=== PATIENT | female | born 1945 | race Caucasian/White ===

== ENCOUNTER 2018-02-21 12:10 | Inpatient (IN) ==
[2018-02-21] MEDS ORDERED: LACTATED RINGERS 1,000 ML IV ONE (12:21)
--- NOTE | 2018-02-21 12:22 | Emergency Department Note ---
General Adult HPI - General Chief complaint: Altered Mental Status Stated complaint: resp distress, confusion Time Seen by Provider: 02/21/18 12:19 Source: EMS Mode of arrival: EMS Limitations: altered mental status, physical limitation - History of Present Illness HPI Narrative: This patient was diagnosed with influenza a 2 days ago but I do not have a record of that here in the ER. He is a prison perforation at [address] [place] [address] and also a dialysis patient of Dr. Espinal. I saw her 2 weeks ago and she was admitted to [facility] for hyperkalemia. She has had a low O2 saturation 88% range she is been confused coughing bringing up some yellow- green sputum. This is been going on for the last day. - Related Data Home Medications Medication Instructions Recorded Confirmed Calcitriol [Rocaltrol] 0.25 mcg PO DAILY 10/06/17 10/06/17 Isosorbide Dinitrate 20 mg PO DAILY 10/06/17 10/06/17 Mirtazapine [Remeron] 15 mg PO HS 10/06/17 10/06/17 QUEtiapine FUMARATE [Seroquel] 25 mg PO HS 10/06/17 10/06/17 Tamsulosin HCl [Flomax] 0.4 mg PO DAILY 10/06/17 10/06/17 Docusate Sodium [Colace] 100 mg PO DAILY 01/20/18 01/20/18 Amoxicillin 250 mg PO BID 02/21/18 02/21/18 Baclofen [Lioresal] 10 mg PO BID 02/21/18 02/21/18 Bethanechol [Urecholine] 10 mg PO TID 02/21/18 02/21/18 Bisacodyl [Dulcolax] 5 mg PO DAILY 02/21/18 02/21/18 Hydrocodone/APAP 7.5/325Mg [Fitzwilliam 1 tab PO BID 02/21/18 02/21/18 7.5-325Mg] Oseltamivir Phosphate [Tamiflu] 75 mg PO BID 02/21/18 02/21/18 Pantoprazole [Protonix] 40 mg PO HS 02/21/18 02/21/18 QUEtiapine FUMARATE [Seroquel Xr] 50 mg PO BID 02/21/18 02/21/18 Tamsulosin HCl [Flomax] 0.4 mg PO DAILY 02/21/18 02/21/18 Tiotropium [place] [Spiriva] 18 mcg INH DAILY 02/21/18 02/21/18 amLODIPine [Norvasc] 5 mg PO DAILY 02/21/18 02/21/18 fentaNYL [Duragesic] 25 mcg TOPICAL Q72H 02/21/18 02/21/18 hydrALAZINE [Apresoline] 25 mg PO BID 02/21/18 02/21/18 Previous Rx's Medication Instructions Recorded LORazepam [Ativan] 0.5 mg PO BID #15 tab 10/06/17 Allergies Allergy/AdvReac Type Severity Reaction Status Date / Time gabapentin [From Neurontin] Allergy Severe Unknown Verified 02/04/18 16:44 methocarbamol Allergy Severe Unknown Verified 02/04/18 16:44 pentazocine [From Talwin] Allergy Severe Unknown Verified 02/04/18 16:44 pregabalin [From Lyrica] Allergy Mild Unknown Verified 02/04/18 16:44 carbamazepine Allergy Unknown Unknown Verified 02/04/18 16:44 Sulfa (Sulfonamide AdvReac Intermediate Swelling Verified 02/04/18 16:44 Antibiotics) Cyclobenzaprine AdvReac Mild Gastrointestinal Verified 02/04/18 16:44 [From Flexeril] Upset NSAIDS (Non-Steroidal AdvReac Mild Gastrointestinal Verified 02/04/18 16:44 Anti-Inflamma Upset sumatriptan [From Imitrex] AdvReac Mild Gastrointestinal Verified 02/04/18 16:44 Upset Anti-inflammatory Allergy Unknown Unknown Uncoded 05/27/16 15:36 Antidepressants Allergy Unknown Unknown Uncoded 05/27/16 15:36 Flexoril Allergy Unknown Unknown Uncoded 05/27/16 15:36 Review of Systems Limitations: ROS unobtainable due to patients medical condition Past Medical History - Past Medical History [facility] Narrative: Medical History Cough (Chronic) Urinary frequency (Chronic) Painful urination (Chronic) Neck stiffness (Chronic) Neck pain (Chronic) Joint pain (Chronic) Back pain (Chronic) Tired (Chronic) Excessive thirst (Chronic) Fever (Chronic) Headache (Chronic) Renal insufficiency (Chronic) Hydroureter, right (Chronic) Adenomatous colon polyp (Chronic) Encounter for long-term (current) use of other medications (Chronic) Senile cataracts of both eyes (Chronic) terminal superintendent prescription opiate use (Chronic) Irritable bowel syndrome with diarrhea (Chronic) Chronic anemia (Acute) Nausea vomiting and diarrhea (Acute) Acute kidney injury superimposed on chronic kidney disease (Acute) Volume depletion (Acute) Hammer toe of right foot (Acute) Insomnia (Acute) Gastrointestinal hemorrhage (Chronic) Heart failure (Chronic) Irregular heart rhythm (Chronic) Urinary retention (Chronic) CKD (chronic kidney disease) (Chronic) AMIRA (acute kidney injury) (Chronic) Cholelithiasis with chronic cholecystitis (Chronic) Hx of adenomatous colonic polyps (Chronic) Weight loss, abnormal (Chronic) CAD (coronary artery disease) (Chronic) Anxiety disorder (Chronic) Back pain, chronic (Chronic) Osteoporosis (Chronic) Hypercholesterolemia (Chronic) Hypertension, essential (Chronic) Scoliosis (Chronic) Unsteady gait (Chronic) Cataract, senile (Chronic) Hydronephrosis (Chronic) Tremor (Chronic) Urinary incontinence (Chronic) Anemia (Chronic) Cold intolerance (Chronic) Opioid abuse (Chronic) Gastric ulcer (Chronic) Insomnia (Chronic) Irritable bowel syndrome (Chronic) History of abdominal x-ray series (Chronic 05/11/16) Congestive heart failure (Chronic) 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) Acute on chronic renal failure (Chronic) Chronic renal failure, stage 4 (severe) (Chronic) Normocytic anemia (Chronic) Abdominal pain (Chronic) Indigestion (Chronic) Past Surgical History History of back surgery (Chronic) History of cataract surgery (Chronic) History of coronary artery bypass graft (Chronic) History of hysterectomy (Chronic) Family History (Last Reviewed 04/27/17 @ 15:35 by Nora Eng RN) Unknown Heart problem Other Heart attack Hypertension Kidney stone Medical history: Reports: arthritis, coronary artery disease, hyperlipidemia, osteoporosis Psychiatric history: Reports: other (insomnia) REAL PROPERTY EVALUATOR history: Reports: non-contributory Surgical history ED: Reports: coronary bypass (CABG), orthopedic, other, ureteral stent, hysterectomy - Social History smoking status: Current every day smoker Alcohol use: Reports: None Physical Exam Limitations: altered mental status, physical limitation General appearance: lethargic Head: atraumatic, normocephalic Eye: Present: normal appearance ENT: mucous membranes dry Neck: Present: normal inspection Chest: Present: normal inspection Respiratory: Present: other (Scattered rhonchi) Cardiovascular: Present: regular rate, normal rhythm, normal heart sounds Abdominal: Present: soft. Absent: distention, tenderness Neurological: Present: alert Psychiatric: Present: normal affect, normal mood Skin: Present: warm, dry, intact Course Vital Signs Pulse Rate 106 H 02/21/18 12:11 Respiratory Rate 20 02/21/18 12:11 Blood Pressure 152/103 02/21/18 12:11 Pulse Oximetry (%) 100 02/21/18 12:11 Temperature 98.9 F 02/21/18 12:20 Pulse Rate 91 H 02/21/18 15:45 Respiratory Rate 20 02/21/18 15:45 Blood Pressure 110/54 02/21/18 15:45 Pulse Oximetry (%) 98 02/21/18 15:45 Medical Decision Making - MDM Narrative Medical decision making narrative: This patient is reasonably stable from a pulmonary standpoint although her chest x-ray was read as showing some mild fluid overload. O2 saturation is 98% on 3 L and she is calm and comfortable. She does appear to have a urinary tract infection and we will start Rocephin for her. I discussed case with Dr. Germain and she will be admitted to the hospital.. - Lab Data Lab results reviewed: Yes I reviewed the patient's lab results. Result diagrams: 02/21/18 12:45 02/21/18 12:45 Lab Results 02/21/18 02/21/18 02/21/18 Range/Units 12:45 12:45 12:45 WBC 7.8 (4.5-11.0) K/mcL RBC 2.93 L (4.00-5.20) M/mcL Hgb 9.1 L (12.0-15.0) g/dL Hct 27.8 L (36.0-48.0) % MCV 94.8 (80.0-100.0) fL MCH 31.1 (26.0-34.0) pg MCHC 32.8 (31.0-36.0) g/dL RDW 17.7 H (11.5-14.5) % Plt Count 160 (140-440) K/mcL MPV 7.5 (7.4-10.4) fL Gran % 68.7 (38.0-78.0) % Lymph % (Auto) 12.9 L (15.5-49.0) % [place] % (Auto) 11.3 (1.0-12.0) % Eos % (Auto) 6.9 (0.0-7.0) % Baso % (Auto) 0.2 (0.0-2.0) % Gran # 5.4 (1.8-8.0) K/mcL Lymph # (Auto) 1.0 L (1.5-4.8) K/mcL [place] # (Auto) 0.9 (0.1-0.9) K/mcL Eos # (Auto) 0.5 (0.0-0.7) K/mcL Baso # (Auto) 0 (0.0-0.3) K/mcL VBG Lactic Acid 0.9 (0.5-2.2) mmol/L Sodium 137 (133-145) mmol/L Potassium 4.7 (3.3-5.1) mmol/L Chloride 99 (96-108) mmol/L Carbon Dioxide 22 (22-30) mmol/L Anion Gap 16.0 (8-16) BUN 45 H (8-23) mg/dl Creatinine 3.7 H (0.6-1.1) mg/dl GFR Calculation 11 Glucose 86 (70-105) mg/dL Calcium 8.9 (8.6-10.4) mg/dl Total Bilirubin < 0.2 (0.0-1.0) mg/dL AST 28 (0-37) U/l ALT 12 (0-40) U/l Alkaline Phosphatase 58 (39-117) U/L Myoglobin (25-58) ng/ml Troponin T (0-0.03) ng/ml NT-Pro-B Natriuret Pep (0-125) pg/ml Total Protein 6.1 (5.9-8.4) gm/dL Albumin 3.4 (3.2-5.2) gm/dL Globulin 2.7 (2.2-3.7) gm/dL Albumin/Globulin Ratio 1.3 (1.0-2.3) Urine Color Urine Appearance Urine pH (5.0-9.0) Ur Specific [place] (1.000-1.035) Urine Protein (NEG) mg/dL Urine Glucose (UA) (NEG) mg/dL Urine Ketones (NEG) mg/dL Urine Occult Blood (<0.03) mg/dL Urine Nitrate (NEG) Urine Bilirubin (NEG) mg/dL Urine Urobilinogen (NEG) mg/dL Ur Leukocyte Esterase (NEG) /uL Urine RBC (0-1) /hpf Urine WBC (0-4) /hpf Ur Squamous Epith Cells (0-4) /hpf Urine Bacteria (0) /hpf Ur Culture Indicated? 02/21/18 02/21/18 02/21/18 Range/Units 12:45 12:45 14:19 WBC (4.5-11.0) K/mcL RBC (4.00-5.20) M/mcL Hgb (12.0-15.0) g/dL Hct (36.0-48.0) % MCV (80.0-100.0) fL MCH (26.0-34.0) pg MCHC (31.0-36.0) g/dL RDW (11.5-14.5) % Plt Count (140-440) K/mcL MPV (7.4-10.4) fL Gran % (38.0-78.0) % Lymph % (Auto) (15.5-49.0) % [place] % (Auto) (1.0-12.0) % Eos % (Auto) (0.0-7.0) % Baso % (Auto) (0.0-2.0) % Gran # (1.8-8.0) K/mcL Lymph # (Auto) (1.5-4.8) K/mcL [place] # (Auto) (0.1-0.9) K/mcL Eos # (Auto) (0.0-0.7) K/mcL Baso # (Auto) (0.0-0.3) K/mcL VBG Lactic Acid (0.5-2.2) mmol/L Sodium (133-145) mmol/L Potassium (3.3-5.1) mmol/L Chloride (96-108) mmol/L Carbon Dioxide (22-30) mmol/L Anion Gap (8-16) BUN (8-23) mg/dl Creatinine (0.6-1.1) mg/dl GFR Calculation Glucose (70-105) mg/dL Calcium (8.6-10.4) mg/dl Total Bilirubin (0.0-1.0) mg/dL AST (0-37) U/l ALT (0-40) U/l Alkaline Phosphatase (39-117) U/L Myoglobin (25-58) ng/ml Troponin T 0.05 H* 0.06 H* (0-0.03) ng/ml NT-Pro-B Natriuret Pep 2798.0 H (0-125) pg/ml Total Protein (5.9-8.4) gm/dL Albumin (3.2-5.2) gm/dL Globulin (2.2-3.7) gm/dL Albumin/Globulin Ratio (1.0-2.3) Urine Color Urine Appearance Urine pH (5.0-9.0) Ur Specific [place] (1.000-1.035) Urine Protein (NEG) mg/dL Urine Glucose (UA) (NEG) mg/dL Urine Ketones (NEG) mg/dL Urine Occult Blood (<0.03) mg/dL Urine Nitrate (NEG) Urine Bilirubin (NEG) mg/dL Urine Urobilinogen (NEG) mg/dL Ur Leukocyte Esterase (NEG) /uL Urine RBC (0-1) /hpf Urine WBC (0-4) /hpf Ur Squamous Epith Cells (0-4) /hpf Urine Bacteria (0) /hpf Ur Culture Indicated? 02/21/18 02/21/18 Range/Units 14:19 15:10 WBC (4.5-11.0) K/mcL RBC (4.00-5.20) M/mcL Hgb (12.0-15.0) g/dL Hct (36.0-48.0) % MCV (80.0-100.0) fL MCH (26.0-34.0) pg MCHC (31.0-36.0) g/dL RDW (11.5-14.5) % Plt Count (140-440) K/mcL MPV (7.4-10.4) fL Gran % (38.0-78.0) % Lymph % (Auto) (15.5-49.0) % [place] % (Auto) (1.0-12.0) % Eos % (Auto) (0.0-7.0) % Baso % (Auto) (0.0-2.0) % Gran # (1.8-8.0) K/mcL Lymph # (Auto) (1.5-4.8) K/mcL [place] # (Auto) (0.1-0.9) K/mcL Eos # (Auto) (0.0-0.7) K/mcL Baso # (Auto) (0.0-0.3) K/mcL VBG Lactic Acid (0.5-2.2) mmol/L Sodium (133-145) mmol/L Potassium (3.3-5.1) mmol/L Chloride (96-108) mmol/L Carbon Dioxide (22-30) mmol/L Anion Gap (8-16) BUN (8-23) mg/dl Creatinine (0.6-1.1) mg/dl GFR Calculation Glucose (70-105) mg/dL Calcium (8.6-10.4) mg/dl Total Bilirubin (0.0-1.0) mg/dL AST (0-37) U/l ALT (0-40) U/l Alkaline Phosphatase (39-117) U/L Myoglobin 174 H (25-58) ng/ml Troponin T (0-0.03) ng/ml NT-Pro-B Natriuret Pep (0-125) pg/ml Total Protein (5.9-8.4) gm/dL Albumin (3.2-5.2) gm/dL Globulin (2.2-3.7) gm/dL Albumin/Globulin Ratio (1.0-2.3) Urine Color Yellow Urine Appearance Hazy Urine pH 7.0 (5.0-9.0) Ur Specific [place] 1.011 (1.000-1.035) Urine Protein >=500 A (NEG) mg/dL Urine Glucose (UA) Negative (NEG) mg/dL Urine Ketones Neg (NEG) mg/dL Urine Occult Blood Neg (<0.03) mg/dL Urine Nitrate Neg (NEG) Urine Bilirubin Neg (NEG) mg/dL Urine Urobilinogen Neg (NEG) mg/dL Ur Leukocyte Esterase 250 A (NEG) /uL Urine RBC 9 H (0-1) /hpf Urine WBC 142 H (0-4) /hpf Ur Squamous Epith Cells 0 (0-4) /hpf Urine Bacteria 0 (0) /hpf Ur Culture Indicated? Yes - Radiology Data Radiology results reviewed: Yes I reviewed the patient's radiology results. Disposition Pt seen by COMMERCIAL CARPENTER/PA only: No Clinical Impression: Influenza A, Urinary tract infection Disposition: Xfer As Inpt ([facility]) Condition: Fair Referrals: Ana Gallegos ARNP [Primary Care Provider] - Time of Disposition: 16:01
--- NOTE | 2018-02-21 12:47 | XRay Report ---
CLINICAL INFORMATION: Shortness of breath COMPARISON: 01/20/2018 FINDINGS: Moderate cardiomegaly is unchanged. Tortuous thoracic aorta again noted. A right IJ double-lumen catheter is been placed - the tip overlies the right atrium. No pneumothorax or other complication Line placement. Pulmonary vessels are moderately distended and there is mild interstitial edema superimposed upon interstitial fibrosis which has progressed. No definite effusion IMPRESSION: Moderate CHF or volume overload. Interpreted and Authenticated by: Magdy Harris 02/21/18
[2018-02-21 13:18] LABS: Basophils # (Auto) 0 K/mcL (0.0-0.3); Basophils % (Auto) 0.2 % (0.0-2.0); Eosinophils # (Auto) 0.5 K/mcL (0.0-0.7); Eosinophils % (Auto) 6.9 % (0.0-7.0); Granulocytes % (Auto) 68.7 % (38.0-78.0); Lymphocytes % (Auto) 12.9 % (15.5-49.0); Mean Cell Volume 94.8 fL (80.0-100.0); Mean Corpuscular HGB Conc 32.8 g/dL (31.0-36.0); Mean Corpuscular Hemoglobin 31.1 pg (26.0-34.0); Monocytes # (Auto) 0.9 K/mcL (0.1-0.9); Monocytes % (Auto) 11.3 % (1.0-12.0); Platelet Count 160 K/mcL (140-440); RBC 2.93 M/mcL (4.00-5.20); Red Cell Distribution Width 17.7 % (11.5-14.5)
[2018-02-21 13:38] LABS: ALT/SGPT 12 U/l (0-40); Albumin 3.4 gm/dL (3.2-5.2); Albumin/Globulin Ratio 1.3 (1.0-2.3); Alkaline Phosphatase 58 U/L (39-117); Blood Urea Nitrogen 45 mg/dl (8-23)
[2018-02-21] MEDS ORDERED: CIPROFLOXACIN 0.3% OPHTH DROPS BOTTLE 5 ML OU ONE (15:46)
[2018-02-21 15:49] LABS: Appearance,Urine HAZY; Bacteria,Urine 0 /hpf (0); Bilirubin,Urine NEG (NEG); Color,Urine YELLOW; Glucose,Urine (UA) NEGATIVE (NEG); Leukocyte Esterase,Urine 250 /uL (NEG); Protein,Urine >=500 mg/dL (NEG); Specific Gravity,Urine 1.011 (1.000-1.035); Urine Blood NEG mg/dL (<0.03); Urine RBC 9 /hpf (0-1); Urine Squamous Epithelial Cell 0 /hpf (0-4); Urine WBC 142 /hpf (0-4); Urobilinogen,Urine NEG (NEG)
[2018-02-21] MEDS ORDERED: cefTRIAXone 1 GM VIAL IV ONE ×2 (15:59→18:00)
--- NOTE | 2018-02-21 17:25 | Internal Med History&Physical ---
Medical - H&P: [facility] Patient information: Note initiated : 02/21/18 at 5:22 pm Service Date, if different from initiated Date: [] Patient: Alexandra Zapata 72 y/o F admitted on 02/21/18 for resp distress, confusion. Chief Complaint: [] Chief complaint: confusion/fever History of present illness: Ms. Zapata is a 72 year old F with ESRD on hemodialysis and recent hospitalization. Patient was recovering at [facility] and was directed to the ER after she was found confused, weak and febrile by the staff at [facility]. patient was unable to provide any meaningful history to the ER physician. Initial workup was significant for pyuria along with a MAXIMUM TEMPERATURE over 100. Subsequently hospitalist service was consulted in light of acute change in mental status and complicated UTI. Nephrology was also consulted in light of end-stage renal disease on hemodialysis. patient is due for hemodialysis on Thursday. patient also was recently diagnosed with influenza and was on Tamiflu and amoxicillin. At the time of evaluation, patient is unable to provide a history due to her underlying baseline dementia and acute worsening mental status. She was however able to answer leading questions in yes and no. She denies chest pain headache. Her right eye lids have been swollen and red. She denies diarrhea or abdominal pain.No family members are present. Most history is obtained from ER records and [facility] documents. review of systems 10 point review of systems was attempted but could not be performed. Medical - H&P: H Medical history: Acute kidney injury superimposed on chronic kidney disease (Acute) Chronic anemia (Acute) Hammer toe of right foot (Acute) Insomnia (Acute) Nausea vomiting and diarrhea (Acute) Volume depletion (Acute) AMIRA (acute kidney injury) (Chronic) Abdominal pain (Chronic) Acute on chronic renal failure (Chronic) Adenomatous colon polyp (Chronic) Anemia (Chronic) Anxiety disorder (Chronic) Back pain (Chronic) Back pain, chronic (Chronic) CAD (coronary artery disease) (Chronic) CKD (chronic kidney disease) (Chronic) Cataract, senile (Chronic) Cholelithiasis with chronic cholecystitis (Chronic) Chronic renal failure, stage 4 (severe) (Chronic) Cold intolerance (Chronic) Congestive heart failure (Chronic) Cough (Chronic) Encounter for long-term (current) use of other medications (Chronic) Excessive thirst (Chronic) Fever (Chronic) Gastric ulcer (Chronic) Gastrointestinal hemorrhage (Chronic) Headache (Chronic) Heart failure (Chronic) History of abdominal x-ray series (Chronic 05/11/16) Hx of adenomatous colonic polyps (Chronic) Hydronephrosis (Chronic) 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) Hydroureter, right (Chronic) Hypercholesterolemia (Chronic) Hypertension, essential (Chronic) Indigestion (Chronic) Insomnia (Chronic) Irregular heart rhythm (Chronic) Irritable bowel syndrome (Chronic) Irritable bowel syndrome with diarrhea (Chronic) Joint pain (Chronic) penitentiary prescription opiate use (Chronic) Neck pain (Chronic) Neck stiffness (Chronic) Normocytic anemia (Chronic) Opioid abuse (Chronic) Osteoporosis (Chronic) Painful urination (Chronic) Renal insufficiency (Chronic) Scoliosis (Chronic) Senile cataracts of both eyes (Chronic) Tired (Chronic) Tremor (Chronic) Unsteady gait (Chronic) Urinary frequency (Chronic) Urinary incontinence (Chronic) Urinary retention (Chronic) Weight loss, abnormal (Chronic) Surgical History History of back surgery (Chronic) History of cataract surgery (Chronic) History of coronary artery bypass graft (Chronic) History of hysterectomy (Chronic) Pertinent family history: per medical records history of coronary artery disease hypertension and renal stones. Smoking status: Current every day smoker Drug use: none Alcohol use: none Employment history: disabled Medical - H&P: Meds Home Medications Medication Instructions Recorded Confirmed Type Calcitriol [Rocaltrol] 0.25 mcg PO DAILY 10/06/17 10/06/17 History Isosorbide Dinitrate 20 mg PO DAILY 10/06/17 10/06/17 History LORazepam [Ativan] 0.5 mg PO BID #15 tab 10/06/17 Rx Mirtazapine [Remeron] 15 mg PO HS 10/06/17 10/06/17 History QUEtiapine FUMARATE [Seroquel] 25 mg PO HS 10/06/17 10/06/17 History Tamsulosin HCl [Flomax] 0.4 mg PO DAILY 10/06/17 10/06/17 History Docusate Sodium [Colace] 100 mg PO DAILY 01/20/18 01/20/18 History Amoxicillin 250 mg PO BID 02/21/18 02/21/18 History Baclofen [Lioresal] 10 mg PO BID 02/21/18 02/21/18 History Bethanechol [Urecholine] 10 mg PO TID 02/21/18 02/21/18 History Bisacodyl [Dulcolax] 5 mg PO DAILY 02/21/18 02/21/18 History Hydrocodone/APAP 7.5/325Mg [[place]im 1 tab PO BID 02/21/18 02/21/18 History 7.5-325Mg] Oseltamivir Phosphate [Tamiflu] 75 mg PO BID 02/21/18 02/21/18 History Pantoprazole [Protonix] 40 mg PO HS 02/21/18 02/21/18 History QUEtiapine FUMARATE [Seroquel Xr] 50 mg PO BID 02/21/18 02/21/18 History Tamsulosin HCl [Flomax] 0.4 mg PO DAILY 02/21/18 02/21/18 History Tiotropium [place] [Spiriva] 18 mcg INH DAILY 02/21/18 02/21/18 History amLODIPine [Norvasc] 5 mg PO DAILY 02/21/18 02/21/18 History fentaNYL [Duragesic] 25 mcg TOPICAL Q72H 02/21/18 02/21/18 History hydrALAZINE [Apresoline] 25 mg PO BID 02/21/18 02/21/18 History Allergies Allergy/AdvReac Type Severity Reaction Status Date / Time gabapentin [From Neurontin] Allergy Severe Unknown Verified 02/04/18 16:44 methocarbamol Allergy Severe Unknown Verified 02/04/18 16:44 pentazocine [From Talwin] Allergy Severe Unknown Verified 02/04/18 16:44 pregabalin [From Lyrica] Allergy Mild Unknown Verified 02/04/18 16:44 carbamazepine Allergy Unknown Unknown Verified 02/04/18 16:44 Sulfa (Sulfonamide AdvReac Intermediate Swelling Verified 02/04/18 16:44 Antibiotics) Cyclobenzaprine AdvReac Mild Gastrointestinal Verified 02/04/18 16:44 [From Flexeril] Upset NSAIDS (Non-Steroidal AdvReac Mild Gastrointestinal Verified 02/04/18 16:44 Anti-Inflamma Upset sumatriptan [From Imitrex] AdvReac Mild Gastrointestinal Verified 02/04/18 16:44 Upset Anti-inflammatory Allergy Unknown Unknown Uncoded 05/27/16 15:36 Antidepressants Allergy Unknown Unknown Uncoded 05/27/16 15:36 Flexoril Allergy Unknown Unknown Uncoded 05/27/16 15:36 Medical - H&P: Exam - Constitutional Vitals: Temp Pulse Resp BP Pulse Ox 98.9 F 106 H 25 H 171/74 95 02/21/18 12:20 02/21/18 16:45 02/21/18 16:45 02/21/18 16:45 02/21/18 16:45 General appearance: disheveled, thin Exam: confused Pupils symmetric Right upper and lower eyelids erythema/eedema Head normocephalic Neck no lymphadenopathy S1-S2 tachycardia Chest sternotomy incision scar Abdomen soft, epigastric pulsations noted Worsening no cyanosis clubbing No joint swelling or erythema Skin no suspicious lesion except for pallor Psych confused, No agitation Neuro moving all 4 eextremities Medical - H&P: Reslt - Labs CBC & Chem 7: 02/22/18 03:55 02/22/18 03:55 Labs: Short CBC 02/21/18 Range/Units 12:45 WBC 7.8 (4.5-11.0) K/mcL Hgb 9.1 L (12.0-15.0) g/dL Hct 27.8 L (36.0-48.0) % Plt Count 160 (140-440) K/mcL BMP 02/21/18 12:45 Sodium 137 Potassium 4.7 Chloride 99 Carbon Dioxide 22 BUN 45 H Creatinine 3.7 H Glucose 86 Calcium 8.9 Cardiac Enzymes 02/21/18 02/21/18 02/21/18 Range/Units 12:45 14:19 14:19 CK-MB (CK-2) 3.0 H (0-2.9) ng/ml Troponin T 0.05 H* 0.06 H* (0-0.03) ng/ml Liver Function 02/21/18 Range/Units 12:45 Total Bilirubin < 0.2 (0.0-1.0) mg/dL AST 28 (0-37) U/l ALT 12 (0-40) U/l Alkaline Phosphatase 58 (39-117) U/L Albumin 3.4 (3.2-5.2) gm/dL Urine 02/21/18 Range/Units 15:10 Urine Color Yellow Urine Appearance Hazy Urine pH 7.0 (5.0-9.0) Ur Specific [place] 1.011 (1.000-1.035) Urine Protein >=500 A (NEG) mg/dL Urine Glucose (UA) Negative (NEG) mg/dL Medical - H&P: A/P (1) Complicated UTI (urinary tract infection) Current visit: Yes Status: Acute * complicated UTI with acute mental status change-initiate broad antibiotic coverage. Continue monitoring * acute mental status change likely is secondary to complicated UTI/opioids. Lower dose of fentanyl. Hold antihistamine/zolpidem/sedatives. * blepharitis-continue ciprofloxacin eyedrops * recent influenza continue Tamiflu-edges dose renally * History of ESRD on hemodialysis-consult nephrology * hypertension on Coreg/losartan * reactive airway disease on bronchodilators * hypothyroidism on thyroxine * Anxiety disorder on duloxetine * GERD on PPI * Hyperlipidemia statin * History of CAD on aspirin and statin beta mustapha/ÓSCAR inhibitor/iisosorbide dinitrate * DNR Plan * inpatient telemetry admitted * antibiotic coverage * HD per nephrology * Pre-existing medical condition management as above
[2018-02-21] MEDS ORDERED: OSELTAMIVIR PHOSPHATE 75 MG CAPSULE PO ONE (18:15)
[2018-02-21] MEDS: BACLOFEN 10 MG TABLET PO SCH (20:12)
[2018-02-21] MEDS: hydrALAZINE 25 MG TABLET PO SCH (20:12)
[2018-02-21] MEDS: SENNOSIDES/DOCUSATE SODIUM 1 TAB TABLET PO SCH (20:13)
[2018-02-21] MEDS: DOCUSATE SODIUM 100 MG CAPSULE PO SCH (20:13)
[2018-02-21] MEDS: HEPARIN 5,000 UNIT/ML VIAL SQ SCH (20:13)
[2018-02-21] MEDS: QUEtiapine 25 MG TABLET PO SCH (20:13)
[2018-02-21] MEDS: PANTOPRAZOLE 40 MG TABLET PO SCH (20:13)
[2018-02-21] MEDS: HYDROCODONE/APAP 7.5/325MG TABLET PO SCH (20:13)
[2018-02-21] MEDS: BETHANECHOL 10 MG TABLET PO SCH (22:57)
[2018-02-21] MEDS: 0.9 % SODIUM CHLORIDE 10 ML SYRINGE IV SCH (22:58)
[2018-02-22 04:57] LABS: Mean Cell Volume 95.5 fL (80.0-100.0); Mean Corpuscular HGB Conc 32.6 g/dL (31.0-36.0); Mean Corpuscular Hemoglobin 31.1 pg (26.0-34.0); Platelet Count 157 K/mcL (140-440); RBC 2.97 M/mcL (4.00-5.20); Red Cell Distribution Width 17.3 % (11.5-14.5)
[2018-02-22 05:13] LABS: ALT/SGPT 10 U/l (0-40); Albumin 3.2 gm/dL (3.2-5.2); Albumin/Globulin Ratio 1.1 (1.0-2.3); Alkaline Phosphatase 57 U/L (39-117); Bilirubin,Direct < 0.2 mg/dL (0.0-0.3); Blood Urea Nitrogen 47 mg/dl (8-23); Gamma Glutamyl Transpeptidase 43 U/L (5-36); Uric Acid 6.5 mg/dL (2.5-8.0)
[2018-02-22 06:22] LABS: Anisocytosis 1+ (NONE SEEN); Band Neutrophils % 12 % (0-10); Lymphocytes % 13 % (15-49); Metamyelocytes % 2 % (0-0); Monocytes % (Manual) 6 % (1-12); Platelet Estimate NORMAL (NORMAL); RBC Morphology ABNORMAL (NORMAL); Segmented Neutrophils % 66 % (38-78)
[2018-02-22] MEDS: 0.9 % SODIUM CHLORIDE 10 ML SYRINGE IV SCH ×3 (06:47→22:00)
[2018-02-22] MEDS: TAMSULOSIN 0.4 MG CAPSULE PO SCH (08:11)
[2018-02-22] MEDS: amLODIPine 5 MG TABLET PO SCH (08:11)
[2018-02-22] MEDS: BETHANECHOL 10 MG TABLET PO SCH ×3 (08:12→21:40)
[2018-02-22] MEDS: cefTRIAXone 2 GM in DEXTROSE 5% IN WATER 50 ML IV SCH (08:13)
[2018-02-22] MEDS: THIAMINE 100 MG in 0.9 % SODIUM CHLORIDE 50 ML IV SCH (08:13)
[2018-02-22] MEDS: HEPARIN 5,000 UNIT/ML VIAL SQ SCH ×2 (08:13→21:39)
[2018-02-22] MEDS: DOCUSATE SODIUM 100 MG CAPSULE PO SCH ×2 (08:14→21:38)
[2018-02-22] MEDS: hydrALAZINE 25 MG TABLET PO SCH (08:17)
[2018-02-22] MEDS: BACLOFEN 10 MG TABLET PO SCH ×2 (08:17→21:39)
[2018-02-22] MEDS: MULTIVIT,THER IRON,CA,FA & MIN 1 TABLET PO SCH (08:21)
[2018-02-22] MEDS: HYDROCODONE/APAP 7.5/325MG TABLET PO SCH ×2 (08:21→21:39)
[2018-02-22] MEDS: TIOTROPIUM BROMIDE 18 MCG INHALANT INH SCH (09:55)
[2018-02-22] MEDS ORDERED: fentaNYL 25 MCG PATCH TOPICAL SCH (10:00)
--- NOTE | 2018-02-22 11:09 | Consultation ---
DATE OF CONSULTATION: 02/22/2018 REFERRING PHYSICIAN: Yoseph Aquino M.D. REASON FOR CONSULTATION: Change in mental status. REASON FOR HOSPITALIZATION: The patient is a 72-year-old female with past medical history significant for end-stage renal disease on hemodialysis. She had obstructive uropathy with progression of the kidney disease. She has been recovering at [facility] and was brought in because of change in mental status. She was recently diagnosed with flu. She tested positive for influenza. She had low-grade fever as well. She was [facility] on Tam[facility] at the [facility] as well. She has been coughing but not severely. She is not bringing up any phlegm. She had a temperature of 100 apparently at the [facility]. Her appetite has been adequate. She has been confused on and off. PAST MEDICAL HISTORY: Significant for: 1. End-stage renal disease on hemodialysis secondary to obstructive uropathy. 2. Chronic edema. 3. Anxiety disorder. 4. Coronary artery disease. 5. History of chronic congestive heart failure. 6. Gastrointestinal hemorrhage in the past. 7. Headaches. 8. Hypercholesterolemia. 9. Hypertension 10. Osteoporosis. 11. Opioid use. 12. Scoliosis. 13. Urinary tract infections. PAST SURGICAL HISTORY: Significant for back surgery, chronic cataract surgery, coronary artery bypass graft and hysterectomy. SOCIAL HISTORY: She smokes but has cut back significantly. Currently at a assisted facility. No history of alcohol or drug use. FAMILY HISTORY: Noncontributory. REVIEW OF SYSTEMS: Ten systems were reviewed and as listed in the history of present illness. PHYSICAL EXAMINATION: GENERAL: Alert to time, oriented x1. She responds to immediate questions and her name, but the responses are short and minimal. HEENT: NC/AT. Pupils are reactive. NECK: Supple. She has about 8 cm of jugular venous distention. No lymphadenopathy. No thyromegaly. No carotid bruits. LUNGS: Decreased air entry bilaterally. Rales in the bases. CARDIAC: S1, S2 heard. No S3, S4. She has a 2/6 systolic murmur. ABDOMEN: Soft, nontender. No edema. Positive bowel sounds. No mass. No rebound. EXTREMITIES: Did not show any evidence of edema. Difficult to palpate a dorsalis pedis and posterior tibial. LABORATORY DATA: White count is 8.8 with hemoglobin of 9.2 and a platelet count of 157. Sodium 138, potassium 4.6, chloride 102, CO2 21, BUN of 47, creatinine of 3.6, phosphorus 5.6. LDH of 257. ASSESSMENT AND PLAN: 1. Change in mental status, possibly related to infectious process. Narcotic use is also possible. I will dialyze her today and see if her mental status will improve. The rest of the management per Hospitalist. 2. End-stage renal disease on hemodialysis. She does not appear volume overloaded, and her electrolytes are okay, but we will dialyze her because it is her regular day today. 3. Anemia, multifactorial. Hemoglobin stable. 4. Hyperphosphatemia with a phosphorus of 5.6, and she is on a binder. MARIZA:jose Job ID: [id number] Doc ID: [id number] Abel Aquino MD
--- NOTE | 2018-02-22 11:18 | Internal Med Progress Note ---
Medical - PN: Subj Patient information: Note initiated : 02/22/18 at 11:14 am Service Date, if different from initiated Date: [] Patient: Alexandra Zapata 72 y/o F admitted on 02/21/18 for resp distress, confusion. Chief Complaint: [] Interval history: Ms. Zapata is a 72 year old F with ESRD on hemodialysis and recent hospitalization. Patient was recovering at [facility] [place] and was directed to the ER after she was found confused, weak and febrile by the staff at care Center. patient was unable to provide any meaningful history to the ER physician. Initial workup was significant for pyuria along with a MAXIMUM TEMPERATURE over 100. Subsequently hospitalist service was consulted in light of acute change in mental status and complicated UTI. Nephrology was also consulted in light of end-stage renal disease on hemodialysis. patient is due for hemodialysis on Thursday. patient also was recently diagnosed with influenza and was on Tamiflu and amoxicillin. At the time of evaluation, patient is unable to provide a history due to her underlying baseline dementia and acute worsening mental status. She was however able to answer leading questions in yes and no. She denies chest pain headache. Her right eye lids have been swollen and red. She denies diarrhea or abdominal pain.No family members are present. Most history is obtained from ER records and care center documents. 02/22- patient much more lucid and responding to commands. No overnight events. Persistent tachycardia around 110. Foleys catheter draining dark urine. Nephrology consulted for baseline ESRD requiring hemodialysis. On contact precaution for influenza B. On Tamiflu. white count 8.8. - Constitutional Vitals: Vital Signs Temp Pulse Resp BP Pulse Ox 99.1 F H 102 H 18 170/94 95 02/22/18 06:45 02/22/18 09:56 02/22/18 09:56 02/22/18 08:01 02/22/18 09:56 Period Temp Pulse Resp BP Sys/Barrera Pulse Ox Last 24 Hr 98.4 F-100.5 F 89-118 8-47 86-199/48-103 89-100 Intake and Output 02/21/18 02/22/18 02/22/18 21:59 05:59 13:59 Intake Total 0 / 0 50 / 50 Output Total 825 / 825 370 / 370 Balance -825 / -825 -370 / -370 50 / 50 Weight 91 lb 14.4 oz Intake & Output: Intake & Output 02/21/18 02/22/18 02/22/18 21:59 05:59 13:59 Intake Total 0 / 0 50 / 50 Output Total 825 / 825 370 / 370 Balance -825 / -825 -370 / -370 50 / 50 Weight 91 lb 14.4 oz Intake: IV 50 / 50 Rocephin 2 gm In Dextrose 5% in 50 / 50 Water 50 ml @ 100 mls/hr IV DAILY [facility] Rx#:[id number] Oral 0 / 0 Output: Urine Catheter Amount 825 / 825 370 / 370 Other: Meal Applesauce Breakfast Percent of Meal Consumed 100% 25% Feeding Ability Total Assistance General appearance: no acute distress Exam: starting to respond Nonlabored breathing No telemetry events No anxiety or agitation Foleys draining dark urine Medical - PN: Obj Da - Labs CBC & Chem 7: 02/22/18 03:55 02/22/18 03:55 Labs: Abnormal Lab Results 02/22/18 02/22/18 02/21/18 03:55 03:55 15:10 RBC 2.97 L Hgb 9.2 L Hct 28.3 L RDW 17.3 H Lymph % (Auto) Lymph # (Auto) Band Neutrophils % 12 H Lymphocytes % 13 L Metamyelocytes % 2 H Anisocytosis 1+ A Carbon Dioxide 21 L BUN 47 H Creatinine 3.6 H Phosphorus 5.6 H GGT 43 H Lactate Dehydrogenase 253 H CK-MB (CK-2) Myoglobin Troponin T NT-Pro-B Natriuret Pep Triglycerides 204 H Urine Protein >=500 A Ur Leukocyte Esterase 250 A Urine RBC 9 H Urine WBC 142 H 02/21/18 02/21/18 02/21/18 14:19 14:19 14:19 RBC Hgb Hct RDW Lymph % (Auto) Lymph # (Auto) Band Neutrophils % Lymphocytes % Metamyelocytes % Anisocytosis Carbon Dioxide BUN Creatinine Phosphorus GGT Lactate Dehydrogenase CK-MB (CK-2) 3.0 H Myoglobin 174 H Troponin T 0.06 H* NT-Pro-B Natriuret Pep Triglycerides Urine Protein Ur Leukocyte Esterase Urine RBC Urine WBC 02/21/18 02/21/18 02/21/18 12:45 12:45 12:45 RBC Hgb Hct RDW Lymph % (Auto) Lymph # (Auto) Band Neutrophils % Lymphocytes % Metamyelocytes % Anisocytosis Carbon Dioxide BUN 45 H Creatinine 3.7 H Phosphorus GGT Lactate Dehydrogenase CK-MB (CK-2) Myoglobin Troponin T 0.05 H* NT-Pro-B Natriuret Pep 2798.0 H Triglycerides Urine Protein Ur Leukocyte Esterase Urine RBC Urine WBC 02/21/18 12:45 RBC 2.93 L Hgb 9.1 L Hct 27.8 L RDW 17.7 H Lymph % (Auto) 12.9 L Lymph # (Auto) 1.0 L Band Neutrophils % Lymphocytes % Metamyelocytes % Anisocytosis Carbon Dioxide BUN Creatinine Phosphorus GGT Lactate Dehydrogenase CK-MB (CK-2) Myoglobin Troponin T NT-Pro-B Natriuret Pep Triglycerides Urine Protein Ur Leukocyte Esterase Urine RBC Urine WBC Meds: Medications Acetaminophen (Tylenol) 650 mg PO Q4-6HP PRN PRN Reason: PAIN/FEVER > 101 Hydrocodone Bitart/Acetaminophen ([place] 7.5/325mg) 1 tab PO BID [facility] Last Admin: 02/22/18 08:21 Dose: 1 tab Amlodipine Besylate (Norvasc) 5 mg PO DAILY [facility] Last Admin: 02/22/18 08:11 Dose: 5 mg Baclofen (Lioresal) 10 mg PO BID [facility] Last Admin: 02/22/18 08:17 Dose: 10 mg Bethanechol Chloride (Urecholine) 10 mg PO TID [facility] Last Admin: 02/22/18 08:12 Dose: 10 mg Docusate Sodium (Colace) 100 mg PO BID [facility] Last Admin: 02/22/18 08:14 Dose: 100 mg Fentanyl (Duragesic) 25 mcg TOPICAL Q72H [facility] Last Admin: 02/22/18 09:56 Dose: Not Given Heparin Sodium (Porcine) (Heparin) 5,000 unit SQ Q12 [facility] Last Admin: 02/22/18 08:13 Dose: 5,000 unit Hydralazine HCl (Apresoline) 25 mg PO BID [facility] Last Admin: 02/22/18 08:17 Dose: 25 mg Ceftriaxone Sodium 2 gm/ (Dextrose) 50 mls @ 100 mls/hr IV DAILY [facility] Last Infusion: 02/22/18 08:45 Dose: Infused Acetaminophen (Ofirmev) 650 mg in 65 mls @ 130 mls/hr IV Q6HP PRN PRN Reason: PAIN/FEVER > 101 Thiamine HCl 100 mg/ Sodium (Chloride) 51 mls @ 50 mls/hr IV DAILY [facility] Stop: 02/24/18 10:02 Last Admin: 02/22/18 08:13 Dose: 50 mls/hr Iron Carb/Multivit/Paragonah/Folic Acid (Multivitamin W/Minerals) 1 tab PO DAILY [facility] Last Admin: 02/22/18 08:21 Dose: 1 tab Seroquel Xr 50 Mg 1 dose PO BID [facility] Ondansetron HCl (Zofran) 4 mg IV Q4-6HP PRN PRN Reason: Nausea And Vomiting Oseltamivir Phosphate (Tamiflu) 75 mg PO BID [facility] Pantoprazole Sodium (Protonix) 40 mg PO [facility] Last Admin: 02/21/18 20:13 Dose: 40 mg Quetiapine Fumarate (Seroquel) 25 mg PO HS [facility] Last Admin: 02/21/18 20:13 Dose: 25 mg Senna/Docusate Sodium (Senna Plus Tablet) 1 tab PO [facility] Last Admin: 02/21/18 20:13 Dose: 1 tab Sodium Chloride (Saline Flush) 10 ml IV Q8 [facility] Last Admin: 02/22/18 06:47 Dose: 10 ml Tamsulosin HCl (Flomax) 0.4 mg PO DAILY [facility] Last Admin: 02/22/18 08:11 Dose: 0.4 mg Tiotropium [place] (Spiriva) 18 mcg INH DAILY [facility] Last Admin: 02/22/18 09:55 Dose: Not Given Medical - PN: A/P - Time Spent With Patient Total time spent is greater than 50% in coordination of care (as documented) at patient's floor/unit and/or counseling patient: 25 - 35 minutes (1) Complicated UTI (urinary tract infection) Status: Acute Assessment and plan: assessment- 72-year-old with ESRD on hemodialysis/underlying dementia admitted with acute change in mental status/complicated UTI and acute influenza B * complicated UTI with acute mental status change-continue broad antibiotic coverage. * acute mental status change likely is secondary to complicated UTI/opioids. Alicia responding to holding fentanyl. Hold antihistamine/zolpidem/sedatives. * blepharitis-continue ciprofloxacin eyedrops * acute influenza B continue Tamiflu dose renally * History of ESRD on hemodialysis-consult nephrology * hypertension on Coreg/losartan * reactive airway disease on bronchodilators * hypothyroidism on thyroxine * Anxiety disorder on duloxetine * GERD on PPI * Hyperlipidemia statin * history of dementia with agitation currently stable on quetiapine * History of CAD on aspirin and statin beta mustapha/ÓSCAR inhibitor/iisosorbide dinitrate * DNR Plan * continue close monitoring * Contact precautions * Nephrology consult for dialysis * antibiotic coverage * Pre-existing medical condition management as above Current Visit: Yes Medical - PN: Qual - VTE Deep Vein Thrombosis/Pulmonary Embolism Present on Admission: No
[2018-02-22] MEDS: SEROQUEL 50 MG PO SCH ×2 (13:16→21:41)
[2018-02-22] MEDS: CIPROFLOXACIN 0.3% OPHTH DROPS BOTTLE 5 ML OU SCH ×2 (16:49→21:38)
[2018-02-22] MEDS: METOPROLOL TARTRATE 5 MG/5 ML VIAL IV SCH ×2 (17:40→18:11)
[2018-02-22] MEDS ORDERED: VASOPRESSIN 20 UNIT/ML VIAL ONE (19:08)
[2018-02-22] MEDS ORDERED: IPRATROPIUM/ALBUTEROL 3 ML AMPUL.NEB NEB PRN (19:42)
[2018-02-22] MEDS ORDERED: IPRATROPIUM/ALBUTEROL 3 ML AMPUL.NEB NEB ONE (19:43)
[2018-02-22] MEDS ORDERED: OSELTAMIVIR PHOSPHATE 75 MG CAPSULE PO SCH (21:00)
[2018-02-22] MEDS: OSELTAMIVIR PHOSPHATE 75 MG CAPSULE PO SCH (21:39)
[2018-02-22] MEDS: SENNOSIDES/DOCUSATE SODIUM 1 TAB TABLET PO SCH (21:39)
[2018-02-22] MEDS: QUEtiapine 25 MG TABLET PO SCH (21:39)
[2018-02-22] MEDS: PANTOPRAZOLE 40 MG TABLET PO SCH (21:39)
[2018-02-22] MEDS ORDERED: HEPARIN/D5W 25,000 UNIT in PREMIX 1 BAG IV SCH (23:45)
[2018-02-22] MEDS ORDERED: NOREPINEPHRINE BITARTRATE 16 MG in 0.9 % SODIUM CHLORIDE 234 ML IV PRN (23:59)
[2018-02-23] MEDS ORDERED: HEPARIN/D5W 500 ML IV ONE (00:23)
[2018-02-23] MEDS ORDERED: HEPARIN 5,000 UNIT/ML VIAL ONE (00:39)
[2018-02-23] MEDS: hydrALAZINE 25 MG TABLET PO SCH ×3 (00:54→21:40)
[2018-02-23] MEDS: CIPROFLOXACIN 0.3% OPHTH DROPS BOTTLE 5 ML OU SCH ×6 (00:57→21:39)
[2018-02-23] MEDS: 0.9 % SODIUM CHLORIDE 250 ML IV SCH ×2 (00:59→12:36)
[2018-02-23 01:04] LABS: Basophils # (Auto) 0 K/mcL (0.0-0.3); Basophils % (Auto) 0.1 % (0.0-2.0); Eosinophils # (Auto) 0.1 K/mcL (0.0-0.7); Eosinophils % (Auto) 0.6 % (0.0-7.0); Granulocytes % (Auto) 89.8 % (38.0-78.0); Lymphocytes # (Auto) 0.7 K/mcL (1.5-4.8); Lymphocytes % (Auto) 4.6 % (15.5-49.0); Mean Cell Volume 92.1 fL (80.0-100.0); Mean Corpuscular HGB Conc 34.1 g/dL (31.0-36.0); Mean Corpuscular Hemoglobin 31.4 pg (26.0-34.0); Monocytes # (Auto) 0.7 K/mcL (0.1-0.9); Monocytes % (Auto) 4.9 % (1.0-12.0); Platelet Count 100 K/mcL (140-440); RBC 3.05 M/mcL (4.00-5.20); Red Cell Distribution Width 16.7 % (11.5-14.5)
[2018-02-23 04:57] LABS: ALT/SGPT 9 U/l (0-40); Albumin 3.5 gm/dL (3.2-5.2); Albumin/Globulin Ratio 1.1 (1.0-2.3); Alkaline Phosphatase 63 U/L (39-117); Bilirubin,Direct < 0.2 mg/dL (0.0-0.3); Blood Urea Nitrogen 25 mg/dl (8-23); Gamma Glutamyl Transpeptidase 44 U/L (5-36); Uric Acid 3.6 mg/dL (2.5-8.0)
[2018-02-23 06:41] LABS: Mean Cell Volume 94.6 fL (80.0-100.0); Mean Corpuscular HGB Conc 33.9 g/dL (31.0-36.0); Mean Corpuscular Hemoglobin 32.1 pg (26.0-34.0); Platelet Count 58 K/mcL (140-440); RBC 3.12 M/mcL (4.00-5.20); Red Cell Distribution Width 17.7 % (11.5-14.5)
[2018-02-23] MEDS: 0.9 % SODIUM CHLORIDE 10 ML SYRINGE IV SCH ×3 (07:34→21:42)
[2018-02-23 07:37] LABS: Anisocytosis 1+ (NONE SEEN); Band Neutrophils % 15 % (0-10); Lymphocytes % 2 % (15-49); Monocytes % (Manual) 4 % (1-12); Platelet Estimate DECREASED (NORMAL); RBC Morphology ABNORM (NORMAL); Segmented Neutrophils % 79 % (38-78)
--- NOTE | 2018-02-23 07:54 | XRay Report ---
HISTORY: Reason for Exam:increased sob FINDINGS: The heart size is normal and has diminished in size since 02/21/18. The pulmonary vessel congestion seen on the prior study has resolved. There are streaky opacities in both lung bases adjacent the diaphragms. These have also improved. No pleural effusion is present. There are multiple clips in the left-sided mediastinum and along the left upper heart border. There is a dialysis catheter placed to the right internal jugular vein into the right atrium. Patient also has bilateral ureteral stents. IMPRESSION: Resolved cardiomegaly and resolved pulmonary edema. Mild interstitial lung disease in both lung bases. Based upon the prior CT done on 05/10/16, patient has pulmonary fibrosis. Findings on today's study could be a combination of pulmonary fibrosis, interstitial inflammation and some residual pulmonary vascular congestion. Interpreted and Authenticated by: Kvng Ling 02/23/18
[2018-02-23] MEDS: OSELTAMIVIR PHOSPHATE 75 MG CAPSULE PO SCH ×2 (08:44→20:32)
[2018-02-23] MEDS: HYDROCODONE/APAP 7.5/325MG TABLET PO SCH ×2 (08:44→20:29)
[2018-02-23] MEDS: amLODIPine 5 MG TABLET PO SCH (08:44)
[2018-02-23] MEDS: TAMSULOSIN 0.4 MG CAPSULE PO SCH (08:44)
[2018-02-23] MEDS: BACLOFEN 10 MG TABLET PO SCH ×2 (08:44→20:22)
[2018-02-23] MEDS: DOCUSATE SODIUM 100 MG CAPSULE PO SCH ×2 (08:44→20:22)
[2018-02-23] MEDS: MULTIVIT,THER IRON,CA,FA & MIN 1 TABLET PO SCH (08:44)
[2018-02-23] MEDS: HEPARIN 5,000 UNIT/ML VIAL SQ SCH ×2 (08:45→21:41)
[2018-02-23] MEDS: BETHANECHOL 10 MG TABLET PO SCH ×3 (08:46→20:22)
[2018-02-23] MEDS: TIOTROPIUM BROMIDE 18 MCG INHALANT INH SCH (08:46)
[2018-02-23] MEDS: cefTRIAXone 2 GM in DEXTROSE 5% IN WATER 50 ML IV SCH (09:05)
[2018-02-23] MEDS: THIAMINE 100 MG in 0.9 % SODIUM CHLORIDE 50 ML IV SCH (09:05)
[2018-02-23] MEDS: SEROQUEL 50 MG PO SCH ×2 (09:06→20:22)
[2018-02-23] MEDS: PIPERACILLIN SODIUM/TAZOBACTAM 2.25 GM in DEXTROSE 5% IN WATER 50 ML IV SCH ×2 (10:33→20:21)
[2018-02-23] MEDS ORDERED: WARFARIN 2 MG TABLET PO ONE (14:00)
[2018-02-23] MEDS ORDERED: IOPAMIDOL 100 ML BOTTLE IV ONE (15:27)
--- NOTE | 2018-02-23 15:28 | Nephrology Progress Note ---
Subjective Patient information: Note initiated : 02/23/18 at 3:26 pm Service Date, if different from initiated Date: [] Patient: Alexandra Zapata 72 y/o F admitted on 02/21/18 for Resp Distress, Confusion /Influenza A, UTI. Chief Complaint: More awake today. Denies any shortness of breath. Eating better. Objective - Vital Signs Vital signs: Vital Signs Temp Pulse Pulse Resp BP BP Pulse Ox 02/23/18 13:25 32 H 02/23/18 13:20 20 02/23/18 13:15 26 H 02/23/18 13:10 45 H 02/23/18 13:05 24 H 02/23/18 13:01 103 H 40 H 119/65 93 02/23/18 13:00 95 H 26 H 92 02/23/18 12:55 102 H 37 H 93 02/23/18 12:50 93 H 17 95 02/23/18 12:45 93 H 17 95 02/23/18 12:40 96 H 16 95 02/23/18 12:35 95 H 18 95 02/23/18 12:30 96 H 16 96 02/23/18 12:25 95 H 17 95 02/23/18 12:20 95 H 17 96 02/23/18 12:15 92 H 17 96 02/23/18 12:10 91 H 17 96 02/23/18 12:05 96 H 16 96 02/23/18 12:01 95 H 17 104/70 96 02/23/18 12:00 92 H 18 96 02/23/18 11:55 95 H 17 96 02/23/18 11:50 94 H 17 97 02/23/18 11:45 82 16 96 02/23/18 11:40 93 H 16 95 02/23/18 11:35 95 H 18 95 02/23/18 11:30 91 H 17 95 02/23/18 11:25 92 H 17 95 02/23/18 11:20 97 H 18 97 02/23/18 11:15 92 H 18 96 02/23/18 11:10 95 H 17 97 02/23/18 11:05 92 H 16 97 02/23/18 11:01 95 H 17 100/50 97 02/23/18 11:00 98 H 19 97 02/23/18 10:55 96 H 17 96 02/23/18 10:50 97 H 17 96 02/23/18 10:45 97 H 18 97 02/23/18 10:40 96 H 17 96 02/23/18 10:35 96 H 17 96 02/23/18 10:30 95 H 17 97 02/23/18 10:25 96 H 16 97 02/23/18 10:20 97 H 16 97 02/23/18 10:15 96 H 16 97 02/23/18 10:10 99 H 21 97 02/23/18 10:05 94 H 15 96 02/23/18 10:01 99 H 18 119/56 95 02/23/18 10:00 94 H 27 H 95 02/23/18 09:55 100 H 26 H 92 02/23/18 09:50 101 H 34 H 93 02/23/18 09:45 101 H 92 02/23/18 09:40 95 H 34 H 91 02/23/18 09:35 102 H 39 H 91 02/23/18 09:30 104 H 92 02/23/18 09:25 30 H 02/23/18 09:15 28 H 02/23/18 09:10 25 H 02/23/18 09:05 27 H 02/23/18 09:00 24 H 02/23/18 08:55 24 H 02/23/18 08:50 105 H 20 92 02/23/18 08:45 106 H 23 H 100 02/23/18 08:40 17 02/23/18 08:35 15 02/23/18 08:30 102 H 18 100 02/23/18 08:25 98 H 19 100 02/23/18 08:20 99 H 20 100 02/23/18 08:15 98 H 19 100 02/23/18 08:10 101 H 19 100 02/23/18 08:05 99 H 17 100 02/23/18 08:01 99 H 20 117/59 100 02/23/18 08:00 98.8 F 98 H 20 99 02/23/18 07:55 98 H 20 100 02/23/18 07:50 97 H 19 99 02/23/18 07:45 98 H 21 100 02/23/18 07:40 97 H 20 99 02/23/18 07:35 100 H 21 99 02/23/18 07:30 99 H 19 99 02/23/18 07:25 99 H 20 100 02/23/18 07:20 99 H 18 100 02/23/18 07:15 105 H 18 100 02/23/18 07:10 102 H 18 100 02/23/18 07:05 99 H 19 99 02/23/18 07:01 97 H 18 111/64 100 02/23/18 07:00 95 H 17 99 02/23/18 06:55 100 H 18 99 02/23/18 06:54 99 02/23/18 06:50 104 H 10 L 97 02/23/18 06:45 106 H 19 99 02/23/18 06:40 105 H 19 99 02/23/18 06:35 107 H 19 100 02/23/18 04:25 109 H 27 H 100 02/23/18 04:20 110 H 99 02/23/18 04:15 113 H 100 02/23/18 04:10 111 H 100 02/23/18 04:05 109 H 100 02/23/18 04:01 98.8 F 131/98 02/23/18 04:00 37 H 02/23/18 03:55 107 H 21 95 02/23/18 03:50 105 H 23 H 95 02/23/18 03:45 104 H 20 94 02/23/18 03:40 106 H 21 94 02/23/18 03:35 105 H 21 94 02/23/18 03:30 107 H 22 94 02/23/18 03:25 107 H 22 95 02/23/18 03:20 107 H 21 95 02/23/18 03:15 107 H 22 96 02/23/18 03:10 106 H 21 96 02/23/18 03:05 107 H 21 96 02/23/18 03:01 108 H 20 97 02/23/18 03:00 108 H 21 140/68 96 02/23/18 02:55 106 H 16 96 02/23/18 02:50 107 H 20 95 02/23/18 02:45 111 H 25 H 95 02/23/18 02:40 103 H 22 95 02/23/18 02:35 103 H 22 95 02/23/18 02:30 103 H 22 96 02/23/18 02:25 104 H 22 96 02/23/18 02:20 103 H 23 H 97 02/23/18 02:15 104 H 21 97 02/23/18 02:10 103 H 22 96 02/23/18 02:05 105 H 22 96 02/23/18 02:01 104 H 25 H 110/65 96 02/23/18 02:00 104 H 21 96 02/23/18 01:55 107 H 27 H 97 02/23/18 01:50 104 H 21 97 02/23/18 01:45 103 H 21 96 02/23/18 01:40 106 H 21 96 02/23/18 01:35 109 H 24 H 95 02/23/18 01:30 109 H 23 H 94 02/23/18 01:25 107 H 22 94 02/23/18 01:20 106 H 28 H 94 02/23/18 01:15 107 H 24 H 93 02/23/18 01:10 107 H 20 94 02/23/18 01:05 107 H 28 H 93 02/23/18 01:01 107 H 22 123/60 93 02/23/18 01:00 109 H 25 H 93 02/23/18 00:55 110 H 24 H 94 02/23/18 00:50 107 H 20 93 02/23/18 00:46 109 H 25 H 132/65 94 02/23/18 00:45 25 L 23 H 78 L 02/23/18 00:40 22 02/23/18 00:35 28 H 02/23/18 00:31 22 109/60 02/23/18 00:30 19 02/23/18 00:25 20 02/23/18 00:20 109 H 22 96 02/23/18 00:16 109 H 23 H 110/52 96 02/23/18 00:15 108 H 23 H 97 02/23/18 00:10 110 H 22 97 02/23/18 00:05 110 H 21 97 02/23/18 00:01 110 H 29 H 98/51 97 02/23/18 00:00 99 F 112 H 26 H 97 02/22/18 23:55 113 H 21 97 02/22/18 23:50 114 H 21 97 02/22/18 23:47 112 H 20 98 02/22/18 23:46 113 H 28 H 80/59 97 02/22/18 23:45 25 H 02/22/18 23:40 111 H 41 H 99 02/22/18 23:37 112 H 24 H 92/51 97 02/22/18 23:35 115 H 26 H 96 02/22/18 23:25 23 H 02/22/18 23:20 114 H 98 02/22/18 23:16 113 H 83/60 92 02/22/18 23:15 109 H 22 93 02/22/18 23:10 111 H 95 02/22/18 23:05 112 H 94 02/22/18 23:01 114 H 101/53 96 02/22/18 23:00 112 H 94 02/22/18 22:55 115 H 99 02/22/18 22:50 114 H 98 02/22/18 22:46 119 H 107/50 99 02/22/18 22:45 115 H 97 02/22/18 22:40 114 H 98 02/22/18 22:35 116 H 98 02/22/18 22:31 113 H 115/66 98 02/22/18 22:30 112 H 23 H 97 02/22/18 22:25 112 H 98 02/22/18 22:20 112 H 98 02/22/18 22:16 113 H 118/57 98 02/22/18 22:15 108 H 24 H 97 02/22/18 22:10 112 H 97 02/22/18 22:05 109 H 20 98 02/22/18 22:01 117 H 30 H 129/60 100 02/22/18 22:00 99 H 29 H 94 02/22/18 21:55 108 H 97 02/22/18 21:50 111 H 24 H 95 02/22/18 21:46 108 H 26 H 116/59 95 02/22/18 21:45 112 H 23 H 96 02/22/18 21:40 109 H 20 96 02/22/18 21:35 108 H 23 H 96 02/22/18 21:31 108 H 115/55 97 02/22/18 21:30 107 H 96 02/22/18 21:26 97 02/22/18 21:25 109 H 97 02/22/18 21:20 112 H 97 02/22/18 21:16 108 H 28 H 127/59 98 02/22/18 21:15 74 27 H 98 02/22/18 21:10 107 H 27 H 97 02/22/18 21:05 104 H 27 H 98 02/22/18 21:01 109 H 115/50 97 02/22/18 21:00 109 H 21 98 02/22/18 20:55 103 H 23 H 98 02/22/18 20:50 95 H 24 H 99 02/22/18 20:47 103 H 24 H 97 02/22/18 20:46 106 H 25 H 110/60 97 02/22/18 20:45 102 H 19 97 02/22/18 20:40 105 H 19 96 02/22/18 20:35 107 H 27 H 98 02/22/18 20:31 96 H 121/65 98 02/22/18 20:30 107 H 29 H 97 02/22/18 20:29 38 L 126/64 87 L 02/22/18 20:25 107 H 98 02/22/18 20:20 107 H 97 02/22/18 20:16 112 H 97 02/22/18 20:15 110 H 154/58 96 02/22/18 20:10 108 H 96 02/22/18 20:05 98.6 F 113 H 36 H 109/57 97 02/22/18 20:01 98.6 F 113 H 96 02/22/18 20:00 114 H 109/56 95 02/22/18 19:55 114 H 95 02/22/18 19:53 117 H 87/56 02/22/18 19:50 116 H 96 02/22/18 19:46 117 H 87/56 89 L 02/22/18 19:45 103 H 92 02/22/18 19:40 75 87 L 02/22/18 19:35 116 H 95 02/22/18 19:31 112 H 96/65 75 L 02/22/18 19:25 120 H 93 02/22/18 19:20 80 38 H 80 L 02/22/18 19:17 115 H 97/50 02/22/18 19:16 97/50 02/22/18 19:10 76 80 L 02/22/18 19:03 110 H 81/64 02/22/18 19:01 111 H 35 H 81/64 95 02/22/18 19:00 119 H 87 L 02/22/18 18:51 113 H 90/53 02/22/18 18:46 109 H 30 H 90/53 94 02/22/18 18:45 113 H 91 02/22/18 18:40 110 H 102/65 92 02/22/18 18:37 107 H 102/65 91 02/22/18 18:35 102 H 90 02/22/18 18:32 105 H 70/53 91 02/22/18 18:31 104 H 72/59 91 02/22/18 18:30 105 H 91 02/22/18 18:25 95 H 0/0 92 02/22/18 18:23 109 H 81/54 02/22/18 18:21 101 H 81/54 93 02/22/18 18:20 104 H 94 02/22/18 18:16 103 H 82/50 93 02/22/18 18:15 107 H 93 02/22/18 18:11 105 H 93/63 94 02/22/18 18:10 100 H 88 L 02/22/18 18:08 104 H 108/61 02/22/18 18:06 107 H 115/62 92 02/22/18 18:05 106 H 90 02/22/18 17:48 107 H 87/58 02/22/18 17:37 139 H 114/75 02/22/18 17:14 120 H 179/77 02/22/18 16:45 100 F H 111 H 159/85 02/22/18 16:05 104 H 20 94 02/22/18 16:00 70 18 134/61 93 02/22/18 15:38 99.1 F H 22 150/66 89 L Intake and Output 02/23/18 02/23/18 02/23/18 05:59 13:59 21:59 Intake Total 100 / 100 335 / 335 Output Total 100 / 100 Balance 0 / 0 335 / 335 Intake: IV 215 / 215 Heparin/D5w 25,000 Unit In 115 / 115 Premix 1 Bag @ 14 UNIT/KG/HR 11 .67 mls/hr IV .Q24H [facility] Rx#: [id number] Zosyn 2.25 gm In Dextrose 5% in 50 / 50 Water 50 ml @ 100 mls/hr IV Q12H [facility] Rx#:[id number] Vitamin B1 100 mg In Sodium 0 / 0 Chloride 0.9% 50 ml @ 50 mls/hr IV DAILY [facility] Rx#:[id number] Rocephin 2 gm In Dextrose 5% in 50 / 50 Water 50 ml @ 100 mls/hr IV DAILY [facility] Rx#:[id number] Oral 120 / 120 GI Tube Flush 100 / 100 Output: Urine Catheter Amount 100 / 100 Other: Meal Breakfast Percent of Meal Consumed Apple sauc 100% Feeding Ability Total Assistance Stool Size Small Stool Color Brown Stool Consistency Formed # of times incontinent of 1 Bowels Weight 84 lb 6.993 oz Intake & Output: Intake & Output 02/23/18 02/23/18 02/23/18 05:59 13:59 21:59 Intake Total 100 / 100 335 / 335 Output Total 100 / 100 Balance 0 / 0 335 / 335 Weight 84 lb 6.993 oz Intake: IV 215 / 215 Heparin/D5w 25,000 Unit In 115 / 115 Premix 1 Bag @ 14 UNIT/KG/HR 11 .67 mls/hr IV .Q24H [facility] Rx#: [id number] Zosyn 2.25 gm In Dextrose 5% in 50 / 50 Water 50 ml @ 100 mls/hr IV Q12H [facility] Rx#:[id number] Vitamin B1 100 mg In Sodium 0 / 0 Chloride 0.9% 50 ml @ 50 mls/hr IV DAILY [facility] Rx#:[id number] Rocephin 2 gm In Dextrose 5% in 50 / 50 Water 50 ml @ 100 mls/hr IV DAILY [facility] Rx#:[id number] Oral 120 / 120 GI Tube Flush 100 / 100 Output: Urine Catheter Amount 100 / 100 Other: Meal Breakfast Percent of Meal Consumed Apple sauc 100% Feeding Ability Total Assistance Stool Size Small Stool Color Brown Stool Consistency Formed # of times incontinent of 1 Bowels - General Appearance General appearance: cachectic EENT: ATNC Neck: no JVD Cardiology: holosystolic murmur, no edema Neurologic: no focal deficit - Lab 02/23/18 03:55 02/23/18 03:55 Most recent lab results Calcium 9.0 mg/dl (8.6-10.4) 02/23/18 03:55 Phosphorus 5.0 mg/dL (2.7-4.5) H 02/23/18 03:55 Magnesium 2.3 mg/dL (1.6-2.5) 02/23/18 03:55 Assessment and Plan (1) ESRD (end stage renal disease) on dialysis Status: Acute Comment: Did not tolerate dialysis very well as she had low bp and it might have been related to AFIb with RVR. Electrolytes look ok. Will dialyse tomorrow.
--- NOTE | 2018-02-23 15:46 | Internal Med Progress Note ---
Medical - PN: Subj Patient information: Note initiated : 02/23/18 at 3:42 pm Service Date, if different from initiated Date: [] Patient: Alexandra Zapata a 72 y/o F admitted on 02/21/18 for Resp Distress, Confusion /Influenza A, UTI. Chief Complaint: [] Interval history: Ms. Zapata is a 72 year old F with ESRD on hemodialysis and recent hospitalization. Patient was recovering at [facility] and was directed to the ER after she was found confused, weak and febrile by the staff at care Center. patient was unable to provide any meaningful history to the ER physician. Initial workup was significant for pyuria along with a MAXIMUM TEMPERATURE over 100. Subsequently hospitalist service was consulted in light of acute change in mental status and complicated UTI. Nephrology was also consulted in light of end-stage renal disease on hemodialysis. patient is due for hemodialysis on Thursday. patient also was recently diagnosed with influenza and was on Tamiflu and amoxicillin. At the time of evaluation, patient is unable to provide a history due to her underlying baseline dementia and acute worsening mental status. She was however able to answer leading questions in yes and no. She denies chest pain headache. Her right eye lids have been swollen and red. She denies diarrhea or abdominal pain.No family members are present. Most history is obtained from ER records and care center documents. 02/22- patient much more lucid and responding to commands. No overnight events. Persistent tachycardia around 110. Foleys catheter draining dark urine. Nephrology consulted for baseline ESRD requiring hemodialysis. On contact precaution for influenza B. On Tamiflu. white count 8.8. addendum-patient became hypotensive during dialysis. Blood pressure dropping to 80's. Vasopressin started. Dialysis temporarily held. Patient tachypneic tachycardic and hypoxic requiring 14 L oxygen. Stat chest x-ray/CT angiogram ordered. ABGs pending. Unclear etiology for sudden hypotension . Rule out acute pulmonary embolism. CTA chest could not be performed as patrient is too sick to be able to undergo procedure per protocol. start heparin drip for empiric PE treatment CT angiogram scheduled in a.m. 02/23-worsening hypoxic respiratory failure last night along with hypotension requiring pressors. ABG 7.53/36/64 on 13 L oxygen. Large AA gradient. White count 17.6. 15% bands. on broad antibiotic coverage including Zosyn for complicated UTI. CT angiogram chest pending. On empiric treatment for PE with heparin drip/oral Coumadin. - Constitutional Vitals: Vital Signs Temp Pulse Resp BP Pulse Ox 98.8 F 103 H 32 H 119/65 93 02/23/18 08:00 02/23/18 13:01 02/23/18 13:25 02/23/18 13:01 02/23/18 13:01 Period Temp Pulse Resp BP Sys/Barrera Pulse Ox Last 24 Hr 98.6 F-100 F 0-139 10-45 0-179/0-98 75-100 Intake and Output 02/23/18 02/23/18 02/23/18 05:59 13:59 21:59 Intake Total 100 / 100 335 / 335 Output Total 100 / 100 Balance 0 / 0 335 / 335 Weight 84 lb 6.993 oz Intake & Output: Intake & Output 02/23/18 02/23/18 02/23/18 05:59 13:59 21:59 Intake Total 100 / 100 335 / 335 Output Total 100 / 100 Balance 0 / 0 335 / 335 Weight 84 lb 6.993 oz Intake: IV 215 / 215 Heparin/D5w 25,000 Unit In 115 / 115 Premix 1 Bag @ 14 UNIT/KG/HR 11 .67 mls/hr IV .Q24H [facility] Rx#: [id number] Zosyn 2.25 gm In Dextrose 5% in 50 / 50 Water 50 ml @ 100 mls/hr IV Q12H [facility] Rx#:[id number] Vitamin B1 100 mg In Sodium 0 / 0 Chloride 0.9% 50 ml @ 50 mls/hr IV DAILY [facility] Rx#:[id number] Rocephin 2 gm In Dextrose 5% in 50 / 50 Water 50 ml @ 100 mls/hr IV DAILY [facility] Rx#:[id number] Oral 120 / 120 GI Tube Flush 100 / 100 Output: Urine Catheter Amount 100 / 100 Other: Meal Breakfast Percent of Meal Consumed Apple sauc 100% Feeding Ability Total Assistance Stool Size Small Stool Color Brown Stool Consistency Formed # of times incontinent of 1 Bowels General appearance: moderate distress (SOB) Exam: lethargic and confused Labored breathing Sinus tachycardia on telemetry. Foleys draining dark urine Medical - PN: Obj Da - Labs CBC & Chem 7: 02/23/18 03:55 04/10/18 03:55 Labs: Abnormal Lab Results 02/23/18 02/23/18 02/23/18 09:10 03:55 03:55 WBC 17.6 H RBC 3.12 L Hgb 10.0 L Hct 29.5 L RDW 17.7 H Plt Count 58 L Gran % Lymph % (Auto) Gran # Lymph # (Auto) Seg Neutrophils % 79 H Band Neutrophils % 15 H Lymphocytes % 2 L Metamyelocytes % RBC Morphology Abnorm A Anisocytosis 1+ A APTT 150 H* Carbon Dioxide Anion Gap 17.0 H BUN 25 H Creatinine 2.6 H Glucose 151 H Phosphorus 5.0 H GGT 44 H Lactate Dehydrogenase 313 H CK-MB (CK-2) Myoglobin Troponin T NT-Pro-B Natriuret Pep Triglycerides Urine Protein Ur Leukocyte Esterase Urine RBC Urine WBC 02/22/18 02/22/18 02/22/18 23:59 23:59 03:55 WBC 15.0 H RBC 3.05 L Hgb 9.6 L Hct 28.1 L RDW 16.7 H Plt Count 100 L Gran % 89.8 H Lymph % (Auto) 4.6 L Gran # 13.5 H Lymph # (Auto) 0.7 L Seg Neutrophils % Band Neutrophils % Lymphocytes % Metamyelocytes % RBC Morphology Anisocytosis APTT 113 H Carbon Dioxide 21 L Anion Gap BUN 47 H Creatinine 3.6 H Glucose Phosphorus 5.6 H GGT 43 H Lactate Dehydrogenase 253 H CK-MB (CK-2) Myoglobin Troponin T NT-Pro-B Natriuret Pep Triglycerides 204 H Urine Protein Ur Leukocyte Esterase Urine RBC Urine WBC 02/22/18 02/21/18 02/21/18 03:55 15:10 14:19 WBC RBC 2.97 L Hgb 9.2 L Hct 28.3 L RDW 17.3 H Plt Count Gran % Lymph % (Auto) Gran # Lymph # (Auto) Seg Neutrophils % Band Neutrophils % 12 H Lymphocytes % 13 L Metamyelocytes % 2 H RBC Morphology Anisocytosis 1+ A APTT Carbon Dioxide Anion Gap BUN Creatinine Glucose Phosphorus GGT Lactate Dehydrogenase CK-MB (CK-2) 3.0 H Myoglobin Troponin T NT-Pro-B Natriuret Pep Triglycerides Urine Protein >=500 A Ur Leukocyte Esterase 250 A Urine RBC 9 H Urine WBC 142 H 02/21/18 02/21/18 02/21/18 14:19 14:19 12:45 WBC RBC Hgb Hct RDW Plt Count Gran % Lymph % (Auto) Gran # Lymph # (Auto) Seg Neutrophils % Band Neutrophils % Lymphocytes % Metamyelocytes % RBC Morphology Anisocytosis APTT Carbon Dioxide Anion Gap BUN Creatinine Glucose Phosphorus GGT Lactate Dehydrogenase CK-MB (CK-2) Myoglobin 174 H Troponin T 0.06 H* NT-Pro-B Natriuret Pep 2798.0 H Triglycerides Urine Protein Ur Leukocyte Esterase Urine RBC Urine WBC 02/21/18 02/21/18 02/21/18 12:45 12:45 12:45 WBC RBC 2.93 L Hgb 9.1 L Hct 27.8 L RDW 17.7 H Plt Count Gran % Lymph % (Auto) 12.9 L Gran # Lymph # (Auto) 1.0 L Seg Neutrophils % Band Neutrophils % Lymphocytes % Metamyelocytes % RBC Morphology Anisocytosis APTT Carbon Dioxide Anion Gap BUN 45 H Creatinine 3.7 H Glucose Phosphorus GGT Lactate Dehydrogenase CK-MB (CK-2) Myoglobin Troponin T 0.05 H* NT-Pro-B Natriuret Pep Triglycerides Urine Protein Ur Leukocyte Esterase Urine RBC Urine WBC Meds: Medications Acetaminophen (Tylenol) 650 mg PO Q4-6HP PRN PRN Reason: PAIN/FEVER > 101 Hydrocodone Bitart/Acetaminophen (Brothers 7.5/325mg) 1 tab PO BID [facility] Last Admin: 02/23/18 08:44 Dose: 1 tab Albuterol/Ipratropium (Duoneb) 3 ml NEB Q4HRT PRN PRN Reason: Wheezing Last Admin: 02/23/18 04:24 Dose: 3 ml Amlodipine Besylate (Norvasc) 5 mg PO DAILY [facility] Last Admin: 02/23/18 08:44 Dose: 5 mg Baclofen (Lioresal) 10 mg PO BID [facility] Last Admin: 02/23/18 08:44 Dose: 10 mg Bethanechol Chloride (Urecholine) 10 mg PO TID [facility] Last Admin: 02/23/18 08:46 Dose: 10 mg Ciprofloxacin (Ciloxan 0.3% Ophth Drops) 2 gtt OU Q4 [facility] Last Admin: 02/23/18 12:50 Dose: 2 gtt Docusate Sodium (Colace) 100 mg PO BID [facility] Last Admin: 02/23/18 08:44 Dose: 100 mg Fentanyl (Duragesic) 25 mcg TOPICAL Q72H [facility] Last Admin: 02/22/18 09:56 Dose: Not Given Heparin Sodium (Porcine) (Heparin) 5,000 unit SQ Q12 [facility] Last Admin: 02/23/18 08:45 Dose: 5,000 unit Hydralazine HCl (Apresoline) 25 mg PO BID [facility] Last Admin: 02/23/18 08:44 Dose: 25 mg Acetaminophen (Ofirmev) 650 mg in 65 mls @ 130 mls/hr IV Q6HP PRN PRN Reason: PAIN/FEVER > 101 Thiamine HCl 100 mg/ Sodium (Chloride) 51 mls @ 50 mls/hr IV DAILY [facility] Stop: 02/24/18 10:02 Last Admin: 02/23/18 09:05 Dose: 50 mls/hr Heparin Sodium/Dextrose 25,000 (unit/ Premix) 500 mls @ 11.67 mls/hr IV .Q24H [facility]; 14 UNIT/KG/HR PRN Reason: Protocol Last Titration: 02/23/18 10:45 Dose: 10 unit/kg/hr, 8.33 mls/hr Norepinephrine Bitartrate 16 (mg/ Sodium Chloride) 250 mls @ 9.37 mls/hr IV PRN PRN; Protocol; 10 MCG/MIN PRN Reason: Blood Pressure - Low Sodium Chloride (Sodium Chloride 0.9%) 250 mls @ 20 mls/hr IV .[id number] [facility] Last Admin: 02/23/18 12:36 Dose: Not Given Piperacillin Sod/Tazobactam (Sod 2.25 gm/ Dextrose) 50 mls @ 100 mls/hr IV Q12H [facility] Last Infusion: 02/23/18 11:03 Dose: Infused Iron Carb/Multivit/Design Inserter/Folic Acid (Multivitamin W/Minerals) 1 tab PO DAILY [facility] Last Admin: 02/23/18 08:44 Dose: 1 tab Seroquel Xr 50 Mg (Tab) 1 dose PO BID [facility] Last Admin: 02/23/18 09:06 Dose: 1 dose Ondansetron HCl (Zofran) 4 mg IV Q4-6HP PRN PRN Reason: Nausea And Vomiting Oseltamivir Phosphate (Tamiflu) 75 mg PO BID [facility] Last Admin: 02/23/18 08:44 Dose: 75 mg Pantoprazole Sodium (Protonix) 40 mg PO HS [facility] Last Admin: 02/22/18 21:39 Dose: 40 mg Quetiapine Fumarate (Seroquel) 25 mg PO HS [facility] Last Admin: 02/22/18 21:39 Dose: 25 mg Senna/Docusate Sodium (Senna Plus Tablet) 1 tab PO HS [facility] Last Admin: 02/22/18 21:39 Dose: 1 tab Sodium Chloride (Saline Flush) 10 ml IV Q8 [facility] Last Admin: 02/23/18 13:38 Dose: 10 ml Tamsulosin HCl (Flomax) 0.4 mg PO DAILY [facility] Last Admin: 02/23/18 08:44 Dose: 0.4 mg Tiotropium [place] (Spiriva) 18 mcg INH DAILY [facility] Last Admin: 02/23/18 08:46 Dose: Not Given Warfarin Sodium (Coumadin Per Pharmacy) 1 order PO UD [facility] Medical - PN: A/P - Time Spent With Patient Total time spent is greater than 50% in coordination of care (as documented) at patient's floor/unit and/or counseling patient: Greater than 35 minutes (critical care time) (1) Complicated UTI (urinary tract infection) Status: Acute Assessment and plan: assessment- 72-year-old with ESRD on hemodialysis/underlying dementia admitted with acute change in mental status/complicated UTI and acute influenza B * hypoxic respiratory failure-with hypotension/tachycardia high risk PE. On supplemental oxygen/full dose anticoagulation on heparin drip * Severe sepsis-plan antibiotic coverage. * possible PE-on heparin drip/Coumadin * complicated UTI with acute mental status change-on Zosyn * acute mental status change likely is secondary to complicated UTI/opioids. Opioids/benzos on hold * right blepharitis/conjunctivitis- clinically resolved. * acute influenza B continue Tamiflu dose renally * History of ESRD on hemodialysis- ongoing dialysis per nephrology * hypertension very labile, on Coreg/losartan with holding parameters * reactive airway disease on bronchodilators * hypothyroidism on thyroxine * Anxiety disorder on duloxetine * GERD on PPI * Hyperlipidemia statin * history of dementia with agitation currently stable on quetiapine * History of CAD on aspirin and statin beta mustapha/ÓSCAR inhibitor/iisosorbide dinitrate * DNR Plan * full dose anticoagulation on heparin drip/: * CT angiogram chest * Antibiotic coverage * ICU care * Contact precautions * dialysis per nephrology * Pre-existing medical condition management as above * PT OT * case management to arrange SNF transfer Current Visit: Yes Medical - PN: Qual - VTE Deep Vein Thrombosis/Pulmonary Embolism Present on Admission: No
--- NOTE | 2018-02-23 16:23 | Cat Scan Report ---
CLINICAL INFORMATION: Reason for Exam:R/o PE , respiratory distress, confusion and influenza a FINDINGS: The chest was imaged following injection of 50 cc intravenous nonionic contrast. Sagittal, coronal and MIPS images were created. The pulmonary arteries are normal without evidence of emboli. The heart is mildly enlarged. There is severe atherosclerotic coronary artery disease. Patient's had a prior sternotomy with coronary bypass using the left internal mammary artery. The aorta is normal in caliber but there is a moderate amount of plaque at the aortic arch. Patient also has severe atherosclerotic disease in the arteries below the diaphragm. There are hemodynamically significant stenoses in the renal arteries bilaterally. Mild centrilobular emphysema is present in both upper lobes, right worse left. There are small to intermediate size patchy alveolar infiltrates posteriorly in both lower lobes. There is minor inflammation or discoid atelectasis inferior in the lingula and in the right middle lobe. No pleural effusion is present. There are no abnormally enlarged lymph nodes within the mediastinum nor bhumika. Bilateral ureteral stents are present. There are multiple calcifications within both kidneys. Most of these appear to be arterial calcifications but there may also be nonobstructing kidney stones. IMPRESSION: No evidence of pulmonary emboli Bibasilar pneumonia Mild emphysema Severe atherosclerotic disease involving the coronary arteries and renal arteries Interpreted and Authenticated by: Kvng Ling 02/23/18
[2018-02-23] MEDS: ACETAMINOPHEN 325 MG TABLET PO PRN (20:22)
[2018-02-23] MEDS: QUEtiapine 25 MG TABLET PO SCH (20:30)
[2018-02-23] MEDS: SENNOSIDES/DOCUSATE SODIUM 1 TAB TABLET PO SCH (20:30)
[2018-02-23] MEDS: PANTOPRAZOLE 40 MG TABLET PO SCH (21:41)
[2018-02-24] MEDS: 0.9 % SODIUM CHLORIDE 250 ML IV SCH ×2 (03:31→15:53)
[2018-02-24] MEDS: CIPROFLOXACIN 0.3% OPHTH DROPS BOTTLE 5 ML OU SCH ×6 (03:31→21:21)
[2018-02-24] MEDS: ONDANSETRON 4 MG/2 ML VIAL IV PRN (04:38)
[2018-02-24 05:40] LABS: Mean Cell Volume 95.1 fL (80.0-100.0); Mean Corpuscular HGB Conc 33.3 g/dL (31.0-36.0); Mean Corpuscular Hemoglobin 31.7 pg (26.0-34.0); Platelet Count 192 K/mcL (140-440); Red Cell Distribution Width 17.6 % (11.5-14.5)
[2018-02-24] MEDS: 0.9 % SODIUM CHLORIDE 10 ML SYRINGE IV SCH ×3 (05:46→21:22)
[2018-02-24 06:27] LABS: ALT/SGPT 9 U/l (0-40); Albumin 3.2 gm/dL (3.2-5.2); Alkaline Phosphatase 62 U/L (39-117); Bilirubin,Direct < 0.2 mg/dL (0.0-0.3); Blood Urea Nitrogen 49 mg/dl (8-23); Gamma Glutamyl Transpeptidase 33 U/L (5-36); Uric Acid 5.3 mg/dL (2.5-8.0)
[2018-02-24 07:29] LABS: Anisocytosis 1+ (NONE SEEN); Band Neutrophils % 5 % (0-10); Eosinophils % (Manual) 1 % (0-7); Lymphocytes % 13 % (15-49); Monocytes % (Manual) 5 % (1-12); Platelet Estimate NORMAL (NORMAL); RBC Morphology ABNORM (NORMAL); Segmented Neutrophils % 76 % (38-78)
[2018-02-24] MEDS: DOCUSATE SODIUM 100 MG CAPSULE PO SCH ×2 (08:07→21:22)
[2018-02-24] MEDS: OSELTAMIVIR PHOSPHATE 75 MG CAPSULE PO SCH ×2 (08:07→21:20)
[2018-02-24] MEDS: MULTIVIT,THER IRON,CA,FA & MIN 1 TABLET PO SCH (08:07)
[2018-02-24] MEDS: BETHANECHOL 10 MG TABLET PO SCH ×3 (08:07→21:20)
[2018-02-24] MEDS: BACLOFEN 10 MG TABLET PO SCH ×2 (08:07→21:20)
[2018-02-24] MEDS: SEROQUEL 50 MG PO SCH ×2 (08:07→21:20)
[2018-02-24] MEDS: HEPARIN 5,000 UNIT/ML VIAL SQ SCH ×2 (08:07→21:20)
[2018-02-24] MEDS: HYDROCODONE/APAP 7.5/325MG TABLET PO SCH ×2 (08:07→21:20)
[2018-02-24] MEDS: TAMSULOSIN 0.4 MG CAPSULE PO SCH (08:07)
[2018-02-24] MEDS: TIOTROPIUM BROMIDE 18 MCG INHALANT INH SCH (08:09)
[2018-02-24] MEDS: PIPERACILLIN SODIUM/TAZOBACTAM 2.25 GM in DEXTROSE 5% IN WATER 50 ML IV SCH ×2 (08:54→21:19)
[2018-02-24] MEDS: amLODIPine 5 MG TABLET PO SCH (09:12)
[2018-02-24] MEDS: hydrALAZINE 25 MG TABLET PO SCH ×2 (09:12→21:21)
[2018-02-24] MEDS: fentaNYL 12 MCG PATCH TOPICAL SCH (13:04)
[2018-02-24] MEDS: ACETAMINOPHEN 325 MG TABLET PO PRN (13:05)
[2018-02-24] MEDS: THIAMINE 100 MG in 0.9 % SODIUM CHLORIDE 50 ML IV SCH (13:09)
[2018-02-24] MEDS: ACETAMINOPHEN 650 MG/65 ML BOTTLE IV PRN (13:35)
[2018-02-24] MEDS ORDERED: WARFARIN 2 MG TABLET PO ONE (14:00)
--- NOTE | 2018-02-24 14:05 | Internal Med Progress Note ---
Medical - PN: Subj Patient information: Note initiated : 02/24/18 at 2:04 pm Service Date, if different from initiated Date: [] Patient: Alexandra Zapata a 72 y/o F admitted on 02/21/18 for Resp Distress, Confusion /Influenza A, UTI. Chief Complaint: [] Interval history: Ms. Zapata is a 72 year old F with ESRD on hemodialysis and recent hospitalization. Patient was recovering at [facility] and was directed to the ER after she was found confused, weak and febrile by the staff [facility]. patient was unable to provide any meaningful history to the ER physician. Initial workup was significant for pyuria along with a MAXIMUM TEMPERATURE over 100. Subsequently hospitalist service was consulted in light of acute change in mental status and complicated UTI. Nephrology was also consulted in light of end-stage renal disease on hemodialysis. patient is due for hemodialysis on Thursday. patient also was recently diagnosed with influenza and was on Tamiflu and amoxicillin. At the time of evaluation, patient is unable to provide a history due to her underlying baseline dementia and acute worsening mental status. She was however able to answer leading questions in yes and no. She denies chest pain headache. Her right eye lids have been swollen and red. She denies diarrhea or abdominal pain.No family members are present. Most history is obtained from ER records and care center documents. 02/22- patient much more lucid and responding to commands. No overnight events. Persistent tachycardia around 110. Foleys catheter draining dark urine. Nephrology consulted for baseline ESRD requiring hemodialysis. On contact precaution for influenza B. On Tamiflu. white count 8.8. addendum-patient became hypotensive during dialysis. Blood pressure dropping to 80's. Vasopressin started. Dialysis temporarily held. Patient tachypneic tachycardic and hypoxic requiring 14 L oxygen. Stat chest x-ray/CT angiogram ordered. ABGs pending. Unclear etiology for sudden hypotension . Rule out acute pulmonary embolism. CTA chest could not be performed as patrient is too sick to be able to undergo procedure per protocol. start heparin drip for empiric PE treatment CT angiogram scheduled in a.m. 02/23-worsening hypoxic respiratory failure last night along with hypotension requiring pressors. ABG 7.53/36/64 on 13 L oxygen. Large AA gradient. White count 17.6. 15% bands. on broad antibiotic coverage including Zosyn for complicated UTI. CT angiogram chest pending. On empiric treatment for PE with heparin drip/oral Coumadin. February 24- patient on hemodialysis. Tachycardia/hypertension during dialysis noted today. She is otherwise more alert and lucid. On antibiotic coverage. White count down from 17.6-10.8. Afebrile.basal pneumonia on CT angiogram but no evidence of PE. Anticoagulation discontinued. no overnight fever chills or concerns per staff. Telemetry intermittent tachycardia during dialysis. - Constitutional Vitals: Vital Signs Temp Pulse Resp BP Pulse Ox 98.1 F 117 H 22 92/57 95 02/24/18 12:01 02/24/18 13:32 02/24/18 13:46 02/24/18 13:46 02/24/18 13:46 Period Temp Pulse Resp BP Sys/Barrera Pulse Ox Last 24 Hr 97.2 F-99.5 F 71-129 0-46 65-184/40-74 81-100 Intake and Output 02/24/18 02/24/18 02/24/18 05:59 13:59 21:59 Intake Total 501 / 501 290 / 290 Output Total 220 / 220 Balance 281 / 281 290 / 290 Intake & Output: Intake & Output 02/24/18 02/24/18 02/24/18 05:59 13:59 21:59 Intake Total 501 / 501 290 / 290 Output Total 220 / 220 Balance 281 / 281 290 / 290 Intake: IV 101 / 101 50 / 50 Zosyn 2.25 gm In Dextrose 5% in 50 / 50 50 / 50 Water 50 ml @ 100 mls/hr IV Q12H [facility] Rx#:[id number] Vitamin B1 100 mg In Sodium 51 / 51 Chloride 0.9% 50 ml @ 50 mls/hr IV DAILY [facility] Rx#:[id number] Oral 240 / 240 GI Tube Flush 400 / 400 Output: Urine Catheter Amount 220 / 220 Other: Meal Breakfast Percent of Meal Consumed 75% General appearance: no acute distress Exam: Lethargic but responding to commands nonlabored breathing Tachycardia on telemetry Foleys draining clear urine Medical - PN: Obj Da - Labs CBC & Chem 7: 02/24/18 04:25 02/24/18 04:25 Labs: Abnormal Lab Results 02/24/18 02/24/18 02/23/18 04:25 04:25 09:10 WBC RBC 2.80 L Hgb 8.9 L Hct 26.6 L RDW 17.6 H Plt Count Gran % Lymph % (Auto) Gran # Lymph # (Auto) Seg Neutrophils % Band Neutrophils % Lymphocytes % 13 L Metamyelocytes % Nucleated RBCs 1 H RBC Morphology Abnorm A Anisocytosis 1+ A APTT 150 H* Chloride 94 L Carbon Dioxide Anion Gap BUN 49 H Creatinine 3.8 H Glucose Phosphorus 5.1 H Magnesium 2.6 H GGT Lactate Dehydrogenase 320 H CK-MB (CK-2) Myoglobin Troponin T Triglycerides 239 H Urine Protein Ur Leukocyte Esterase Urine RBC Urine WBC 02/23/18 02/23/18 02/22/18 03:55 03:55 23:59 WBC 17.6 H RBC 3.12 L Hgb 10.0 L Hct 29.5 L RDW 17.7 H Plt Count 58 L Gran % Lymph % (Auto) Gran # Lymph # (Auto) Seg Neutrophils % 79 H Band Neutrophils % 15 H Lymphocytes % 2 L Metamyelocytes % Nucleated RBCs RBC Morphology Abnorm A Anisocytosis 1+ A APTT 113 H Chloride Carbon Dioxide Anion Gap 17.0 H BUN 25 H Creatinine 2.6 H Glucose 151 H Phosphorus 5.0 H Magnesium GGT 44 H Lactate Dehydrogenase 313 H CK-MB (CK-2) Myoglobin Troponin T Triglycerides Urine Protein Ur Leukocyte Esterase Urine RBC Urine WBC 02/22/18 02/22/18 02/22/18 23:59 03:55 03:55 WBC 15.0 H RBC 3.05 L 2.97 L Hgb 9.6 L 9.2 L Hct 28.1 L 28.3 L RDW 16.7 H 17.3 H Plt Count 100 L Gran % 89.8 H Lymph % (Auto) 4.6 L Gran # 13.5 H Lymph # (Auto) 0.7 L Seg Neutrophils % Band Neutrophils % 12 H Lymphocytes % 13 L Metamyelocytes % 2 H Nucleated RBCs RBC Morphology Anisocytosis 1+ A APTT Chloride Carbon Dioxide 21 L Anion Gap BUN 47 H Creatinine 3.6 H Glucose Phosphorus 5.6 H Magnesium GGT 43 H Lactate Dehydrogenase 253 H CK-MB (CK-2) Myoglobin Troponin T Triglycerides 204 H Urine Protein Ur Leukocyte Esterase Urine RBC Urine WBC 02/21/18 02/21/18 02/21/18 15:10 14:19 14:19 WBC RBC Hgb Hct RDW Plt Count Gran % Lymph % (Auto) Gran # Lymph # (Auto) Seg Neutrophils % Band Neutrophils % Lymphocytes % Metamyelocytes % Nucleated RBCs RBC Morphology Anisocytosis APTT Chloride Carbon Dioxide Anion Gap BUN Creatinine Glucose Phosphorus Magnesium GGT Lactate Dehydrogenase CK-MB (CK-2) 3.0 H Myoglobin 174 H Troponin T Triglycerides Urine Protein >=500 A Ur Leukocyte Esterase 250 A Urine RBC 9 H Urine WBC 142 H 02/21/18 14:19 WBC RBC Hgb Hct RDW Plt Count Gran % Lymph % (Auto) Gran # Lymph # (Auto) Seg Neutrophils % Band Neutrophils % Lymphocytes % Metamyelocytes % Nucleated RBCs RBC Morphology Anisocytosis APTT Chloride Carbon Dioxide Anion Gap BUN Creatinine Glucose Phosphorus Magnesium GGT Lactate Dehydrogenase CK-MB (CK-2) Myoglobin Troponin T 0.06 H* Triglycerides Urine Protein Ur Leukocyte Esterase Urine RBC Urine WBC Meds: Medications Acetaminophen (Tylenol) 650 mg PO Q4-6HP PRN PRN Reason: PAIN/FEVER > 101 Last Admin: 02/23/18 20:22 Dose: 650 mg Hydrocodone Bitart/Acetaminophen ([place] 7.5/325mg) 1 tab PO BID [facility] Last Admin: 02/24/18 08:07 Dose: 1 tab Albuterol/Ipratropium (Duoneb) 3 ml NEB Q4HRT PRN PRN Reason: Wheezing Last Admin: 02/23/18 04:24 Dose: 3 ml Amlodipine Besylate (Norvasc) 5 mg PO DAILY [facility] Last Admin: 02/24/18 09:12 Dose: Not Given Baclofen (Lioresal) 10 mg PO BID [facility] Last Admin: 02/24/18 08:07 Dose: 10 mg Bethanechol Chloride (Urecholine) 10 mg PO TID [facility] Last Admin: 02/24/18 08:07 Dose: 10 mg Ciprofloxacin (Ciloxan 0.3% Ophth Drops) 2 gtt OU Q4 [facility] Last Admin: 02/24/18 13:09 Dose: 2 gtt Docusate Sodium (Colace) 100 mg PO BID [facility] Last Admin: 02/24/18 08:07 Dose: 100 mg Fentanyl (Duragesic) 12 mcg TOPICAL Q72H [facility] Last Admin: 02/24/18 13:04 Dose: 12 mcg Heparin Sodium (Porcine) (Heparin) 5,000 unit SQ Q12 [facility] Last Admin: 02/24/18 08:07 Dose: 5,000 unit Hydralazine HCl (Apresoline) 25 mg PO BID [facility] Last Admin: 02/24/18 09:12 Dose: Not Given Acetaminophen (Ofirmev) 650 mg in 65 mls @ 130 mls/hr IV Q6HP PRN PRN Reason: PAIN/FEVER > 101 Last Admin: 02/24/18 13:35 Dose: 130 mls/hr Norepinephrine Bitartrate 16 (mg/ Sodium Chloride) 250 mls @ 9.37 mls/hr IV PRN PRN; Protocol; 10 MCG/MIN PRN Reason: Blood Pressure - Low Sodium Chloride (Sodium Chloride 0.9%) 250 mls @ 20 mls/hr IV .[id number] [facility] Last Admin: 02/24/18 03:31 Dose: Not Given Piperacillin Sod/Tazobactam (Sod 2.25 gm/ Dextrose) 50 mls @ 100 mls/hr IV Q12H [facility] Last Infusion: 02/24/18 12:26 Dose: Infused Iron Carb/Multivit/[place]/Folic Acid (Multivitamin W/Minerals) 1 tab PO DAILY [facility] Last Admin: 02/24/18 08:07 Dose: 1 tab Seroquel Xr 50 Mg (Tab) 1 dose PO BID [facility] Last Admin: 02/24/18 08:07 Dose: 1 dose Ondansetron HCl (Zofran) 4 mg IV Q4-6HP PRN PRN Reason: Nausea And Vomiting Last Admin: 02/24/18 04:38 Dose: 4 mg Oseltamivir Phosphate (Tamiflu) 75 mg PO BID [facility] Last Admin: 02/24/18 08:07 Dose: 75 mg Pantoprazole Sodium (Protonix) 40 mg PO HS [facility] Last Admin: 02/23/18 21:41 Dose: 40 mg Quetiapine Fumarate (Seroquel) 25 mg PO HS [facility] Last Admin: 02/23/18 20:30 Dose: 25 mg Senna/Docusate Sodium (Senna Plus Tablet) 1 tab PO HS [facility] Last Admin: 02/23/18 20:30 Dose: 1 tab Sodium Chloride (Saline Flush) 10 ml IV Q8 [facility] Last Admin: 02/24/18 05:46 Dose: 10 ml Tamsulosin HCl (Flomax) 0.4 mg PO DAILY [facility] Last Admin: 02/24/18 08:07 Dose: 0.4 mg Tiotropium [place] (Spiriva) 18 mcg INH DAILY [facility] Last Admin: 02/24/18 08:09 Dose: Not Given Warfarin Sodium (Coumadin Per Pharmacy) 1 order PO UD [facility] Medical - PN: A/P - Time Spent With Patient Total time spent is greater than 50% in coordination of care (as documented) at patient's floor/unit and/or counseling patient: 25 - 35 minutes (1) Complicated UTI (urinary tract infection) Status: Acute Assessment and plan: assessment- 72-year-old with ESRD on hemodialysis/underlying dementia admitted with acute change in mental status/complicated UTI and acute influenza B * hypoxic respiratory failure-clinically improving. No evidence of PE. And accommodation discontinued. * Severe sepsis-clinical improvement noted on antibiotic coverage. White count down from 17-10 * complicated UTI -clinical improvement noted on Zosyn * Acute change in mental status -secondary to infection/opioids/benzos. Much improved * Right blepharitis/conjunctivitis- clinically resolved. * acute influenza B -clinically resolved. managed on Tamiflu * History of ESRD on hemodialysis- ongoing dialysis per nephrology * hypertension very labile, on Coreg/losartan with holding parameters * history of COPD-continue bronchodilators * hypothyroidism on thyroxine * Anxiety disorder on duloxetine * GERD on PPI * Hyperlipidemia statin * history of dementia with agitation currently stable on quetiapine * History of CAD on aspirin and statin beta mustapha/ÓSCAR inhibitor/iisosorbide dinitrate * DNR Plan * DC anticoagulation * continue Antibiotic coverage * DC Tamiflu in 24 hours * transfer to telemetry * hemodialysis per nephrology * Pre-existing medical condition management as above * PT OT * case management to arrange SNF transfer Current Visit: Yes Medical - PN: Qual - VTE Deep Vein Thrombosis/Pulmonary Embolism Present on Admission: No
[2018-02-24] MEDS: SENNOSIDES/DOCUSATE SODIUM 1 TAB TABLET PO SCH (21:20)
[2018-02-24] MEDS: PANTOPRAZOLE 40 MG TABLET PO SCH (21:20)
[2018-02-24] MEDS: QUEtiapine 25 MG TABLET PO SCH (21:22)
[2018-02-25] MEDS: 0.9 % SODIUM CHLORIDE 250 ML IV SCH ×2 (02:28→14:46)
[2018-02-25] MEDS: CIPROFLOXACIN 0.3% OPHTH DROPS BOTTLE 5 ML OU SCH ×6 (02:28→20:00)
[2018-02-25 05:53] LABS: Mean Cell Volume 94.2 fL (80.0-100.0); Mean Corpuscular HGB Conc 33.4 g/dL (31.0-36.0); Mean Corpuscular Hemoglobin 31.5 pg (26.0-34.0); Platelet Count 222 K/mcL (140-440); RBC 2.87 M/mcL (4.00-5.20); Red Cell Distribution Width 17.7 % (11.5-14.5)
[2018-02-25 06:24] LABS: ALT/SGPT 9 U/l (0-40); Albumin/Globulin Ratio 0.8 (1.0-2.3); Alkaline Phosphatase 73 U/L (39-117); Bilirubin,Direct < 0.2 mg/dL (0.0-0.3); Blood Urea Nitrogen 29 mg/dl (8-23); Gamma Glutamyl Transpeptidase 39 U/L (5-36); Uric Acid 3.1 mg/dL (2.5-8.0)
[2018-02-25 06:30] LABS: Anisocytosis 1+ (NONE SEEN); Band Neutrophils % 2 % (0-10); Eosinophils % (Manual) 2 % (0-7); Howell-Jolly Bodies OCC (NONE SEEN); Lymphocytes % 12 % (15-49); Monocytes % (Manual) 5 % (1-12); Platelet Estimate NORMAL (NORMAL); RBC Morphology ABNORM (NORMAL); Segmented Neutrophils % 79 % (38-78)
[2018-02-25] MEDS: MULTIVIT,THER IRON,CA,FA & MIN 1 TABLET PO SCH (10:22)
[2018-02-25] MEDS: TAMSULOSIN 0.4 MG CAPSULE PO SCH (10:22)
[2018-02-25] MEDS: amLODIPine 5 MG TABLET PO SCH (10:22)
[2018-02-25] MEDS: HEPARIN 5,000 UNIT/ML VIAL SQ SCH ×2 (10:22→20:24)
[2018-02-25] MEDS: DOCUSATE SODIUM 100 MG CAPSULE PO SCH ×2 (10:22→21:36)
[2018-02-25] MEDS: PIPERACILLIN SODIUM/TAZOBACTAM 2.25 GM in DEXTROSE 5% IN WATER 50 ML IV SCH ×2 (10:22→21:00)
[2018-02-25] MEDS: BETHANECHOL 10 MG TABLET PO SCH ×3 (10:22→20:24)
[2018-02-25] MEDS: OSELTAMIVIR PHOSPHATE 75 MG CAPSULE PO SCH ×2 (10:22→20:23)
[2018-02-25] MEDS: BACLOFEN 10 MG TABLET PO SCH ×2 (10:22→20:23)
[2018-02-25] MEDS: HYDROCODONE/APAP 7.5/325MG TABLET PO SCH ×2 (10:22→20:23)
[2018-02-25] MEDS: SEROQUEL 50 MG PO SCH ×2 (10:22→20:24)
[2018-02-25] MEDS: hydrALAZINE 25 MG TABLET PO SCH ×2 (10:23→20:28)
[2018-02-25] MEDS: 0.9 % SODIUM CHLORIDE 10 ML SYRINGE IV SCH ×3 (10:23→22:10)
[2018-02-25] MEDS: TIOTROPIUM BROMIDE 18 MCG INHALANT INH SCH (10:23)
--- NOTE | 2018-02-25 12:50 | Internal Med Progress Note ---
Medical - PN: Subj Patient information: Note initiated : 02/25/18 at 12:47 pm Service Date, if different from initiated Date: [] Patient: Alexandra Zapata 72 y/o F admitted on 02/21/18 for Resp Distress, Confusion /Influenza A, UTI. Chief Complaint: [] Interval history: Ms. Zapata is a 72 year old F with ESRD on hemodialysis and recent hospitalization. Patient was recovering at [facility] and was directed to the ER after she was found confused, weak and febrile by the staff at [facility]. patient was unable to provide any meaningful history to the ER physician. Initial workup was significant for pyuria along with a MAXIMUM TEMPERATURE over 100. Subsequently hospitalist service was consulted in light of acute change in mental status and complicated UTI. Nephrology was also consulted in light of end-stage renal disease on hemodialysis. patient is due for hemodialysis on Thursday. patient also was recently diagnosed with influenza and was on Tamiflu and amoxicillin. At the time of evaluation, patient is unable to provide a history due to her underlying baseline dementia and acute worsening mental status. She was however able to answer leading questions in yes and no. She denies chest pain headache. Her right eye lids have been swollen and red. She denies diarrhea or abdominal pain.No family members are present. Most history is obtained from ER records and care center documents. 02/22- patient much more lucid and responding to commands. No overnight events. Persistent tachycardia around 110. Foleys catheter draining dark urine. Nephrology consulted for baseline ESRD requiring hemodialysis. On contact precaution for influenza B. On Tamiflu. white count 8.8. addendum-patient became hypotensive during dialysis. Blood pressure dropping to 80's. Vasopressin started. Dialysis temporarily held. Patient tachypneic tachycardic and hypoxic requiring 14 L oxygen. Stat chest x-ray/CT angiogram ordered. ABGs pending. Unclear etiology for sudden hypotension . Rule out acute pulmonary embolism. CTA chest could not be performed as patrient is too sick to be able to undergo procedure per protocol. start heparin drip for empiric PE treatment CT angiogram scheduled in a.m. 02/23-worsening hypoxic respiratory failure last night along with hypotension requiring pressors. ABG 7.53/36/64 on 13 L oxygen. Large AA gradient. White count 17.6. 15% bands. on broad antibiotic coverage including Zosyn for complicated UTI. CT angiogram chest pending. On empiric treatment for PE with heparin drip/oral Coumadin. February 24- patient on hemodialysis. Tachycardia/hypertension during dialysis noted today. She is otherwise more alert and lucid. On antibiotic coverage. White count down from 17.6-10.8. Afebrile.basal pneumonia on CT angiogram but no evidence of PE. Anticoagulation discontinued. no overnight fever chills or concerns per staff. Telemetry intermittent tachycardia during dialysis. February 25-patient clinically improving since previous day however episodes of hypotension and tachycardia noticed during hemodialysis yesterday. Patient appears euvolemic. Improving respiratory status.no overnight fever or chills. Alert and responding to verbal commands. No family at bedside. Patient says her daughter Elba would be listing today. Case discussed with nephrology. We will hold hemodialysis today. Systolics at goal.white count down to 8.3.cultures negative so far. bibasal pneumonia on CT. - Constitutional Vitals: Vital Signs Temp Pulse Resp BP Pulse Ox 99.0 F H 112 H 25 H 116/61 93 02/25/18 12:08 02/25/18 11:00 02/25/18 12:30 02/25/18 12:08 02/25/18 12:08 Period Temp Pulse Resp BP Sys/Barrera Pulse Ox Last 24 Hr 97.6 F-99.8 F 62-129 10-36 84-138/49-94 86-100 Intake and Output 02/24/18 02/25/18 02/25/18 21:59 05:59 13:59 Intake Total 366 / 366 480 / 480 200 / 200 Output Total 1924 100 / 100 Balance -1559 / -1559 380 / 380 200 / 200 Weight 85 lb 4.8 oz Intake & Output: Intake & Output 02/24/18 02/25/18 02/25/18 21:59 05:59 13:59 Intake Total 366 / 366 480 / 480 200 / 200 Output Total 1924 100 / 100 Balance -1559 / -1559 380 / 380 200 / 200 Weight 85 lb 4.8 oz Intake: IV 166 / 166 Zosyn 2.25 gm In Dextrose 5% in 50 / 50 Water 50 ml @ 100 mls/hr IV Q12H [facility] Rx#:[id number] Oral 200 / 200 200 / 200 GI Tube Flush 480 / 480 Output: Urine Catheter Amount 225 / 225 100 / 100 Hemodialysis UF 1700 / 1700 Other: Meal Lunch Breakfast Percent of Meal Consumed 75% 75% Feeding Ability Needs Supervision Stool Size Small Smear Small Stool Color Brown Brown Brown Stool Consistency Soft Soft Soft # of times incontinent of 1 1 Bowels General appearance: no acute distress, thin Exam: resting comfortably intermittent tachycardia on telemetry no anxiety No lymphedema nonlabored breathing Medical - PN: Obj Da - Labs CBC & Chem 7: 02/25/18 04:22 02/25/18 04:22 Labs: Abnormal Lab Results 02/25/18 02/25/18 02/24/18 04:22 04:22 04:25 WBC RBC 2.87 L Hgb 9.0 L Hct 27.0 L RDW 17.7 H Plt Count Gran % Lymph % (Auto) Gran # Lymph # (Auto) Seg Neutrophils % 79 H Band Neutrophils % Lymphocytes % 12 L Nucleated RBCs RBC Morphology Abnorm A Anisocytosis 1+ A [place] Bodies Occ A RBC Fragments Occ A APTT Chloride 93 L 94 L Anion Gap BUN 29 H 49 H Creatinine 2.8 H 3.8 H Glucose Phosphorus 5.1 H Magnesium 2.6 H GGT 39 H Lactate Dehydrogenase 267 H 320 H Albumin 3.0 L Albumin/Globulin Ratio 0.8 L Triglycerides 196 H 239 H 02/24/18 02/23/18 02/23/18 04:25 09:10 03:55 WBC RBC 2.80 L Hgb 8.9 L Hct 26.6 L RDW 17.6 H Plt Count Gran % Lymph % (Auto) Gran # Lymph # (Auto) Seg Neutrophils % Band Neutrophils % Lymphocytes % 13 L Nucleated RBCs 1 H RBC Morphology Abnorm A Anisocytosis 1+ A [place] Bodies RBC Fragments APTT 150 H* Chloride Anion Gap 17.0 H BUN 25 H Creatinine 2.6 H Glucose 151 H Phosphorus 5.0 H Magnesium GGT 44 H Lactate Dehydrogenase 313 H Albumin Albumin/Globulin Ratio Triglycerides 02/23/18 02/22/18 02/22/18 03:55 23:59 23:59 WBC 17.6 H 15.0 H RBC 3.12 L 3.05 L Hgb 10.0 L 9.6 L Hct 29.5 L 28.1 L RDW 17.7 H 16.7 H Plt Count 58 L 100 L Gran % 89.8 H Lymph % (Auto) 4.6 L Gran # 13.5 H Lymph # (Auto) 0.7 L Seg Neutrophils % 79 H Band Neutrophils % 15 H Lymphocytes % 2 L Nucleated RBCs RBC Morphology Abnorm A Anisocytosis 1+ A [place] Bodies RBC Fragments APTT 113 H Chloride Anion Gap BUN Creatinine Glucose Phosphorus Magnesium GGT Lactate Dehydrogenase Albumin Albumin/Globulin Ratio Triglycerides Meds: Medications Acetaminophen (Tylenol) 650 mg PO Q4-6HP PRN PRN Reason: PAIN/FEVER > 101 Last Admin: 02/23/18 20:22 Dose: 650 mg Hydrocodone Bitart/Acetaminophen ([place] 7.5/325mg) 1 tab PO BID [facility] Last Admin: 02/25/18 10:22 Dose: 1 tab Albuterol/Ipratropium (Duoneb) 3 ml NEB Q4HRT PRN PRN Reason: Wheezing Last Admin: 02/23/18 04:24 Dose: 3 ml Amlodipine Besylate (Norvasc) 5 mg PO DAILY [facility] Last Admin: 02/25/18 10:22 Dose: 5 mg Baclofen (Lioresal) 10 mg PO BID [facility] Last Admin: 02/25/18 10:22 Dose: 10 mg Bethanechol Chloride (Urecholine) 10 mg PO TID [facility] Last Admin: 02/25/18 10:22 Dose: 10 mg Ciprofloxacin (Ciloxan 0.3% Ophth Drops) 2 gtt OU Q4 [facility] Last Admin: 02/25/18 10:23 Dose: 2 gtt Docusate Sodium (Colace) 100 mg PO BID [facility] Last Admin: 02/25/18 10:22 Dose: 100 mg Fentanyl (Duragesic) 12 mcg TOPICAL Q72H [facility] Last Admin: 02/24/18 13:04 Dose: 12 mcg Heparin Sodium (Porcine) (Heparin) 5,000 unit SQ Q12 [facility] Last Admin: 02/25/18 10:22 Dose: 5,000 unit Hydralazine HCl (Apresoline) 25 mg PO BID [facility] Last Admin: 02/25/18 10:23 Dose: Not Given Acetaminophen (Ofirmev) 650 mg in 65 mls @ 130 mls/hr IV Q6HP PRN PRN Reason: PAIN/FEVER > 101 Last Infusion: 02/24/18 15:53 Dose: Infused Norepinephrine Bitartrate 16 (mg/ Sodium Chloride) 250 mls @ 9.37 mls/hr IV PRN PRN; Protocol; 10 MCG/MIN PRN Reason: Blood Pressure - Low Sodium Chloride (Sodium Chloride 0.9%) 250 mls @ 20 mls/hr IV .[id number] [facility] Last Admin: 02/25/18 02:28 Dose: Not Given Piperacillin Sod/Tazobactam (Sod 2.25 gm/ Dextrose) 50 mls @ 100 mls/hr IV Q12H [facility] Last Admin: 02/25/18 10:22 Dose: 100 mls/hr Iron Carb/Multivit/[employer]/Folic Acid (Multivitamin W/Minerals) 1 tab PO DAILY [facility] Last Admin: 02/25/18 10:22 Dose: 1 tab Seroquel Xr 50 Mg (Tab) 1 dose PO BID [facility] Last Admin: 02/25/18 10:22 Dose: 1 dose Ondansetron HCl (Zofran) 4 mg IV Q4-6HP PRN PRN Reason: Nausea And Vomiting Last Admin: 02/24/18 04:38 Dose: 4 mg Oseltamivir Phosphate (Tamiflu) 75 mg PO BID [facility] Last Admin: 02/25/18 10:22 Dose: 75 mg Pantoprazole Sodium (Protonix) 40 mg PO HS [facility] Last Admin: 02/24/18 21:20 Dose: 40 mg Quetiapine Fumarate (Seroquel) 25 mg PO HS [facility] Last Admin: 02/24/18 21:22 Dose: 25 mg Senna/Docusate Sodium (Senna Plus Tablet) 1 tab PO HS [facility] Last Admin: 02/24/18 21:20 Dose: 1 tab Sodium Chloride (Saline Flush) 10 ml IV Q8 [facility] Last Admin: 02/25/18 10:23 Dose: 10 ml Tamsulosin HCl (Flomax) 0.4 mg PO DAILY [facility] Last Admin: 02/25/18 10:22 Dose: 0.4 mg Tiotropium [place] (Spiriva) 18 mcg INH DAILY [facility] Last Admin: 02/25/18 10:23 Dose: Not Given Warfarin Sodium (Coumadin) 3 mg PO ONCE@1400 ONE Stop: 02/25/18 14:01 Medical - PN: A/P - Time Spent With Patient Total time spent is greater than 50% in coordination of care (as documented) at patient's floor/unit and/or counseling patient: 25 - 35 minutes (1) Complicated UTI (urinary tract infection) Status: Acute Assessment and plan: assessment- 72-year-old with ESRD on hemodialysis/underlying dementia admitted with acute change in mental status/complicated UTI and acute influenza B * bibasal pneumonia-continue antibiotic coverage * Hypoxic respiratory failure-secondary to above. Clinically improving * mild CHF secondary to volume overload improved status post ultrafiltration. * Severe sepsis-clinical. Clinically resolved. White count down from 17.6 - 8000 * complicated UTI -clinically resolved. Cultures negative so far. * History of ESRD on hemodialysis- ongoing dialysis per nephrology Stable/resolved issues * Acute change in mental status -secondary to infection/opioids/benzos. * Right blepharitis/conjunctivitis * acute influenza B. Tamiflu day 4/5 * hypertension -systolics at goal * history of COPD-continue bronchodilators * hypothyroidism on thyroxine * Anxiety disorder on duloxetine * GERD on PPI * Hyperlipidemia statin * history of dementia with agitation-at baseline. continue quetiapine * History of CAD on aspirin and statin beta mustapha/ÓSCAR inhibitor/iisosorbide dinitrate * DNR Plan * DC Tamiflu in a.m. * antibiotics day 03/23 * continue telemetry monitoring * hemodialysis per nephrology * Pre-existing medical condition management as above * continue PT OT * await SNF transfer Current Visit: Yes Medical - PN: Qual - VTE Deep Vein Thrombosis/Pulmonary Embolism Present on Admission: No
[2018-02-25] MEDS ORDERED: WARFARIN 3 MG TABLET PO ONE (14:00)
--- NOTE | 2018-02-25 14:41 | Nephrology Progress Note ---
Subjective Patient information: Note initiated : 02/25/18 at 2:39 pm Service Date, if different from initiated Date: [] Patient: Alexandra Zapata 72 y/o F admitted on 02/21/18 for Resp Distress, Confusion /Influenza A, UTI. Chief Complaint: Feeling a little bit better. Had episodes of tachycardia. Objective - Vital Signs Vital signs: Vital Signs Temp Pulse Resp BP Pulse Ox 02/25/18 12:30 25 H 02/25/18 12:15 16 02/25/18 12:08 99.0 F H 16 116/61 93 02/25/18 11:00 112 H 17 94 02/25/18 10:45 110 H 12 95 02/25/18 10:30 109 H 14 93 02/25/18 10:15 108 H 14 93 02/25/18 10:00 111 H 20 93 02/25/18 09:45 22 02/25/18 09:30 21 02/25/18 09:15 11 L 02/25/18 09:00 15 02/25/18 08:45 18 02/25/18 08:30 104 H 14 93 02/25/18 08:15 109 H 14 86 L 02/25/18 08:01 99 H 17 135/60 95 02/25/18 08:00 95 H 26 H 95 02/25/18 07:45 100 H 18 94 02/25/18 06:45 105 H 22 94 02/25/18 05:49 125/63 02/25/18 04:30 98 H 21 92 02/25/18 04:15 99 H 12 94 02/25/18 04:01 97 H 15 133/57 94 02/25/18 04:00 99.8 F H 100 H 21 92 02/25/18 03:45 95 H 17 94 02/25/18 03:30 95 H 19 93 02/25/18 03:15 93 H 18 95 02/25/18 03:00 94 H 17 94 02/25/18 02:45 95 H 15 95 02/25/18 02:30 96 H 16 94 02/25/18 02:15 91 H 16 96 02/25/18 02:00 93 H 17 95 02/25/18 01:45 91 H 14 96 02/25/18 01:30 95 H 18 93 02/25/18 01:15 101 H 24 H 92 04/12/18 01:00 89 16 94 02/25/18 00:45 90 11 L 94 02/25/18 00:30 90 12 93 02/25/18 00:15 89 13 93 02/25/18 00:01 90 11 L 104/49 93 02/25/18 00:00 98.9 F 88 21 94 02/24/18 23:45 95 H 20 94 02/24/18 23:30 93 H 27 H 95 02/24/18 23:15 88 12 96 02/24/18 23:00 93 H 10 L 97 02/24/18 22:45 92 H 16 96 02/24/18 22:30 94 H 21 97 02/24/18 22:15 100 H 25 H 96 02/24/18 22:03 107 H 33 H 91 02/24/18 22:02 102 H 22 124/68 92 02/24/18 22:00 98 H 34 H 91 02/24/18 21:45 97 H 26 H 89 L 02/24/18 21:30 97 H 31 H 89 L 02/24/18 21:15 85 22 92 02/24/18 21:01 26 H 120/94 02/24/18 21:00 23 H 02/24/18 20:45 31 H 02/24/18 20:30 17 02/24/18 20:15 23 H 02/24/18 20:01 99.3 F H 15 114/51 94 02/24/18 20:00 20 02/24/18 19:45 33 H 02/24/18 19:30 36 H 02/24/18 19:15 86 20 99 02/24/18 19:01 87 21 90/50 99 02/24/18 19:00 84 20 99 02/24/18 18:45 86 21 99 02/24/18 18:30 89 18 96 02/24/18 18:17 101 H 22 94 02/24/18 18:16 100 H 22 127/62 95 02/24/18 18:15 90 24 H 95 02/24/18 18:00 81 18 100 02/24/18 17:45 80 18 100 02/24/18 17:30 85 18 100 02/24/18 17:15 91 H 18 100 02/24/18 17:01 99 H 17 114/59 100 02/24/18 17:00 100 H 21 100 02/24/18 16:45 89 17 100 02/24/18 16:30 15 02/24/18 16:15 101 H 26 H 94 02/24/18 16:01 109 H 21 91 02/24/18 16:00 97.6 F 102 H 24 H 103/60 94 02/24/18 15:51 112 H 13 84/56 95 02/24/18 15:45 109 H 19 93 02/24/18 15:30 116 H 32 H 91 02/24/18 15:16 111 H 31 H 119/61 95 02/24/18 15:15 114 H 20 96 02/24/18 15:01 112 H 19 111/63 97 02/24/18 15:00 112 H 14 96 02/24/18 14:46 118 H 22 105/64 93 02/24/18 14:45 119 H 25 H 93 Intake and Output 02/25/18 02/25/18 02/25/18 05:59 13:59 21:59 Intake Total 480 / 480 810 / 810 Output Total 100 / 100 Balance 380 / 380 810 / 810 Intake: Oral 810 / 810 GI Tube Flush 480 / 480 Output: Urine Catheter Amount 100 / 100 Other: Meal Lunch Percent of Meal Consumed 75% Feeding Ability Total Assistance Stool Size Smear Small Stool Color Brown Brown Stool Consistency Soft Soft # of times incontinent of 1 Bowels Intake & Output: Intake & Output 02/25/18 02/25/18 02/25/18 05:59 13:59 21:59 Intake Total 480 / 480 810 / 810 Output Total 100 / 100 Balance 380 / 380 810 / 810 Intake: Oral 810 / 810 GI Tube Flush 480 / 480 Output: Urine Catheter Amount 100 / 100 Other: Meal Lunch Percent of Meal Consumed 75% Feeding Ability Total Assistance Stool Size Smear Small Stool Color Brown Brown Stool Consistency Soft Soft # of times incontinent of 1 Bowels - General Appearance General appearance: cachectic EENT: ATNC Neck: no JVD Cardiology: holosystolic murmur Gastrointestinal: hypoactive bowel sounds Neurologic: no focal deficit - Lab 02/25/18 04:22 02/25/18 04:22 Most recent lab results Calcium 9.0 mg/dl (8.6-10.4) 02/25/18 04:22 Phosphorus 3.6 mg/dL (2.7-4.5) 02/25/18 04:22 Magnesium 2.3 mg/dL (1.6-2.5) 02/25/18 04:22 Assessment and Plan (1) ESRD (end stage renal disease) on dialysis Status: Acute Comment: Did not tolerate dialysis very well as she had low bp and it might have been related to AFIb with RVR. Electrolytes look ok. Will dialyse tomorrow. Loosing weight. Apetite is ok. Will increase intake.
[2018-02-25] MEDS: ONDANSETRON 4 MG/2 ML VIAL IV PRN (17:18)
[2018-02-25] MEDS: ACETAMINOPHEN 650 MG/65 ML BOTTLE IV PRN (19:40)
[2018-02-25] MEDS: PANTOPRAZOLE 40 MG TABLET PO SCH (20:23)
[2018-02-25] MEDS: QUEtiapine 25 MG TABLET PO SCH (20:23)
[2018-02-25] MEDS: SENNOSIDES/DOCUSATE SODIUM 1 TAB TABLET PO SCH (21:36)
[2018-02-26] MEDS: CIPROFLOXACIN 0.3% OPHTH DROPS BOTTLE 5 ML OU SCH ×6 (00:36→20:51)
[2018-02-26] MEDS: ACETAMINOPHEN 650 MG/65 ML BOTTLE IV PRN ×2 (03:03→20:47)
[2018-02-26] MEDS: 0.9 % SODIUM CHLORIDE 250 ML IV SCH ×2 (04:26→18:01)
[2018-02-26 05:13] LABS: Mean Cell Volume 94.3 fL (80.0-100.0); Mean Corpuscular HGB Conc 33.3 g/dL (31.0-36.0); Mean Corpuscular Hemoglobin 31.4 pg (26.0-34.0); Platelet Count 239 K/mcL (140-440); RBC 2.67 M/mcL (4.00-5.20); Red Cell Distribution Width 17.4 % (11.5-14.5)
[2018-02-26 05:50] LABS: ALT/SGPT 8 U/l (0-40); Albumin 2.8 gm/dL (3.2-5.2); Albumin/Globulin Ratio 0.8 (1.0-2.3); Alkaline Phosphatase 81 U/L (39-117); Anisocytosis 1+ (NONE SEEN); Basophils % (Manual) 1 % (0-2); Bilirubin,Direct < 0.2 mg/dL (0.0-0.3); Blood Urea Nitrogen 50 mg/dl (8-23); Eosinophils % (Manual) 2 % (0-7); Gamma Glutamyl Transpeptidase 37 U/L (5-36); Lymphocytes % 7 % (15-49); Monocytes % (Manual) 6 % (1-12); Platelet Estimate NORMAL (NORMAL); RBC Morphology ABNORM (NORMAL); Segmented Neutrophils % 84 % (38-78); Uric Acid 5.1 mg/dL (2.5-8.0)
[2018-02-26] MEDS: 0.9 % SODIUM CHLORIDE 10 ML SYRINGE IV SCH ×3 (05:51→22:05)
[2018-02-26] MEDS: TAMSULOSIN 0.4 MG CAPSULE PO SCH ×2 (07:36→10:19)
[2018-02-26] MEDS: MULTIVIT,THER IRON,CA,FA & MIN 1 TABLET PO SCH ×2 (07:36→10:19)
[2018-02-26] MEDS: HEPARIN 5,000 UNIT/ML VIAL SQ SCH ×2 (07:36→21:30)
[2018-02-26] MEDS: BACLOFEN 10 MG TABLET PO SCH ×4 (07:36→21:57)
[2018-02-26] MEDS: HYDROCODONE/APAP 7.5/325MG TABLET PO SCH ×4 (07:36→20:56)
[2018-02-26] MEDS: SEROQUEL 50 MG PO SCH ×3 (07:36→21:30)
[2018-02-26] MEDS: OSELTAMIVIR PHOSPHATE 75 MG CAPSULE PO SCH (07:36)
[2018-02-26] MEDS: hydrALAZINE 25 MG TABLET PO SCH ×2 (07:41→20:57)
[2018-02-26] MEDS: TIOTROPIUM BROMIDE 18 MCG INHALANT INH SCH (07:41)
[2018-02-26] MEDS: amLODIPine 5 MG TABLET PO SCH (07:41)
[2018-02-26] MEDS: DOCUSATE SODIUM 100 MG CAPSULE PO SCH ×2 (07:41→21:51)
--- NOTE | 2018-02-26 08:29 | Internal Med Progress Note ---
Medical - PN: Subj Patient information: Note initiated : 02/26/18 at 8:26 am Service Date, if different from initiated Date: [] Patient: Alexandra Zapata a 72 y/o F admitted on 02/21/18 for Resp Distress, Confusion /Influenza A, UTI. Chief Complaint: [] Interval history: Ms. Zapata is a 72 year old F with ESRD on hemodialysis and recent hospitalization. Patient was recovering at [facility] and was directed to the ER after she was found confused, weak and febrile by the staff at care Center. patient was unable to provide any meaningful history to the ER physician. Initial workup was significant for pyuria along with a MAXIMUM TEMPERATURE over 100. Subsequently hospitalist service was consulted in light of acute change in mental status and complicated UTI. Nephrology was also consulted in light of end-stage renal disease on hemodialysis. patient is due for hemodialysis on Thursday. patient also was recently diagnosed with influenza and was on Tamiflu and amoxicillin. At the time of evaluation, patient is unable to provide a history due to her underlying baseline dementia and acute worsening mental status. She was however able to answer leading questions in yes and no. She denies chest pain headache. Her right eye lids have been swollen and red. She denies diarrhea or abdominal pain.No family members are present. Most history is obtained from ER records and care center documents. 02/22- patient much more lucid and responding to commands. No overnight events. Persistent tachycardia around 110. Foleys catheter draining dark urine. Nephrology consulted for baseline ESRD requiring hemodialysis. On contact precaution for influenza B. On Tamiflu. white count 8.8. addendum-patient became hypotensive during dialysis. Blood pressure dropping to 80's. Vasopressin started. Dialysis temporarily held. Patient tachypneic tachycardic and hypoxic requiring 14 L oxygen. Stat chest x-ray/CT angiogram ordered. ABGs pending. Unclear etiology for sudden hypotension . Rule out acute pulmonary embolism. CTA chest could not be performed as patrient is too sick to be able to undergo procedure per protocol. start heparin drip for empiric PE treatment CT angiogram scheduled in a.m. 02/23-worsening hypoxic respiratory failure last night along with hypotension requiring pressors. ABG 7.53/36/64 on 13 L oxygen. Large AA gradient. White count 17.6. 15% bands. on broad antibiotic coverage including Zosyn for complicated UTI. CT angiogram chest pending. On empiric treatment for PE with heparin drip/oral Coumadin. February 24- patient on hemodialysis. Tachycardia/hypertension during dialysis noted today. She is otherwise more alert and lucid. On antibiotic coverage. White count down from 17.6-10.8. Afebrile.basal pneumonia on CT angiogram but no evidence of PE. Anticoagulation discontinued. no overnight fever chills or concerns per staff. Telemetry intermittent tachycardia during dialysis. February 25-patient clinically improving since previous day however episodes of hypotension and tachycardia noticed during hemodialysis yesterday. Patient appears euvolemic. Improving respiratory status.no overnight fever or chills. Alert and responding to verbal commands. No family at bedside. Patient says her daughter Elba would be listing today. Case discussed with nephrology. We will hold hemodialysis today. Systolics at goal.white count down to 8.3.cultures negative so far. bibasal pneumonia on CT. February 26-patient continues to experience multiple stoolslikely antibiotic associated. C. difficile negative. White count 9.7. DC antibiotics. patient continues to be lethargic despite being off home dose benzodiazepines. patient was managed on half dose fentanyl however continues to hurt and is being switched back to 25 home dose fentanyl patch. Ongoing hemodialysis. Extremely slow recovery. He is a limited code per POA caregiver. No family members available for goals of care conference. on 3.5 L oxygen. Patient extremely lethargic and refusing/unable to participate in physical therapy - Constitutional Vitals: Vital Signs Temp Pulse Resp BP Pulse Ox 98.2 F 86 15 126/54 99 02/26/18 07:40 02/26/18 04:00 02/26/18 07:40 02/26/18 07:40 02/26/18 07:40 Period Temp Pulse Resp BP Sys/Barrera Pulse Ox Last 24 Hr 97.5 F-99.5 F 75-114 0-28 90-136/48-71 87-99 Intake and Output 02/25/18 02/26/18 02/26/18 21:59 05:59 13:59 Intake Total 475 / 475 65 / 65 Output Total 150 / 150 Balance 325 / 325 65 / 65 Weight 85 lb 14 oz 85 lb 14 oz Intake & Output: Intake & Output 0402/26/18 02/26/18 21:59 05:59 13:59 Intake Total 475 / 475 65 / 65 Output Total 150 / 150 Balance 325 / 325 65 / 65 Weight 85 lb 14 oz 85 lb 14 oz Intake: IV 165 / 165 65 / 65 Zosyn 2.25 gm In Dextrose 5% in 100 / 100 Water 50 ml @ 100 mls/hr IV Q12H [facility] Rx#:[id number] Oral 310 / 310 Output: Urine Catheter Amount 150 / 150 Other: Meal Applesauce for pills Percent of Meal Consumed 75% Feeding Ability Total Assistance Stool Size Moderate Small Stool Color Brown Brown Stool Consistency Soft Soft Loose Loose # of times incontinent of 2 1 Bowels General appearance: no acute distress Exam: very fatigued and lethargic Slumps over during attempts to prop her up Foleys catheter draining clear urine-being discontinued Soiled perineum from diarrhea Nonlabored breathing Telemetry intermittent tachycardia Medical - PN: Obj Da - Labs CBC & Chem 7: 02/26/18 04:09 02/26/18 04:09 Labs: Abnormal Lab Results 02/26/18 02/26/18 02/26/18 04:09 04:09 04:09 RBC 2.67 L Hgb 8.4 L Hct 25.2 L RDW 17.4 H Seg Neutrophils % 84 H Lymphocytes % 7 L Nucleated RBCs RBC Morphology Abnorm A Anisocytosis 1+ A [place] Bodies RBC Fragments PT 14.7 H APTT Chloride BUN 50 H Creatinine 3.8 H Phosphorus 5.4 H Magnesium 2.8 H GGT 37 H Lactate Dehydrogenase Albumin 2.8 L Albumin/Globulin Ratio 0.8 L Triglycerides 191 H 02/25/18 02/25/18 02/24/18 04:22 04:22 04:25 RBC 2.87 L Hgb 9.0 L Hct 27.0 L RDW 17.7 H Seg Neutrophils % 79 H Lymphocytes % 12 L Nucleated RBCs RBC Morphology Abnorm A Anisocytosis 1+ A [place] Bodies Occ A RBC Fragments Occ A PT APTT Chloride 93 L 94 L BUN 29 H 49 H Creatinine 2.8 H 3.8 H Phosphorus 5.1 H Magnesium 2.6 H GGT 39 H Lactate Dehydrogenase 267 H 320 H Albumin 3.0 L Albumin/Globulin Ratio 0.8 L Triglycerides 196 H 239 H 02/24/18 02/23/18 04:25 09:10 RBC 2.80 L Hgb 8.9 L Hct 26.6 L RDW 17.6 H Seg Neutrophils % Lymphocytes % 13 L Nucleated RBCs 1 H RBC Morphology Abnorm A Anisocytosis 1+ A [place] Bodies RBC Fragments PT APTT 150 H* Chloride BUN Creatinine Phosphorus Magnesium GGT Lactate Dehydrogenase Albumin Albumin/Globulin Ratio Triglycerides Meds: Medications Acetaminophen (Tylenol) 650 mg PO Q4-6HP PRN PRN Reason: PAIN/FEVER > 101 Last Admin: 02/23/18 20:22 Dose: 650 mg Hydrocodone Bitart/Acetaminophen ([place] 7.5/325mg) 1 tab PO BID [facility] Last Admin: 02/25/18 20:23 Dose: 1 tab Albuterol/Ipratropium (Duoneb) 3 ml NEB Q4HRT PRN PRN Reason: Wheezing Last Admin: 02/23/18 04:24 Dose: 3 ml Amlodipine Besylate (Norvasc) 5 mg PO DAILY [facility] Last Admin: 02/26/18 07:41 Dose: Not Given Baclofen (Lioresal) 10 mg PO BID [facility] Last Admin: 02/25/18 20:23 Dose: 10 mg [place] Chloride (Urecholine) 10 mg PO TID [facility] Last Admin: 02/25/18 20:24 Dose: 10 mg Ciprofloxacin (Ciloxan 0.3% Ophth Drops) 2 gtt OU Q4 [facility] Last Admin: 02/26/18 07:42 Dose: 2 gtt Docusate Sodium (Colace) 100 mg PO BID [facility] Last Admin: 02/26/18 07:41 Dose: Not Given Fentanyl (Duragesic) 12 mcg TOPICAL Q72H [facility] Last Admin: 02/24/18 13:04 Dose: 12 mcg Heparin Sodium (Porcine) (Heparin) 5,000 unit SQ Q12 [facility] Last Admin: 02/26/18 07:36 Dose: 5,000 unit Hydralazine HCl (Apresoline) 25 mg PO BID [facility] Last Admin: 02/26/18 07:41 Dose: Not Given Acetaminophen (Ofirmev) 650 mg in 65 mls @ 130 mls/hr IV Q6HP PRN PRN Reason: PAIN/FEVER > 101 Last Infusion: 02/26/18 03:40 Dose: Infused Norepinephrine Bitartrate 16 (mg/ Sodium Chloride) 250 mls @ 9.37 mls/hr IV PRN PRN; Protocol; 10 MCG/MIN PRN Reason: Blood Pressure - Low Sodium Chloride (Sodium Chloride 0.9%) 250 mls @ 20 mls/hr IV .[id number] [facility] Last Admin: 02/26/18 04:26 Dose: Not Given Piperacillin Sod/Tazobactam (Sod 2.25 gm/ Dextrose) 50 mls @ 100 mls/hr IV Q12H [facility] Last Infusion: 02/25/18 21:30 Dose: Infused Iron Carb/Multivit/[place]/Folic Acid (Multivitamin W/Minerals) 1 tab PO DAILY [facility] Last Admin: 02/25/18 10:22 Dose: 1 tab Seroquel Xr 50 Mg (Tab) 1 dose PO BID [facility] Last Admin: 02/25/18 20:24 Dose: 1 dose Ondansetron HCl (Zofran) 4 mg IV Q4-6HP PRN PRN Reason: Nausea And Vomiting Last Admin: 02/25/18 17:18 Dose: 4 mg Oseltamivir Phosphate (Tamiflu) 75 mg PO BID [facility] Last Admin: 02/25/18 20:23 Dose: 75 mg Pantoprazole Sodium (Protonix) 40 mg PO HS [facility] Last Admin: 02/25/18 20:23 Dose: 40 mg Quetiapine Fumarate (Seroquel) 25 mg PO HS [facility] Last Admin: 02/25/18 20:23 Dose: 25 mg Senna/Docusate Sodium (Senna Plus Tablet) 1 tab PO HS [facility] Last Admin: 02/25/18 21:36 Dose: Not Given Sodium Chloride (Saline Flush) 10 ml IV Q8 [facility] Last Admin: 02/26/18 05:51 Dose: 10 ml Tamsulosin HCl (Flomax) 0.4 mg PO DAILY [facility] Last Admin: 02/25/18 10:22 Dose: 0.4 mg Tiotropium [place] (Spiriva) 18 mcg INH DAILY [facility] Last Admin: 02/26/18 07:41 Dose: Not Given Medical - PN: A/P - Time Spent With Patient Total time spent is greater than 50% in coordination of care (as documented) at patient's floor/unit and/or counseling patient: 25 - 35 minutes (1) Complicated UTI (urinary tract infection) Status: Acute Assessment and plan: assessment- 72-year-old with ESRD on hemodialysis/underlying dementia admitted with acute change in mental status/complicated UTI and acute influenza B * bibasal pneumonia-clinically resolved. DC antibiotics. * Hypoxic respiratory failure-secondary to above. on 3.5 L oxygen * persistent diarrhea likely antibiotic associated. Negative C. difficile * mild CHF -clinically improved status post ultrafiltration. * Severe sepsis-clinically resolved. White count normalized. DC antibiotics. * complicated UTI -clinically resolved. Cultures negative so far. * History of ESRD on hemodialysis- ongoing dialysis per nephrology Stable/resolved issues * Acute change in mental status - clinically much improved.secondary to infection/opioids/benzos. * Right blepharitis/conjunctivitis * acute influenza B. Tamiflu day 4/ * hypertension -systolics at goal * history of COPD-continue bronchodilators * hypothyroidism on thyroxine * Anxiety disorder on duloxetine * GERD on PPI * Hyperlipidemia statin * history of dementia with agitation-at baseline. continue quetiapine * History of CAD on aspirin and statin beta mustapha/ÓSCAR inhibitor/iisosorbide dinitrate * DNR Plan * DC antibiotics * continue telemetry monitoring * hemodialysis per nephrology * Pre-existing medical condition management as above * continue attempting PT OT * goals of care conference once POA/guardian available * await SNF transfer Current Visit: Yes Medical - PN: Qual - VTE Deep Vein Thrombosis/Pulmonary Embolism Present on Admission: No
[2018-02-26] MEDS: BETHANECHOL 10 MG TABLET PO SCH ×3 (10:19→21:52)
--- NOTE | 2018-02-26 12:22 | Nephrology Progress Note ---
Subjective Patient information: Note initiated : 02/26/18 at 12:19 pm Service Date, if different from initiated Date: [] Patient: Alexandra Zapata 72 y/o F admitted on 02/21/18 for Resp Distress, Confusion /Influenza A, UTI. Chief Complaint: She had an episode of hypotension, shortness of breath with the initiation of HD. She has not been eating well. Objective - Vital Signs Vital signs: Vital Signs Temp Pulse Pulse Resp BP Pulse Ox 02/26/18 12:00 98 F 13 152/72 100 02/26/18 11:52 116 H 135/81 02/26/18 11:39 115 H 152/72 02/26/18 11:31 110 H 21 152/72 99 02/26/18 11:22 113 H 146/75 02/26/18 11:16 111 H 16 146/75 99 02/26/18 11:01 114 H 21 139/82 100 02/26/18 11:00 114 H 11 L 139/82 100 02/26/18 10:48 109 H 118/71 02/26/18 10:46 111 H 10 L 118/71 100 02/26/18 10:31 116 H 93/61 02/26/18 10:30 118 H 19 93/61 88 L 02/26/18 10:25 116 H 104/53 02/26/18 10:23 114 H 25 H 104/53 85 L 02/26/18 10:00 101 H 24 H 98 02/26/18 09:52 86 14 114/53 100 02/26/18 09:50 97.1 F 97 H 114/53 02/26/18 09:00 16 02/26/18 08:00 105 H 20 95 02/26/18 07:40 98.2 F 15 126/54 99 02/26/18 07:26 85 15 126/54 99 02/26/18 07:00 84 17 98 02/26/18 06:00 98 H 20 96 02/26/18 05:44 92 H 14 98/56 96 02/26/18 04:00 98.2 F 86 15 98/56 97 02/26/18 03:31 98.2 F 92 H 17 95/53 94 02/26/18 03:00 108 H 12 89 L 02/26/18 02:00 85 16 92 02/26/18 01:40 86 15 107/54 92 02/26/18 00:26 83 15 90/48 92 02/26/18 00:25 83 16 96/51 93 02/26/18 00:23 81 15 98/71 92 02/26/18 00:00 98.0 F 81 14 131/67 93 02/25/18 23:44 97 H 11 L 131/67 94 02/25/18 23:00 78 17 96 02/25/18 22:00 82 19 92 02/25/18 21:15 99 H 18 91 02/25/18 21:00 107 H 20 93 02/25/18 20:45 80 15 96 02/25/18 20:30 105 H 19 94 02/25/18 20:29 87 16 136/63 96 02/25/18 20:15 91 H 15 97 02/25/18 20:01 99.5 F H 91 H 21 120/54 96 02/25/18 20:00 92 H 21 96 02/25/18 19:45 87 18 96 02/25/18 19:30 94 H 17 96 02/25/18 19:15 16 02/25/18 19:08 96 H 95 02/25/18 19:00 114 H 18 94 02/25/18 18:45 108 H 24 H 90 02/25/18 18:30 102 H 28 H 94 02/25/18 18:15 94 H 16 93 02/25/18 18:00 100 H 87 L 02/25/18 17:45 111 H 15 87 L 02/25/18 17:30 15 02/25/18 17:15 24 H 02/25/18 17:00 86 13 97 02/25/18 16:45 75 15 99 02/25/18 16:30 79 16 99 02/25/18 16:15 80 0 L 99 02/25/18 16:01 97.5 F 82 16 96/52 97 02/25/18 16:00 80 15 97 02/25/18 15:45 84 11 L 95 02/25/18 15:30 24 H 02/25/18 15:15 87 16 96 02/25/18 15:00 92 H 14 95 02/25/18 14:45 89 16 96 02/25/18 14:30 92 H 15 96 02/25/18 14:15 94 H 15 97 0412/18 14:00 93 H 15 98 02/25/18 13:45 95 H 8 L 97 02/25/18 13:30 96 H 15 95 02/25/18 13:15 105 H 13 96 02/25/18 13:00 103 H 22 92 02/25/18 12:45 24 H 02/25/18 12:30 25 H Intake and Output 02/25/18 02/26/18 02/26/18 21:59 05:59 13:59 Intake Total 475 / 475 65 / 65 Output Total 150 / 150 100 / 100 Balance 325 / 325 65 / 65 -100 / -100 Intake: IV 165 / 165 65 / 65 Zosyn 2.25 gm In Dextrose 5% in 100 / 100 Water 50 ml @ 100 mls/hr IV Q12H [facility] Rx#:[id number] Oral 310 / 310 Output: Urine Catheter Amount 150 / 150 100 / 100 Other: Meal Applesauce for pills Percent of Meal Consumed 75% Feeding Ability Total Assistance Stool Size Moderate Small Stool Color Brown Brown Stool Consistency Soft Soft Loose Loose # of times incontinent of 2 1 Bowels Weight 85 lb 14 oz 85 lb 14 oz Intake & Output: Intake & Output 02/25/18 02/26/18 02/26/18 21:59 05:59 13:59 Intake Total 475 / 475 65 / 65 Output Total 150 / 150 100 / 100 Balance 325 / 325 65 / 65 -100 / -100 Weight 85 lb 14 oz 85 lb 14 oz Intake: IV 165 / 165 65 / 65 Zosyn 2.25 gm In Dextrose 5% in 100 / 100 Water 50 ml @ 100 mls/hr IV Q12H [facility] Rx#:[id number] Oral 310 / 310 Output: Urine Catheter Amount 150 / 150 100 / 100 Other: Meal Applesauce for pills Percent of Meal Consumed 75% Feeding Ability Total Assistance Stool Size Moderate Small Stool Color Brown Brown Stool Consistency Soft Soft Loose Loose # of times incontinent of 2 1 Bowels - General Appearance General appearance: cachectic EENT: ATNC Neck: no JVD Cardiology: no murmurs, no edema Gastrointestinal: hypoactive bowel sounds - Lab 02/26/18 04:09 02/26/18 04:09 Most recent lab results Calcium 9.0 mg/dl (8.6-10.4) 04/13/18 04:09 Phosphorus 5.4 mg/dL (2.7-4.5) H 02/26/18 04:09 Magnesium 2.8 mg/dL (1.6-2.5) H 02/26/18 04:09 Assessment and Plan (1) ESRD (end stage renal disease) on dialysis Status: Acute Comment: Did not tolerate dialysis very well as she had low bp and it might have been related to low volume. Electrolytes look ok. I will try to give her a liter of fluids.
[2018-02-26] MEDS: DEXTROSE 5%-1/2NS 1,000 ML IV SCH ×2 (12:48→23:12)
[2018-02-26] MEDS ORDERED: WARFARIN 3 MG TABLET PO ONE (14:00)
--- NOTE | 2018-02-26 16:31 | General Surgery Consult Note ---
History of Present Illness Patient information: Note initiated : 02/26/18 at 4:29 pm Service Date, if different from initiated Date: [] Patient: Alexandra Zapata a 72 y/o F admitted on 02/21/18 for Resp Distress, Confusion /Influenza A, UTI. Chief Complaint: [] Consult date: 02/25/18 Requesting physician: Yoseph Aquino (Wound Care Sacral [facility].) Medications and Allergies Home Medications Medication Instructions Recorded Confirmed Type Calcitriol [Rocaltrol] 0.25 mcg PO DAILY 10/06/17 10/06/17 History Isosorbide Dinitrate 20 mg PO DAILY 10/06/17 10/06/17 History LORazepam [Ativan] 0.5 mg PO BID #15 tab 10/06/17 Rx Mirtazapine [Remeron] 15 mg PO HS 10/06/17 10/06/17 History QUEtiapine FUMARATE [Seroquel] 25 mg PO HS 10/06/17 10/06/17 History Tamsulosin HCl [Flomax] 0.4 mg PO DAILY 10/06/17 10/06/17 History Docusate Sodium [Colace] 100 mg PO DAILY 01/20/18 01/20/18 History Amoxicillin 250 mg PO BID 02/21/18 02/21/18 History Baclofen [Lioresal] 10 mg PO BID 02/21/18 02/21/18 History Bethanechol [Urecholine] 10 mg PO TID 02/21/18 02/21/18 History Bisacodyl [Dulcolax] 5 mg PO DAILY 02/21/18 02/21/18 History Hydrocodone/APAP 7.5/325Mg [[place] 1 tab PO BID 02/21/18 02/21/18 History 7.5-325Mg] Oseltamivir Phosphate [Tamiflu] 75 mg PO BID 02/21/18 02/21/18 History Pantoprazole [Protonix] 40 mg PO HS 02/21/18 02/21/18 History QUEtiapine FUMARATE [Seroquel Xr] 50 mg PO BID 02/21/18 02/21/18 History Tamsulosin HCl [Flomax] 0.4 mg PO DAILY 02/21/18 02/21/18 History Tiotropium [place] [Spiriva] 18 mcg INH DAILY 02/21/18 02/21/18 History amLODIPine [Norvasc] 5 mg PO DAILY 02/21/18 02/21/18 History fentaNYL [Duragesic] 25 mcg TOPICAL Q72H 02/21/18 02/21/18 History hydrALAZINE [Apresoline] 25 mg PO BID 02/21/18 02/21/18 History Allergies Allergy/AdvReac Type Severity Reaction Status Date / Time gabapentin [From Neurontin] Allergy Severe Unknown Verified 02/04/18 16:44 methocarbamol Allergy Severe Unknown Verified 02/04/18 16:44 pentazocine [From Talwin] Allergy Severe Unknown Verified 02/04/18 16:44 carbamazepine Allergy Unknown Unknown Verified 02/04/18 16:44 pregabalin [From Lyrica] Allergy Unknown Unknown Verified 02/22/18 15:39 Sulfa (Sulfonamide AdvReac Intermediate Swelling Verified 02/04/18 16:44 Antibiotics) Cyclobenzaprine AdvReac Mild Gastrointestinal Verified 02/04/18 16:44 [From Flexeril] Upset NSAIDS (Non-Steroidal AdvReac Mild Gastrointestinal Verified 02/04/18 16:44 Anti-Inflamma Upset sumatriptan [From Imitrex] AdvReac Mild Gastrointestinal Verified 02/04/18 16:44 Upset Antidepressants Allergy Unknown Unknown Uncoded 05/27/16 15:36 Exam Temp Pulse Resp BP Pulse Ox 99.2 F H 123 H 12 118/73 98 02/26/18 15:14 02/26/18 13:23 02/26/18 15:14 02/26/18 15:14 02/26/18 15:14 - General physical appearance moderate pain, cachectic, other (Lethargic and bed confined. ) - Eyes PERRL, normal ocular movement - ENT normal pinna, normal nares, normal mucosa, no congestion - Head Head exam IM: Present: atraumatic, normal inspection, normocephalic - Neck no masses, trachea midline, no venous distension - Cardiovascular Cardiovascular exam IM: Present: normal rate and rhythm - Respiratory clear to auscultation - Abdomen Abdomen: Present: soft, non tender, bowel sounds - Integumentary Present: other (Left sacral Bruise 3 x 2. 5 CM, IMPROVING. No skin breakdown. Periwound skin and sub cutaneous texture is at base line for patient.) - Neurologic Present: other (Bed confined. [place]. ESRD on Regular HD. ) - Musculoskeletal Present: other (Bed confined. Moves all extremities. ) - Psychiatric Present: other (Tired and lethargic. Responds to nursing staff and obeys commands. ) Results - Labs 02/26/18 04:09 02/26/18 04:09 Abnormal lab results 02/26/18 02/26/18 02/26/18 Range/Units 04:09 04:09 04:09 RBC 2.67 L (4.00-5.20) M/mcL Hgb 8.4 L (12.0-15.0) g/dL Hct 25.2 L (36.0-48.0) % RDW 17.4 H (11.5-14.5) % Seg Neutrophils % 84 H (38-78) % Lymphocytes % 7 L (15-49) % RBC Morphology Abnorm A (NORMAL) Anisocytosis 1+ A (NONE SEEN) PT 14.7 H (11.9-14.5) sec BUN 50 H (8-23) mg/dl Creatinine 3.8 H (0.6-1.1) mg/dl Phosphorus 5.4 H (2.7-4.5) mg/dL Magnesium 2.8 H (1.6-2.5) mg/dL GGT 37 H (5-36) U/L Albumin 2.8 L (3.2-5.2) gm/dL Albumin/Globulin Ratio 0.8 L (1.0-2.3) Triglycerides 191 H (<150) mg/dl Diabetes panel 02/26/18 Range/Units 04:09 Sodium 135 (133-145) mmol/L Potassium 4.0 (3.3-5.1) mmol/L Chloride 96 (96-108) mmol/L Carbon Dioxide 27 (22-30) mmol/L BUN 50 H (8-23) mg/dl Creatinine 3.8 H (0.6-1.1) mg/dl Glucose 88 (70-105) mg/dL Calcium 9.0 (8.6-10.4) mg/dl AST 20 (0-37) U/l ALT 8 (0-40) U/l Alkaline Phosphatase 81 (39-117) U/L Total Protein 6.2 (5.9-8.4) gm/dL Albumin 2.8 L (3.2-5.2) gm/dL Triglycerides 191 H (<150) mg/dl Calcium panel 02/26/18 Range/Units 04:09 Calcium 9.0 (8.6-10.4) mg/dl Phosphorus 5.4 H (2.7-4.5) mg/dL Albumin 2.8 L (3.2-5.2) gm/dL Pituitary panel 02/26/18 Range/Units 04:09 Sodium 135 (133-145) mmol/L Potassium 4.0 (3.3-5.1) mmol/L Chloride 96 (96-108) mmol/L Carbon Dioxide 27 (22-30) mmol/L BUN 50 H (8-23) mg/dl Creatinine 3.8 H (0.6-1.1) mg/dl Glucose 88 (70-105) mg/dL Calcium 9.0 (8.6-10.4) mg/dl Adrenal panel 02/26/18 Range/Units 04:09 Sodium 135 (133-145) mmol/L Potassium 4.0 (3.3-5.1) mmol/L Chloride 96 (96-108) mmol/L Carbon Dioxide 27 (22-30) mmol/L BUN 50 H (8-23) mg/dl Creatinine 3.8 H (0.6-1.1) mg/dl Glucose 88 (70-105) mg/dL Calcium 9.0 (8.6-10.4) mg/dl Total Bilirubin 0.2 (0.0-1.0) mg/dL AST 20 (0-37) U/l ALT 8 (0-40) U/l Alkaline Phosphatase 81 (39-117) U/L Total Protein 6.2 (5.9-8.4) gm/dL Albumin 2.8 L (3.2-5.2) gm/dL All other labs normal. Assessment and Plan (1) Bruising Assessment: Patient with multiple medical problems and bed confined. Recovering from Respiratory infection, PNA, UTI and cough. Malnourished. ESRD on HD. Noted to have left sacral bruise. No crepitus, NO evidence of acute inflammatory signs. Plan: Conservative management. OFF loading. TAPS Foam border Mepilex adherent dressing. TO check perineal area and AVOID fecal or urinary contamination of this dressing. May change dressing 2 x week or as needed. WIll see again as appropriate. Status: Acute Priority: Medium
[2018-02-26] MEDS: ONDANSETRON 4 MG/2 ML VIAL IV PRN (20:53)
[2018-02-26] MEDS: QUEtiapine 25 MG TABLET PO SCH (20:56)
[2018-02-26] MEDS: PANTOPRAZOLE 40 MG TABLET PO SCH (20:56)
[2018-02-26] MEDS: SENNOSIDES/DOCUSATE SODIUM 1 TAB TABLET PO SCH (21:53)
[2018-02-27] MEDS: CIPROFLOXACIN 0.3% OPHTH DROPS BOTTLE 5 ML OU SCH ×6 (00:20→19:51)
[2018-02-27] MEDS: 0.9 % SODIUM CHLORIDE 250 ML IV SCH ×2 (06:04→17:36)
[2018-02-27] MEDS: 0.9 % SODIUM CHLORIDE 10 ML SYRINGE IV SCH ×3 (06:05→21:34)
[2018-02-27] MEDS: BETHANECHOL 10 MG TABLET PO SCH ×3 (09:00→19:51)
[2018-02-27] MEDS: HEPARIN 5,000 UNIT/ML VIAL SQ SCH ×2 (09:00→19:49)
[2018-02-27] MEDS: SEROQUEL 50 MG PO SCH ×2 (09:00→19:51)
[2018-02-27] MEDS: TIOTROPIUM BROMIDE 18 MCG INHALANT INH SCH (09:00)
[2018-02-27] MEDS: TAMSULOSIN 0.4 MG CAPSULE PO SCH (09:00)
[2018-02-27] MEDS: amLODIPine 5 MG TABLET PO SCH (09:00)
[2018-02-27] MEDS: hydrALAZINE 25 MG TABLET PO SCH ×2 (09:00→19:50)
[2018-02-27] MEDS: DOCUSATE SODIUM 100 MG CAPSULE PO SCH ×2 (09:00→19:51)
[2018-02-27] MEDS: ASPIRIN 81 MG TAB.CHEW PO SCH (09:00)
[2018-02-27] MEDS: MULTIVIT,THER IRON,CA,FA & MIN 1 TABLET PO SCH (09:00)
[2018-02-27] MEDS: HYDROCODONE/APAP 7.5/325MG TABLET PO SCH ×2 (09:00→19:50)
[2018-02-27] MEDS: BACLOFEN 10 MG TABLET PO SCH (09:00)
--- NOTE | 2018-02-27 09:03 | XRay Report ---
HISTORY: Reason for Exam:ronchi , influenza a and confusion FINDINGS: Patient has developed moderately severe diffuse alveolar opacities in both lungs. These have become significantly worse since 02/22/18. The heart has increased in size. No pleural effusion is detected. A dialysis catheter remains well-positioned in the right atrium. IMPRESSION: Widespread infiltrates with an enlarging heart. Congestive heart failure is suspected. However, superimposed pneumonia may also be present. Interpreted and Authenticated by: Kvng Ling 02/27/18
[2018-02-27] MEDS: DEXTROSE 5%-1/2NS 1,000 ML IV SCH (09:21)
[2018-02-27] MEDS ORDERED: VANCOMYCIN PER PHARMACY IV SCH (09:25)
--- NOTE | 2018-02-27 09:28 | Internal Med Progress Note ---
Medical - PN: Subj Patient information: Note initiated : 02/27/18 at 9:26 am Service Date, if different from initiated Date: [] Patient: Alexandra Zapata a 72 y/o F admitted on 02/21/18 for Resp Distress, Confusion /Influenza A, UTI. Chief Complaint: [] Interval history: Ms. Zapata is a 72 year old F with ESRD on hemodialysis and recent hospitalization. Patient was recovering at [facility] and was directed to the ER after she was found confused, weak and febrile by the staff at care Center. patient was unable to provide any meaningful history to the ER physician. Initial workup was significant for pyuria along with a MAXIMUM TEMPERATURE over 100. Subsequently hospitalist service was consulted in light of acute change in mental status and complicated UTI. Nephrology was also consulted in light of end-stage renal disease on hemodialysis. patient is due for hemodialysis on Thursday. patient also was recently diagnosed with influenza and was on Tamiflu and amoxicillin. At the time of evaluation, patient is unable to provide a history due to her underlying baseline dementia and acute worsening mental status. She was however able to answer leading questions in yes and no. She denies chest pain headache. Her right eye lids have been swollen and red. She denies diarrhea or abdominal pain.No family members are present. Most history is obtained from ER records and care center documents. 02/22- patient much more lucid and responding to commands. No overnight events. Persistent tachycardia around 110. Foleys catheter draining dark urine. Nephrology consulted for baseline ESRD requiring hemodialysis. On contact precaution for influenza B. On Tamiflu. white count 8.8. addendum-patient became hypotensive during dialysis. Blood pressure dropping to 80's. Vasopressin started. Dialysis temporarily held. Patient tachypneic tachycardic and hypoxic requiring 14 L oxygen. Stat chest x-ray/CT angiogram ordered. ABGs pending. Unclear etiology for sudden hypotension . Rule out acute pulmonary embolism. CTA chest could not be performed as patrient is too sick to be able to undergo procedure per protocol. start heparin drip for empiric PE treatment CT angiogram scheduled in a.m. 02/23-worsening hypoxic respiratory failure last night along with hypotension requiring pressors. ABG 7.53/36/64 on 13 L oxygen. Large AA gradient. White count 17.6. 15% bands. on broad antibiotic coverage including Zosyn for complicated UTI. CT angiogram chest pending. On empiric treatment for PE with heparin drip/oral Coumadin. February 24- patient on hemodialysis. Tachycardia/hypertension during dialysis noted today. She is otherwise more alert and lucid. On antibiotic coverage. White count down from 17.6-10.8. Afebrile.basal pneumonia on CT angiogram but no evidence of PE. Anticoagulation discontinued. no overnight fever chills or concerns per staff. Telemetry intermittent tachycardia during dialysis. February 25-patient clinically improving since previous day however episodes of hypotension and tachycardia noticed during hemodialysis yesterday. Patient appears euvolemic. Improving respiratory status.no overnight fever or chills. Alert and responding to verbal commands. No family at bedside. Patient says her daughter Elba would be listing today. Case discussed with nephrology. We will hold hemodialysis today. Systolics at goal.white count down to 8.3.cultures negative so far. bibasal pneumonia on CT. February 26-patient continues to experience multiple stoolslikely antibiotic associated. C. difficile negative. White count 9.7. DC antibiotics. patient continues to be lethargic despite being off home dose benzodiazepines. patient was managed on half dose fentanyl however continues to hurt and is being switched back to 25 home dose fentanyl patch. Ongoing hemodialysis. Extremely slow recovery. He is a limited code per POA caregiver. No family members available for goals of care conference. on 3.5 L oxygen. Patient extremely lethargic and refusing/unable to participate in physical therapy february 27 Patient seen and examined, no acute overnight events. The patient had been febrile overnight. This morning to exam was warm to touch. Antibiotics were discontinued recently. The patient's chest x-ray done shows CHF and worsening pneumonia. Patient's daughter was here last night apparently and I was unable to get in touch with her as I was unaware that she was in the hospital. We will try to see if we can get her to come in the hospital to discuss goals of care. Nephrology gave fluids yesterday to the patient and start the patient on IV fluids. Stop the IV fluids for now given that CHF is apparent on the chest x- ray. Start the patient on vancomycin and Zosyn for possible pneumonia, send blood cultures as well as check pro-calcitonin level. Get an echocardiogram. Patient's mental status seems okay this morning. She is awake and able to answer some questions she is denying any acute symptoms Pertinent ROS: Denies headache, dizziness Denies chest pain, palpitations Denies cough or shortness of breath Denies abdominal pain, nausea or vomiting. - Constitutional Vitals: Vital Signs Temp Pulse Resp BP Pulse Ox 98.4 F 97 H 17 153/66 99 02/27/18 04:16 02/27/18 04:16 02/27/18 04:16 02/27/18 04:16 02/27/18 04:16 Period Temp Pulse Resp BP Sys/Barrera Pulse Ox Last 24 Hr 97.1 F-100.9 F 53-124 10-41 93-180/48-106 85-100 Intake and Output 02/26/18 02/27/18 02/27/18 21:59 05:59 13:59 Intake Total 965 / 965 1000 / 1000 1000 / 1000 Output Total 710 / 710 Balance 965 / 965 290 / 290 1000 / 1000 Weight 88 lb 4 oz 88 lb 4 oz Intake & Output: Intake & Output 02/26/18 02/27/18 02/27/18 21:59 05:59 13:59 Intake Total 965 / 965 1000 / 1000 1000 / 1000 Output Total 710 / 710 Balance 965 / 965 290 / 290 1000 / 1000 Weight 88 lb 4 oz 88 lb 4 oz Intake: IV 65 / 65 1000 / 1000 1000 / 1000 Dextrose 5%-1/2Ns IV Solution 1 1000 / 1000 1000 / 1000 ,000 ml @ 100 mls/hr IV .Q10H [facility] Rx#:[id number] Oral 900 / 900 Output: Urine Catheter Amount 710 / 710 Uretheral (Erwin) 355 / 355 Other: Meal Applesauce Percent of Meal Consumed 100% Feeding Ability Total Assistance Stool Size Small Stool Color Brown Stool Consistency Soft Loose # of times incontinent of 1 Bowels Exam: Constitutional; Afebrile, cooperative, alert, not in distress. Eyes- No icterus, , No periorbital swelling Ears- Ext ear normal, Neck- Midline trachea, supple Respiratory system: Air Entry equal on both sides, bilateral basilar crackles CVS- Rate tachycardic rhythm regular, S1,S2 heard, no gallop, no rub. 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 Medical - PN: Obj Da - Labs CBC & Chem 7: 02/26/18 04:09 02/26/18 04:09 Labs: Abnormal Lab Results 02/27/18 02/26/18 02/26/18 04:58 04:09 04:09 RBC Hgb Hct RDW Seg Neutrophils % Lymphocytes % RBC Morphology Anisocytosis [place] Bodies RBC Fragments PT 17.3 H 14.7 H INR 1.4 H Chloride BUN 50 H Creatinine 3.8 H Phosphorus 5.4 H Magnesium 2.8 H GGT 37 H Lactate Dehydrogenase Albumin 2.8 L Albumin/Globulin Ratio 0.8 L Triglycerides 191 H 02/26/18 02/25/18 02/25/18 04:09 04:22 04:22 RBC 2.67 L 2.87 L Hgb 8.4 L 9.0 L Hct 25.2 L 27.0 L RDW 17.4 H 17.7 H Seg Neutrophils % 84 H 79 H Lymphocytes % 7 L 12 L RBC Morphology Abnorm A Abnorm A Anisocytosis 1+ A 1+ A [place] Bodies Occ A RBC Fragments Occ A PT INR Chloride 93 L BUN 29 H Creatinine 2.8 H Phosphorus Magnesium GGT 39 H Lactate Dehydrogenase 267 H Albumin 3.0 L Albumin/Globulin Ratio 0.8 L Triglycerides 196 H Meds: Medications Acetaminophen (Tylenol) 650 mg PO Q4-6HP PRN PRN Reason: PAIN/FEVER > 101 Last Admin: 02/23/18 20:22 Dose: 650 mg Hydrocodone Bitart/Acetaminophen ([place] 7.5/325mg) 1 tab PO BID [facility] Last Admin: 02/26/18 20:56 Dose: 1 tab Albuterol/Ipratropium (Duoneb) 3 ml NEB Q6HRT [facility] Amlodipine Besylate (Norvasc) 5 mg PO DAILY [facility] Last Admin: 02/26/18 07:41 Dose: Not Given Baclofen (Lioresal) 10 mg PO BID [facility] Last Admin: 02/26/18 21:57 Dose: 10 mg Bethanechol Chloride (Urecholine) 10 mg PO TID [facility] Last Admin: 02/26/18 21:52 Dose: 10 mg Ciprofloxacin (Ciloxan 0.3% Ophth Drops) 2 gtt OU Q4 [facility] Last Admin: 02/27/18 04:05 Dose: 2 gtt Docusate Sodium (Colace) 100 mg PO BID [facility] Last Admin: 02/26/18 21:51 Dose: Not Given Fentanyl (Duragesic) 12 mcg TOPICAL Q72H [facility] Last Admin: 02/24/18 13:04 Dose: 12 mcg Heparin Sodium (Porcine) (Heparin) 5,000 unit SQ Q12 [facility] Last Admin: 02/26/18 21:30 Dose: 5,000 unit Hydralazine HCl (Apresoline) 25 mg PO BID [facility] Last Admin: 02/26/18 20:57 Dose: 25 mg Acetaminophen (Ofirmev) 650 mg in 65 mls @ 130 mls/hr IV Q6HP PRN PRN Reason: PAIN/FEVER > 101 Last Infusion: 02/26/18 21:20 Dose: Infused Norepinephrine Bitartrate 16 (mg/ Sodium Chloride) 250 mls @ 9.37 mls/hr IV PRN PRN; Protocol; 10 MCG/MIN PRN Reason: Blood Pressure - Low Sodium Chloride (Sodium Chloride 0.9%) 250 mls @ 20 mls/hr IV .[id number] [facility] Last Admin: 02/27/18 06:04 Dose: Not Given Dextrose/Sodium Chloride (Dextrose 5%-1/2ns Iv Solution) 1,000 mls @ 100 mls/ hr IV .Q10H [facility] Last Admin: 02/27/18 09:21 Dose: 100 mls/hr Piperacillin Sod/Tazobactam (Sod 2.25 gm/ Dextrose) 50 mls @ 100 mls/hr IV Q8H [facility] Iron Carb/Multivit/[place]/Folic Acid (Multivitamin W/Minerals) 1 tab PO DAILY [facility] Last Admin: 02/26/18 10:19 Dose: Not Given Seroquel Xr 50 Mg (Tab) 1 dose PO BID [facility] Last Admin: 02/26/18 21:30 Dose: 1 dose Ondansetron HCl (Zofran) 4 mg IV Q4-6HP PRN PRN Reason: Nausea And Vomiting Last Admin: 02/26/18 20:53 Dose: 4 mg Pantoprazole Sodium (Protonix) 40 mg PO HS [facility] Last Admin: 02/26/18 20:56 Dose: 40 mg Quetiapine Fumarate (Seroquel) 25 mg PO HS [facility] Last Admin: 02/26/18 20:56 Dose: 25 mg Senna/Docusate Sodium (Senna Plus Tablet) 1 tab PO HS [facility] Last Admin: 02/26/18 21:53 Dose: Not Given Sodium Chloride (Saline Flush) 10 ml IV Q8 [facility] Last Admin: 02/27/18 06:05 Dose: 10 ml Tamsulosin HCl (Flomax) 0.4 mg PO DAILY [facility] Last Admin: 02/26/18 10:19 Dose: Not Given Tiotropium [place] (Spiriva) 18 mcg INH DAILY [facility] Last Admin: 02/26/18 07:41 Dose: Not Given Vancomycin HCl (Vancomycin Per Pharmacy) 1 order IV ONCE ONE Stop: 02/27/18 09:26 Medical - PN: A/P - Time Spent With Patient Total time spent is greater than 50% in coordination of care (as documented) at patient's floor/unit and/or counseling patient: - Narrative A/P Narrative: A/P 72-year-old with ESRD on hemodialysis/underlying dementia admitted with acute change in mental status/complicated UTI and acute influenza B Bilateral Pneumoina: This had clinically resolved however chest x-ray today shows worsening pneumonia. Send blood cultures check pro calcitonin restart vancomycin and IV Zosyn. Urinary tract infection-microbiology has been negative so far, Zosyn should cover same. Congestive heart failure-get echocardiogram, fluid removal with dialysis as per nephrology Diarrhea-C. difficile negative, likely antibiotic associated diarrhea. Monitor Sepsis-clinically improved since admission, antibiotics were discontinued however given that the patient had fever again overnight will resume antibiotics. Monitor End-stage renal disease-on hemodialysis unable to get dialysis due to low blood pressures during hemodialysis sessions. Nephrology following echo ordered nephrology ordered IV fluids yesterday. Influenza-patient completed 5 day course of Tamiflu Chronic obstructive pulmonary disease-continue bronchodilators no wheeze on exam Chronic pain-on fentanyl patch continue same patient also on baclofen. Anxiety-on Cymbalta continue same Hypothyroidism-on levothyroxine continue same Coronary artery disease-denies any chest pain, home medication list does not note any beta-blockers or ÓSCAR inhibitors. Will start on aspirin at least for now. Dementia-supportive management Blepharitis and conjunctivitis-ciprofloxacin ggt improving clinically Hypertension-blood pressure stable when not on dialysis, presently on amlodipine and hydralazine. According to the cardiology note on 322 the patient was on aspirin 81, Coreg 25 twice daily also a statin. I do not see these medications at this point. Contacted pharmacy to verify medication list. CODE STATUS DNR listed as per previous physician's note however chart says full code will verify. Heparin subcu for DVT prophylaxis. Try to see if patient is able to participate in physical therapy. Medical - PN: Qual - VTE Deep Vein Thrombosis/Pulmonary Embolism Present on Admission: No
[2018-02-27] MEDS: PIPERACILLIN SODIUM/TAZOBACTAM 2.25 GM in DEXTROSE 5% IN WATER 50 ML IV SCH ×3 (10:00→21:33)
[2018-02-27] MEDS: ACETAMINOPHEN 325 MG TABLET PO PRN (10:00)
[2018-02-27] MEDS ORDERED: VANCOMYCIN 500 MG in 0.9 % SODIUM CHLORIDE 100 ML IV ONE (10:30)
[2018-02-27] MEDS: IPRATROPIUM/ALBUTEROL 3 ML AMPUL.NEB NEB SCH ×3 (11:29→19:07)
[2018-02-27] MEDS: fentaNYL 12 MCG PATCH TOPICAL SCH (13:16)
[2018-02-27] MEDS ORDERED: WARFARIN 3 MG TABLET PO ONE (14:00)
[2018-02-27 14:05] LABS: Appearance,Urine HAZY; Bacteria,Urine 0 /hpf (0); Bilirubin,Urine NEG (NEG); Color,Urine YELLOW; Glucose,Urine (UA) NEGATIVE (NEG); Leukocyte Esterase,Urine 500 /uL (NEG); Mucus,Urine FEW /hpf (0); Protein,Urine 100 mg/dL (NEG); Specific Gravity,Urine 1.012 (1.000-1.035); Urine Blood 0.2 mg/dL (<0.03); Urine RBC 29 /hpf (0-1); Urine Squamous Epithelial Cell 0 /hpf (0-4); Urine WBC 145 /hpf (0-4); Urobilinogen,Urine NEG (NEG)
[2018-02-27] MEDS: QUEtiapine 25 MG TABLET PO SCH (19:49)
[2018-02-27] MEDS: PANTOPRAZOLE 40 MG TABLET PO SCH (19:49)
[2018-02-27] MEDS: SENNOSIDES/DOCUSATE SODIUM 1 TAB TABLET PO SCH (19:51)
[2018-02-28] MEDS: CIPROFLOXACIN 0.3% OPHTH DROPS BOTTLE 5 ML OU SCH ×6 (00:16→19:53)
[2018-02-28] MEDS: IPRATROPIUM/ALBUTEROL 3 ML AMPUL.NEB NEB SCH ×4 (00:16→19:22)
[2018-02-28 04:48] LABS: Basophils # (Auto) 0 K/mcL (0.0-0.3); Basophils % (Auto) 0.2 % (0.0-2.0); Eosinophils # (Auto) 0.4 K/mcL (0.0-0.7); Eosinophils % (Auto) 3.9 % (0.0-7.0); Granulocytes % (Auto) 70.3 % (38.0-78.0); Lymphocytes % (Auto) 8.9 % (15.5-49.0); Mean Cell Volume 94.7 fL (80.0-100.0); Mean Corpuscular HGB Conc 33.5 g/dL (31.0-36.0); Mean Corpuscular Hemoglobin 31.7 pg (26.0-34.0); Monocytes # (Auto) 1.8 K/mcL (0.1-0.9); Monocytes % (Auto) 16.7 % (1.0-12.0); Platelet Count 282 K/mcL (140-440); RBC 2.62 M/mcL (4.00-5.20); Red Cell Distribution Width 17.7 % (11.5-14.5)
[2018-02-28 05:11] LABS: ALT/SGPT 8 U/l (0-40); Albumin 2.4 gm/dL (3.2-5.2); Albumin/Globulin Ratio 0.6 (1.0-2.3); Alkaline Phosphatase 96 U/L (39-117); Bilirubin,Direct < 0.2 mg/dL (0.0-0.3); Blood Urea Nitrogen 51 mg/dl (8-23); Gamma Glutamyl Transpeptidase 40 U/L (5-36); Vancomycin,Random 7.4 ug/mL
[2018-02-28] MEDS: 0.9 % SODIUM CHLORIDE 250 ML IV SCH ×2 (06:06→15:39)
[2018-02-28] MEDS: PIPERACILLIN SODIUM/TAZOBACTAM 2.25 GM in DEXTROSE 5% IN WATER 50 ML IV SCH ×3 (06:06→21:45)
[2018-02-28] MEDS: 0.9 % SODIUM CHLORIDE 10 ML SYRINGE IV SCH ×3 (06:07→21:45)
[2018-02-28] MEDS: HEPARIN 5,000 UNIT/ML VIAL SQ SCH ×2 (09:28→20:19)
[2018-02-28] MEDS: MULTIVIT,THER IRON,CA,FA & MIN 1 TABLET PO SCH (09:28)
[2018-02-28] MEDS: HYDROCODONE/APAP 7.5/325MG TABLET PO SCH ×2 (09:28→20:18)
[2018-02-28] MEDS: TAMSULOSIN 0.4 MG CAPSULE PO SCH (09:28)
[2018-02-28] MEDS: DOCUSATE SODIUM 100 MG CAPSULE PO SCH ×2 (09:29→21:16)
[2018-02-28] MEDS: amLODIPine 5 MG TABLET PO SCH (09:29)
[2018-02-28] MEDS: TIOTROPIUM BROMIDE 18 MCG INHALANT INH SCH (09:29)
[2018-02-28] MEDS: hydrALAZINE 25 MG TABLET PO SCH (09:29)
[2018-02-28] MEDS: ASPIRIN 81 MG TAB.CHEW PO SCH (09:29)
[2018-02-28] MEDS: SEROQUEL 50 MG PO SCH ×2 (09:32→20:18)
[2018-02-28] MEDS: BETHANECHOL 10 MG TABLET PO SCH ×3 (09:33→20:17)
--- NOTE | 2018-02-28 10:16 | Internal Med Progress Note ---
Medical - PN: Subj Patient information: Note initiated : 02/28/18 at 10:14 am Service Date, if different from initiated Date: [] Patient: Alexandra Zapata a 72 y/o F admitted on 02/21/18 for Resp Distress, Confusion /Influenza A, UTI. Chief Complaint: [] Interval history: Ms. Zapata is a 72 year old F with ESRD on hemodialysis and recent hospitalization. Patient was recovering at [facility] and was directed to the ER after she was found confused, weak and febrile by the staff at [facility]. patient was unable to provide any meaningful history to the ER physician. Initial workup was significant for pyuria along with a MAXIMUM TEMPERATURE over 100. Subsequently hospitalist service was consulted in light of acute change in mental status and complicated UTI. Nephrology was also consulted in light of end-stage renal disease on hemodialysis. patient is due for hemodialysis on Thursday. patient also was recently diagnosed with influenza and was on Tamiflu and amoxicillin. At the time of evaluation, patient is unable to provide a history due to her underlying baseline dementia and acute worsening mental status. She was however able to answer leading questions in yes and no. She denies chest pain headache. Her right eye lids have been swollen and red. She denies diarrhea or abdominal pain.No family members are present. Most history is obtained from ER records and care center documents. 02/22- patient much more lucid and responding to commands. No overnight events. Persistent tachycardia around 110. Foleys catheter draining dark urine. Nephrology consulted for baseline ESRD requiring hemodialysis. On contact precaution for influenza B. On Tamiflu. white count 8.8. addendum-patient became hypotensive during dialysis. Blood pressure dropping to 80's. Vasopressin started. Dialysis temporarily held. Patient tachypneic tachycardic and hypoxic requiring 14 L oxygen. Stat chest x-ray/CT angiogram ordered. ABGs pending. Unclear etiology for sudden hypotension . Rule out acute pulmonary embolism. CTA chest could not be performed as patrient is too sick to be able to undergo procedure per protocol. start heparin drip for empiric PE treatment CT angiogram scheduled in a.m. 02/23-worsening hypoxic respiratory failure last night along with hypotension requiring pressors. ABG 7.53/36/64 on 13 L oxygen. Large AA gradient. White count 17.6. 15% bands. on broad antibiotic coverage including Zosyn for complicated UTI. CT angiogram chest pending. On empiric treatment for PE with heparin drip/oral Coumadin. February 24- patient on hemodialysis. Tachycardia/hypertension during dialysis noted today. She is otherwise more alert and lucid. On antibiotic coverage. White count down from 17.6-10.8. Afebrile.basal pneumonia on CT angiogram but no evidence of PE. Anticoagulation discontinued. no overnight fever chills or concerns per staff. Telemetry intermittent tachycardia during dialysis. February 25-patient clinically improving since previous day however episodes of hypotension and tachycardia noticed during hemodialysis yesterday. Patient appears euvolemic. Improving respiratory status.no overnight fever or chills. Alert and responding to verbal commands. No family at bedside. Patient says her daughter Elba would be listing today. Case discussed with nephrology. We will hold hemodialysis today. Systolics at goal.white count down to 8.3.cultures negative so far. bibasal pneumonia on CT. February 26-patient continues to experience multiple stoolslikely antibiotic associated. C. difficile negative. White count 9.7. DC antibiotics. patient continues to be lethargic despite being off home dose benzodiazepines. patient was managed on half dose fentanyl however continues to hurt and is being switched back to 25 home dose fentanyl patch. Ongoing hemodialysis. Extremely slow recovery. He is a limited code per POA caregiver. No family members available for goals of care conference. on 3.5 L oxygen. Patient extremely lethargic and refusing/unable to participate in physical therapy february 27 Patient seen and examined, no acute overnight events. The patient had been febrile overnight. This morning to exam was warm to touch. Antibiotics were discontinued recently. The patient's chest x-ray done shows CHF and worsening pneumonia. Patient's daughter was here last night apparently and I was unable to get in touch with her as I was unaware that she was in the hospital. We will try to see if we can get her to come in the hospital to discuss goals of care. Nephrology gave fluids yesterday to the patient and start the patient on IV fluids. Stop the IV fluids for now given that CHF is apparent on the chest x- ray. Start the patient on vancomycin and Zosyn for possible pneumonia, send blood cultures as well as check pro-calcitonin level. Get an echocardiogram. Patient's mental status seems okay this morning. She is awake and able to answer some questions she is denying any acute symptoms february 28 Patient seen and examined no acute overnight events, hemodynamically stable. Plan of care reviewed with nephrology no plan for dialysis right now. Chest x- ray does show pneumonia and possible CHF however looking at the echo the IVC is collapsed and completely with inspiration. It is likely that the chest x-ray findings are secondary to pneumonia rather than CHF. Nephrology planning to hold off on dialysis. Patient is on broad-spectrum antibiotics continue same. Mental status is clear today. Pertinent ROS: Denies headache, dizziness Denies chest pain, palpitations Denies cough or shortness of breath Denies abdominal pain, nausea or vomiting. - Constitutional Vitals: Vital Signs Temp Pulse Resp BP Pulse Ox 98.8 F 102 H 16 146/65 92 02/28/18 00:01 02/28/18 08:03 02/28/18 08:03 02/28/18 04:01 02/28/18 08:03 Period Temp Pulse Resp BP Sys/Barrera Pulse Ox Last 24 Hr 98.4 F-98.8 F 87-102 13-32 106-189/51-70 92-97 Intake and Output 02/27/18 02/28/18 02/28/18 21:59 05:59 13:59 Intake Total 50 / 50 410 / 410 Output Total 3 / 3 2 / 2 Balance 47 / 47 408 / 408 Weight 88 lb 4 oz Intake & Output: Intake & Output 02/27/18 02/28/18 02/28/18 21:59 05:59 13:59 Intake Total 50 / 50 410 / 410 Output Total 3 / 3 2 / 2 Balance 47 / 47 408 / 408 Weight 88 lb 4 oz Intake: IV 50 / 50 50 / 50 Zosyn 2.25 gm In Dextrose 5% in 50 / 50 50 / 50 Water 50 ml @ 100 mls/hr IV Q8H [facility] Rx#:[id number] Oral 360 / 360 Output: # of times incontinent of urine 3 / 3 2 / 2 Other: Meal Dinner Percent of Meal Consumed 75% Feeding Ability Total Assistance # of times incontinent of 1 1 Bowels Exam: Constitutional; Afebrile, cooperative, alert, not in distress. She is a thin frail lady Eyes- No icterus, , No periorbital swelling Ears- Ext ear normal, Neck- Midline trachea, supple Respiratory system: Air Entry equal on both sides, No crackles or wheezing, no rhonchi. CVS- Rate rhythm regular, S1,S2 heard, no gallop, no rub. Abdomen- Soft nontender abdomen, no organomegaly, no tenderness, no guarding or rigidity, CALL CENTER DISPATCHER- AOOx3, moving all extremities, no gross focal deficit noted. Medical - PN: Obj Da - Labs CBC & Chem 7: 02/28/18 03:28 02/28/18 03:28 Labs: Abnormal Lab Results 02/28/18 02/28/18 02/28/18 03:28 03:28 03:28 RBC 2.62 L Hgb 8.3 L Hct 24.8 L RDW 17.7 H Lymph % (Auto) 8.9 L [place] % (Auto) 16.7 H Lymph # (Auto) 1.0 L [place] # (Auto) 1.8 H Seg Neutrophils % Lymphocytes % RBC Morphology Anisocytosis PT 18.0 H INR 1.5 H Chloride 95 L BUN 51 H Creatinine 3.6 H Phosphorus 5.5 H Magnesium GGT 40 H Albumin 2.4 L Albumin/Globulin Ratio 0.6 L Triglycerides 187 H Urine Protein Urine Occult Blood Ur Leukocyte Esterase Urine RBC Urine WBC 02/27/18 02/27/18 02/26/18 12:00 04:58 04:09 RBC Hgb Hct RDW Lymph % (Auto) [place] % (Auto) Lymph # (Auto) [place] # (Auto) Seg Neutrophils % Lymphocytes % RBC Morphology Anisocytosis PT 17.3 H 14.7 H INR 1.4 H Chloride BUN Creatinine Phosphorus Magnesium GGT Albumin Albumin/Globulin Ratio Triglycerides Urine Protein 100 A Urine Occult Blood 0.2 A Ur Leukocyte Esterase 500 A Urine RBC 29 H Urine WBC 145 H 02/26/18 02/26/18 04:09 04:09 RBC 2.67 L Hgb 8.4 L Hct 25.2 L RDW 17.4 H Lymph % (Auto) [place] % (Auto) Lymph # (Auto) [place] # (Auto) Seg Neutrophils % 84 H Lymphocytes % 7 L RBC Morphology Abnorm A Anisocytosis 1+ A PT INR Chloride BUN 50 H Creatinine 3.8 H Phosphorus 5.4 H Magnesium 2.8 H GGT 37 H Albumin 2.8 L Albumin/Globulin Ratio 0.8 L Triglycerides 191 H Urine Protein Urine Occult Blood Ur Leukocyte Esterase Urine RBC Urine WBC Meds: Medications Acetaminophen (Tylenol) 650 mg PO Q4-6HP PRN PRN Reason: PAIN/FEVER > 101 Last Admin: 02/27/18 10:00 Dose: 650 mg Hydrocodone Bitart/Acetaminophen (Twisp 7.5/325mg) 1 tab PO BID [facility] Last Admin: 02/28/18 09:28 Dose: 1 tab Albuterol/Ipratropium (Duoneb) 3 ml NEB Q6HRT [facility] Last Admin: 02/28/18 08:02 Dose: 3 ml Amlodipine Besylate (Norvasc) 5 mg PO DAILY [facility] Last Admin: 02/28/18 09:29 Dose: 5 mg Aspirin (Aspirin) 81 mg PO DAILY [facility] Last Admin: 02/28/18 09:29 Dose: 81 mg Baclofen (Lioresal) 10 mg PO HSP PRN PRN Reason: MUSCLE SPASMS Bethanechol Chloride (Urecholine) 10 mg PO TID [facility] Last Admin: 02/28/18 09:33 Dose: 10 mg Ciprofloxacin (Ciloxan 0.3% Ophth Drops) 2 gtt OU Q4 [facility] Last Admin: 02/28/18 08:00 Dose: 2 gtt Docusate Sodium (Colace) 100 mg PO BID [facility] Last Admin: 02/28/18 09:29 Dose: Not Given Fentanyl (Duragesic) 12 mcg TOPICAL Q72H [facility] Last Admin: 02/27/18 13:16 Dose: 12 mcg Heparin Sodium (Porcine) (Heparin) 5,000 unit SQ Q12 [facility] Last Admin: 02/28/18 09:28 Dose: 5,000 unit Hydralazine HCl (Apresoline) 25 mg PO BID [facility] Last Admin: 02/28/18 09:29 Dose: 25 mg Acetaminophen (Ofirmev) 650 mg in 65 mls @ 130 mls/hr IV Q6HP PRN PRN Reason: PAIN/FEVER > 101 Last Infusion: 02/26/18 21:20 Dose: Infused Norepinephrine Bitartrate 16 (mg/ Sodium Chloride) 250 mls @ 9.37 mls/hr IV PRN PRN; Protocol; 10 MCG/MIN PRN Reason: Blood Pressure - Low Sodium Chloride (Sodium Chloride 0.9%) 250 mls @ 20 mls/hr IV .[id number] [facility] Last Admin: 04/15/18 06:06 Dose: Not Given Piperacillin Sod/Tazobactam (Sod 2.25 gm/ Dextrose) 50 mls @ 100 mls/hr IV Q8H [facility] Last Admin: 02/28/18 06:06 Dose: 100 mls/hr Iron Carb/Multivit/Projection Engineer/Folic Acid (Multivitamin W/Minerals) 1 tab PO DAILY [facility] Last Admin: 02/28/18 09:28 Dose: 1 tab Seroquel Xr 50 Mg (Tab) 1 dose PO BID [facility] Last Admin: 02/28/18 09:32 Dose: 1 dose Ondansetron HCl (Zofran) 4 mg IV Q4-6HP PRN PRN Reason: Nausea And Vomiting Last Admin: 02/26/18 20:53 Dose: 4 mg Pantoprazole Sodium (Protonix) 40 mg PO [facility] Last Admin: 02/27/18 19:49 Dose: 40 mg Quetiapine Fumarate (Seroquel) 25 mg PO [facility] Last Admin: 02/27/18 19:49 Dose: 25 mg Senna/Docusate Sodium (Senna Plus Tablet) 1 tab PO [facility] Last Admin: 02/27/18 19:51 Dose: Not Given Sodium Chloride (Saline Flush) 10 ml IV Q8 [facility] Last Admin: 02/28/18 06:07 Dose: 10 ml Tamsulosin HCl (Flomax) 0.4 mg PO DAILY [facility] Last Admin: 02/28/18 09:28 Dose: 0.4 mg Tiotropium [place] (Spiriva) 18 mcg INH DAILY [facility] Last Admin: 02/28/18 09:29 Dose: Not Given Vancomycin HCl (Vancomycin Per Pharmacy) 1 order IV UD [facility] Warfarin Sodium (Coumadin) 4 mg PO ONCE@1400 ONE Stop: 02/28/18 14:01 Medical - PN: A/P - Time Spent With Patient Total time spent is greater than 50% in coordination of care (as documented) at patient's floor/unit and/or counseling patient: - Narrative A/P Narrative: A/P 72-year-old with ESRD on hemodialysis/underlying dementia admitted with acute change in mental status/complicated UTI and acute influenza B Bilateral Pneumoina: This had clinically resolved however chest x-ray today shows worsening pneumonia. Send blood cultures check pro calcitonin restart vancomycin and IV Zosyn. Today is day 2 of repeat antibiotic Urinary tract infection-microbiology has been negative so far, Zosyn should cover same. UA suggestive of UTI cultures have been negative await repeat cultures Congestive heart failure-get echocardiogram, hold off on dialysis as per nephrology as the patient does not look clinically fluid overloaded. Echocardiogram official read pending Diarrhea-C. difficile negative, likely antibiotic associated diarrhea. Monitor Sepsis-clinically improved since admission, antibiotics were discontinued however given that the patient had fever again overnight will resume antibiotics. Monitor End-stage renal disease-on hemodialysis unable to get dialysis due to low blood pressures during hemodialysis sessions. Nephrology following echo ordered nephrology ordered IV fluids yesterday. Influenza-patient completed 5 day course of Tamiflu Chronic obstructive pulmonary disease-continue bronchodilators no wheeze on exam Chronic pain-on fentanyl patch continue same patient also on baclofen. Anxiety-on Cymbalta continue same Hypothyroidism-on levothyroxine continue same Coronary artery disease-denies any chest pain, home medication list does not note any beta-blockers or ÓSCAR inhibitors. Will start on aspirin at least for now. Dementia-supportive management, patient was alert oriented 3 today. No she was advised to the hospital and knew the year 2017 also the president Blepharitis and conjunctivitis-ciprofloxacin ggt improving clinically Hypertension-blood pressure stable when not on dialysis, presently on amlodipine and hydralazine. According to the cardiology note on 322 the patient was on aspirin 81, Coreg 25 twice daily also a statin. I do not see these medications at this point. Contacted pharmacy to verify medication list. CODE STATUS DNR listed as per previous physician's note however chart says full code will verify. Heparin subcu for DVT prophylaxis. Try to see if patient is able to participate in physical therapy. Medical - PN: Qual - VTE Deep Vein Thrombosis/Pulmonary Embolism Present on Admission: No
[2018-02-28] MEDS ORDERED: METOPROLOL TARTRATE 25 MG TABLET PO ONE (11:58)
[2018-02-28] MEDS ORDERED: WARFARIN 4 MG TABLET PO ONE (14:00)
[2018-02-28] MEDS ORDERED: VANCOMYCIN 500 MG in 0.9 % SODIUM CHLORIDE 100 ML IV ONE (16:00)
[2018-02-28] MEDS: BACLOFEN 10 MG TABLET PO PRN (19:12)
[2018-02-28] MEDS: PANTOPRAZOLE 40 MG TABLET PO SCH (20:18)
[2018-02-28] MEDS: QUEtiapine 25 MG TABLET PO SCH (20:18)
[2018-02-28] MEDS: METOPROLOL TARTRATE 25 MG TABLET PO SCH (20:18)
[2018-02-28] MEDS: SENNOSIDES/DOCUSATE SODIUM 1 TAB TABLET PO SCH (21:16)
[2018-02-28] MEDS: ACETAMINOPHEN 650 MG/65 ML BOTTLE IV PRN (23:50)
[2018-03-01] MEDS: CIPROFLOXACIN 0.3% OPHTH DROPS BOTTLE 5 ML OU SCH ×6 (00:19→21:22)
[2018-03-01] MEDS: IPRATROPIUM/ALBUTEROL 3 ML AMPUL.NEB NEB SCH ×4 (00:53→19:28)
[2018-03-01 05:03] LABS: Basophils # (Auto) 0 K/mcL (0.0-0.3); Basophils % (Auto) 0.3 % (0.0-2.0); Eosinophils # (Auto) 0.5 K/mcL (0.0-0.7); Granulocytes % (Auto) 72.1 % (38.0-78.0); Lymphocytes # (Auto) 1.2 K/mcL (1.5-4.8); Lymphocytes % (Auto) 10.3 % (15.5-49.0); Mean Cell Volume 94.7 fL (80.0-100.0); Mean Corpuscular HGB Conc 34.4 g/dL (31.0-36.0); Mean Corpuscular Hemoglobin 32.5 pg (26.0-34.0); Monocytes # (Auto) 1.6 K/mcL (0.1-0.9); Monocytes % (Auto) 13.3 % (1.0-12.0); Platelet Count 307 K/mcL (140-440); Red Cell Distribution Width 17.3 % (11.5-14.5)
[2018-03-01] MEDS: 0.9 % SODIUM CHLORIDE 10 ML SYRINGE IV SCH ×3 (05:21→22:00)
[2018-03-01] MEDS: PIPERACILLIN SODIUM/TAZOBACTAM 2.25 GM in DEXTROSE 5% IN WATER 50 ML IV SCH ×3 (05:21→19:00)
[2018-03-01] MEDS: 0.9 % SODIUM CHLORIDE 250 ML IV SCH ×2 (05:22→21:19)
[2018-03-01 05:28] LABS: ALT/SGPT 10 U/l (0-40); Albumin 2.4 gm/dL (3.2-5.2); Albumin/Globulin Ratio 0.7 (1.0-2.3); Alkaline Phosphatase 100 U/L (39-117); Bilirubin,Direct < 0.2 mg/dL (0.0-0.3); Blood Urea Nitrogen 61 mg/dl (8-23); Gamma Glutamyl Transpeptidase 39 U/L (5-36); Uric Acid 5.8 mg/dL (2.5-8.0); Vancomycin,Random 5.2 ug/mL
[2018-03-01] MEDS: DOCUSATE SODIUM 100 MG CAPSULE PO SCH ×2 (07:13→21:38)
[2018-03-01] MEDS: METOPROLOL TARTRATE 25 MG TABLET PO SCH ×2 (07:26→21:18)
[2018-03-01] MEDS: HEPARIN 5,000 UNIT/ML VIAL SQ SCH ×2 (07:26→21:19)
[2018-03-01] MEDS: ASPIRIN 81 MG TAB.CHEW PO SCH (07:26)
[2018-03-01] MEDS: BETHANECHOL 10 MG TABLET PO SCH ×3 (07:26→21:19)
[2018-03-01] MEDS: SEROQUEL 50 MG PO SCH ×2 (07:26→21:19)
[2018-03-01] MEDS: MULTIVIT,THER IRON,CA,FA & MIN 1 TABLET PO SCH (07:26)
[2018-03-01] MEDS: HYDROCODONE/APAP 7.5/325MG TABLET PO SCH ×2 (07:30→21:18)
[2018-03-01] MEDS: TAMSULOSIN 0.4 MG CAPSULE PO SCH (09:00)
--- NOTE | 2018-03-01 09:34 | XRay Report ---
CLINICAL INFORMATION: Pneumonia COMPARISON: 02/27/2018 FINDINGS: Moderate cardiomegaly is unchanged. Right IJ double-lumen catheter overlies right atrium near the tricuspid valve plane - unchanged. Mediastinum is unremarkable. Pulmonary vessels are mildly distended, but improved compared to the study two days prior. Interstitial edema throughout both lungs shows modest improvement as well. No significant effusion IMPRESSION: Moderate CHF, but improved since comparison study two days ago Interpreted and Authenticated by: Magdy Harris 03/01/18
[2018-03-01] MEDS ORDERED: VANCOMYCIN 1,000 MG in 0.9 % SODIUM CHLORIDE 250 ML IV ONE ×2 (10:00→17:00)
--- NOTE | 2018-03-01 11:12 | Internal Med Progress Note ---
Medical - PN: Subj Patient information: Note initiated : 03/01/18 at 11:04 am Service Date, if different from initiated Date: [] Patient: Alexandra Zapata a 72 y/o F admitted on 02/21/18 for Resp Distress, Confusion /Influenza A, UTI. Chief Complaint: [] Interval history: Ms. Zapata is a 72 year old F with ESRD on hemodialysis and recent hospitalization. Patient was recovering at [facility] and was directed to the ER after she was found confused, weak and febrile by the staff at [facility]. patient was unable to provide any meaningful history to the ER physician. Initial workup was significant for pyuria along with a MAXIMUM TEMPERATURE over 100. Subsequently hospitalist service was consulted in light of acute change in mental status and complicated UTI. Nephrology was also consulted in light of end-stage renal disease on hemodialysis. patient is due for hemodialysis on Thursday. patient also was recently diagnosed with influenza and was on Tamiflu and amoxicillin. At the time of evaluation, patient is unable to provide a history due to her underlying baseline dementia and acute worsening mental status. She was however able to answer leading questions in yes and no. She denies chest pain headache. Her right eye lids have been swollen and red. She denies diarrhea or abdominal pain.No family members are present. Most history is obtained from ER records and care center documents. 02/22- patient much more lucid and responding to commands. No overnight events. Persistent tachycardia around 110. Foleys catheter draining dark urine. Nephrology consulted for baseline ESRD requiring hemodialysis. On contact precaution for influenza B. On Tamiflu. white count 8.8. addendum-patient became hypotensive during dialysis. Blood pressure dropping to 80's. Vasopressin started. Dialysis temporarily held. Patient tachypneic tachycardic and hypoxic requiring 14 L oxygen. Stat chest x-ray/CT angiogram ordered. ABGs pending. Unclear etiology for sudden hypotension . Rule out acute pulmonary embolism. CTA chest could not be performed as patrient is too sick to be able to undergo procedure per protocol. start heparin drip for empiric PE treatment CT angiogram scheduled in a.m. 02/23-worsening hypoxic respiratory failure last night along with hypotension requiring pressors. ABG 7.53/36/64 on 13 L oxygen. Large AA gradient. White count 17.6. 15% bands. on broad antibiotic coverage including Zosyn for complicated UTI. CT angiogram chest pending. On empiric treatment for PE with heparin drip/oral Coumadin. February 24- patient on hemodialysis. Tachycardia/hypertension during dialysis noted today. She is otherwise more alert and lucid. On antibiotic coverage. White count down from 17.6-10.8. Afebrile.basal pneumonia on CT angiogram but no evidence of PE. Anticoagulation discontinued. no overnight fever chills or concerns per staff. Telemetry intermittent tachycardia during dialysis. February 25-patient clinically improving since previous day however episodes of hypotension and tachycardia noticed during hemodialysis yesterday. Patient appears euvolemic. Improving respiratory status.no overnight fever or chills. Alert and responding to verbal commands. No family at bedside. Patient says her daughter Elba would be listing today. Case discussed with nephrology. We will hold hemodialysis today. Systolics at goal.white count down to 8.3.cultures negative so far. bibasal pneumonia on CT. February 26-patient continues to experience multiple stoolslikely antibiotic associated. C. difficile negative. White count 9.7. DC antibiotics. patient continues to be lethargic despite being off home dose benzodiazepines. patient was managed on half dose fentanyl however continues to hurt and is being switched back to 25 home dose fentanyl patch. Ongoing hemodialysis. Extremely slow recovery. He is a limited code per POA caregiver. No family members available for goals of care conference. on 3.5 L oxygen. Patient extremely lethargic and refusing/unable to participate in physical therapy february 27 Patient seen and examined, no acute overnight events. The patient had been febrile overnight. This morning to exam was warm to touch. Antibiotics were discontinued recently. The patient's chest x-ray done shows CHF and worsening pneumonia. Patient's daughter was here last night apparently and I was unable to get in touch with her as I was unaware that she was in the hospital. We will try to see if we can get her to come in the hospital to discuss goals of care. Nephrology gave fluids yesterday to the patient and start the patient on IV fluids. Stop the IV fluids for now given that CHF is apparent on the chest x- ray. Start the patient on vancomycin and Zosyn for possible pneumonia, send blood cultures as well as check pro-calcitonin level. Get an echocardiogram. Patient's mental status seems okay this morning. She is awake and able to answer some questions she is denying any acute symptoms february 28 Patient seen and examined no acute overnight events, hemodynamically stable. Plan of care reviewed with nephrology no plan for dialysis right now. Chest x- ray does show pneumonia and possible CHF however looking at the echo the IVC is collapsed and completely with inspiration. It is likely that the chest x-ray findings are secondary to pneumonia rather than CHF. Nephrology planning to hold off on dialysis. Patient is on broad-spectrum antibiotics continue same. Mental status is clear today. March 01 Patient seen and examined no acute overnight events. Hemoglobin dropping slowly is 7.5 now, slowly trending down, the patient does not have any obvious source of bleeding. We will check guaiac. If negative will transfuse a couple of units. Send anemia workup Patient was sitting comfortably in the chair having breakfast this morning has no acute complaints or concerns. X-ray shows CHF but patient is clinically not in fluid overload. Will review with nephrology with regards to dialysis plans. Blood pressure stable. Plan of care reviewed with family daughter was here yesterday. All questions answered plan for treatment of underlying etiology right now and then possible transfer back to the correction Pertinent ROS: Denies headache, dizziness Denies chest pain, palpitations Denies cough or shortness of breath Denies abdominal pain, nausea or vomiting. - Constitutional Vitals: Vital Signs Temp Pulse Resp BP Pulse Ox 98.3 F 111 H 24 H 111/77 93 03/01/18 06:34 03/01/18 08:00 03/01/18 09:00 03/01/18 06:34 03/01/18 06:34 Period Temp Pulse Resp BP Sys/Barrera Pulse Ox Last 24 Hr 97.9 F-100.2 F 87-111 13-31 111-145/46-77 90-96 Intake and Output 02/28/18 03/01/18 03/01/18 21:59 05:59 13:59 Intake Total 390 / 390 540 / 540 540 / 540 Output Total 2 / 2 350 / 350 Balance 388 / 388 540 / 540 190 / 190 Weight 88 lb 6 oz 88 lb 6 oz Patient Weight 03/02/18 05:59 Weight 88 lb 6 oz Intake & Output: Intake & Output 02/28/18 03/01/18 03/01/18 21:59 05:59 13:59 Intake Total 390 / 390 540 / 540 540 / 540 Output Total 2 / 2 350 / 350 Balance 388 / 388 540 / 540 190 / 190 Weight 88 lb 6 oz 88 lb 6 oz Intake: IV 150 / 150 50 / 50 Zosyn 2.25 gm In Dextrose 5% in 50 / 50 50 / 50 Water 50 ml @ 100 mls/hr IV Q8H [facility] Rx#:[id number] Vancomycin 500 mg In Sodium 100 / 100 Chloride 0.9% 100 ml @ 100 mls/ hr IV ONCE ONE Rx#:[id number] Oral 240 / 240 490 / 490 540 / 540 Output: Void Amount 350 / 350 # of times incontinent of urine 2 / 2 Other: Meal Nourishment/Supplement Breakfast Percent of Meal Consumed 100% 75% Feeding Ability Independent Independent Stool Size Small Stool Color Brown Stool Consistency Soft # Voids 1 1 # Bowel Movements 1 # of times incontinent of 1 Bowels Exam: Constitutional; Afebrile, cooperative, alert, not in distress. Eyes- No icterus, , No periorbital swelling Ears- Ext ear normal, Neck- Midline trachea, supple Respiratory system: Air Entry equal on both sides, No crackles or wheezing, no rhonchi. CVS- Rate rhythm regular, S1,S2 heard, no gallop, no rub. Abdomen- Soft nontender abdomen, no organomegaly, no tenderness, no guarding or rigidity, [employer]- AOOx3, moving all extremities, no gross focal deficit noted. Medical - PN: Obj Da - Labs CBC & Chem 7: 03/01/18 03:40 03/01/18 03:40 Labs: Abnormal Lab Results 03/01/18 03/01/18 03/01/18 03:40 03:40 03:40 WBC 12.0 H RBC 2.30 L Hgb 7.5 L Hct 21.8 L RDW 17.3 H Lymph % (Auto) 10.3 L [place] % (Auto) 13.3 H Gran # 8.6 H Lymph # (Auto) 1.2 L [place] # (Auto) 1.6 H PT 16.7 H INR 1.3 H Sodium 132 L Chloride BUN 61 H Creatinine 3.4 H Glucose 149 H Phosphorus GGT 39 H Albumin 2.4 L Albumin/Globulin Ratio 0.7 L Triglycerides 217 H Urine Protein Urine Occult Blood Ur Leukocyte Esterase Urine RBC Urine WBC 02/28/18 02/28/18 02/28/18 03:28 03:28 03:28 WBC RBC 2.62 L Hgb 8.3 L Hct 24.8 L RDW 17.7 H Lymph % (Auto) 8.9 L [place] % (Auto) 16.7 H Gran # Lymph # (Auto) 1.0 L [place] # (Auto) 1.8 H PT 18.0 H INR 1.5 H Sodium Chloride 95 L BUN 51 H Creatinine 3.6 H Glucose Phosphorus 5.5 H GGT 40 H Albumin 2.4 L Albumin/Globulin Ratio 0.6 L Triglycerides 187 H Urine Protein Urine Occult Blood Ur Leukocyte Esterase Urine RBC Urine WBC 02/27/18 02/27/18 12:00 04:58 WBC RBC Hgb Hct RDW Lymph % (Auto) [place]ickman % (Auto) Gran # Lymph # (Auto) [place] # (Auto) PT 17.3 H INR 1.4 H Sodium Chloride BUN Creatinine Glucose Phosphorus GGT Albumin Albumin/Globulin Ratio Triglycerides Urine Protein 100 A Urine Occult Blood 0.2 A Ur Leukocyte Esterase 500 A Urine RBC 29 H Urine WBC 145 H Meds: Medications Acetaminophen (Tylenol) 650 mg PO Q4-6HP PRN PRN Reason: PAIN/FEVER > 101 Last Admin: 02/27/18 10:00 Dose: 650 mg Hydrocodone Bitart/Acetaminophen ([place] 7.5/325mg) 1 tab PO BID [facility] Last Admin: 03/01/18 07:30 Dose: 1 tab Albuterol/Ipratropium (Duoneb) 3 ml NEB Q6HRT [facility] Last Admin: 03/01/18 08:13 Dose: 3 ml Aspirin (Aspirin) 81 mg PO DAILY [facility] Last Admin: 03/01/18 07:26 Dose: 81 mg Baclofen (Lioresal) 10 mg PO HSP PRN PRN Reason: MUSCLE SPASMS Last Admin: 02/28/18 19:12 Dose: 10 mg Bethanechol Chloride (Urecholine) 10 mg PO TID [facility] Last Admin: 03/01/18 07:26 Dose: 10 mg Ciprofloxacin (Ciloxan 0.3% Ophth Drops) 2 gtt OU Q4 [facility] Last Admin: 03/01/18 07:14 Dose: 2 gtt Docusate Sodium (Colace) 100 mg PO BID [facility] Last Admin: 03/01/18 07:13 Dose: Not Given Fentanyl (Duragesic) 12 mcg TOPICAL Q72H [facility] Last Admin: 02/27/18 13:16 Dose: 12 mcg Heparin Sodium (Porcine) (Heparin) 5,000 unit SQ Q12 [facility] Last Admin: 03/01/18 07:26 Dose: 5,000 unit Acetaminophen (Ofirmev) 650 mg in 65 mls @ 130 mls/hr IV Q6HP PRN PRN Reason: PAIN/FEVER > 101 Last Admin: 02/28/18 23:50 Dose: 130 mls/hr Norepinephrine Bitartrate 16 (mg/ Sodium Chloride) 250 mls @ 9.37 mls/hr IV PRN PRN; Protocol; 10 MCG/MIN PRN Reason: Blood Pressure - Low Sodium Chloride (Sodium Chloride 0.9%) 250 mls @ 20 mls/hr IV .[id number] [facility] Last Admin: 03/01/18 05:22 Dose: Not Given Piperacillin Sod/Tazobactam (Sod 2.25 gm/ Dextrose) 50 mls @ 100 mls/hr IV Q8H [facility] Last Admin: 03/01/18 05:21 Dose: 100 mls/hr Vancomycin HCl 1,000 mg/ (Sodium Chloride) 250 mls @ 250 mls/hr IV ONCE ONE Stop: 03/01/18 17:59 Iron Carb/Multivit/[place]/Folic Acid (Multivitamin W/Minerals) 1 tab PO DAILY [facility] Last Admin: 03/01/18 07:26 Dose: 1 tab Metoprolol Tartrate (Lopressor) 12.5 mg PO BID [facility] Last Admin: 03/01/18 07:26 Dose: 12.5 mg Seroquel Xr 50 Mg (Tab) 1 dose PO BID [facility] Last Admin: 03/01/18 07:26 Dose: 1 dose Ondansetron HCl (Zofran) 4 mg IV Q4-6HP PRN PRN Reason: Nausea And Vomiting Last Admin: 02/26/18 20:53 Dose: 4 mg Pantoprazole Sodium (Protonix) 40 mg PO [facility] Last Admin: 02/28/18 20:18 Dose: 40 mg Quetiapine Fumarate (Seroquel) 25 mg PO [facility] Last Admin: 02/28/18 20:18 Dose: 25 mg Senna/Docusate Sodium (Senna Plus Tablet) 1 tab PO [facility] Last Admin: 02/28/18 21:16 Dose: Not Given Sodium Chloride (Saline Flush) 10 ml IV Q8 [facility] Last Admin: 03/01/18 05:21 Dose: 10 ml Tamsulosin HCl (Flomax) 0.4 mg PO DAILY [facility] Last Admin: 02/28/18 09:28 Dose: 0.4 mg Tiotropium [place] (Spiriva) 18 mcg INH DAILY [facility] Last Admin: 02/28/18 09:29 Dose: Not Given Vancomycin HCl (Vancomycin Per Pharmacy) 1 order IV UD [facility] Medical - PN: A/P - Time Spent With Patient Total time spent is greater than 50% in coordination of care (as documented) at patient's floor/unit and/or counseling patient: - Narrative A/P Narrative: A/P 72-year-old with ESRD on hemodialysis/underlying dementia admitted with acute change in mental status/complicated UTI and acute influenza B Bilateral Pneumoina: This had clinically resolved however chest x-ray today shows worsening pneumonia. Send blood cultures check pro calcitonin restart vancomycin and IV Zosyn. Today is day 3, of repeat antibiotic, chest x-ray although not interpreted as pneumonia clinically it looks like she may have had a recurrent infection based on labs. Will check pro-calcitonin in the morning. Anemia-likely secondary to renal disease and acute infection. Transfuse if drops less than 7. Get anemia workup. Check occult stool. Urinary tract infection-microbiology has been negative so far, Zosyn should cover same. UA suggestive of UTI cultures have been negative await repeat cultures Congestive heart failure-echo shows LVH and low normal systolic function. IVC diameter is normal and collapses appropriately with respiration Diarrhea-C. difficile negative, likely antibiotic associated diarrhea. Monitor Sepsis-clinically improved since admission, antibiotics were discontinued however given that the patient had fever again overnight will resume antibiotics. Monitor End-stage renal disease-on hemodialysis unable to get dialysis due to low blood pressures during hemodialysis sessions. Nephrology following Influenza-patient completed 5 day course of Tamiflu Chronic obstructive pulmonary disease-continue bronchodilators no wheeze on exam Chronic pain-on fentanyl patch continue same patient also on baclofen. Anxiety-on Cymbalta continue same Hypothyroidism-on levothyroxine continue same Coronary artery disease-denies any chest pain, home medication list does not note any beta-blockers or ÓSCAR inhibitors. Will start on aspirin at least for now. I have started the patient on metoprolol 12.5 mg twice a day. I have discontinued hydralazine. Dementia-supportive management, patient was alert oriented 3 today. No she was advised to the hospital and knew the year 2017 also the president Blepharitis and conjunctivitis-ciprofloxacin ggt improving clinically Hypertension-blood pressure stable when not on dialysis, presently on amlodipine and hydralazine. According to the cardiology note on 02/04 the patient was on aspirin 81, Coreg 25 twice daily also a statin. I do not see these medications at this point. I will try to resume beta-umstapha once again probably discharge the patient on metoprolol succinate CODE STATUS DNR listed as per previous physician's note however chart says full code will verify. Heparin subcu for DVT prophylaxis. Try to see if patient is able to participate in physical therapy. Medical - PN: Qual - VTE Deep Vein Thrombosis/Pulmonary Embolism Present on Admission: No
[2018-03-01 11:36] LABS: Ferritin 542.4 ng/ml (30-400)
[2018-03-01 11:40] LABS: Vitamin B12 813.4 pg/ml (232-1245)
[2018-03-01] MEDS ORDERED: WARFARIN 5 MG TABLET PO ONE (14:00)
[2018-03-01] MEDS: TIOTROPIUM BROMIDE 18 MCG INHALANT INH SCH (15:41)
[2018-03-01] MEDS ORDERED: OLANZapine 5 MG TABLET PO ONE (18:37)
[2018-03-01] MEDS: ACETAMINOPHEN 650 MG/65 ML BOTTLE IV PRN (20:30)
[2018-03-01] MEDS ORDERED: LORazepam 2 MG/ML VIAL ONE (21:13)
[2018-03-01] MEDS: QUEtiapine 25 MG TABLET PO SCH (21:18)
[2018-03-01] MEDS: PANTOPRAZOLE 40 MG TABLET PO SCH (21:18)
[2018-03-01] MEDS: BACLOFEN 10 MG TABLET PO PRN (21:18)
[2018-03-01] MEDS ORDERED: LORazepam 2 MG/ML VIAL IV ONE (21:20)
[2018-03-01] MEDS: FLUCONAZOLE 200 MG in PREMIX 1 BAG IV SCH (21:30)
[2018-03-01] MEDS: SENNOSIDES/DOCUSATE SODIUM 1 TAB TABLET PO SCH (21:38)
[2018-03-02] MEDS: CIPROFLOXACIN 0.3% OPHTH DROPS BOTTLE 5 ML OU SCH ×6 (00:01→21:17)
[2018-03-02] MEDS: IPRATROPIUM/ALBUTEROL 3 ML AMPUL.NEB NEB SCH ×4 (00:45→19:15)
[2018-03-02 05:00] LABS: ALT/SGPT 13 U/l (0-40); Albumin 2.2 gm/dL (3.2-5.2); Albumin/Globulin Ratio 0.7 (1.0-2.3); Alkaline Phosphatase 97 U/L (39-117); Bilirubin,Direct < 0.2 mg/dL (0.0-0.3); Blood Urea Nitrogen 24 mg/dl (8-23); Gamma Glutamyl Transpeptidase 44 U/L (5-36); Uric Acid 2.8 mg/dL (2.5-8.0)
[2018-03-02 05:06] LABS: Basophils # (Auto) 0 K/mcL (0.0-0.3); Basophils % (Auto) 0.2 % (0.0-2.0); Eosinophils # (Auto) 0.5 K/mcL (0.0-0.7); Eosinophils % (Auto) 4.5 % (0.0-7.0); Granulocytes % (Auto) 75.9 % (38.0-78.0); Lymphocytes # (Auto) 1.1 K/mcL (1.5-4.8); Lymphocytes % (Auto) 8.9 % (15.5-49.0); Mean Cell Volume 95.1 fL (80.0-100.0); Mean Corpuscular HGB Conc 32.9 g/dL (31.0-36.0); Mean Corpuscular Hemoglobin 31.3 pg (26.0-34.0); Monocytes # (Auto) 1.3 K/mcL (0.1-0.9); Monocytes % (Auto) 10.5 % (1.0-12.0); Platelet Count 349 K/mcL (140-440); RBC 2.07 M/mcL (4.00-5.20); Red Cell Distribution Width 17.1 % (11.5-14.5)
[2018-03-02] MEDS ORDERED: 0.9 % SODIUM CHLORIDE 250 ML IV SCH (05:15)
[2018-03-02] MEDS: PIPERACILLIN SODIUM/TAZOBACTAM 2.25 GM in DEXTROSE 5% IN WATER 50 ML IV SCH ×3 (05:39→22:02)
[2018-03-02] MEDS: 0.9 % SODIUM CHLORIDE 10 ML SYRINGE IV SCH ×3 (05:40→22:00)
[2018-03-02] MEDS: 0.9 % SODIUM CHLORIDE 250 ML IV SCH ×2 (07:38→21:19)
[2018-03-02] MEDS: SEROQUEL 50 MG PO SCH ×2 (09:28→21:18)
[2018-03-02] MEDS: FLUCONAZOLE 200 MG in PREMIX 1 BAG IV SCH (09:28)
[2018-03-02] MEDS: BETHANECHOL 10 MG TABLET PO SCH ×3 (09:29→21:16)
[2018-03-02 09:32] LABS: Haptoglobin 322 mg/dl (30-200)
[2018-03-02 09:33] LABS: Retic Absolute 2.2 % (0.5-1.5)
[2018-03-02] MEDS: MULTIVIT,THER IRON,CA,FA & MIN 1 TABLET PO SCH (09:34)
[2018-03-02] MEDS: METOPROLOL TARTRATE 25 MG TABLET PO SCH (09:34)
[2018-03-02] MEDS: HEPARIN 5,000 UNIT/ML VIAL SQ SCH (09:34)
[2018-03-02] MEDS: TAMSULOSIN 0.4 MG CAPSULE PO SCH (09:35)
[2018-03-02] MEDS: DOCUSATE SODIUM 100 MG CAPSULE PO SCH ×2 (09:35→21:18)
[2018-03-02] MEDS: HYDROCODONE/APAP 7.5/325MG TABLET PO SCH ×2 (09:35→21:16)
[2018-03-02] MEDS: ASPIRIN 81 MG TAB.CHEW PO SCH (09:35)
[2018-03-02] MEDS: TIOTROPIUM BROMIDE 18 MCG INHALANT INH SCH (09:36)
[2018-03-02 10:28] LABS: Complement C3 147.7 mg/dl (90-180)
--- NOTE | 2018-03-02 10:48 | Internal Med Progress Note ---
Medical - PN: Subj Patient information: Note initiated : 03/02/18 at 10:45 am Service Date, if different from initiated Date: [] Patient: Alexandra Zapata 72 y/o F admitted on 02/21/18 for Resp Distress, Confusion /Influenza A, UTI. Chief Complaint: [] Interval history: Ms. Zapata is a 72 year old F with ESRD on hemodialysis and recent hospitalization. Patient was recovering at [facility] and was directed to the ER after she was found confused, weak and febrile by the staff at [facility]. patient was unable to provide any meaningful history to the ER physician. Initial workup was significant for pyuria along with a MAXIMUM TEMPERATURE over 100. Subsequently hospitalist service was consulted in light of acute change in mental status and complicated UTI. Nephrology was also consulted in light of end-stage renal disease on hemodialysis. patient is due for hemodialysis on Thursday. patient also was recently diagnosed with influenza and was on Tamiflu and amoxicillin. At the time of evaluation, patient is unable to provide a history due to her underlying baseline dementia and acute worsening mental status. She was however able to answer leading questions in yes and no. She denies chest pain headache. Her right eye lids have been swollen and red. She denies diarrhea or abdominal pain.No family members are present. Most history is obtained from ER records and care center documents. 02/22- patient much more lucid and responding to commands. No overnight events. Persistent tachycardia around 110. Foleys catheter draining dark urine. Nephrology consulted for baseline ESRD requiring hemodialysis. On contact precaution for influenza B. On Tamiflu. white count 8.8. addendum-patient became hypotensive during dialysis. Blood pressure dropping to 80's. Vasopressin started. Dialysis temporarily held. Patient tachypneic tachycardic and hypoxic requiring 14 L oxygen. Stat chest x-ray/CT angiogram ordered. ABGs pending. Unclear etiology for sudden hypotension . Rule out acute pulmonary embolism. CTA chest could not be performed as patrient is too sick to be able to undergo procedure per protocol. start heparin drip for empiric PE treatment CT angiogram scheduled in a.m. 02/23-worsening hypoxic respiratory failure last night along with hypotension requiring pressors. ABG 7.53/36/64 on 13 L oxygen. Large AA gradient. White count 17.6. 15% bands. on broad antibiotic coverage including Zosyn for complicated UTI. CT angiogram chest pending. On empiric treatment for PE with heparin drip/oral Coumadin. February 24- patient on hemodialysis. Tachycardia/hypertension during dialysis noted today. She is otherwise more alert and lucid. On antibiotic coverage. White count down from 17.6-10.8. Afebrile.basal pneumonia on CT angiogram but no evidence of PE. Anticoagulation discontinued. no overnight fever chills or concerns per staff. Telemetry intermittent tachycardia during dialysis. February 25-patient clinically improving since previous day however episodes of hypotension and tachycardia noticed during hemodialysis yesterday. Patient appears euvolemic. Improving respiratory status.no overnight fever or chills. Alert and responding to verbal commands. No family at bedside. Patient says her daughter Elba would be listing today. Case discussed with nephrology. We will hold hemodialysis today. Systolics at goal.white count down to 8.3.cultures negative so far. bibasal pneumonia on CT. February 26-patient continues to experience multiple stoolslikely antibiotic associated. C. difficile negative. White count 9.7. DC antibiotics. patient continues to be lethargic despite being off home dose benzodiazepines. patient was managed on half dose fentanyl however continues to hurt and is being switched back to 25 home dose fentanyl patch. Ongoing hemodialysis. Extremely slow recovery. He is a limited code per POA caregiver. No family members available for goals of care conference. on 3.5 L oxygen. Patient extremely lethargic and refusing/unable to participate in physical therapy february 27 Patient seen and examined, no acute overnight events. The patient had been febrile overnight. This morning to exam was warm to touch. Antibiotics were discontinued recently. The patient's chest x-ray done shows CHF and worsening pneumonia. Patient's daughter was here last night apparently and I was unable to get in touch with her as I was unaware that she was in the hospital. We will try to see if we can get her to come in the hospital to discuss goals of care. Nephrology gave fluids yesterday to the patient and start the patient on IV fluids. Stop the IV fluids for now given that CHF is apparent on the chest x- ray. Start the patient on vancomycin and Zosyn for possible pneumonia, send blood cultures as well as check pro-calcitonin level. Get an echocardiogram. Patient's mental status seems okay this morning. She is awake and able to answer some questions she is denying any acute symptoms february 28 Patient seen and examined no acute overnight events, hemodynamically stable. Plan of care reviewed with nephrology no plan for dialysis right now. Chest x- ray does show pneumonia and possible CHF however looking at the echo the IVC is collapsed and completely with inspiration. It is likely that the chest x-ray findings are secondary to pneumonia rather than CHF. Nephrology planning to hold off on dialysis. Patient is on broad-spectrum antibiotics continue same. Mental status is clear today. March 01 Patient seen and examined no acute overnight events. Hemoglobin dropping slowly is 7.5 now, slowly trending down, the patient does not have any obvious source of bleeding. We will check guaiac. If negative will transfuse a couple of units. Send anemia workup Patient was sitting comfortably in the chair having breakfast this morning has no acute complaints or concerns. X-ray shows CHF but patient is clinically not in fluid overload. Will review with nephrology with regards to dialysis plans. Blood pressure stable. Plan of care reviewed with family daughter was here yesterday. All questions answered plan for treatment of underlying etiology right now and then possible transfer back to the snf march 02 Patient seen and examined, overnight events reviewed patient was confused last night needed some sedatives to help sleep. She was upset about the dialysis nurse. This morning to she seems to be slightly confused. She denies any other acute concerns or complaints. The patient's hemoglobin was 6.5 this morning. We order 2 units of blood transfusion FOB was positive but the stool was brown. Clinically does not seem to be bleeding. Repeat hemoglobin done without any blood transfusions came back at 7.8. It is very likely that the morning blood was diluted. We will monitor closely for now. Anemia workup has been sent. Patient does have antibodies and will not be able to get blood easily. Urine culture came back positive for Tamara patient has been started on Diflucan. Pertinent ROS: Denies headache, dizziness Denies chest pain, palpitations Denies cough or shortness of breath Denies abdominal pain, nausea or vomiting. - Constitutional Vitals: Vital Signs Temp Pulse Resp BP Pulse Ox 98.2 F 110 H 22 154/85 92 03/02/18 06:47 03/02/18 08:34 03/02/18 08:34 03/02/18 06:47 03/02/18 06:47 Period Temp Pulse Resp BP Sys/Barrera Pulse Ox Last 24 Hr 97.8 F-101.5 F 71-122 10-35 116-171/56-94 85-100 Intake and Output 03/01/18 03/02/18 03/02/18 21:59 05:59 13:59 Intake Total 605 / 605 150 / 150 50 / 50 Output Total 150 / 150 250 / 250 Balance 455 / 455 150 / 150 -200 / -200 Weight 90 lb 13 oz 90 lb 13 oz Intake & Output: Intake & Output 03/01/18 03/02/18 03/02/18 21:59 05:59 13:59 Intake Total 605 / 605 150 / 150 50 / 50 Output Total 150 / 150 250 / 250 Balance 455 / 455 150 / 150 -200 / -200 Weight 90 lb 13 oz 90 lb 13 oz Intake: IV 365 / 365 150 / 150 50 / 50 Diflucan 200 mg In Premix 1 Bag 100 / 100 @ 100 mls/hr IV Q24H AIDEN Rx#: [id number] Zosyn 2.25 gm In Dextrose 5% in 50 / 50 50 / 50 50 / 50 Water 50 ml @ 100 mls/hr IV Q8H AIDEN Rx#:[id number] Oral 240 / 240 Output: Void Amount 150 / 150 250 / 250 Hemodialysis UF 0 / 0 Other: Meal Dinner Percent of Meal Consumed 25% Feeding Ability Assist with Tray Set Up Stool Size Moderate Smear Stool Color Brown Brown Stool Consistency Soft # Voids 1 1 # Bowel Movements 1 # of times incontinent of 1 Bowels Exam: Constitutional; Afebrile, cooperative, alert, not in distress. Eyes- No icterus, , No periorbital swelling Ears- Ext ear normal, hearing normal to conversation. Neck- Midline trachea, supple Respiratory system: Air Entry equal on both sides, No crackles or wheezing, no rhonchi. CVS- Rate tachycardic,rhythm regular, S1,S2 heard, no gallop, no rub. Abdomen- Soft nontender abdomen, no organomegaly, no tenderness, no guarding or rigidity, SCREENING NURSE- AOOx3, moving all extremities, no gross focal deficit noted. Appears more confused than yesterday Medical - PN: Obj Da - Labs CBC & Chem 7: 03/02/18 08:38 03/02/18 03:50 Labs: Abnormal Lab Results 03/02/18 03/02/18 03/02/18 09:16 08:38 08:38 WBC RBC Hgb Hct RDW MPV Lymph % (Auto) Cannon % (Auto) Gran # Lymph # (Auto) Cannon # (Auto) Absolute Retic 2.2 H Haptoglobin 322 H PT INR Sodium Chloride BUN Creatinine Glucose Phosphorus Iron TIBC Ferritin GGT Total Protein Albumin Albumin/Globulin Ratio Triglycerides Urine Protein Urine Occult Blood Ur Leukocyte Esterase Urine RBC Urine WBC Complement C4 12.1 L 03/02/18 03/02/18 03/02/18 08:38 03:50 03:50 WBC RBC Hgb 7.8 L Hct 23.2 L RDW MPV Lymph % (Auto) Cannon % (Auto) Gran # Lymph # (Auto) Cannon # (Auto) Absolute Retic Haptoglobin PT 16.7 H INR 1.3 H Sodium Chloride BUN 24 H Creatinine 1.8 H Glucose Phosphorus Iron TIBC Ferritin GGT 44 H Total Protein 5.5 L Albumin 2.2 L Albumin/Globulin Ratio 0.7 L Triglycerides 186 H Urine Protein Urine Occult Blood Ur Leukocyte Esterase Urine RBC Urine WBC Complement C4 03/02/18 03/01/18 03/01/18 03:50 03:40 03:40 WBC 12.0 H RBC 2.07 L Hgb 6.5 L* Hct 19.7 L* RDW 17.1 H MPV 7.1 L Lymph % (Auto) 8.9 L Cannon % (Auto) Gran # 9.1 H Lymph # (Auto) 1.1 L Cannon # (Auto) 1.3 H Absolute Retic Haptoglobin PT INR Sodium 132 L Chloride BUN 61 H Creatinine 3.4 H Glucose 149 H Phosphorus Iron 24 L TIBC 145 L Ferritin 542.4 H GGT 39 H Total Protein Albumin 2.4 L Albumin/Globulin Ratio 0.7 L Triglycerides 217 H Urine Protein Urine Occult Blood Ur Leukocyte Esterase Urine RBC Urine WBC Complement C4 03/01/18 03/01/18 02/28/18 03:40 03:40 03:28 WBC 12.0 H RBC 2.30 L Hgb 7.5 L Hct 21.8 L RDW 17.3 H MPV Lymph % (Auto) 10.3 L Cannon % (Auto) 13.3 H Gran # 8.6 H Lymph # (Auto) 1.2 L Cannon # (Auto) 1.6 H Absolute Retic Haptoglobin PT 16.7 H INR 1.3 H Sodium Chloride 95 L BUN 51 H Creatinine 3.6 H Glucose Phosphorus 5.5 H Iron TIBC Ferritin GGT 40 H Total Protein Albumin 2.4 L Albumin/Globulin Ratio 0.6 L Triglycerides 187 H Urine Protein Urine Occult Blood Ur Leukocyte Esterase Urine RBC Urine WBC Complement C4 02/28/18 02/28/18 02/27/18 03:28 03:28 12:00 WBC RBC 2.62 L Hgb 8.3 L Hct 24.8 L RDW 17.7 H MPV Lymph % (Auto) 8.9 L Cannon % (Auto) 16.7 H Gran # Lymph # (Auto) 1.0 L Cannon # (Auto) 1.8 H Absolute Retic Haptoglobin PT 18.0 H INR 1.5 H Sodium Chloride BUN Creatinine Glucose Phosphorus Iron TIBC Ferritin GGT Total Protein Albumin Albumin/Globulin Ratio Triglycerides Urine Protein 100 A Urine Occult Blood 0.2 A Ur Leukocyte Esterase 500 A Urine RBC 29 H Urine WBC 145 H Complement C4 Meds: Medications Acetaminophen (Tylenol) 650 mg PO Q4-6HP PRN PRN Reason: PAIN/FEVER > 101 Last Admin: 02/27/18 10:00 Dose: 650 mg Hydrocodone Bitart/Acetaminophen ([place] 7.5/325mg) 1 tab PO BID [facility] Last Admin: 03/02/18 09:35 Dose: 1 tab Albuterol/Ipratropium (Duoneb) 3 ml NEB Q6HRT [facility] Last Admin: 03/02/18 07:53 Dose: 3 ml Aspirin (Aspirin) 81 mg PO DAILY [facility] Last Admin: 03/02/18 09:35 Dose: 81 mg Baclofen (Lioresal) 10 mg PO HSP PRN PRN Reason: MUSCLE SPASMS Last Admin: 03/01/18 21:18 Dose: 10 mg Bethanechol Chloride (Urecholine) 10 mg PO TID [facility] Last Admin: 03/02/18 09:29 Dose: 10 mg Ciprofloxacin (Ciloxan 0.3% Ophth Drops) 2 gtt OU Q4 [facility] Last Admin: 03/02/18 09:34 Dose: 2 gtt Docusate Sodium (Colace) 100 mg PO BID [facility] Last Admin: 03/02/18 09:35 Dose: Not Given Fentanyl (Duragesic) 12 mcg TOPICAL Q72H [facility] Last Admin: 02/27/18 13:16 Dose: 12 mcg Heparin Sodium (Porcine) (Heparin) 5,000 unit SQ Q12 [facility] Last Admin: 03/02/18 09:34 Dose: 5,000 unit Acetaminophen (Ofirmev) 650 mg in 65 mls @ 130 mls/hr IV Q6HP PRN PRN Reason: PAIN/FEVER > 101 Last Infusion: 03/01/18 21:05 Dose: Infused Norepinephrine Bitartrate 16 (mg/ Sodium Chloride) 250 mls @ 9.37 mls/hr IV PRN PRN; Protocol; 10 MCG/MIN PRN Reason: Blood Pressure - Low Sodium Chloride (Sodium Chloride 0.9%) 250 mls @ 20 mls/hr IV .[id number] [facility] Last Admin: 03/02/18 07:38 Dose: Not Given Piperacillin Sod/Tazobactam (Sod 2.25 gm/ Dextrose) 50 mls @ 100 mls/hr IV Q8H [facility] Last Infusion: 03/02/18 07:45 Dose: Infused Fluconazole 200 mg/ Premix 100 mls @ 100 mls/hr IV Q24H [facility] Last Admin: 03/02/18 09:28 Dose: 100 mls/hr Sodium Chloride (Sodium Chloride 0.9%) 250 mls @ 20 mls/hr IV .[id number] [facility] Stop: 03/02/18 17:44 Iron Carb/Multivit/Granite Cutter/Folic Acid (Multivitamin W/Minerals) 1 tab PO DAILY [facility] Last Admin: 03/02/18 09:34 Dose: 1 tab Metoprolol Tartrate (Lopressor) 12.5 mg PO BID [facility] Last Admin: 03/02/18 09:34 Dose: 12.5 mg Seroquel Xr 50 Mg (Tab) 1 dose PO BID [facility] Last Admin: 03/02/18 09:28 Dose: 1 dose Ondansetron HCl (Zofran) 4 mg IV Q4-6HP PRN PRN Reason: Nausea And Vomiting Last Admin: 02/26/18 20:53 Dose: 4 mg Pantoprazole Sodium (Protonix) 40 mg PO HS [facility] Last Admin: 03/01/18 21:18 Dose: 40 mg Quetiapine Fumarate (Seroquel) 25 mg PO [facility] Last Admin: 03/01/18 21:18 Dose: 25 mg Senna/Docusate Sodium (Senna Plus Tablet) 1 tab PO HS [facility] Last Admin: 03/01/18 21:38 Dose: Not Given Sodium Chloride (Saline Flush) 10 ml IV Q8 [facility] Last Admin: 03/02/18 05:40 Dose: 10 ml Tamsulosin HCl (Flomax) 0.4 mg PO DAILY [facility] Last Admin: 03/02/18 09:35 Dose: 0.4 mg Tiotropium [place] (Spiriva) 18 mcg INH DAILY [facility] Last Admin: 03/02/18 09:36 Dose: Not Given Vancomycin HCl (Vancomycin Per Pharmacy) 1 order IV UD [facility] Warfarin Sodium (Coumadin) 7.5 mg PO ONCE@1400 ONE Stop: 03/02/18 14:01 Medical - PN: A/P - Time Spent With Patient Total time spent is greater than 50% in coordination of care (as documented) at patient's floor/unit and/or counseling patient: - Narrative A/P Narrative: A/P 72-year-old with ESRD on hemodialysis/underlying dementia admitted with acute change in mental status/complicated UTI and acute influenza B Bilateral Pneumoina: This had clinically resolved however chest x-ray today shows worsening pneumonia. Send blood cultures check pro calcitonin restart vancomycin and IV Zosyn. Today is day 4, of repeat antibiotic, chest x-ray although not interpreted as pneumonia clinically it looks like she may have had a recurrent infection based on labs. Pro calcitonin is 0.57, it came down from 0.83 Anemia-likely secondary to renal disease and acute infection. Occult blood is positive, brown stools no evidence of upper GI bleed. The patient's anemia workup is not suggestive of iron deficiency anemia. It is likely that the anemia is related to end-stage renal disease. The patient hemoglobin is 7.8 today. Urinary tract infection-urine cultures growing Tamara IV Diflucan started sensitivity pending Congestive heart failure-echo shows LVH and low normal systolic function. IVC diameter is normal and collapses appropriately with respiration Diarrhea-C. difficile negative, likely antibiotic associated diarrhea. Monitor Sepsis-clinically improved since admission, antibiotics were discontinued however given that the patient had fever again overnight will resume antibiotics. Monitor End-stage renal disease-on hemodialysis per nephrology. Influenza-patient completed 5 day course of Tamiflu Chronic obstructive pulmonary disease-continue bronchodilators no wheeze on exam Chronic pain-on fentanyl patch continue same patient also on baclofen. Anxiety-on Cymbalta continue same Hypothyroidism-on levothyroxine continue same Coronary artery disease-denies any chest pain, home medication list does not note any beta-blockers or ÓSCAR inhibitors. Will start on aspirin at least for now. i will start on coreg 12.5mg bid, (he was on this med before) Dementia-supportive management, patient was alert oriented 3 today. No she was advised to the hospital and knew the year 2017 also the president Blepharitis and conjunctivitis-ciprofloxacin ggt improving clinically Hypertension-blood pressure stable when not on dialysis, presently on amlodipine and hydralazine. According to the cardiology note on 02/04 the patient was on aspirin 81, Coreg 25 twice daily also a statin. I do not see these medications at this point. I will try to resume beta-mustapha once again, start with 12.5bid and uptitrated to 25bid if able to tolerate well. CODE STATUS DNR listed as per previous physician's note however chart says full code will verify. Heparin subcu for DVT prophylaxis. Try to see if patient is able to participate in physical therapy. Medical - PN: Qual - VTE Deep Vein Thrombosis/Pulmonary Embolism Present on Admission: No
[2018-03-02] MEDS ORDERED: METOPROLOL TARTRATE 25 MG TABLET PO ONE (10:53)
[2018-03-02] MEDS: CARVEDILOL 12.5 MG TABLET PO SCH ×2 (11:05→16:43)
[2018-03-02] MEDS: fentaNYL 12 MCG PATCH TOPICAL SCH (13:23)
[2018-03-02] MEDS ORDERED: WARFARIN 7.5 MG TABLET PO ONE (14:00)
[2018-03-02] MEDS: PANTOPRAZOLE 40 MG VIAL IV SCH ×2 (16:43→18:30)
--- NOTE | 2018-03-02 17:04 | General Surgery Progress Note ---
Subjective Narrative: Note initiated : 03/02/18 at 5:01 pm Service Date, if different from initiated Date: [] Patient: Alexandra Zapata 72 y/o F admitted on 02/21/18 for Resp Distress, Confusion /Influenza A, UTI. Chief Complaint: []Wound care f/u. Patient seen with nursing staff and progress reviewed. Discussed with . hospitalist Physician. Objective Temp Pulse Resp BP Pulse Ox 99.1 F H 78 19 127/44 97 03/02/18 12:03 03/02/18 13:39 03/02/18 13:39 03/02/18 12:03 03/02/18 12:03 Wound Care; Bruise over sacral area right . Stable. NO acute interval changes. - Additional Data Intake & Output - Last 24 hours: Intake & Output 02/28/18 03/01/18 03/02/18 03/03/18 05:59 05:59 05:59 05:59 Intake Total 2331 / 2331 1095 / 1095 1495 / 1495 150 / 150 Output Total 361 / 361 358 / 358 650 / 650 2100 / 2100 Balance 1970 / 1969 737 / 737 845 / 845 -1950 / -1950 Weight 88 lb 4 oz 88 lb 6 oz 90 lb 13 oz 90 lb 13 oz - Labs 03/02/18 08:38 03/02/18 03:50 Diabetes panel 03/02/18 Range/Units 03:50 Sodium 139 (133-145) mmol/L Potassium 4.0 (3.3-5.1) mmol/L Chloride 100 (96-108) mmol/L Carbon Dioxide 29 (22-30) mmol/L BUN 24 H (8-23) mg/dl Creatinine 1.8 H (0.6-1.1) mg/dl Glucose 81 (70-105) mg/dL Calcium 8.8 (8.6-10.4) mg/dl AST 24 (0-37) U/l ALT 13 (0-40) U/l Alkaline Phosphatase 97 (39-117) U/L Total Protein 5.5 L (5.9-8.4) gm/dL Albumin 2.2 L (3.2-5.2) gm/dL Triglycerides 186 H (<150) mg/dl Calcium panel 03/02/18 Range/Units 03:50 Calcium 8.8 (8.6-10.4) mg/dl Phosphorus 4.0 (2.7-4.5) mg/dL Albumin 2.2 L (3.2-5.2) gm/dL Pituitary panel 03/02/18 Range/Units 03:50 Sodium 139 (133-145) mmol/L Potassium 4.0 (3.3-5.1) mmol/L Chloride 100 (96-108) mmol/L Carbon Dioxide 29 (22-30) mmol/L BUN 24 H (8-23) mg/dl Creatinine 1.8 H (0.6-1.1) mg/dl Glucose 81 (70-105) mg/dL Calcium 8.8 (8.6-10.4) mg/dl Adrenal panel 03/02/18 Range/Units 03:50 Sodium 139 (133-145) mmol/L Potassium 4.0 (3.3-5.1) mmol/L Chloride 100 (96-108) mmol/L Carbon Dioxide 29 (22-30) mmol/L BUN 24 H (8-23) mg/dl Creatinine 1.8 H (0.6-1.1) mg/dl Glucose 81 (70-105) mg/dL Calcium 8.8 (8.6-10.4) mg/dl Total Bilirubin 0.2 (0.0-1.0) mg/dL AST 24 (0-37) U/l ALT 13 (0-40) U/l Alkaline Phosphatase 97 (39-117) U/L Total Protein 5.5 L (5.9-8.4) gm/dL Albumin 2.2 L (3.2-5.2) gm/dL Assessment and Plan (1) Bruising Status: Acute Current Visit: Yes - Narrative A/P Narrative: Assessment : Bruise Right sacral area. Stable . NO ulceration. Plan: Continue current management. - Time Spent With Patient Total time spent is greater than 50% in coordination of care (as documented) at patient's floor/unit and/or counseling patient: less than 15 minutes
[2018-03-02 17:23] LABS: Basophils # (Auto) 0 K/mcL (0.0-0.3); Basophils % (Auto) 0.3 % (0.0-2.0); Eosinophils # (Auto) 0.5 K/mcL (0.0-0.7); Eosinophils % (Auto) 3.5 % (0.0-7.0); Granulocytes % (Auto) 76.6 % (38.0-78.0); Lymphocytes # (Auto) 1.2 K/mcL (1.5-4.8); Lymphocytes % (Auto) 8.7 % (15.5-49.0); Mean Cell Volume 92.8 fL (80.0-100.0); Mean Corpuscular Hemoglobin 30.6 pg (26.0-34.0); Monocytes # (Auto) 1.5 K/mcL (0.1-0.9); Monocytes % (Auto) 10.9 % (1.0-12.0); Platelet Count 402 K/mcL (140-440); RBC 2.22 M/mcL (4.00-5.20); Red Cell Distribution Width 17.4 % (11.5-14.5)
[2018-03-02] MEDS ORDERED: OLANZapine 5 MG TABLET PO ONE (20:20)
[2018-03-02] MEDS ORDERED: LORazepam 2 MG/ML VIAL IV PRN (20:23)
[2018-03-02] MEDS ORDERED: METOPROLOL TARTRATE 25 MG TABLET PO SCH (21:00)
[2018-03-02] MEDS: PANTOPRAZOLE 40 MG TABLET PO SCH (21:16)
[2018-03-02] MEDS: SENNOSIDES/DOCUSATE SODIUM 1 TAB TABLET PO SCH (21:18)
[2018-03-02] MEDS: QUEtiapine 25 MG TABLET PO SCH (21:18)
[2018-03-02] MEDS ORDERED: DARBEPOETIN ALFA 200 MCG/ML VIAL SQ ONE (22:24)
--- NOTE | 2018-03-02 22:31 | Nephrology Progress Note ---
Subjective Patient information: Note initiated : 03/02/18 at 10:28 pm Service Date, if different from initiated Date: [] Patient: Alexandra Zapata 72 y/o F admitted on 02/21/18 for Resp Distress, Confusion /Influenza A, UTI. Chief Complaint: Awake and alert. Wants to go home. Wants to smoke. Objective - Vital Signs Vital signs: Vital Signs Temp Pulse Resp BP BP Pulse Ox 03/02/18 21:00 28 H 03/02/18 20:01 99.5 F H 92 H 20 146/70 94 03/02/18 20:00 87 26 H 93 03/02/18 19:22 80 19 03/02/18 19:00 86 26 H 88 L 03/02/18 18:02 34 H 03/02/18 18:01 23 H 146/63 03/02/18 18:00 29 H 03/02/18 17:00 21 03/02/18 16:01 27 H 131/77 03/02/18 16:00 17 03/02/18 15:54 99.3 F H 93 H 18 139/60 91 03/02/18 15:00 21 03/02/18 14:00 18 03/02/18 13:39 78 19 03/02/18 13:00 81 16 91 03/02/18 12:04 89 24 H 97 03/02/18 12:03 99.1 F H 85 20 127/44 97 03/02/18 12:00 86 21 98 03/02/18 11:00 92 H 18 99 03/02/18 10:00 21 03/02/18 09:00 107 H 21 99 03/02/18 08:34 110 H 22 03/02/18 08:00 17 03/02/18 07:00 14 03/02/18 06:47 98.2 F 18 154/85 92 03/02/18 06:33 94 H 26 H 154/85 92 03/02/18 06:00 90 23 H 95 03/02/18 05:00 74 23 H 96 03/02/18 04:42 74 21 140/59 97 03/02/18 04:02 76 22 99 03/02/18 04:01 76 23 H 135/72 100 03/02/18 04:00 81 23 H 100 03/02/18 03:18 71 22 120/60 100 03/02/18 03:05 80 20 03/02/18 02:01 84 20 131/65 98 03/02/18 00:01 97.9 F 81 22 127/56 98 03/02/18 00:00 80 22 116/63 98 03/01/18 23:14 97.8 F 83 22 116/63 97 03/01/18 23:13 83 10 L 130/60 96 03/01/18 23:00 12 Intake and Output 03/02/18 03/02/18 03/03/18 13:59 21:59 05:59 Intake Total 510 / 510 470 / 470 Output Total 500 / 500 200 / 200 Balance 270 / 270 Intake: IV 50 / 50 50 / 50 Zosyn 2.25 gm In Dextrose 5% in 50 / 50 50 / 50 Water 50 ml @ 100 mls/hr IV Q8H AIDEN Rx#:[id number] Oral 460 / 460 420 / 420 Output: Void Amount 500 / 500 200 / 200 Other: Meal Lunch Applesauce for pills, sherbert Percent of Meal Consumed 100% 100% Feeding Ability Needs Supervision Independent Stool Size Moderate Moderate Stool Color Black Brown Black Stool Consistency Soft Soft # Voids 1 # Bowel Movements 1 1 # of times incontinent of 1 Bowels Weight 93 lb Patient Weight 03/03/18 05:59 Weight 93 lb Intake & Output: Intake & Output 03/02/18 03/02/18 03/03/18 13:59 21:59 05:59 Intake Total 510 / 510 470 / 470 Output Total 500 / 500 200 / 200 Balance 270 / 270 Weight 93 lb Intake: IV 50 / 50 50 / 50 Zosyn 2.25 gm In Dextrose 5% in 50 / 50 50 / 50 Water 50 ml @ 100 mls/hr IV Q8H AIDEN Rx#:[id number] Oral 460 / 460 420 / 420 Output: Void Amount 500 / 500 200 / 200 Other: Meal Lunch Applesauce for pills, sherbert Percent of Meal Consumed 100% 100% Feeding Ability Needs Supervision Independent Stool Size Moderate Moderate Stool Color Black Brown Black Stool Consistency Soft Soft # Voids 1 # Bowel Movements 1 1 # of times incontinent of 1 Bowels - General Appearance General appearance: cachectic EENT: ATNC Neck: no JVD Respiratory: wheezing, rhonchi Cardiology: mid-systolic murmur - Lab 03/02/18 18:04 03/02/18 03:50 Most recent lab results Calcium 8.8 mg/dl (8.6-10.4) 03/02/18 03:50 Phosphorus 4.0 mg/dL (2.7-4.5) 03/02/18 03:50 Magnesium 2.0 mg/dL (1.6-2.5) 03/02/18 03:50 Assessment and Plan (1) ESRD (end stage renal disease) on dialysis Status: Acute Comment: Did not tolerate dialysis very well as she had low bp but did better without any fluid removal. Electrolytes look ok. Will try 2 liters of fluid removal tommorrow. Anemia. Will give a dose of Aranesp.
[2018-03-03] MEDS: CIPROFLOXACIN 0.3% OPHTH DROPS BOTTLE 5 ML OU SCH ×4 (00:40→15:35)
[2018-03-03] MEDS: IPRATROPIUM/ALBUTEROL 3 ML AMPUL.NEB NEB SCH ×3 (00:42→14:05)
[2018-03-03] MEDS: ACETAMINOPHEN 325 MG TABLET PO PRN (04:07)
[2018-03-03 05:23] LABS: ALT/SGPT 15 U/l (0-40); Albumin 2.3 gm/dL (3.2-5.2); Albumin/Globulin Ratio 0.7 (1.0-2.3); Alkaline Phosphatase 128 U/L (39-117); Bilirubin,Direct < 0.2 mg/dL (0.0-0.3); Blood Urea Nitrogen 43 mg/dl (8-23); Gamma Glutamyl Transpeptidase 68 U/L (5-36); Uric Acid 4.8 mg/dL (2.5-8.0)
[2018-03-03 05:48] LABS: Basophils # (Auto) 0 K/mcL (0.0-0.3); Basophils % (Auto) 0.3 % (0.0-2.0); Eosinophils # (Auto) 0.6 K/mcL (0.0-0.7); Eosinophils % (Auto) 3.8 % (0.0-7.0); Granulocytes % (Auto) 72.4 % (38.0-78.0); Lymphocytes # (Auto) 1.9 K/mcL (1.5-4.8); Lymphocytes % (Auto) 12.5 % (15.5-49.0); Mean Cell Volume 93.7 fL (80.0-100.0); Mean Corpuscular HGB Conc 33.3 g/dL (31.0-36.0); Mean Corpuscular Hemoglobin 31.2 pg (26.0-34.0); Monocytes # (Auto) 1.6 K/mcL (0.1-0.9); Platelet Count 356 K/mcL (140-440); RBC 2.03 M/mcL (4.00-5.20); Red Cell Distribution Width 17.4 % (11.5-14.5)
[2018-03-03] MEDS: 0.9 % SODIUM CHLORIDE 10 ML SYRINGE IV SCH ×2 (05:52→15:35)
[2018-03-03] MEDS: PIPERACILLIN SODIUM/TAZOBACTAM 2.25 GM in DEXTROSE 5% IN WATER 50 ML IV SCH ×2 (05:52→15:35)
[2018-03-03] MEDS: PANTOPRAZOLE 40 MG VIAL IV SCH (07:50)
[2018-03-03] MEDS ORDERED: PHYTONADIONE 2.5 MG in 0.9 % SODIUM CHLORIDE 50 ML IV ONE (08:04)
[2018-03-03] MEDS ORDERED: 0.9 % SODIUM CHLORIDE 250 ML IV SCH (08:15)
--- NOTE | 2018-03-03 08:25 | XRay Report ---
CLINICAL INFORMATION: Fever COMPARISON: 03/01/2018 FINDINGS: Moderate cardiomegaly is unchanged. Right IJ catheter tip overlies right atrium stable position. Mediastinum is unremarkable. Pulmonary vessels are unremarkable as well. Moderate patchy infiltrate in the left perihilar and right basilar infiltrate has progressed. Mild interstitial disease throughout both lungs has decreased likely representing residual edema from prior CHF IMPRESSION: 1. Moderate infiltrates in the left perihilar and right basilar region - worsening. Suspect infection or aspiration 2. Pulmonary vessels have normalized compatible with resolution in acute CHF.. Mild residual interstitial edema remains throughout both lungs Interpreted and Authenticated by: Magdy Harris 03/03/18
[2018-03-03] MEDS ORDERED: KETAMINE 10 MG/ML ML IV PRN (08:42)
[2018-03-03] MEDS ORDERED: MIDAZOLAM 2 MG/2 ML VIAL IV SCH (08:45)
[2018-03-03] MEDS ORDERED: PROPOFOL 200 MG/20 ML VIAL IV SCH (08:45)
[2018-03-03] MEDS ORDERED: PROPOFOL 20 ML IV ONE (08:46)
[2018-03-03] MEDS ORDERED: PROPOFOL 0 ML IV ONE (08:46)
[2018-03-03] MEDS ORDERED: EPINEPHrine 1 MG/ML AMPUL ONE (08:47)
[2018-03-03] MEDS ORDERED: MIDAZOLAM 2 MG/2 ML VIAL ONE (08:47)
--- NOTE | 2018-03-03 12:20 | Operative Note ---
DATE OF OPERATION: 03/03/2018 PREPROCEDURE DIAGNOSIS: Upper GI bleed secondary to angiodysplasia, Dieulafoy's lesion or ulcer. POSTPROCEDURE DIAGNOSES: 1. Upper small bowel bleed, possibly duodenum or jejunum, source not found but blood clot found. 2. Gastritis with oozing of blood in body and fundus. 3. Egitis. PROCEDURE: Small bowel enteroscopy and EGD with control of bleeding and biopsy. SURGEON: Hernan Lui M.D. SPECIMENS OBTAINED: Biopsies from antrum for CLOtest. CLOtest RESULTS: Negative INDICATIONS: The patient is a 72-year-old lady referred by Dr. Massey, hospitalist. The patient's primary care provider is Ana Gallegos NP. The patient is a dialysis patient. She does have renal failure. When she was admitted, the hemoglobin was roughly 10 or 10.8. She has gradually drifted down lower and lower. I believe she did have an INR of 2.3. I believe she has been given vitamin K and fresh frozen plasma. Hemoglobin has drifted down to 6.3, then it was up to 7.8, then 6.9 and back down to 6.3. The patient, I believe at one time, had some slight suggestion of melena but has definitely had more recently guaiac-positive stools. It is hard to know whether she is bleeding from the upper GI tract or the lower. Decision was made in part because the preparation is simpler to start with an EGD. The patient really did not complain of any nausea, vomiting, heartburn or dysphagia. INFORMED CONSENT: The procedure was reviewed with the patient. The patient had no further questions and accepts the risks and benefits thereof. One of the risks that were discussed included . Additional risks that were also discussed included bleeding, reaction to medication, possible perforation and possible need for surgery. IV MEDICATIONS USED: Versed 1 mg and propofol 270 mg. INSTRUMENTS USED: Olympus CHRISTOPHER [id number] and Olympus CHRISTOPHER [id number] colonoscope. INJECTABLES: A total of 5 mL of hypertonic saline/epinephrine mixture were used. FINDINGS: ESOPHAGUS: Proximal, mid and distal esophagus normal. EG junction was at 36 cm. There was some questionable minimal erythema noted. STOMACH: Cardia, fundus and body: There were a few areas of erythema noted. There was some blood on the mucosa. This was washed. There was some recurrent bleeding. This was small in quantity. Hypertonic saline/epinephrine mixture was injected in those that had some persistent bleeding. I do not believe this is what has caused the anemia. I believe this may have caused guaiac-positive stools. PYLORUS: Normal. DUODENUM: This appeared normal. As far as I could reach with the upper endoscope, no pathology was found. I did then use the pediatric colonoscope - [id number] scope. This was advanced to the hub. Occasionally, there would be a reddish hue to some of the fluid. Mylicon was used to get rid of the gas bubbles. Despite searching and trying to reintroduce the scope and decrease loops, I did not see any angiodysplasia. Finally, the scope was advanced a little further, and we did see a blood clot around 1 x 4 cm or 1x 5 cm in size. This area was washed. The scope was advanced a little further. No angiodysplasia, ulcer or bleeding site was found. The endoscope was very slowly withdrawn with both myself and staff watching. We did not find any angiodysplasia or ulcer or other bleeding source all the way back to the stomach. In the stomach, however, there was some gastritis with bleeding as mentioned above. Near where the blood clot was first encountered, a resolution clip was placed to help the radiologist understand this is the area where we found the blood clot but not necessarily the bleeding site. I would suspect the bleeding site would be somewhere from the blood clot more proximally in the jejunum or the duodenum. RECOMMENDATIONS: Interventional Radiology consultation with Dr. Tee, blood transfusion if and as available. If Dr. Tee does not find any bleeding site and the patient continues to bleed, colonoscopy can be considered. Currently, the colonoscopy is canceled or postponed. Sedation time was 0903 to 1059. Please refer to the preprocedure nurse's notes, procedure flowsheet, procedure record, and post-procedure assessment for details of the sedation including the pre-, intra-, and post-service work. CRD:jose Job ID: [id number] Doc ID: [id number] Hernan GIBBONSD
[2018-03-03] MEDS ORDERED: EPINEPHrine 1 MG/ML AMPUL IJ ONE (12:33)
--- NOTE | 2018-03-03 13:01 | Ultrasound Report ---
CLINICAL INFORMATION: UTI COMPARISON: Abdomen CT from 06/18/[address] showing superior two thirds of the kidneys over one week prior 02/23/2018. FINDINGS: Right kidney is 10 x 5 cm and the left is 8.5 x 4 cm. Parenchymal echotexture is diffusely hyperechoic compatible with medical renal disease. Scattered simple cysts in the left kidney ranging up to 2.1 cm laterally are unchanged. No solid lesions or stones identified. The proximal end of pigtail ureteral stents are seen in both upper collecting systems. No evidence of hydronephrosis. Stents are likely functional. Urinary bladder volume is 340 cc patient unable to void. No focal bladder lesions. IMPRESSION: 1. Mildly hyperechoic kidneys compatible with medical renal disease. 2. Proximal end of the pigtail ureteral catheter is seen in both upper collecting systems and the distal end seen within the urinary bladder. No evidence of recurrent hydronephrosis, thus the stents should be functional. 1. Scattered simple cysts left kidney - stable. Interpreted and Authenticated by: Magdy Harris 03/03/18
[2018-03-03] MEDS: 0.9 % SODIUM CHLORIDE 250 ML IV SCH (13:13)
[2018-03-03] MEDS: CARVEDILOL 12.5 MG TABLET PO SCH (13:14)
[2018-03-03] MEDS: DOCUSATE SODIUM 100 MG CAPSULE PO SCH (13:22)
[2018-03-03] MEDS: FLUCONAZOLE 200 MG in PREMIX 1 BAG IV SCH (13:22)
[2018-03-03] MEDS: MULTIVIT,THER IRON,CA,FA & MIN 1 TABLET PO SCH (13:22)
[2018-03-03] MEDS: TAMSULOSIN 0.4 MG CAPSULE PO SCH (13:22)
[2018-03-03] MEDS: HYDROCODONE/APAP 7.5/325MG TABLET PO SCH (13:23)
[2018-03-03] MEDS: BETHANECHOL 10 MG TABLET PO SCH ×2 (13:23→15:36)
[2018-03-03] MEDS: SEROQUEL 50 MG PO SCH (13:23)
[2018-03-03] MEDS: TIOTROPIUM BROMIDE 18 MCG INHALANT INH SCH (13:23)
[2018-03-03] MEDS ORDERED: WARFARIN 1 MG TABLET PO ONE (14:00)
--- NOTE | 2018-03-03 14:09 | Transfer Summary ---
Transfer Discharge Sum: Prov Patient information: Note initiated : 03/03/18 at 1:59 pm Service Date, if different from initiated Date: [] Patient: Alexandra Zapata 72 y/o F admitted on 02/21/18 for Resp Distress, Confusion /Influenza A, UTI. Chief Complaint: [] Date of admission: 02/21/18 16:50 Discharge Date: 03/03/18 Primary care physician: Ana Gallegos Consults: 02/21/18 15:59 Consult to Physician [CONS] Stat Comment: Consulting Provider: Yoseph Aquino Reason For Exam: Physician to Consult 02/23/18 03:25 Consult to Physician [CONS] Routine Comment: sacral wound Consulting Provider: Ry Purcell Reason For Exam: Physician to Consult 03/02/18 15:59 Consult to Physician [CONS] Routine Comment: Consulting Provider: Hernan Lui Reason For Exam: Physician to Consult Discharging clinician: Abel Massey Receiving physician/facility: Dr [facility] Transfer Discharge Sum: Med - Medications Active and Home Medications: Home Medications Calcitriol [Rocaltrol] 0.25 mcg PO DAILY 10/06/17 [History Confirmed 02/27/18] Isosorbide Dinitrate 20 mg PO DAILY 10/06/17 [History Confirmed 10/06/17] LORazepam [Ativan] 0.5 mg PO BID #15 tab 10/06/17 [Rx] Mirtazapine [Remeron] 15 mg PO HS 10/06/17 [History Confirmed 02/27/18] QUEtiapine FUMARATE [Seroquel] 25 mg PO HS 10/06/17 [History Confirmed 10/06/17] Tamsulosin HCl [Flomax] 0.4 mg PO DAILY 10/06/17 [History Confirmed 02/27/18] Docusate Sodium [Colace] 100 mg PO DAILY 01/20/18 [History Confirmed 01/20/18] Amoxicillin 250 mg PO BID 02/21/18 [History Confirmed 02/21/18] Baclofen [Lioresal] 10 mg PO HSP PRN 02/21/18 [History Confirmed 02/27/18] Bethanechol [Urecholine] 10 mg PO TID 02/21/18 [History Confirmed 02/21/18] Bisacodyl [Dulcolax] 5 mg PO DAILY 02/21/18 [History Confirmed 02/21/18] Hydrocodone/APAP 7.5/325Mg [[place] 7.5-325Mg] 1 tab PO BID 02/21/18 [History Confirmed 02/21/18] Oseltamivir Phosphate [Tamiflu] 75 mg PO BID 02/21/18 [History Confirmed ] Pantoprazole [Protonix] 40 mg PO HS 02/21/18 [History Confirmed 02/21/18] QUEtiapine FUMARATE [Seroquel Xr] 50 mg PO BID 02/21/18 [History Confirmed 02/21] Tamsulosin HCl [Flomax] 0.4 mg PO DAILY 02/21/18 [History Confirmed 02/21/18] Tiotropium Boutte [Spiriva] 18 mcg INH DAILY 02/21/18 [History Confirmed ] amLODIPine [Norvasc] 5 mg PO DAILY 02/21/18 [History Confirmed 02/21/18] fentaNYL [Duragesic] 25 mcg TOPICAL Q72H 02/21/18 [History Confirmed 02/21/18] hydrALAZINE [Apresoline] 25 mg PO BID 02/21/18 [History Confirmed 02/21/18] Cholecalciferol (Vitamin D3) [Vitamin D3] 50,000 unit PO WEEKLY 02/27/18 [ History] Promethazine [Phenergan] 25 mg PO Q6HP PRN 02/27/18 [History Confirmed 02/27/18] Active Medications Acetaminophen (Tylenol) 650 mg PO Q4-6HP PRN PRN Reason: PAIN/FEVER > 101 Last Admin: 03/03/18 04:07 Dose: 650 mg Hydrocodone Bitart/Acetaminophen ([place] 7.5/325mg) 1 tab PO BID [facility] Last Admin: 03/03/18 13:23 Dose: Not Given Albuterol/Ipratropium (Duoneb) 3 ml NEB Q6HRT [facility] Last Admin: 03/03/18 07:40 Dose: 3 ml Baclofen (Lioresal) 10 mg PO HSP PRN PRN Reason: MUSCLE SPASMS Last Admin: 03/01/18 21:18 Dose: 10 mg Bethanechol Chloride (Urecholine) 10 mg PO TID [facility] Last Admin: 03/03/18 13:23 Dose: Not Given Carvedilol (Coreg) 12.5 mg PO BIDCC [facility] Last Admin: 03/03/18 13:14 Dose: Not Given Ciprofloxacin (Ciloxan 0.3% Ophth Drops) 2 gtt OU Q4 [facility] Last Admin: 03/03/18 13:14 Dose: 2 gtt Darbepoetin Justyn (Aranesp) 200 mcg SQ ONCE ONE Stop: 03/02/18 22:25 Last Admin: 03/02/18 23:00 Dose: Not Given Diagnostic Test (Pha) (Accu-Chek) 1 each FS ONCE [facility] Stop: 03/03/18 16:42 Last Admin: 03/03/18 13:15 Dose: Not Given Docusate Sodium (Colace) 100 mg PO BID [facility] Last Admin: 03/03/18 13:22 Dose: Not Given Fentanyl (Duragesic) 12 mcg TOPICAL Q72H [facility] Last Admin: 03/02/18 13:23 Dose: 12 mcg Acetaminophen (Ofirmev) 650 mg in 65 mls @ 130 mls/hr IV Q6HP PRN PRN Reason: PAIN/FEVER > 101 Last Infusion: 03/01/18 21:05 Dose: Infused Norepinephrine Bitartrate 16 (mg/ Sodium Chloride) 250 mls @ 9.37 mls/hr IV PRN PRN; Protocol; 10 MCG/MIN PRN Reason: Blood Pressure - Low Sodium Chloride (Sodium Chloride 0.9%) 250 mls @ 20 mls/hr IV .[id number] [facility] Last Admin: 03/03/18 13:13 Dose: Not Given Piperacillin Sod/Tazobactam (Sod 2.25 gm/ Dextrose) 50 mls @ 100 mls/hr IV Q8H [facility] Last Infusion: 03/03/18 13:23 Dose: Infused Fluconazole 200 mg/ Premix 100 mls @ 100 mls/hr IV Q24H [facility] Last Admin: 03/03/18 13:22 Dose: Not Given Sodium Chloride (Sodium Chloride 0.9%) 250 mls @ 20 mls/hr IV .[id number] [facility] Stop: 03/03/18 20:44 Last Admin: 03/03/18 13:15 Dose: Not Given Iron Carb/Multivit/[place]/Folic Acid (Multivitamin W/Minerals) 1 tab PO DAILY [facility] Last Admin: 03/03/18 13:22 Dose: Not Given Ketamine HCl (Ketalar) 50 mg IV ONCE PRN PRN Reason: Sedation Stop: 03/03/18 16:42 Lorazepam (Ativan) 1 mg IV Q6HP PRN PRN Reason: ANXIETY/SEDATION Midazolam HCl (Versed) 0 mg IV ONCE [facility] Stop: 03/03/18 16:42 Last Admin: 03/03/18 13:16 Dose: Not Given Seroquel Xr 50 Mg (Tab) 1 dose PO BID [facility] Last Admin: 03/03/18 13:23 Dose: Not Given Ondansetron HCl (Zofran) 4 mg IV Q4-6HP PRN PRN Reason: Nausea And Vomiting Last Admin: 02/26/18 20:53 Dose: 4 mg Pantoprazole Sodium (Protonix) 40 mg PO HS [facility] Last Admin: 03/02/18 21:16 Dose: 40 mg Pantoprazole Sodium (Protonix) 40 mg IV BIDAC [facility] Last Admin: 03/03/18 07:50 Dose: 40 mg Propofol (Diprivan) 0 mg IV ONCE [facility] Stop: 03/03/18 16:42 Last Admin: 03/03/18 09:04 Dose: 270 mg Quetiapine Fumarate (Seroquel) 25 mg PO [facility] Last Admin: 03/02/18 21:18 Dose: Not Given Senna/Docusate Sodium (Senna Plus Tablet) 1 tab PO [facility] Last Admin: 03/02/18 21:18 Dose: Not Given Sodium Chloride (Saline Flush) 10 ml IV Q8 [facility] Last Admin: 03/03/18 05:52 Dose: 10 ml Tamsulosin HCl (Flomax) 0.4 mg PO DAILY [facility] Last Admin: 03/03/18 13:22 Dose: Not Given Tiotropium Boutte (Spiriva) 18 mcg INH DAILY [facility] Last Admin: 03/03/18 13:23 Dose: 1 dose Vancomycin HCl (Vancomycin Per Pharmacy) 1 order IV UD [facility] Transfer Discharge Sum: Hosp Hospital course: Ms. Zapata is a 72 year old F with ESRD on hemodialysis and recent hospitalization. Patient was recovering at [facility] and was directed to the ER after she was found confused, weak and febrile by the staff at care Center. patient was unable to provide any meaningful history to the ER physician. Initial workup was significant for pyuria along with a MAXIMUM TEMPERATURE over 100. Subsequently hospitalist service was consulted in light of acute change in mental status and complicated UTI. Nephrology was also consulted in light of end-stage renal disease on hemodialysis. patient is due for hemodialysis on Thursday. patient also was recently diagnosed with influenza and was on Tamiflu and amoxicillin. At the time of evaluation, patient is unable to provide a history due to her underlying baseline dementia and acute worsening mental status. She was however able to answer leading questions in yes and no. She denies chest pain headache. Her right eye lids have been swollen and red. She denies diarrhea or abdominal pain.No family members are present. Most history is obtained from ER records and care center documents. 02/22- patient much more lucid and responding to commands. No overnight events. Persistent tachycardia around 110. Foleys catheter draining dark urine. Nephrology consulted for baseline ESRD requiring hemodialysis. On contact precaution for influenza B. On Tamiflu. white count 8.8. addendum-patient became hypotensive during dialysis. Blood pressure dropping to 80's. Vasopressin started. Dialysis temporarily held. Patient tachypneic tachycardic and hypoxic requiring 14 L oxygen. Stat chest x-ray/CT angiogram ordered. ABGs pending. Unclear etiology for sudden hypotension . Rule out acute pulmonary embolism. CTA chest could not be performed as patrient is too sick to be able to undergo procedure per protocol. start heparin drip for empiric PE treatment CT angiogram scheduled in a.m. 02/23-worsening hypoxic respiratory failure last night along with hypotension requiring pressors. ABG 7.53/36/64 on 13 L oxygen. Large AA gradient. White count 17.6. 15% bands. on broad antibiotic coverage including Zosyn for complicated UTI. CT angiogram chest pending. On empiric treatment for PE with heparin drip/oral Coumadin. February 24- patient on hemodialysis. Tachycardia/hypertension during dialysis noted today. She is otherwise more alert and lucid. On antibiotic coverage. White count down from 17.6-10.8. Afebrile.basal pneumonia on CT angiogram but no evidence of PE. Anticoagulation discontinued. no overnight fever chills or concerns per staff. Telemetry intermittent tachycardia during dialysis. February 25-patient clinically improving since previous day however episodes of hypotension and tachycardia noticed during hemodialysis yesterday. Patient appears euvolemic. Improving respiratory status.no overnight fever or chills. Alert and responding to verbal commands. No family at bedside. Patient says her daughter Elba would be listing today. Case discussed with nephrology. We will hold hemodialysis today. Systolics at goal.white count down to 8.3.cultures negative so far. bibasal pneumonia on CT. February 26-patient continues to experience multiple stools likely antibiotic associated. C. difficile negative. White count 9.7. DC antibiotics. patient continues to be lethargic despite being off home dose benzodiazepines. patient was managed on half dose fentanyl however continues to hurt and is being switched back to 25 home dose fentanyl patch. Ongoing hemodialysis. Extremely slow recovery. He is a limited code per POA caregiver. No family members available for goals of care conference. on 3.5 L oxygen. Patient extremely lethargic and refusing/unable to participate in physical therapy february 27 Patient seen and examined, no acute overnight events. The patient had been febrile overnight. This morning to exam was warm to touch. Antibiotics were discontinued recently. The patient's chest x-ray done shows CHF and worsening pneumonia. Patient's daughter was here last night apparently and I was unable to get in touch with her as I was unaware that she was in the hospital. We will try to see if we can get her to come in the hospital to discuss goals of care. Nephrology gave fluids yesterday to the patient and start the patient on IV fluids. Stop the IV fluids for now given that CHF is apparent on the chest x- ray. Start the patient on vancomycin and Zosyn for possible pneumonia, send blood cultures as well as check pro-calcitonin level. Get an echocardiogram. Patient's mental status seems okay this morning. She is awake and able to answer some questions she is denying any acute symptoms february 28 Patient seen and examined no acute overnight events, hemodynamically stable. Plan of care reviewed with nephrology no plan for dialysis right now. Chest x- ray does show pneumonia and possible CHF however looking at the echo the IVC is collapsed and completely with inspiration. It is likely that the chest x-ray findings are secondary to pneumonia rather than CHF. Nephrology planning to hold off on dialysis. Patient is on broad-spectrum antibiotics continue same. Mental status is clear today. March 01 Patient seen and examined no acute overnight events. Hemoglobin dropping slowly is 7.5 now, slowly trending down, the patient does not have any obvious source of bleeding. We will check guaiac. If negative will transfuse a couple of units. Send anemia workup Patient was sitting comfortably in the chair having breakfast this morning has no acute complaints or concerns. X-ray shows CHF but patient is clinically not in fluid overload. Will review with nephrology with regards to dialysis plans. Blood pressure stable. Plan of care reviewed with family daughter was here yesterday. All questions answered plan for treatment of underlying etiology right now and then possible transfer back to the senior living march 02 Patient seen and examined, overnight events reviewed patient was confused last night needed some sedatives to help sleep. She was upset about the dialysis nurse. This morning to she seems to be slightly confused. She denies any other acute concerns or complaints. The patient's hemoglobin was 6.5 this morning. We order 2 units of blood transfusion FOB was positive but the stool was brown. Clinically does not seem to be bleeding. Repeat hemoglobin done without any blood transfusions came back at 7.8. It is very likely that the morning blood was diluted. We will monitor closely for now. Anemia workup has been sent. Patient does have antibodies and will not be able to get blood easily. Urine culture came back positive for Tamara patient has been started on Diflucan. March 03 Patient seen and examined overnight events reviewed. The patient did well last night, this morning her hemoglobin had dropped again. The patient continued to have dark stools which was noted yesterday. Occult blood testing was positive. I have consulted GI yesterday and again this morning for an EGD scoping. Dr. Golden evaluated the patient and did an EGD scoping, he did find some clot in the jejunum but no active site of bleeding. He recommended that the patient have evaluation done by Dr. Tee interventional radiologist. I spoke with Dr. Tee who advised a bleeding scan, and based on the results of the bleeding scan he will proceed with the angiogram. The patient follows with Dr. muhammad urologist at [facility] who had placed patient's bilateral stents, given the fact that the patient has Tamara growing in the urine the patient will have the stent removed or exchanged. I the need for ongoing stents with the patient's family as well as Dr. Rousseau. Given the fact that patient has end-stage renal disease reviewed and her kidney function did not improve after placement of the stents there is no real need for there to be any stents. The patient will need the stents to be removed. As the infection will not clear up without removal of the stents. The patient's urologist does not come to this hospital but is happy to remove the stents of the patient was transferred to [facility]. Renal ultrasound was done that did not show any hydronephrosis only chronic medical kidney disease. The patient has been febrile since yesterday, chest x-ray shows persistent pneumonia. Repeat blood cultures ordered patient is already on vancomycin and Zosyn. On Diflucan for Tamara UTI. I have again ordered sputum cultures to see if there is an organism that we are not currently treating. , We did get 2 units of blood today and the patient be transfused 2 units of PRBC. Patient is having hemodialysis done this afternoon. The patient's INR was therapeutic today at 2.3. In light of her GI bleed, and therapeutic INR, 2 units of FFP were given to the patient IV vitamin K 2.5 mg given. Given that this facility does not have nuclear scan facilities for a bleeding scan. Does not have interventional radiology, the patient's urologist does not follow the patient at this facility it was deemed that it would be the patient' s best interest to be transferred to another facility where all the services were available. I reviewed the case with the hospitalist at [facility] who graciously accepted the patient for transfer. I have given them my personal cell number in case there are any questions or concerns with regards to patient's care. Present Assessment and Plan A/P 72-year-old with ESRD on hemodialysis/underlying dementia admitted with acute change in mental status/complicated UTI and acute influenza B Bilateral Pneumonia: Chest x ray shows tody persistent bilaterl pneumonia, send blood cx again, sputum cx, continue vancomycin and IV Zosyn. Today is day 5, of repeat antibiotic, Anemia-secondary to anemia of chr disease and sepsis. The patient also has upper GI Bleed ,clot noted on colonoscopy, pt needs Bleeding scan, and possible intervention by Dr Tee to evaluate site of bleeding and possible intervention. Dr Golden is the GI following the patient. Patient has antibodies which make it difficult to get blood it took us 2 days to get blood from [place]. PRL lab/ blood bank has her last type and screen. Urinary tract infection-urine cultures growing Tamara , Patient has indigo ureteral stents placed, USG does not show hydronephrosis. These stents need to come out, Dr Muhammad, is the urologist who follows the patient. He will need to be consulted once patient is at [facility] for removal of stents. 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 Altered Mental status: PT is having some sundowning episodes, patient was on seroquel which ws discontinued and we are using prn zyprexa nd ativan as needed. Congestive heart failure-echo shows LVH and low normal systolic function. IVC diameter is normal and collapses appropriately with respiration Diarrhea-C. difficile negative, likely antibiotic associated diarrhea. End-stage renal disease-on hemodialysis per nephrology. Dr Rousseau follows, patients last HD session today 03/03/17 Influenza-patient completed 5 day course of Tamiflu Chronic obstructive pulmonary disease-continue bronchodilators no wheeze on exam Chronic pain-on fentanyl patch continue same patient also on baclofen. Anxiety-on Cymbalta continue same Hypothyroidism-on levothyroxine continue same Coronary artery disease-denies any chest pain, home medication list does not note any beta-blockers or ÓSCAR inhibitors. Will start on aspirin at least for now. i will start on coreg 12.5mg bid, (he was on this med before) (cardiology note noted being on coreg) Dementia-supportive management, Blepharitis and conjunctivitis-ciprofloxacin ggt improving clinically Hypertension-blood pressure stable when not on dialysis, presently on amlodipine and hydralazine. According to the cardiology note on 02/04 the patient was on aspirin 81, Coreg 25 twice daily also a statin. I do not see these medications at this point. I will try to resume beta-mustapha once again, start with 12.5bid and uptitrated to 25 bid if able to tolerate well. CODE STATUS DNR listed as per previous physician's note however chart says full code will verify. SCD for DVT prophylaxis given GIB, pt does not need to be on Coumadin. Therapeutic INR, pt was on Coumadin for possible PE, but the patient did not have PE, Pt did get some Coumadin after order was discontinued on , pt was subtherapeutic till yesterday, today INR was 2.3 today, it seems that the patient was getting coumadin till today despite the order being cancelled on . The patient did have ? GIB not sure if secondary to Coumadin, but this may have exacerbated the problem. Pt did get Vit K today and FFP to reverse the effect of coumadin. I informed the pharmacy regarding the medication error and a review will be done I called and informed the patients daughter Elba Villagran on tel [phone] and informed her regarding the medication error and apologized for the error on our part. She seemed to understand and noted that errors can happen and was appreciative of the fact that we informed her regarding the error. Try to see if patient is able to participate in physical therapy. - Time Spent with Patient Total time spent providing and/or coordinating transfer services: Greater than 30 minutes Transfer Discharge Sum: Exam - Constitutional Vitals: Vital Signs Temp Pulse Pulse Resp BP Pulse Ox 03/03/18 13:25 85 170/67 03/03/18 12:55 89 162/73 03/03/18 12:25 98.7 F 80 165/75 03/03/18 10:36 135/54 100 03/03/18 08:55 20 127/60 100 03/03/18 07:56 95 H 20 94 03/03/18 07:35 95 H 20 03/03/18 04:08 101.0 F H 17 135/45 93 03/03/18 04:07 101.0 F H 03/03/18 02:01 89 6 L 136/58 91 03/03/18 01:20 90 18 03/03/18 01:00 87 16 89 L 03/03/18 00:23 91 H 27 H 92 03/03/18 00:22 99.1 F H 95 H 30 H 127/60 91 03/02/18 22:01 97 H 19 142/62 96 03/02/18 21:00 28 H 03/02/18 20:01 99.5 F H 92 H 20 146/70 94 03/02/18 20:00 87 92 H 26 H 90 03/02/18 19:22 80 19 03/02/18 19:00 86 26 H 88 L 03/02/18 18:02 34 H 03/02/18 18:01 23 H 146/63 03/02/18 18:00 29 H 03/02/18 17:00 21 03/02/18 16:01 27 H 131/77 03/02/18 16:00 17 03/02/18 15:54 99.3 F H 93 H 18 139/60 91 03/02/18 15:00 21 03/02/18 14:00 18 Intake and Output 03/02/18 03/03/18 03/03/18 21:59 05:59 13:59 Intake Total 470 / 470 50 / 50 150 / 150 Output Total 200 / 200 325 / 325 Balance 270 / 270 -275 / -275 150 / 150 Intake: IV 50 / 50 50 / 50 150 / 150 Diflucan 200 mg In Premix 1 Bag 100 / 100 @ 100 mls/hr IV Q24H [facility] Rx#: [id number] Zosyn 2.25 gm In Dextrose 5% in 50 / 50 50 / 50 50 / 50 Water 50 ml @ 100 mls/hr IV Q8H [facility] Rx#:[id number] Oral 420 / 420 Output: Void Amount 200 / 200 325 / 325 Other: Meal Applesauce for pills, sherbert Percent of Meal Consumed 100% Feeding Ability Independent Stool Size Moderate Stool Color Brown Black Stool Consistency Soft # Voids 1 # Bowel Movements 1 # of times incontinent of 1 Bowels Weight 93 lb 93 lb Additional comments: Constitutional; Afebrile, cooperative, alert, not in distress. Eyes- No icterus, , No periorbital swelling Ears- Ext ear normal, hearing normal to conversation. Neck- Midline trachea, supple Respiratory system: Air Entry equal on both sides, No crackles or wheezing, no rhonchi. CVS- Rate rhythm regular, S1,S2 heard, no gallop, no rub. Abdomen- Soft nontender abdomen, no organomegaly, no tenderness, no guarding or rigidity, GLASS SMOOTHER- AOOx2, moving all extremities, no gross focal deficit noted. Transfer Discharge Sum: Data Procedures and tests throughout hospitalization: Pending Orders 02/21/18 14:19 Myoglobin Stat 02/21/18 15:59 Consult to Physician [CONS] Stat 02/21/18 17:04 Case Management Referral .Routine Admit as Inpatient Routine Ambulate-Progressive PRN Blood Culture PRN PRN laboratory monitor CONT Condition Routine Elevate head of bed .ROUTINE Intake and Output Q4H Occult blood, stool, guaic poc .ALL STOOLS PICC Line PRN Weight Monitoring QHS Acetaminophen [Ofirmev] 650 mg in 65 ml IV Q6HP Acetaminophen [Tylenol] 650 mg PO Q4-6HP PRN Ondansetron [Zofran] 4 mg IV Q4-6HP PRN Physical Therapy Eval & Tx .routine Incentive Spirometry Assess/Tx Q2HWA Oxygen Order .Routine 02/21/18 21:00 Bethanechol [Urecholine] 10 mg PO TID Docusate Sodium [Colace] 100 mg PO BID Hydrocodone/APAP 7.5/325Mg [[place] 7.5/325Mg] 1 tab PO BID Pantoprazole [Protonix] 40 mg PO HS QUEtiapine [SEROquel] 25 mg PO HS Sennosides/Docusate Sodium [Senna Plus Tablet] 1 tab PO HS 02/21/18 22:00 0.9 % Sodium Chloride [Saline Flush] 10 ml IV Q8 02/21/18 23:55 Code Status [Resuscitation Status] Routine 02/22/18 09:00 Multivit,Ther Iron,Ca,FA & Min [Multivitamin W/Minerals] 1 tab PO DAILY Tamsulosin [Flomax] 0.4 mg PO DAILY Tiotropium Boutte [Spiriva] [address] to Adjust Diet/Supplements as Needed Routine 02/22/18 09:22 OT [Occupational Therapy Eval & Tx] DAILY 02/22/18 12:00 Non Formulary Medication 1 dose PO BID 02/22/18 16:00 Ciprofloxacin 0.3% Ophth Drops [Ciloxan 0.3% Ophth Drops] 2 gtt OU Q4 02/22/18 19:42 Nebulizer management .Routine 02/22/18 23:45 0.9 % Sodium Chloride [Sodium Chloride 0.9%] 250 ml IV 20 mls/hr 02/22/18 23:59 Norepinephrine Bitartrate [Levophed] 16 mg 0.9 % Sodium Chloride [Sodium Chloride 0.9%] 234 ml IV PRN 02/23/18 03:25 Consult to Physician [CONS] Routine 02/24/18 07:00 Hemodialysis Treatment .ROUTINE 02/24/18 13:00 fentaNYL [Duragesic] 12 mcg TOPICAL Q72H 02/24/18 22:59 EKG ONCE 02/26/18 14:41 Hemodialysis Treatment .ROUTINE 02/27/18 01:22 Straight Cath Insertion NOW 02/27/18 08:55 Ipratropium/Albuterol [Duoneb] 3 ml NEB Q6HRT 02/27/18 09:23 Blood Culture Urgent 02/27/18 09:25 Vancomycin Per Pharmacy 1 order IV UD 02/27/18 10:00 Piperacillin Sodium/Tazobactam [Zosyn] 2.25 gm Dextrose 5% in Water 50 ml IV Q8H 02/27/18 21:00 Baclofen [Lioresal] 10 mg PO HSP PRN 03/01/18 09:09 Hemodialysis Treatment .ROUTINE 03/01/18 11:12 Occult blood, stool, guaic poc .X3 STOOLS 03/01/18 18:45 Fluconazole [Diflucan] 200 mg Premix 1 bag IV Q24H 03/02/18 05:16 Blood Product Documentation NOW 03/02/18 07:00 Communication order ONCE 03/02/18 08:00 Carvedilol [Coreg] 12.5 mg PO BIDCC 03/02/18 09:16 COLLIN Screen Stat Complement C3 Stat Complement C4 Stat 03/02/18 15:59 SCD [Anti-Embolism Devices] DAILY Consult to Physician [CONS] Routine 03/02/18 16:00 Pantoprazole [Protonix] 40 mg IV BIDAC 03/02/18 17:12 Consent for Procedure ONCE 03/02/18 20:23 LORazepam [Ativan] 1 mg IV Q6HP PRN 03/02/18 22:24 Darbepoetin Justyn [Aranesp] 200 mcg SQ ONCE ONE 03/03/18 08:00 Hemodialysis Treatment .ROUTINE 03/03/18 08:07 Blood Product Documentation NOW 03/03/18 08:15 0.9 % Sodium Chloride [Sodium Chloride 0.9%] 250 ml IV 20 mls/hr 03/03/18 08:22 UA W/Microscopic Exam Urgent 03/03/18 08:37 Sputum Culture and Gram Stain Stat Sputum Induction (RT) NOW 03/03/18 08:42 Communication order NOW Communication order NOW Consent for Procedure ONCE Discharge Criteria .Routine IV Insertion/Management ONCE Oxygen Titration (ED/SSSU) NOW Remove IV ONCE Vital Signs .POST-OP RECOVERY Vital Signs .ROUTINE Ketamine [Ketalar] 50 mg IV ONCE PRN 03/03/18 08:45 Accu-Chek 1 each FS ONCE Midazolam [Versed] See Dose Instructions IV ONCE Propofol [Diprivan] See Dose Instructions IV ONCE 03/03/18 Breakfast NPO Except Meds after Midnight Diet 03/04/18 04:00 Complete Blood Count DAILY INR [Prothrombin Time INR] DAILY Inpatient Panel DAILY 03/05/18 04:00 Complete Blood Count DAILY INR [Prothrombin Time INR] DAILY Inpatient Panel DAILY 03/06/18 04:00 Complete Blood Count DAILY INR [Prothrombin Time INR] DAILY Inpatient Panel DAILY 03/07/18 04:00 INR [Prothrombin Time INR] DAILY Quality Measure Queries - VTE Deep Vein Thrombosis/Pulmonary Embolism Present on Admission: No
[2018-03-03] MEDS ORDERED: DARBEPOETIN ALFA 200 MCG/ML VIAL SQ ONE (15:30)
[2018-03-11 16:01] LABS: Myoglobin 174
== END 2018-03-03 17:05 | disposition short-term general hospital (02) | DRG 871 ==
LOC: ED 12:10 → ICU 16:50
PROVIDERS: ADMIT Internal Medicine; ATTEND Internal Medicine

== ENCOUNTER 2018-03-31 17:21 | Inpatient (IN) ==
[2018-03-31] MEDS ORDERED: 0.9 % SODIUM CHLORIDE 1,000 ML IV ONE (18:00)
[2018-03-31 18:48] LABS: Basophils # (Auto) 0 K/mcL (0.0-0.3); Basophils % (Auto) 0.3 % (0.0-2.0); Eosinophils # (Auto) 0.2 K/mcL (0.0-0.7); Eosinophils % (Auto) 1.3 % (0.0-7.0); Granulocytes % (Auto) 75.7 % (38.0-78.0); Lymphocytes # (Auto) 1.7 K/mcL (1.5-4.8); Lymphocytes % (Auto) 14.2 % (15.5-49.0); Mean Cell Volume 91.7 fL (80.0-100.0); Mean Corpuscular HGB Conc 32.5 g/dL (31.0-36.0); Mean Corpuscular Hemoglobin 29.8 pg (26.0-34.0); Monocytes % (Auto) 8.5 % (1.0-12.0); Platelet Count 263 K/mcL (140-440); RBC 3.96 M/mcL (4.00-5.20); Red Cell Distribution Width 19.5 % (11.5-14.5)
[2018-03-31 18:58] LABS: Appearance,Urine CLEAR; Bacteria,Urine 0 /hpf (0); Bilirubin,Urine NEG (NEG); Color,Urine YELLOW; Glucose,Urine (UA) 50 mg/dL (NEG); Leukocyte Esterase,Urine 25 /uL (NEG); Mucus,Urine FEW /hpf (0); Protein,Urine >=500 mg/dL (NEG); Specific Gravity,Urine 1.011 (1.000-1.035); Urine Blood NEG mg/dL (<0.03); Urine RBC 2 /hpf (0-1); Urine Squamous Epithelial Cell 0 /hpf (0-4); Urine WBC 8 /hpf (0-4); Urobilinogen,Urine NEG (NEG)
[2018-03-31 19:08] LABS: ALT/SGPT 13 U/l (0-40); Albumin 3.7 gm/dL (3.2-5.2); Albumin/Globulin Ratio 1.2 (1.0-2.3); Alkaline Phosphatase 101 U/L (39-117); Blood Urea Nitrogen 39 mg/dl (8-23)
[2018-03-31] MEDS ORDERED: cefTRIAXone 1 GM VIAL IV ONE (19:29)
[2018-03-31] MEDS ORDERED: NALOXONE HCL 0.4 MG/ML VIAL IV ONE ×2 (19:58→21:25)
--- NOTE | 2018-03-31 21:50 | Emergency Department Note ---
Weakness HPI - General Chief complaint: Weakness Stated complaint: Weakness Time Seen by Provider: 03/31/18 17:45 Source: EMS, old records reviewed Mode of arrival: EMS Limitations: altered mental status - History of Present Illness HPI Narrative: 72-year-old female comes in via EMS. she missed an appointment yesterday as well as dialysis today and so welfare check was ordered. They found her incontinent of stool and urine minimally responsive at home. here her vital signs are stable and she is breathing on her own; however she is not very responsive appears sedated. She is confused and I am unable to get any meaningful history or review of systems from her I do have records from recent hospitalization at [facility] from March 21 - March 26, 2018 -that is she was discharged from [facility] 5 days ago after getting a GI workup there. She had had an upper GI bleed which required transfusion- despite several hospitalizations and investigations with CT scans, multiple upper endoscopies, tagged red blood studies, push enteroscopy, colonoscopy and capsule endoscopy no identifiable source of bleeding is found. She was discharged after transfusion sent home to resume her home medicines. She is on chronic pain medicine with fentanyl and hydrocodone after 4 back surgeries. She also has a history of CHF - Related Data Home Medications Medication Instructions Recorded Confirmed Calcitriol [Rocaltrol] 0.25 mcg PO DAILY 10/06/17 03/31/18 Isosorbide Dinitrate 20 mg PO DAILY 10/06/17 03/31/18 Mirtazapine [Remeron] 15 mg PO HS 10/06/17 03/31/18 QUEtiapine FUMARATE [Seroquel] 25 mg PO HS 10/06/17 03/31/18 Tamsulosin HCl [Flomax] 0.4 mg PO DAILY 10/06/17 03/31/18 Docusate Sodium [Colace] 100 mg PO DAILY 01/20/18 03/31/18 Baclofen [Lioresal] 10 mg PO HSP PRN 02/21/18 03/31/18 Bethanechol [Urecholine] 10 mg PO TID 02/21/18 03/31/18 Bisacodyl [Dulcolax] 5 mg PO DAILY 02/21/18 03/31/18 Hydrocodone/APAP 7.5/325Mg [[place] 1 tab PO BID 02/21/18 03/31/18 7.5-325Mg] Oseltamivir Phosphate [Tamiflu] 75 mg PO BID 02/21/18 03/31/18 Pantoprazole [Protonix] 40 mg PO HS 02/21/18 03/31/18 QUEtiapine FUMARATE [Seroquel Xr] 50 mg PO BID 02/21/18 03/31/18 Tamsulosin HCl [Flomax] 0.4 mg PO DAILY 02/21/18 03/31/18 Tiotropium [place] [Spiriva] 18 mcg INH DAILY 02/21/18 03/31/18 amLODIPine [Norvasc] 5 mg PO DAILY 02/21/18 03/31/18 fentaNYL [Duragesic] 25 mcg TOPICAL Q72H 02/21/18 03/31/18 hydrALAZINE [Apresoline] 25 mg PO BID 02/21/18 03/31/18 Cholecalciferol (Vitamin D3) 50,000 unit PO WEEKLY 02/27/18 03/31/18 [Vitamin D3] Promethazine [Phenergan] 25 mg PO Q6HP PRN 02/27/18 03/31/18 Previous Rx's Medication Instructions Recorded LORazepam [Ativan] 0.5 mg PO BID #15 tab 10/06/17 Allergies Allergy/AdvReac Type Severity Reaction Status Date / Time gabapentin [From Neurontin] Allergy Severe Unknown Verified 03/31/18 17:26 methocarbamol Allergy Severe Unknown Verified 03/31/18 17:26 pentazocine [From Talwin] Allergy Severe Unknown Verified 03/31/18 17:26 carbamazepine Allergy Unknown Unknown Verified 03/31/18 17:26 pregabalin [From Lyrica] Allergy Unknown Unknown Verified 03/31/18 17:26 Sulfa (Sulfonamide AdvReac Intermediate Swelling Verified 03/31/18 17:26 Antibiotics) Cyclobenzaprine AdvReac Mild Gastrointestinal Verified 03/31/18 17:26 [From Flexeril] Upset NSAIDS (Non-Steroidal AdvReac Mild Gastrointestinal Verified 03/31/18 17:26 Anti-Inflamma Upset sumatriptan [From Imitrex] AdvReac Mild Gastrointestinal Verified 03/31/18 17:26 Upset Antidepressants Allergy Unknown Unknown Uncoded 05/27/16 15:36 Review of Systems Limitations: ROS unobtainable due to patients medical condition Past Medical History - Past Medical History Source: old records reviewed Medical history: Reports: arthritis, COPD, coronary artery disease, GI bleed, hyperlipidemia, hypertension, osteoporosis, renal disease (stage 5 on dialysis) , thyroid disease, other (chronic pain) Psychiatric history: Reports: other (insomnia) GARNISHMENT SPECIALIST history: Reports: non-contributory Surgical history ED: Reports: coronary bypass (CABG), hysterectomy, orthopedic, other (lumbar surgery x 4), ureteral stent, other (pain pump installation and removal) - Social History smoking status: Current every day smoker Alcohol use: Reports: None Physical Exam Thin chronically ill-appearing female resting. Normocephalic atraumatic. She does have some erythema periorbital bilaterally but conjunctive are clear. Anicteric. Pupils are equal but there is small minimally reactive. No nasal discharge or congestion. Oral mucosa is tacky. Neck is supple without lymphadenopathy or thyromegaly. Heart is regular rate and rhythm. lungs are clear to auscultation with perhaps slight end expiratory wheeze, otherwise clear. Abdomen is soft nontender nondistended. No pedal edema. There is a small area of erythema on her right hip prominence likely where she was lying. She is somnolent and minimally arousable-I can get her to wake up with some difficulty but mostly she just moans and will not stay awake long enough for me to get a history or review of systems. We did do a trial dose of Narcan 0.2 mg after which she became quite agitated and awake. After letting that wear off and getting her CT scan of the head done we used a 0.4 mg dose after which she really woke up quite a bit and again was agitated and complaining of pain in her back and all over. Limitations: altered mental status Course Vital Signs Temperature 97.5 F 03/31/18 17:22 Pulse Rate 98 H 03/31/18 17:22 Respiratory Rate 22 03/31/18 17:22 Blood Pressure 154/124 03/31/18 17:22 Pulse Oximetry (%) 99 03/31/18 17:22 Temperature 97.5 F 03/31/18 17:22 Pulse Rate 95 H 03/31/18 22:01 Respiratory Rate 39 H 03/31/18 22:01 Blood Pressure 174/86 03/31/18 22:01 Pulse Oximetry (%) 96 03/31/18 22:01 Weakness - Lab Data Lab results reviewed: Yes I reviewed the patient's lab results. Result diagrams: 03/31/18 18:15 03/31/18 18:15 Lab Results 03/31/18 03/31/18 03/31/18 Range/Units 18:15 18:15 18:15 WBC 12.1 H (4.5-11.0) K/mcL RBC 3.96 L (4.00-5.20) M/mcL Hgb 11.8 L (12.0-15.0) g/dL Hct 36.3 (36.0-48.0) % MCV 91.7 (80.0-100.0) fL MCH 29.8 (26.0-34.0) pg MCHC 32.5 (31.0-36.0) g/dL RDW 19.5 H (11.5-14.5) % Plt Count 263 (140-440) K/mcL MPV 7.4 (7.4-10.4) fL Gran % 75.7 (38.0-78.0) % Lymph % (Auto) 14.2 L (15.5-49.0) % [place] % (Auto) 8.5 (1.0-12.0) % Eos % (Auto) 1.3 (0.0-7.0) % Baso % (Auto) 0.3 (0.0-2.0) % Gran # 9.2 H (1.8-8.0) K/mcL Lymph # (Auto) 1.7 (1.5-4.8) K/mcL Republic # (Auto) 1.0 H (0.1-0.9) K/mcL Eos # (Auto) 0.2 (0.0-0.7) K/mcL Baso # (Auto) 0 (0.0-0.3) K/mcL PT 13.3 (11.9-14.5) sec INR 1.0 (0.9-1.1) VBG Lactic Acid (0.5-2.2) mmol/L Sodium (133-145) mmol/L Potassium (3.3-5.1) mmol/L Chloride (96-108) mmol/L Carbon Dioxide (22-30) mmol/L Anion Gap (8-16) BUN (8-23) mg/dl Creatinine (0.6-1.1) mg/dl GFR Calculation Glucose (70-105) mg/dL Calcium (8.6-10.4) mg/dl Magnesium (1.6-2.5) mg/dL Total Bilirubin (0.0-1.0) mg/dL AST (0-37) U/l ALT (0-40) U/l Alkaline Phosphatase (39-117) U/L Total Protein (5.9-8.4) gm/dL Albumin (3.2-5.2) gm/dL Globulin (2.2-3.7) gm/dL Albumin/Globulin Ratio (1.0-2.3) Urine Color Yellow Urine Appearance Clear Urine pH 7.0 (5.0-9.0) Ur Specific [place] 1.011 (1.000-1.035) Urine Protein >=500 A (NEG) mg/dL Urine Glucose (UA) 50 A (NEG) mg/dL Urine Ketones Neg (NEG) mg/dL Urine Occult Blood Neg (<0.03) mg/dL Urine Nitrate Neg (NEG) Urine Bilirubin Neg (NEG) mg/dL Urine Urobilinogen Neg (NEG) mg/dL Ur Leukocyte Esterase 25 A (NEG) /uL Urine RBC 2 H (0-1) /hpf Urine WBC 8 H (0-4) /hpf Ur Squamous Epith Cells 0 (0-4) /hpf Urine Bacteria 0 (0) /hpf Urine Mucus Few (0) /hpf Ur Culture Indicated? Yes 03/31/18 03/31/18 Range/Units 18:15 18:29 WBC (4.5-11.0) K/mcL RBC (4.00-5.20) M/mcL Hgb (12.0-15.0) g/dL Hct (36.0-48.0) % MCV (80.0-100.0) fL MCH (26.0-34.0) pg MCHC (31.0-36.0) g/dL RDW (11.5-14.5) % Plt Count (140-440) K/mcL MPV (7.4-10.4) fL Gran % (38.0-78.0) % Lymph % (Auto) (15.5-49.0) % [place] % (Auto) (1.0-12.0) % Eos % (Auto) (0.0-7.0) % Baso % (Auto) (0.0-2.0) % Gran # (1.8-8.0) K/mcL Lymph # (Auto) (1.5-4.8) K/mcL [place] # (Auto) (0.1-0.9) K/mcL Eos # (Auto) (0.0-0.7) K/mcL Baso # (Auto) (0.0-0.3) K/mcL PT (11.9-14.5) sec INR (0.9-1.1) VBG Lactic Acid 1.0 (0.5-2.2) mmol/L Sodium 141 (133-145) mmol/L Potassium 5.1 (3.3-5.1) mmol/L Chloride 100 (96-108) mmol/L Carbon Dioxide 26 (22-30) mmol/L Anion Gap 15.0 (8-16) BUN 39 H (8-23) mg/dl Creatinine 2.4 H (0.6-1.1) mg/dl GFR Calculation 19 Glucose 82 (70-105) mg/dL Calcium 9.8 (8.6-10.4) mg/dl Magnesium 2.3 (1.6-2.5) mg/dL Total Bilirubin 0.4 (0.0-1.0) mg/dL AST 20 (0-37) U/l ALT 13 (0-40) U/l Alkaline Phosphatase 101 (39-117) U/L Total Protein 6.9 (5.9-8.4) gm/dL Albumin 3.7 (3.2-5.2) gm/dL Globulin 3.2 (2.2-3.7) gm/dL Albumin/Globulin Ratio 1.2 (1.0-2.3) Urine Color Urine Appearance Urine pH (5.0-9.0) Ur Specific [place] (1.000-1.035) Urine Protein (NEG) mg/dL Urine Glucose (UA) (NEG) mg/dL Urine Ketones (NEG) mg/dL Urine Occult Blood (<0.03) mg/dL Urine Nitrate (NEG) Urine Bilirubin (NEG) mg/dL Urine Urobilinogen (NEG) mg/dL Ur Leukocyte Esterase (NEG) /uL Urine RBC (0-1) /hpf Urine WBC (0-4) /hpf Ur Squamous Epith Cells (0-4) /hpf Urine Bacteria (0) /hpf Urine Mucus (0) /hpf Ur Culture Indicated? - Radiology Data Radiology results reviewed: Yes I reviewed the patient's radiology results. CT scan of the head shows no acute changes Chest x-ray shows some increased pulmonary vascularity consistent with her CHF and renal disease but not florid Disposition Pt seen by SPED TEACHER/PA only: No Clinical Impression: ESRD (end stage renal disease) on dialysis UTI (urinary tract infection) Qualifiers: Urinary tract infection type: acute cystitis Hematuria presence: with hematuria Qualified Code(s): N30.01 - Acute cystitis with hematuria Accidental overdose Qualifiers: Encounter type: initial encounter Qualified Code(s): T50.901A - Poisoning by unspecified drugs, medicaments and biological substances, accidental ( unintentional), initial encounter Summary: After initial assessment workup started with laboratory and CT scan of the head. Concern for recent GI bleed so gave small bolus of fluid-250 mL out of concern for fluid overload as well. Hemoccult was positive on her stool incontinence but no milagros blood is seen Laboratory showed possible UTI so Rocephin was given. Hemoglobin is adequate on laboratory With positive response to Narcan is clear she is oversedated so fentanyl patch is removed. Discussed case with Dr. Massey, our hospitalist. She will be admitted for accidental oversedation on her home narcotics as well as the need for dialysis. UTI will also need to be treated. ABG is ordered as well to further assess Disposition: Xfer As Outpt/Obs ([facility]) Condition: Serious Referrals: Ana Gallegos ARNP [Primary Care Provider] -
[2018-03-31 22:12] LABS: Amphetamine Screen,Urine NONE DETECTED (NONDETECTED); Benzodiazepines Screen,Urine NONE DETECTED (NONDETECTED); Cocaine Screen,Urine NONE DETECTED (NONDETECTED); Opiate Screen,Urine NONE DETECTED (NONDETECTED); Oxycodone, Urine Screen NONE DETECTED (NONDETECTED)
--- NOTE | 2018-03-31 23:09 | Internal Med History&Physical ---
Medical - H&P: HPI Patient information: Note initiated : 03/31/18 at 11:04 pm Service Date, if different from initiated Date: [] Patient: Alexandra Zapata 72 y/o F admitted on for Weakness. Chief Complaint: [] History of present illness: Ms. Zapata is a 72 year old Female with h/o ESRD on HD< CHF, DM, CAD, GI bleed of unknown etiology presents to the ER today after being found down in her appartment, the patient notes she does not remember much but only remembers being on a computer. The patient was recently discharged from [facility] where she was admitted for significant GI bleed. After doing an endoscopy and admit colonoscopy push endoscopy capsule endoscopy no etiology of bleed was noted. Patient was transfused blood hemoglobin was 9 at the time of discharge. The patient did not go for her scheduled dialysis yesterday and a safety check was done today as no one had seen her for the last 24 hours. The EMS-pathology secretary found her in her home unconscious soaked in urine and salt in her stools. He brought to the ER for further evaluation. In the emergency room patient was hemodynamically stable unconscious and unresponsive. She responded 0.2 of narcan, the patient became drowsy again after some time, head CT was done which was reported as negative. She later received another dose of 0.4 0.5 of Narcan after which she woke up. The patient denies any acute complaints she does complain about some low back pain. She does not recollect falling down, missing a dialysis or coming to the emergency room. She denies any headache chest pain shortness of breath palpitations nausea vomiting GI bleed. She denies using any narcotics pain medications. Her urine tox is negative. Chest x-ray suggestive of left hilar infiltrate, the hilar infiltrate is somewhat better compared to the previous chest x-ray. She has mild leukocytosis and UA suggestive of a UTI. She does have chronic UA that is positive All systems: reviewed and no additional remarkable complaints except as stated ( as per hpi, rest neg,) Medical - H&P: PMH Medical history: Medical History Cough (Chronic) Urinary frequency (Chronic) Painful urination (Chronic) Neck stiffness (Chronic) Neck pain (Chronic) Joint pain (Chronic) Back pain (Chronic) Tired (Chronic) Excessive thirst (Chronic) Fever (Chronic) Headache (Chronic) Renal insufficiency (Chronic) Hydroureter, right (Chronic) Adenomatous colon polyp (Chronic) Encounter for long-term (current) use of other medications (Chronic) Senile cataracts of both eyes (Chronic) termite renewal inspector prescription opiate use (Chronic) Irritable bowel syndrome with diarrhea (Chronic) Chronic anemia (Acute) Nausea vomiting and diarrhea (Acute) Acute kidney injury superimposed on chronic kidney disease (Acute) Volume depletion (Acute) Hammer toe of right foot (Acute) Insomnia (Acute) Gastrointestinal hemorrhage (Chronic) Heart failure (Chronic) Irregular heart rhythm (Chronic) Urinary retention (Chronic) CKD (chronic kidney disease) (Chronic) AMIRA (acute kidney injury) (Chronic) Cholelithiasis with chronic cholecystitis (Chronic) Hx of adenomatous colonic polyps (Chronic) Weight loss, abnormal (Chronic) CAD (coronary artery disease) (Chronic) Anxiety disorder (Chronic) Back pain, chronic (Chronic) Osteoporosis (Chronic) Hypercholesterolemia (Chronic) Hypertension, essential (Chronic) Scoliosis (Chronic) Unsteady gait (Chronic) Cataract, senile (Chronic) Hydronephrosis (Chronic) Tremor (Chronic) Urinary incontinence (Chronic) Anemia (Chronic) Cold intolerance (Chronic) Opioid abuse (Chronic) Gastric ulcer (Chronic) Insomnia (Chronic) Irritable bowel syndrome (Chronic) History of abdominal x-ray series (Chronic 05/11/16) Congestive heart failure (Chronic) 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) Acute on chronic renal failure (Chronic) Chronic renal failure, stage 4 (severe) (Chronic) Normocytic anemia (Chronic) Abdominal pain (Chronic) Indigestion (Chronic) Surgical history: Past Surgical History History of back surgery (Chronic) History of cataract surgery (Chronic) History of coronary artery bypass graft (Chronic) History of hysterectomy (Chronic) Pertinent family history: Family History (Last Reviewed 04/27/17 @ 15:35 by Nora Eng RN) Unknown Heart problem Other Heart attack Hypertension Kidney stone Medical - H&P: Meds Home Medications Medication Instructions Recorded Confirmed Type Calcitriol [Rocaltrol] 0.25 mcg PO DAILY 10/06/17 03/31/18 History Isosorbide Dinitrate 20 mg PO DAILY 10/06/17 03/31/18 History LORazepam [Ativan] 0.5 mg PO BID #15 tab 10/06/17 03/31/18 Rx Mirtazapine [Remeron] 15 mg PO HS 10/06/17 03/31/18 History QUEtiapine FUMARATE [Seroquel] 25 mg PO HS 10/06/17 03/31/18 History Tamsulosin HCl [Flomax] 0.4 mg PO DAILY 10/06/17 03/31/18 History Docusate Sodium [Colace] 100 mg PO DAILY 01/20/18 03/31/18 History Baclofen [Lioresal] 10 mg PO HSP PRN 02/21/18 03/31/18 History Bethanechol [Urecholine] 10 mg PO TID 02/21/18 03/31/18 History Bisacodyl [Dulcolax] 5 mg PO DAILY 02/21/18 03/31/18 History Hydrocodone/APAP 7.5/325Mg [Susan 1 tab PO BID 02/21/18 03/31/18 History 7.5-325Mg] Oseltamivir Phosphate [Tamiflu] 75 mg PO BID 02/21/18 03/31/18 History Pantoprazole [Protonix] 40 mg PO HS 02/21/18 03/31/18 History QUEtiapine FUMARATE [Seroquel Xr] 50 mg PO BID 02/21/18 03/31/18 History Tamsulosin HCl [Flomax] 0.4 mg PO DAILY 02/21/18 03/31/18 History Tiotropium [place] [Spiriva] 18 mcg INH DAILY 02/21/18 03/31/18 History amLODIPine [Norvasc] 5 mg PO DAILY 02/21/18 03/31/18 History fentaNYL [Duragesic] 25 mcg TOPICAL Q72H 02/21/18 03/31/18 History hydrALAZINE [Apresoline] 25 mg PO BID 02/21/18 03/31/18 History Cholecalciferol (Vitamin D3) 50,000 unit PO WEEKLY 02/27/18 03/31/18 History [Vitamin D3] Promethazine [Phenergan] 25 mg PO Q6HP PRN 02/27/18 03/31/18 History Allergies Allergy/AdvReac Type Severity Reaction Status Date / Time gabapentin [From Neurontin] Allergy Severe Unknown Verified 03/31/18 17:26 methocarbamol Allergy Severe Unknown Verified 03/31/18 17:26 pentazocine [From Talwin] Allergy Severe Unknown Verified 03/31/18 17:26 carbamazepine Allergy Unknown Unknown Verified 03/31/18 17:26 pregabalin [From Lyrica] Allergy Unknown Unknown Verified 03/31/18 17:26 Sulfa (Sulfonamide AdvReac Intermediate Swelling Verified 03/31/18 17:26 Antibiotics) Cyclobenzaprine AdvReac Mild Gastrointestinal Verified 03/31/18 17:26 [From Flexeril] Upset NSAIDS (Non-Steroidal AdvReac Mild Gastrointestinal Verified 03/31/18 17:26 Anti-Inflamma Upset sumatriptan [From Imitrex] AdvReac Mild Gastrointestinal Verified 03/31/18 17:26 Upset Antidepressants Allergy Unknown Unknown Uncoded 05/27/16 15:36 Medical - H&P: Exam - Constitutional Vitals: Temp Pulse Resp BP Pulse Ox 97.5 F 94 H 21 180/79 98 03/31/18 17:22 03/31/18 22:31 03/31/18 22:31 03/31/18 22:31 03/31/18 22:31 Exam: GENERAL: The patient is a very think and malnouarished individual in mild distress, Is alert and oriented x3. VITAL SIGNS: Reviewed and as noted elsewhere. HEENT: Head is normocephalic and atraumatic. Extraocular muscles are intact ( has squint) . Pupils are equal, round, and reactive to light. Nares appeared normal. Mouth appears any without lesions. Mucous membranes are dry NECK: Normal to inspection, Supple, No lymphadenopathy or thyromegaly. LUNGS: Air entry equal on both sides, no wheezing, crackles or rhonchi noted. No accessory muscles of respiration, ant exam HEART: Regular rate and rhythm normal, S1 and S2 heard, no Gallop, S3 or Rub Noted, Systolic murmur mitral region. ABDOMEN: Soft, nontender, and nondistended. Positive bowel sounds. No hepatosplenomegaly was noted. EXTREMITIES: No cyanosis, clubbing, rash, lesions or edema. NEUROLOGIC: Cranial nerves II through XII are grossly intact. Motor and Sensory System Grossly Intact PSYCHIATRIC: mildly agitated, and not maintaining eye contact SKIN: No ulceration or wounds noted, No jaundice, No rash noted. Medical - H&P: Reslt - Labs CBC & Chem 7: 03/31/18 18:15 03/31/18 18:15 Labs: Short CBC 03/31/18 Range/Units 18:15 WBC 12.1 H (4.5-11.0) K/mcL Hgb 11.8 L (12.0-15.0) g/dL Hct 36.3 (36.0-48.0) % Plt Count 263 (140-440) K/mcL BMP 03/31/18 18:15 Sodium 141 Potassium 5.1 Chloride 100 Carbon Dioxide 26 BUN 39 H Creatinine 2.4 H Glucose 82 Calcium 9.8 Liver Function 03/31/18 Range/Units 18:15 Total Bilirubin 0.4 (0.0-1.0) mg/dL AST 20 (0-37) U/l ALT 13 (0-40) U/l Alkaline Phosphatase 101 (39-117) U/L Albumin 3.7 (3.2-5.2) gm/dL Urine 03/31/18 Range/Units 18:15 Urine Color Yellow Urine Appearance Clear Urine pH 7.0 (5.0-9.0) Ur Specific [place] 1.011 (1.000-1.035) Urine Protein >=500 A (NEG) mg/dL Urine Glucose (UA) 50 A (NEG) mg/dL Medical - H&P: A/P - Narrative A/P Narrative: A/P HCAP / PNA: X ray has hilar infiltrate, this is somewhat better than the previous x-ray however given that she has fallen down it is likely that she may have aspirated. Will give her IV vancomycin and IV Zosyn for now. Monitor for response. Urinary tract infection-UA mildly positive leukocyte esterase, she was given Rocephin in the ER, Zosyn should adequately cover this. Compared to a previous urine analysis this seems better. She has had urinary stents placed in the past and was supposed to have these extracted I am not sure if that ever happened. GI bleed-recently evaluated thoroughly at [facility] no etiology found, bleeding scan done at [facility] was noted questionable bleeding in the gastric or jejunal region. Occult blood in ER is positive, however her hemoglobin is 11, at the time of discharge it was 9. I doubt if she is having any significant GI bleed at this point in time. I will avoid using heparin for DVT prophylaxis ESRD on HD: missed HD sessions yesterday, will consult nephrology in AM, labs stable, X ray not suggestive of overt pulmonary edema, not requiring oxygen CHF/ HTN/ CAD: asymptomatic at this time resume home meds Chr pain: back pain, on fentanyl, ativan, baclofen, hydrocodone. Her utox is neg , but pt was found down, and she responded to narcan. likely related to fentanyl patch use. AT this time avoid all narcotics, , it seems patient is allergic to quite a few alternative agents for pain management. I do not feel she is a good candidate for fentanyl or any long acting narcotic drug judy in light of her use of backlofen and ativan, her esrd status. Only as needd short acting medication should be used. will see if the patient agrees to not use fentanyl in future. DM ssi insulin for glucose control Syncope/ Passing out: due to opiate use/ meds ? cardiac issue? ekg neg, seizure ? clinically no e/o cva, head CT is neg, monitor on tele, for now Severe malnourishment, caachexia, with low bmi and significant muscle wasting, dietary consult. DVT scd Diet renal diabetic, cardiac ST/OT/PT eval Full code Overall poor prognosis, she i Social History - Social History marital status: legally occupational status: disabled - Tobacco smoking status: Current every day smoker - Alcohol alcohol intake frequency: does not drink
[2018-03-31] MEDS ORDERED: VANCOMYCIN PER PHARMACY IV ONE (23:21)
[2018-03-31] MEDS ORDERED: VANCOMYCIN 1,000 MG in 0.9 % SODIUM CHLORIDE 250 ML IV ONE (23:21)
[2018-03-31] MEDS ORDERED: QUETIAPINE FUMARATE 25 MG PO SCH (23:21)
[2018-03-31] MEDS ORDERED: PROMETHAZINE 25 MG TABLET PO PRN (23:21)
[2018-03-31] MEDS: PIPERACILLIN SODIUM/TAZOBACTAM 2.25 GM in DEXTROSE 5% IN WATER 50 ML IV SCH (23:40)
[2018-04-01] MEDS: MIRTAZAPINE 15 MG TABLET PO SCH ×2 (00:12→21:21)
[2018-04-01] MEDS: PANTOPRAZOLE 40 MG TABLET PO SCH ×2 (00:12→21:21)
--- NOTE | 2018-04-01 05:53 | XRay Report ---
INDICATION: Weakness. Altered mental status TECHNIQUE: AP chest x-ray,portable semierect COMPARISON: Previous examinations dated 03/21/2018, 03/05/2018, 03/03/2018, 03/01/2018 FINDINGS:Previous median sternotomy. Large caliber dialysis catheter with its tip in the right atrium. Vascularity is mildly prominent and interstitial pulmonary edema is possible. No focal pulmonary parenchymal infiltrates. No consolidation. No evidence for pneumonia. There is mild cardiomegaly. IMPRESSION: 1. Mild cardiomegaly. Probable interstitial edema 2. No focal infiltrate. Interpreted and Authenticated by: Magdy Mohan 04/01/18
--- NOTE | 2018-04-01 05:56 | Cat Scan Report ---
CLINICAL INFORMATION: Altered mental status COMPARISON: 07/29/2012 TECHNIQUE: Axial noncontrast-enhanced images through the brain. FINDINGS: Examination is somewhat suboptimal due to patient motion. Multiple attempts were made to obtain a diagnostic examination. No acute intracranial hemorrhage. No subdural hematoma. No subarachnoid hemorrhage. No intra-axial hematoma. No well-defined focal attenuation abnormality or localized mass effect. No midline shift. Brainstem and cerebellum are negative. Basilar cisterns are normal. No hyperdense middle cerebral artery sign. No calvarial lesion. No fracture. Temporal bones are negative Examination was initially interpreted by [facility] IMPRESSION: No acute or focal abnormality. The exam was performed using radiation dose optimization techniques including, but not limited to, automated exposure control, adjustment of the mA and/or kV according to patient size and use of iterative reconstruction technique. Interpreted and Authenticated by: Magdy Mohan 04/01/18
[2018-04-01] MEDS ORDERED: VANCOMYCIN PER PHARMACY IV SCH (06:15)
[2018-04-01] MEDS: 0.9 % SODIUM CHLORIDE 10 ML SYRINGE IV SCH ×4 (06:56→21:43)
[2018-04-01 09:12] LABS: Basophils # (Auto) 0.1 K/mcL (0.0-0.3); Basophils % (Auto) 1.2 % (0.0-2.0); Eosinophils # (Auto) 0.2 K/mcL (0.0-0.7); Eosinophils % (Auto) 1.9 % (0.0-7.0); Lymphocytes # (Auto) 1.2 K/mcL (1.5-4.8); Lymphocytes % (Auto) 10.1 % (15.5-49.0); Mean Cell Volume 90.7 fL (80.0-100.0); Mean Corpuscular HGB Conc 33.2 g/dL (31.0-36.0); Mean Corpuscular Hemoglobin 30.1 pg (26.0-34.0); Monocytes # (Auto) 0.9 K/mcL (0.1-0.9); Monocytes % (Auto) 7.8 % (1.0-12.0); Platelet Count 242 K/mcL (140-440); RBC 3.69 M/mcL (4.00-5.20)
[2018-04-01] MEDS: DOCUSATE SODIUM 100 MG CAPSULE PO SCH (09:16)
[2018-04-01] MEDS: hydrALAZINE 25 MG TABLET PO SCH ×2 (09:16→21:21)
[2018-04-01] MEDS: BETHANECHOL 10 MG TABLET PO SCH ×3 (09:16→21:20)
[2018-04-01] MEDS: TAMSULOSIN 0.4 MG CAPSULE PO SCH (09:16)
[2018-04-01] MEDS: CALCITRIOL 0.25 MCG CAPSULE PO SCH (09:16)
[2018-04-01] MEDS: amLODIPine 5 MG TABLET PO SCH (09:16)
[2018-04-01] MEDS: BISACODYL 5 MG TABLET PO SCH (09:17)
[2018-04-01] MEDS: TIOTROPIUM BROMIDE 18 MCG INHALANT INH SCH (09:22)
[2018-04-01] MEDS: PIPERACILLIN SODIUM/TAZOBACTAM 2.25 GM in DEXTROSE 5% IN WATER 50 ML IV SCH (09:23)
[2018-04-01 09:26] LABS: ALT/SGPT 14 U/l (0-40); Albumin 3.5 gm/dL (3.2-5.2); Albumin/Globulin Ratio 1.2 (1.0-2.3); Alkaline Phosphatase 95 U/L (39-117); Bilirubin,Direct < 0.2 mg/dL (0.0-0.3); Blood Urea Nitrogen 38 mg/dl (8-23); Gamma Glutamyl Transpeptidase 53 U/L (5-36)
[2018-04-01] MEDS ORDERED: BACLOFEN 10 MG TABLET PO PRN (09:26)
[2018-04-01] MEDS ORDERED: DEXTROSE 31 GM ORAL.SUSP PO PRN (09:32)
[2018-04-01] MEDS ORDERED: DEXTROSE 50% 50 ML VIAL IV PRN (09:32)
[2018-04-01] MEDS: HYDROCODONE/APAP 7.5/325MG TABLET PO PRN ×2 (09:50→21:21)
[2018-04-01] MEDS: ISOSORBIDE DINITRATE 10 MG TABLET PO SCH (10:43)
[2018-04-01] MEDS: QUETIAPINE FUMARATE 50 MG PO SCH ×2 (11:29→21:20)
[2018-04-01] MEDS: INSULIN LISPRO 1 UNIT/0.01 ML UNIT SQ SCH ×3 (12:11→21:23)
--- NOTE | 2018-04-01 20:48 | Internal Med Progress Note ---
Medical - PN: Subj Patient information: Note initiated : 04/01/18 at 8:45 pm Service Date, if different from initiated Date: [] Patient: Alexandra Zapata 72 y/o F admitted on 03/31/18 for Weakness/Pneumonia, UTI , GI Bleed. Chief Complaint: [] Interval history: Ms. Zapata is a 72 year old Female with h/o ESRD on HD< CHF, DM, CAD, GI bleed of unknown etiology presents to the ER today after being found down in her appartment, the patient notes she does not remember much but only remembers being on a computer. The patient was recently discharged from [facility] where she was admitted for significant GI bleed. After doing an endoscopy and admit colonoscopy push endoscopy capsule endoscopy no etiology of bleed was noted. Patient was transfused blood hemoglobin was 9 at the time of discharge. The patient did not go for her scheduled dialysis yesterday and a safety check was done today as no one had seen her for the last 24 hours. The EMS-dinkey brakeman found her in her home unconscious soaked in urine and salt in her stools. He brought to the ER for further evaluation. In the emergency room patient was hemodynamically stable unconscious and unresponsive. She responded 0.2 of narcan, the patient became drowsy again after some time, head CT was done which was reported as negative. She later received another dose of 0.4 0.5 of Narcan after which she woke up. The patient denies any acute complaints she does complain about some low back pain. She does not recollect falling down, missing a dialysis or coming to the emergency room. She denies any headache chest pain shortness of breath palpitations nausea vomiting GI bleed. She denies using any narcotics pain medications. Her urine tox is negative. Chest x-ray suggestive of left hilar infiltrate, the hilar infiltrate is somewhat better compared to the previous chest x-ray. She has mild leukocytosis and UA suggestive of a UTI. She does have chronic UA that is positive 04/01 Pt seen examined, complaints of severe back pain, wants her narcotic pain meds explained that I will not be giving her the fentanyl patch judy in light with her present situation, she wants her hydrocodone, will resume hydrocodone and backlofen for now Nephrology following likely hd in AM. microbiology neg - Constitutional Vitals: Vital Signs Temp Pulse Resp BP Pulse Ox 97.6 F 91 H 18 117/51 98 04/01/18 17:16 03/31/18 23:10 04/01/18 17:16 04/01/18 17:16 04/01/18 17:16 Period Temp Pulse Resp BP Sys/Barrera Pulse Ox Last 24 Hr 97.5 F-100.0 F 88-95 16-39 117-180/51-96 95-98 Intake and Output 04/01/18 04/01/18 04/01/18 05:59 13:59 21:59 Intake Total 1770 / 1770 490 / 490 220 / 220 Output Total 300 / 300 Balance 1770 / 1770 490 / 490 -80 / -80 Weight 90 lb 3.2 oz 90 lb 3.2 oz Patient Weight 04/02/18 05:59 Weight 90 lb 3.2 oz Intake & Output: Intake & Output 04/01/18 04/01/18 04/01/18 05:59 13:59 21:59 Intake Total 1770 / 1770 490 / 490 220 / 220 Output Total 300 / 300 Balance 1770 / 1770 490 / 490 -80 / -80 Weight 90 lb 3.2 oz 90 lb 3.2 oz Intake: IV 1050 / 1050 50 / 50 Sodium Chloride 0.9% 1,000 ml @ 4 / 4 Wide Open IV .Q0M ONE Rx#: [id number] Zosyn 2.25 gm In Dextrose 5% in 50 / 50 50 / 50 Water 50 ml @ 100 mls/hr IV Q12H [facility] Rx#:[id number] Vancomycin 1,000 mg In Sodium 250 / 250 Chloride 0.9% 250 ml @ 250 mls/ hr IV ONCE ONE Rx#:[id number] Oral 720 / 720 320 / 320 220 / 220 GI Tube Flush 120 / 120 Output: Void Amount 300 / 300 Other: Meal Lunch Nourishment/Supplement Percent of Meal Consumed 100% 100% Feeding Ability Assist with Tray Set Up Stool Size Smear Moderate Stool Color Brown Brown Stool Consistency Soft Formed # Bowel Movements 1 1 # of times incontinent of 1 Bowels Exam: Constitutional; Afebrile, cooperative, alert, not in distress. thin frail lady. Eyes- No icterus, , No periorbital swelling Ears- Ext ear normal, hearing normal to conversation. Neck- Midline trachea, supple Respiratory system: Air Entry equal on both sides, No crackles or wheezing, no rhonchi. CVS- Rate rhythm regular, S1,S2 heard, no gallop, no rub. Abdomen- Soft nontender abdomen, no organomegaly, no tenderness, no guarding or rigidity, CORRECTIONAL COUNSELOR/CASE MANAGER- AOOx3, moving all extremities, no gross focal deficit noted. Medical - PN: Obj Da - Labs CBC & Chem 7: 04/01/18 08:22 04/01/18 08:22 Labs: Abnormal Lab Results 04/01/18 04/01/18 03/31/18 08:22 08:22 18:15 WBC 11.6 H RBC 3.69 L Hgb 11.1 L Hct 33.5 L RDW 20.0 H Gran % 79.0 H Lymph % (Auto) 10.1 L Gran # 9.2 H Lymph # (Auto) 1.2 L [place] # (Auto) Carbon Dioxide 20 L Anion Gap 18.0 H BUN 38 H 39 H Creatinine 2.4 H 2.4 H Glucose 58 L Phosphorus 5.0 H GGT 53 H Triglycerides 179 H Urine Protein Urine Glucose (UA) Ur Leukocyte Esterase Urine RBC Urine WBC 03/31/18 03/31/18 18:15 18:15 WBC 12.1 H RBC 3.96 L Hgb 11.8 L Hct RDW 19.5 H Gran % Lymph % (Auto) 14.2 L Gran # 9.2 H Lymph # (Auto) [place] # (Auto) 1.0 H Carbon Dioxide Anion Gap BUN Creatinine Glucose Phosphorus GGT Triglycerides Urine Protein >=500 A Urine Glucose (UA) 50 A Ur Leukocyte Esterase 25 A Urine RBC 2 H Urine WBC 8 H Meds: Medications Hydrocodone Bitart/Acetaminophen ([place] 7.5/325mg) 1 tab PO TIDP PRN PRN Reason: Pain Last Admin: 04/01/18 09:50 Dose: 1 tab Amlodipine Besylate (Norvasc) 5 mg PO DAILY [facility] Last Admin: 04/01/18 09:16 Dose: 5 mg Baclofen (Lioresal) 10 mg PO HSP PRN PRN Reason: MUSCLE SPASMS Bethanechol Chloride (Urecholine) 10 mg PO TID [facility] Last Admin: 04/01/18 15:38 Dose: 10 mg Bisacodyl (Dulcolax) 5 mg PO DAILY [facility] Last Admin: 04/01/18 09:17 Dose: Not Given Calcitriol (Rocaltrol) 0.25 mcg PO DAILY [facility] Last Admin: 04/01/18 09:16 Dose: 0.25 mcg Dextrose (Dextrose 50%) 0 ml IV UD PRN PRN Reason: Hypoglycemia Diagnostic Test (Pha) (Accu-Chek) 1 each FS ACHS [facility] Last Admin: 04/01/18 17:06 Dose: 1 each Docusate Sodium (Colace) 100 mg PO DAILY [facility] Last Admin: 04/01/18 09:16 Dose: Not Given Ergocalciferol (Drisdol) 50,000 unit PO Fr@0900 [facility] Glucose (Insta-Glucose) 15 gm PO PRN PRN PRN Reason: Hypoglycemia Hydralazine HCl (Apresoline) 25 mg PO BID [facility] Last Admin: 04/01/18 09:16 Dose: 25 mg Piperacillin Sod/Tazobactam (Sod 2.25 gm/ Dextrose) 50 mls @ 100 mls/hr IV Q12H [facility] Last Infusion: 04/01/18 10:00 Dose: Infused Insulin Human Lispro (Humalog) 0 unit SQ [facility] PRN Reason: Protocol Last Admin: 04/01/18 17:07 Dose: Not Given Isosorbide Dinitrate (Isordil) 20 mg PO DAILY [facility] Last Admin: 04/01/18 10:43 Dose: 20 mg Mirtazapine (Remeron) 15 mg PO HS [facility] Last Admin: 04/01/18 00:12 Dose: Not Given Quetiapine Fumarate ([Seroquel Xr] 50 Mg) 50 mg PO BID [facility] Last Admin: 04/01/18 11:29 Dose: 50 mg Pantoprazole Sodium (Protonix) 40 mg PO HS [facility] Last Admin: 04/01/18 00:12 Dose: Not Given Promethazine HCl (Phenergan) 25 mg PO Q6HP PRN PRN Reason: Nausea Quetiapine Fumarate (Seroquel) 25 mg PO HS [facility] Sodium Chloride (Saline Flush) 10 ml IV Q8 [facility] Last Admin: 04/01/18 15:38 Dose: 10 ml Tamsulosin HCl (Flomax) 0.4 mg PO DAILY [facility] Last Admin: 04/01/18 09:16 Dose: 0.4 mg Tiotropium [place] (Spiriva) 18 mcg INH DAILY [facility] Last Admin: 04/01/18 09:22 Dose: Not Given Vancomycin HCl (Vancomycin Per Pharmacy) 1 order IV UD [facility] Medical - PN: A/P - Time Spent With Patient Total time spent is greater than 50% in coordination of care (as documented) at patient's floor/unit and/or counseling patient: - Narrative A/P Narrative: A/P HCAP / PNA: chest x ray interprested as neg for pna by radiologist, d/c abx Urinary tract infection-urine cx is neg, monitor GI bleed-recently evaluated thoroughly at [facility] no etiology found, bleeding scan done at [facility] was noted questionable bleeding in the gastric or jejunal region. Occult blood in ER is positive, however her hemoglobin is 11, at the time of discharge it was 9. I doubt if she is having any significant GI bleed at this point in time. I will avoid using heparin for DVT prophylaxis ESRD on HD: last HD on thursday, labs stable, X ray not suggestive of overt pulmonary edema, not requiring oxygen CHF/ HTN/ CAD: asymptomatic at this time resume home meds Chr back pain: avoid fentanyl for now, prn backlofen and hydrocodone and see how she does. DM ssi insulin for glucose control Syncope/ Passing out: due to opiate use/ meds ? cardiac issue? ekg neg, seizure ? clinically no e/o cva, head CT is neg, monitor on tele, for now, neg events so far. Severe malnourishment, caachexia, with low bmi and significant muscle wasting, dietary consult. DVT scd Diet renal diabetic, cardiac ST/OT/PT eval Full code Overall poor prognosis, case management intervention, for safe disposition. Medical - PN: Qual - VTE Deep Vein Thrombosis/Pulmonary Embolism Present on Admission: No
[2018-04-01] MEDS ORDERED: QUEtiapine 25 MG TABLET PO SCH (21:00)
[2018-04-01] MEDS ORDERED: NITROGLYCERIN 0.4 MG TAB.SUBL SL PRN (23:53)
[2018-04-01] MEDS ORDERED: NITROGLYCERIN 0.4 MG TAB.SUBL SL ONE (23:57)
[2018-04-02 05:45] LABS: Basophils # (Auto) 0.1 K/mcL (0.0-0.3); Basophils % (Auto) 0.7 % (0.0-2.0); Eosinophils # (Auto) 0.2 K/mcL (0.0-0.7); Eosinophils % (Auto) 2.1 % (0.0-7.0); Granulocytes % (Auto) 74.3 % (38.0-78.0); Lymphocytes # (Auto) 1.2 K/mcL (1.5-4.8); Lymphocytes % (Auto) 11.6 % (15.5-49.0); Mean Cell Volume 92.3 fL (80.0-100.0); Mean Corpuscular HGB Conc 32.7 g/dL (31.0-36.0); Mean Corpuscular Hemoglobin 30.2 pg (26.0-34.0); Monocytes # (Auto) 1.2 K/mcL (0.1-0.9); Monocytes % (Auto) 11.3 % (1.0-12.0); Platelet Count 260 K/mcL (140-440); RBC 3.24 M/mcL (4.00-5.20); Red Cell Distribution Width 20.3 % (11.5-14.5)
[2018-04-02 05:51] LABS: Vancomycin,Random 13.1 ug/mL
[2018-04-02 05:53] LABS: ALT/SGPT 11 U/l (0-40); Albumin 2.9 gm/dL (3.2-5.2); Albumin/Globulin Ratio 1.1 (1.0-2.3); Alkaline Phosphatase 89 U/L (39-117); Bilirubin,Direct < 0.2 mg/dL (0.0-0.3); Blood Urea Nitrogen 58 mg/dl (8-23); Gamma Glutamyl Transpeptidase 45 U/L (5-36); Uric Acid 6.7 mg/dL (2.5-8.0)
[2018-04-02] MEDS: 0.9 % SODIUM CHLORIDE 10 ML SYRINGE IV SCH ×2 (06:00→11:50)
[2018-04-02] MEDS: INSULIN LISPRO 1 UNIT/0.01 ML UNIT SQ SCH ×3 (07:57→17:23)
[2018-04-02] MEDS: HYDROCODONE/APAP 7.5/325MG TABLET PO PRN ×2 (08:13→15:31)
--- NOTE | 2018-04-02 08:47 | Nephrology Progress Note ---
Subjective Patient information: Note initiated : 04/02/18 at 8:43 am Service Date, if different from initiated Date: [] Patient: Alexandra Zapata 72 y/o F admitted on 03/31/18 for Weakness/Pneumonia, UTI , GI Bleed. Chief Complaint: Change in mental status. Lot better now. She said she ambulated from bed to chair today. Objective - Vital Signs Vital signs: Vital Signs Temp Pulse Resp BP BP BP Pulse Ox 04/02/18 07:12 97.6 F 18 171/80 96 04/02/18 04:00 97.7 F 95 H 16 162/77 95 04/02/18 00:20 98.7 F 92 H 22 148/74 98 04/01/18 22:50 100.2 F H 92 H 20 149/70 97 04/01/18 20:00 98.0 F 97 H 18 111/52 100 04/01/18 19:00 101 H 94 04/01/18 17:16 97.6 F 18 117/51 98 04/01/18 12:00 98.1 F 04/01/18 11:00 100.0 F H 20 122/54 96 Intake and Output 04/01/18 04/02/18 04/02/18 21:59 05:59 13:59 Intake Total 460 / 460 400 / 400 Output Total 300 / 300 251 / 251 Balance 160 / 160 400 / 400 -251 / -251 Intake: Oral 460 / 460 Other 400 / 400 Output: Void Amount 300 / 300 250 / 250 # of times incontinent of urine 1 / Other: Meal snack Percent of Meal Consumed 100% Feeding Ability Assist with Tray Set Up Stool Size Moderate Small Stool Color Brown Brown Stool Consistency Formed Polly # Voids 1 # Bowel Movements 1 1 # of times incontinent of 1 Bowels Weight 93 lb Intake & Output: Intake & Output 04/01/18 04/02/18 04/02/18 21:59 05:59 13:59 Intake Total 460 / 460 400 / 400 Output Total 300 / 300 251 / 251 Balance 160 / 160 400 / 400 -251 / -251 Weight 93 lb Intake: Oral 460 / 460 Other 400 / 400 Output: Void Amount 300 / 300 250 / 250 # of times incontinent of urine 1 / Other: Meal snack Percent of Meal Consumed 100% Feeding Ability Assist with Tray Set Up Stool Size Moderate Small Stool Color Brown Brown Stool Consistency Formed Polly # Voids 1 # Bowel Movements 1 1 # of times incontinent of 1 Bowels - General Appearance General appearance: cachectic EENT: ATNC Neck: no JVD Cardiology: diastolic murmur, no edema Gastrointestinal: normoactive bowel sounds - Lab 04/02/18 04:15 04/02/18 04:15 Most recent lab results Calcium 8.5 mg/dl (8.6-10.4) L 04/02/18 04:15 Phosphorus 4.6 mg/dL (2.7-4.5) H 04/02/18 04:15 Magnesium 2.1 mg/dL (1.6-2.5) 04/02/18 04:15 Assessment and Plan (1) ESRD (end stage renal disease) on dialysis Status: Acute Comment: She missed dialysis on Thursday. Will dialyse her today. Electrolytes look ok. Will try 2 liters of fluid removal tommorrow. Anemia. Will give a dose of Aranesp.
[2018-04-02] MEDS: amLODIPine 5 MG TABLET PO SCH (08:55)
[2018-04-02] MEDS: QUETIAPINE FUMARATE 50 MG PO SCH (08:56)
[2018-04-02] MEDS: TAMSULOSIN 0.4 MG CAPSULE PO SCH (08:56)
[2018-04-02] MEDS: ISOSORBIDE DINITRATE 10 MG TABLET PO SCH (08:56)
[2018-04-02] MEDS: BETHANECHOL 10 MG TABLET PO SCH ×2 (08:56→15:31)
[2018-04-02] MEDS: DOCUSATE SODIUM 100 MG CAPSULE PO SCH (08:56)
[2018-04-02] MEDS ORDERED: ERGOCALCIFEROL (VITAMIN D2) 50,000 UNIT CAPSULE PO SCH (09:00)
[2018-04-02] MEDS ORDERED: DARBEPOETIN ALFA 100 MCG/ML VIAL SQ ONE (09:00)
[2018-04-02] MEDS: CALCITRIOL 0.25 MCG CAPSULE PO SCH (09:02)
[2018-04-02] MEDS: hydrALAZINE 25 MG TABLET PO SCH (09:02)
[2018-04-02] MEDS: BISACODYL 5 MG TABLET PO SCH (09:02)
--- NOTE | 2018-04-02 09:38 | Consultation ---
DATE OF CONSULTATION: 04/01/2018 REASON FOR HOSPITALIZATION: ESRD. HISTORY OF PRESENT ILLNESS: The patient is a 72-year-old female with a history of end-stage renal disease on hemodialysis, chronic congestive heart failure, type 2 diabetes, coronary artery disease, GI bleed with unknown etiology. She was scheduled to have her dialysis on Thursday. She did not show up, so her daughter was called. Her daughter went to her house and checked and said that there was nobody, but she may not have gone into the house. Subsequently, on repeated conversations she went in and found out that she was down in her apartment. She does not remember anything. An ambulance was called, and she was brought in to the emergency room. She was hemodynamically stable but unconscious and unresponsive. She was given Narcan 0.2 mg then patient became drowsy. Head CT was negative. She received another dose of Narcan and she woke up. At that time, she complained of low back pain. She does not recollect falling or missing dialysis. She denied any other symptoms. A chest x-ray showed hilar infiltrates somewhat better compared to the previous chest x-ray. She had mild leukocytosis for which reason she is hospitalized. PAST MEDICAL HISTORY: 1. End-stage renal disease on hemodialysis on Thursday, Thursday, Fridays. She had obstructive uropathy for which she had stents placed, but the kidney ___ did not work. 2. History of chronic congestive heart failure. 3. Back pain. 4. COPD. 5. History of seizure disorder. 6. GI bleed. She had extensive workup and no etiology has been established. PAST SURGICAL HISTORY: 1. Significant for back surgery in the past. 2. Cataract. 3. Coronary artery disease, has been stable. 4. History of hysterectomy. FAMILY HISTORY: Significant for cardiac problems, hypertension. MEDICATIONS ON ADMISSION: 1. Calcitriol three times a week. 2. Isosorbide dinitrate 20 mg daily. 3. Lorazepam 0.5 mg twice daily. 4. Remeron 15 mg at night. 5. Seroquel 25 mg at night. 6. Flomax 0.4 mg daily. 7. Colace 100 mg daily. 8. Baclofen 10 mg as needed. 9. Urecholine 10 mg three times daily. 10. Hydrocodone as needed. 11. Protonix 40 mg at night. 12. Amlodipine 5 mg daily. 13. Fentanyl patch 25 mcg q.72 hours. Apparently she was also taking hydrocodone. ALLERGIES: Multiple, please see the list. REVIEW OF SYSTEMS: Ten systems are reviewed and are as in history of present illness. PHYSICAL EXAMINATION: GENERAL: Alert, oriented, somewhat irritated that she did not get her pain medications. VITAL SIGNS: Blood pressures have been 140 to 150 systolic with a diastolic in the 70s. Pulse rates have been in the 90s. Temperature 98.2 and a pulse oximetry of 98% on room air. HEENT: NC/AT. Pupils are reactive. External auditory canal appears okay. NECK: Supple. No jugular venous distention. No lymphadenopathy. No thyromegaly. LUNGS: Decreased air entry bilaterally. No rales or rhonchi heard. CARDIAC: S1 and S2 heard. No S3, S4. No murmurs or rubs. ABDOMEN: Soft, nontender. No organomegaly. Positive bowel sounds. No mass. No rebound. EXTREMITIES: Did not show any evidence of edema. Difficult to palpate a dorsalis pedis and posterior tibials. No skin rash or joint swellings noted. NEURO: Grossly intact. LABORATORY DATA: White count is 11.6 with a hemoglobin of 11.1 and a platelet count of 242. Sodium 136, potassium 4.8, chloride of 98, CO2 of 20, BUN of 38 with a creatinine of 2.4. Phosphorus was 5.0. ASSESSMENT AND PLAN: 1. End-stage renal disease on hemodialysis. She missed her dialysis treatment on Thursday. Her labs look okay. She will be due for her regular dialysis treatment tomorrow. Because of that, I will hold off on dialysis today and see how she does, and we will do her regular dialysis treatment tomorrow. 2. Hyperphosphatemia. Her phosphorus will be treated with Renvela 800 mg one with each meal. 3. Anemia. Hemoglobin is stable. 4. Narcotics. I agree with Dr. Massey that she needs to minimize her narcotics. This patient has end-stage renal disease. I will leave the management to him. Thank you, Dr. Massey, for referring this patient for consultation. I will follow with you. Dom Job ID: [id number] Doc ID: [id number] Abel Rousseau MD
--- NOTE | 2018-04-02 10:37 | Discharge Summary ---
Medical - DS: Prov Patient information: Note initiated : 04/02/18 at 10:32 am Service Date, if different from initiated Date: [] Patient: Alexandra Zapata 72 y/o F admitted on 03/31/18 for Weakness/Pneumonia, UTI , GI Bleed. Chief Complaint: [] Date of admission: 03/31/18 23:10 Discharge date: 04/02/18 Primary care physician: Ana Gallegos Admitting clinician: Abel Massey Consults: 03/31/18 21:50 Consult to Physician [CONS] Stat Comment: Consulting Provider: Abel Massey Reason For Exam: Physician to Consult Discharging clinician: Abel Massey Medical - DS: Meds - Discharge Medications Active and Home Medications: Home Medications Calcitriol [Rocaltrol] 0.25 mcg PO DAILY 10/06/17 [History Confirmed 03/31/18 Last Taken Unknown] Isosorbide Dinitrate 20 mg PO DAILY 10/06/17 [History Confirmed 03/31/18 Last Taken Unknown] LORazepam [Ativan] 0.5 mg PO BID #15 tab 10/06/17 [Rx Confirmed 03/31/18 Last Taken Unknown] Mirtazapine [Remeron] 15 mg PO HS 10/06/17 [History Confirmed 03/31/18 Last Taken Unknown] QUEtiapine FUMARATE [Seroquel] 25 mg PO HS 10/06/17 [History Confirmed 03/31/18 Last Taken Unknown] Tamsulosin HCl [Flomax] 0.4 mg PO DAILY 10/06/17 [History Confirmed 03/31/18 Last Taken Unknown] Docusate Sodium [Colace] 100 mg PO DAILY 01/20/18 [History Confirmed 03/31/18 Last Taken Unknown] Baclofen [Lioresal] 10 mg PO HSP PRN 02/21/18 [History Confirmed 03/31/18 Last Taken Unknown] Bethanechol [Urecholine] 10 mg PO TID 02/21/18 [History Confirmed 03/31/18 Last Taken Unknown] Bisacodyl [Dulcolax] 5 mg PO DAILY 02/21/18 [History Confirmed 03/31/18 Last Taken Unknown] Hydrocodone/APAP 7.5/325Mg [[place] 7.5-325Mg] 1 tab PO BID 02/21/18 [History Confirmed 03/31/18 Last Taken Unknown] Oseltamivir Phosphate [Tamiflu] 75 mg PO BID 02/21/18 [History Confirmed Last Taken Unknown] Pantoprazole [Protonix] 40 mg PO HS 02/21/18 [History Confirmed 03/31/18 Last Taken Unknown] QUEtiapine FUMARATE [Seroquel Xr] 50 mg PO BID 02/21/18 [History Confirmed 03/31 Last Taken Unknown] Tamsulosin HCl [Flomax] 0.4 mg PO DAILY 02/21/18 [History Confirmed 03/31/18 Last Taken Unknown] Tiotropium [place] [Spiriva] 18 mcg INH DAILY 02/21/18 [History Confirmed Last Taken Unknown] amLODIPine [Norvasc] 5 mg PO DAILY 02/21/18 [History Confirmed 03/31/18 Last Taken Unknown] fentaNYL [Duragesic] 25 mcg TOPICAL Q72H 02/21/18 [History Confirmed 03/31/18 Last Taken Unknown] hydrALAZINE [Apresoline] 25 mg PO BID 02/21/18 [History Confirmed 03/31/18 Last Taken Unknown] Cholecalciferol (Vitamin D3) [Vitamin D3] 50,000 unit PO WEEKLY 02/27/18 [ History Confirmed 03/31/18 Last Taken Unknown] Promethazine [Phenergan] 25 mg PO Q6HP PRN 02/27/18 [History Confirmed 03/31/18 Last Taken Unknown] Medical - DS: Hosp Hospital course: Ms. Zapata is a 72 year old Female with h/o ESRD on HD< CHF, DM, CAD, GI bleed of unknown etiology presents to the ER today after being found down in her apartment, the patient notes she does not remember much but only remembers being on a computer. The patient was recently discharged from [facility] where she was admitted for significant GI bleed. After doing an endoscopy and admit colonoscopy push endoscopy capsule endoscopy no etiology of bleed was noted. Patient was transfused blood hemoglobin was 9 at the time of discharge. The patient did not go for her scheduled dialysis yesterday and a safety check was done today as no one had seen her for the last 24 hours. The EMS-global supply chain director found her in her home unconscious soaked in urine and salt in her stools. He brought to the ER for further evaluation. In the emergency room patient was hemodynamically stable unconscious and unresponsive. She responded 0.2 of narcan, the patient became drowsy again after some time, head CT was done which was reported as negative. She later received another dose of 0.4 0.5 of Narcan after which she woke up. The patient denies any acute complaints she does complain about some low back pain. She does not recollect falling down , missing a dialysis or coming to the emergency room. She denies any headache chest pain shortness of breath palpitations nausea vomiting GI bleed. She denies using any narcotics pain medications. Her urine tox is negative. Admission x-ray to the admitting providers interpretation possibly had a hilar infiltrate, and the patient was given broad- spectrum antibiotics and admitted to the hospital for further management and evaluation. The patient x-ray officially was read as negative for pneumonia, there was no evidence of infection. Antibiotics were discontinued. The patient was monitored on telemetry and no etiology was noted that would explain the patient's passing out. According to the patient she was unwell and had diarrhea and she was not feeling well and she passed out probably as a result of that condition. The patient's mental condition remained stable over the course of the hospital stay, the patient wants to go back to her previous pain regimen and notes that she passed out because of her illness and not because of overuse of narcotics. However the patient did respond to Narcan when she came to the emergency room. I have avoided the use of fentanyl while she was in the hospital even that she came in unconscious and needed Narcan to be woken up. The patient however notes that she plans to go back on the previous resume when she is discharged back home. Despite my best efforts the patient did not want to change her regimen. The patient is scheduled for dialysis session today, she will have a dialysis session and then be discharged home. The patient notes that she will have someone to watch over her when she goes home. No changes have been done to the patient's home medication list. She will take her medication as prescribed by previous provider. I have advised her to avoid using fentanyl or long-acting pain medications in light of her renal failure and multiple comorbidities. Discharge diagnosis: Syncope, Opiate overdose. - Time Spent with Patient Total time spent providing and/or coordinating discharge services: Greater than 30 minutes Medical - DS: Exam - Constitutional Vitals: Vital Signs Temp Pulse Resp BP BP BP Pulse Ox 04/02/18 07:12 97.6 F 18 171/80 96 04/02/18 04:00 97.7 F 95 H 16 162/77 95 04/02/18 00:20 98.7 F 92 H 22 148/74 98 04/01/18 22:50 100.2 F H 92 H 20 149/70 97 04/01/18 20:00 98.0 F 97 H 18 111/52 100 04/01/18 19:00 101 H 94 04/01/18 17:16 97.6 F 18 117/51 98 04/01/18 12:00 98.1 F 04/01/18 11:00 100.0 F H 20 122/54 96 Intake and Output 04/01/18 04/02/18 04/02/18 21:59 05:59 13:59 Intake Total 460 / 460 400 / 400 Output Total 300 / 300 251 / 251 Balance 160 / 160 400 / 400 -251 / -251 Intake: Oral 460 / 460 Other 400 / 400 Output: Void Amount 300 / 300 250 / 250 # of times incontinent of urine Other: Meal snack Percent of Meal Consumed 100% Feeding Ability Assist with Tray Set Up Stool Size Moderate Small Stool Color Brown Brown Stool Consistency Formed Polly # Voids 1 # Bowel Movements 1 1 # of times incontinent of 1 Bowels Weight 93 lb Additional comments: Constitutional; Afebrile, cooperative, alert, not in distress. think frail individual Eyes- No icterus, , No periorbital swelling Ears- Ext ear normal, hearing normal to conversation. Neck- Midline trachea, supple Respiratory system: Air Entry equal on both sides, No crackles or wheezing, no rhonchi. CVS- Rate rhythm regular, S1,S2 heard, no gallop, no rub. Abdomen- Soft nontender abdomen, no organomegaly, no tenderness, no guarding or rigidity, BOARD MACHINE SET UP OPERATOR- AOOx3, moving all extremities, no gross focal deficit noted. Medical - DS: Data Labs on day of discharge: Labs from last 24 hours 04/02/18 04/02/18 04/02/18 04:15 04:15 04:15 WBC RBC Hgb Hct MCV MCH MCHC RDW Plt Count MPV Gran % Lymph % (Auto) [place] % (Auto) Eos % (Auto) Baso % (Auto) Gran # Lymph # (Auto) [place] # (Auto) Eos # (Auto) Baso # (Auto) Sodium 135 Potassium 5.0 Chloride 102 Carbon Dioxide 20 L Anion Gap 13.0 BUN 58 H Creatinine 2.6 H GFR Calculation 18 Glucose 103 Uric Acid 6.7 Calcium 8.5 L Phosphorus 4.6 H Magnesium 2.1 Total Bilirubin 0.2 Direct Bilirubin < 0.2 GGT 45 H AST 16 ALT 11 Alkaline Phosphatase 89 Lactate Dehydrogenase 189 Total Protein 5.6 L Albumin 2.9 L Globulin 2.7 Albumin/Globulin Ratio 1.1 Triglycerides 59 Procalcitonin < 0.05 Random Vancomycin 13.1 Vancomycin Dose Not Reportable Vanco Last Dose Time Not Reportable 04/02/18 04:15 WBC 10.4 RBC 3.24 L Hgb 9.8 L Hct 29.9 L MCV 92.3 MCH 30.2 MCHC 32.7 RDW 20.3 H Plt Count 260 MPV 7.1 L Gran % 74.3 Lymph % (Auto) 11.6 L [place] % (Auto) 11.3 Eos % (Auto) 2.1 Baso % (Auto) 0.7 Gran # 7.7 Lymph # (Auto) 1.2 L [place] # (Auto) 1.2 H Eos # (Auto) 0.2 Baso # (Auto) 0.1 Sodium Potassium Chloride Carbon Dioxide Anion Gap BUN Creatinine GFR Calculation Glucose Uric Acid Calcium Phosphorus Magnesium Total Bilirubin Direct Bilirubin GGT AST ALT Alkaline Phosphatase Lactate Dehydrogenase Total Protein Albumin Globulin Albumin/Globulin Ratio Triglycerides Procalcitonin Random Vancomycin Vancomycin Dose Vanco Last Dose Time Preliminary micro results at discharge 03/31/18 19:01 Urine Culture - Preliminary Urine - Catheterized Medical - DS: A/P - Patient/Caregiver Discharge Instructions Activity: increase activity as tolerated Diet: Renal/Consistent Carbs Additional Instructions: Continue with your previous dialysis schedule on Thursday, Thursday and Thursday. Please reconsider use of fentanyl for pain managmenet, this medication along with other medications you are using puts you at a high risk for adverse reactions. Talk to your doctor regarding alternative agents, you may benefit from a evaluation by a pain clinic. GO to the ER if worsening condition, chest pain, fever or any other acute concerning symptom Please make sure that you have some supervision at home to make sure you are safe. Stay well hydrated. - Follow up Plan Follow up with: Ana Gallegos ARNP [Primary Care Provider] - 04/13/18 10:00 am Disposition: Home, Self-Care Prognosis: Fair Rehab Potential: Fair I certify that the patient requires SNF services: No Overall status at discharge: patient is progressing back to baseline Medical - DS: Qual - VTE Deep Vein Thrombosis/Pulmonary Embolism Present on Admission: No
[2018-04-02] MEDS: TIOTROPIUM BROMIDE 18 MCG INHALANT INH SCH (10:59)
== END 2018-04-02 18:43 | disposition home or self-care (01) | DRG 917 ==
LOC: ED 17:21 → ICU 23:10
PROVIDERS: ADMIT Internal Medicine; ATTEND Internal Medicine

== ENCOUNTER 2018-04-18 18:20 | Inpatient (IN) ==
--- NOTE | 2018-04-18 18:41 | Emergency Department Note ---
Fall HPI - General Chief Complaint: Fall Stated Complaint: confusion, frequent falls Time Seen by Provider: 04/18/18 18:27 Source: patient Mode of arrival: wheelchair - History of Present Illness HPI Narrative: This is a dialysis patient living at home alone is been falling a lot recently. She was just discharged last Thursday from [facility] after an admission. At that time she was refusing to go to an assisted living or residential. The daughter has talked her into going into some sort of facility today. Other than multiple falls recently the patient does not have a lot of complaints. She did abrade her right hip today. She has had multiple UTIs in the past. She did have a brain bleed 2 weeks ago that did not require surgery. That was secondary to a fall. - Related Data Home Medications Medication Instructions Recorded Confirmed Calcitriol [Rocaltrol] 0.25 mcg PO DAILY 10/06/17 04/05/18 Isosorbide Dinitrate 20 mg PO DAILY 10/06/17 04/05/18 Mirtazapine [Remeron] 15 mg PO HS 10/06/17 04/05/18 QUEtiapine FUMARATE [Seroquel] 25 mg PO HS 10/06/17 04/05/18 Tamsulosin HCl [Flomax] 0.4 mg PO DAILY 10/06/17 04/05/18 Docusate Sodium [Colace] 100 mg PO DAILY 01/20/18 04/05/18 Baclofen [Lioresal] 10 mg PO HSP PRN 02/21/18 04/05/18 Bethanechol [Urecholine] 10 mg PO TID 02/21/18 04/05/18 Bisacodyl [Dulcolax] 5 mg PO DAILY 02/21/18 04/05/18 Hydrocodone/APAP 7.5/325Mg [[place] 1 tab PO BID 02/21/18 04/05/18 7.5-325Mg] Oseltamivir Phosphate [Tamiflu] 75 mg PO BID 02/21/18 04/05/18 Pantoprazole [Protonix] 40 mg PO HS 02/21/18 04/05/18 QUEtiapine FUMARATE [Seroquel Xr] 50 mg PO BID 02/21/18 04/05/18 Tiotropium [place] [Spiriva] 18 mcg INH DAILY 02/21/18 04/05/18 amLODIPine [Norvasc] 5 mg PO DAILY 02/21/18 04/05/18 fentaNYL [Duragesic] 25 mcg TOPICAL Q72H 02/21/18 04/05/18 hydrALAZINE [Apresoline] 25 mg PO BID 02/21/18 04/05/18 Cholecalciferol (Vitamin D3) 50,000 unit PO WEEKLY 02/27/18 04/05/18 [Vitamin D3] Promethazine [Phenergan] 25 mg PO Q6HP PRN 02/27/18 04/05/18 Previous Rx's Medication Instructions Recorded LORazepam [Ativan] 0.5 mg PO BID #15 tab 10/06/17 Allergies Allergy/AdvReac Type Severity Reaction Status Date / Time gabapentin [From Neurontin] Allergy Severe Unknown Verified 03/31/18 17:26 methocarbamol Allergy Severe Unknown Verified 03/31/18 17:26 pentazocine [From Talwin] Allergy Severe Unknown Verified 03/31/18 17:26 carbamazepine Allergy Unknown Unknown Verified 03/31/18 17:26 pregabalin [From Lyrica] Allergy Unknown Unknown Verified 03/31/18 17:26 Sulfa (Sulfonamide AdvReac Intermediate Swelling Verified 03/31/18 17:26 Antibiotics) Cyclobenzaprine AdvReac Mild Gastrointestinal Verified 03/31/18 17:26 [From Flexeril] Upset NSAIDS (Non-Steroidal AdvReac Mild Gastrointestinal Verified 03/31/18 17:26 Anti-Inflamma Upset sumatriptan [From Imitrex] AdvReac Mild Gastrointestinal Verified 03/31/18 17:26 Upset Antidepressants Allergy Unknown Unknown Uncoded 05/27/16 15:36 Review of Systems All systems ED: reviewed and negative except as stated. Fall PMH - Past Medical History Medical history: Reports: arthritis, COPD, coronary artery disease, GI bleed, hyperlipidemia, hypertension, osteoporosis, renal disease (stage 5 on dialysis) , thyroid disease, other (chronic pain) Psychiatric history: Reports: other (insomnia) DEPOSITION REPORTER history: Reports: non-contributory Family history: Reports: non-contributory - Social History smoking status: Current every day smoker Alcohol use: Reports: None Physical Exam Limitations: no limitations General appearance: alert Head: atraumatic Eye: Present: normal appearance ENT: normal exam Neck: Present: normal inspection Chest: Present: normal inspection Respiratory: Present: normal lung sounds bilaterally Cardiovascular: Present: regular rate, normal rhythm, normal heart sounds Abdominal: Present: soft. Absent: distention, tenderness Neurological: Present: alert Psychiatric: Present: normal affect, normal mood Skin: Present: warm, dry, intact Course Vital Signs Temperature 98.3 F 04/18/18 18:20 Pulse Rate 93 H 04/18/18 18:20 Respiratory Rate 12 04/18/18 18:20 Blood Pressure 164/84 04/18/18 18:20 Pulse Oximetry (%) 96 04/18/18 18:20 Temperature 98.3 F 04/18/18 18:20 Pulse Rate 92 H 04/18/18 20:01 Respiratory Rate 21 04/18/18 20:01 Blood Pressure 144/67 04/18/18 20:01 Pulse Oximetry (%) 95 04/18/18 20:01 Fall - MDM Narrative Medical decision making narrative: This patient will be admitted to the hospital for UTI and placement in a residential. Dr. Massey accepts her for admission. - Lab Data Lab results reviewed: Yes I reviewed the patient's lab results. Result diagrams: 04/18/18 18:40 04/18/18 18:40 Lab Results 04/18/18 04/18/18 04/18/18 Range/Units 18:40 18:40 18:40 WBC 9.1 (4.5-11.0) K/mcL RBC 3.84 L (4.00-5.20) M/mcL Hgb 11.3 L (12.0-15.0) g/dL Hct 35.2 L (36.0-48.0) % MCV 91.7 (80.0-100.0) fL MCH 29.4 (26.0-34.0) pg MCHC 32.1 (31.0-36.0) g/dL RDW 17.7 H (11.5-14.5) % Plt Count 322 (140-440) K/mcL MPV 7.4 (7.4-10.4) fL Gran % 77.6 (38.0-78.0) % Lymph % (Auto) 11.3 L (15.5-49.0) % [place] % (Auto) 7.7 (1.0-12.0) % Eos % (Auto) 2.4 (0.0-7.0) % Baso % (Auto) 1.0 (0.0-2.0) % Gran # 7.1 (1.8-8.0) K/mcL Lymph # (Auto) 1.0 L (1.5-4.8) K/mcL [place] # (Auto) 0.7 (0.1-0.9) K/mcL Eos # (Auto) 0.2 (0.0-0.7) K/mcL Baso # (Auto) 0.1 (0.0-0.3) K/mcL Sodium 139 (133-145) mmol/L Potassium 4.5 (3.3-5.1) mmol/L Chloride 102 (96-108) mmol/L Carbon Dioxide 22 (22-30) mmol/L Anion Gap 15.0 (8-16) BUN 41 H (8-23) mg/dl Creatinine 3.1 H (0.6-1.1) mg/dl GFR Calculation 14 Glucose 94 (70-105) mg/dL Calcium 9.9 (8.6-10.4) mg/dl Total Bilirubin 0.4 (0.0-1.0) mg/dL AST 21 (0-37) U/l ALT 12 (0-40) U/l Alkaline Phosphatase 96 (39-117) U/L Total Protein 7.3 (5.9-8.4) gm/dL Albumin 3.7 (3.2-5.2) gm/dL Globulin 3.6 (2.2-3.7) gm/dL Albumin/Globulin Ratio 1.0 (1.0-2.3) Urine Color Yellow Urine Appearance Clear Urine pH 8.0 (5.0-9.0) Ur Specific [place] 1.012 (1.000-1.035) Urine Protein 100 A (NEG) mg/dL Urine Glucose (UA) Negative (NEG) mg/dL Urine Ketones Neg (NEG) mg/dL Urine Occult Blood Neg (<0.03) mg/dL Urine Nitrate Neg (NEG) Urine Bilirubin Neg (NEG) mg/dL Urine Urobilinogen Neg (NEG) mg/dL Ur Leukocyte Esterase 75 A (NEG) /uL Urine RBC 3 H (0-1) /hpf Urine WBC 54 H (0-4) /hpf Ur Squamous Epith Cells 0 (0-4) /hpf Urine Bacteria 0 (0) /hpf Ur Culture Indicated? Yes Disposition Pt seen by FIRE PATROLLER/PA only: No Clinical Impression: Urinary tract infection Disposition: Xfer As Outpt/Obs ([facility]) Condition: Fair Referrals: Ana Gallegos ARNP [Primary Care Provider] - Time of Disposition: 20:12
[2018-04-18 19:41] LABS: Appearance,Urine CLEAR; Bacteria,Urine 0 /hpf (0); Bilirubin,Urine NEG (NEG); Color,Urine YELLOW; Glucose,Urine (UA) NEGATIVE (NEG); Leukocyte Esterase,Urine 75 /uL (NEG); Protein,Urine 100 mg/dL (NEG); Specific Gravity,Urine 1.012 (1.000-1.035); Urine Blood NEG mg/dL (<0.03); Urine RBC 3 /hpf (0-1); Urine Squamous Epithelial Cell 0 /hpf (0-4); Urine WBC 54 /hpf (0-4); Urobilinogen,Urine NEG (NEG)
[2018-04-18 19:42] LABS: Basophils # (Auto) 0.1 K/mcL (0.0-0.3); Eosinophils # (Auto) 0.2 K/mcL (0.0-0.7); Eosinophils % (Auto) 2.4 % (0.0-7.0); Granulocytes % (Auto) 77.6 % (38.0-78.0); Lymphocytes % (Auto) 11.3 % (15.5-49.0); Mean Cell Volume 91.7 fL (80.0-100.0); Mean Corpuscular HGB Conc 32.1 g/dL (31.0-36.0); Mean Corpuscular Hemoglobin 29.4 pg (26.0-34.0); Monocytes # (Auto) 0.7 K/mcL (0.1-0.9); Monocytes % (Auto) 7.7 % (1.0-12.0); Platelet Count 322 K/mcL (140-440); RBC 3.84 M/mcL (4.00-5.20); Red Cell Distribution Width 17.7 % (11.5-14.5)
[2018-04-18 19:52] LABS: ALT/SGPT 12 U/l (0-40); Albumin 3.7 gm/dL (3.2-5.2); Alkaline Phosphatase 96 U/L (39-117); Blood Urea Nitrogen 41 mg/dl (8-23)
[2018-04-18] MEDS ORDERED: LEVOFLOXACIN 500 MG/100 ML BAG IV ONE (20:05)
[2018-04-18] MEDS ORDERED: LINEZOLID 600 MG/300 ML BAG IV SCH (21:00)
[2018-04-18] MEDS ORDERED: ONDANSETRON 4 MG/2 ML VIAL IV PRN (21:39)
[2018-04-18] MEDS ORDERED: NALOXONE HCL 0.4 MG/ML VIAL IV PRN (21:39)
[2018-04-18] MEDS ORDERED: ALBUTEROL SULFATE 2.5 MG/3 ML NEBULIZER NEB PRN (21:39)
--- NOTE | 2018-04-18 21:54 | Internal Med History&Physical ---
Medical - H&P: HPI Patient information: Note initiated : 04/18/18 at 9:41 pm Service Date, if different from initiated Date: [] Patient: Alexandra Zapata 72 y/o F admitted on 04/18/18 for confusion, frequent falls. Chief Complaint: [] History of present illness: Ms. Zapata is a 72 year old Female with multiple medical issues, ESRD on HD with Dr Krause, h/o GIB, recent SDH, recurrent UTI, recurrent falls, chr opiate dependence. This patient has been admitted to the hospital multiple times, for increased frequency of falls, recently by me when she was found down, and non responsive, she responded to narcan then. It was thought at that time that her pain medications along with other meds are contributing to her falls. The patient it seems has been offered to go to SNF but has declined multiple times. She notes she was [facility] recently but hit her head and therefore does not want to go back to [facility]. According to the ER notes the patient was brought in today as she was falling and is unable to take care for self, and although she has refuse to go to the Rehab facility in the past, she is now willing to go. 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 According to the patient she is doing fine and has no complaints. She noted that her daughter has a wedding to go to and there is no one to take care of her and therefore she was brought here. After pointing out that her daughter said she was weak and was falling, she noted she was doing ok. The patient seems Aoox3, but has some lapses in memory, she does not recollect being in the [facility] for a UTI, on 04/10/18, she remembers the admission for bleedi n the brain from 04/05. The patient was also at [facility] this morning again brought there by the daughter for weakness, in the ER at [facility] this AM, it was noted that she has chr UTI, last urine culture was for enterococcus, drug resistant, she had not filled her prescription as it was not available at the pharmacy of her choice and was [facility] to [facility]. She still has not picked up the prescription as per the patient. The Chest x ray done showed worsening left lobe pna/ infiltrate, the patient was started on augmentin then. In the ER here the patient is aoox3, labs stable, cxr shows left basilar infiltrate which has been there for a while but seems to be worsening, She is a chr smoker and continues to smoke despite multiple counselling sessions. Her head CT was done, official report pending, but to my eye the SDH size is much improved fromp revious scan UA suggestive of UTI I spoke with the microbiology at [facility] who noted that the enterococcus is sensitive to zyvox, resitant to [facility] for nitrofurantoin and ampicillin. Initially it was decided to admit the patient as obs, for placement based on the history provided in [facility] ER by the patients daugther and ER provider, however on reviewing her story, and x ray showing worsening pna, will admit her as inpatient. Try to obtain more history from daugther tomorrow. Review of systems: neg except as mentioned in HPI Medical - H&P: PMH Medical history: Medical History Cough (Chronic) Urinary frequency (Chronic) Painful urination (Chronic) Neck stiffness (Chronic) Neck pain (Chronic) Joint pain (Chronic) Back pain (Chronic) Tired (Chronic) Excessive thirst (Chronic) Fever (Chronic) Headache (Chronic) Renal insufficiency (Chronic) Hydroureter, right (Chronic) Adenomatous colon polyp (Chronic) Encounter for long-term (current) use of other medications (Chronic) Senile cataracts of both eyes (Chronic) care home prescription opiate use (Chronic) Irritable bowel syndrome with diarrhea (Chronic) Chronic anemia (Acute) Nausea vomiting and diarrhea (Acute) Acute kidney injury superimposed on chronic kidney disease (Acute) Volume depletion (Acute) Hammer toe of right foot (Acute) Insomnia (Acute) Gastrointestinal hemorrhage (Chronic) Heart failure (Chronic) Irregular heart rhythm (Chronic) Urinary retention (Chronic) CKD (chronic kidney disease) (Chronic) AMIRA (acute kidney injury) (Chronic) Cholelithiasis with chronic cholecystitis (Chronic) Hx of adenomatous colonic polyps (Chronic) Weight loss, abnormal (Chronic) CAD (coronary artery disease) (Chronic) Anxiety disorder (Chronic) Back pain, chronic (Chronic) Osteoporosis (Chronic) Hypercholesterolemia (Chronic) Hypertension, essential (Chronic) Scoliosis (Chronic) Unsteady gait (Chronic) Cataract, senile (Chronic) Hydronephrosis (Chronic) Tremor (Chronic) Urinary incontinence (Chronic) Anemia (Chronic) Cold intolerance (Chronic) Opioid abuse (Chronic) Gastric ulcer (Chronic) Insomnia (Chronic) Irritable bowel syndrome (Chronic) History of abdominal x-ray series (Chronic 05/11/16) Congestive heart failure (Chronic) 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) Acute on chronic renal failure (Chronic) Chronic renal failure, stage 4 (severe) (Chronic) Normocytic anemia (Chronic) Abdominal pain (Chronic) Indigestion (Chronic) Surgical history: Past Surgical History History of back surgery (Chronic) History of cataract surgery (Chronic) History of coronary artery bypass graft (Chronic) History of hysterectomy (Chronic) Pertinent family history: Family History (Last Reviewed 04/27/17 @ 15:35 by Nora Eng RN) Unknown Heart problem Other Heart attack Hypertension Kidney stone Medical - H&P: Meds Home Medications Medication Instructions Recorded Confirmed Type Calcitriol [Rocaltrol] 0.25 mcg PO DAILY 10/06/17 04/18/18 History Isosorbide Dinitrate 20 mg PO BID 10/06/17 04/18/18 History Mirtazapine [Remeron] 15 mg PO HS 10/06/17 04/18/18 History QUEtiapine FUMARATE [Seroquel] 25 mg PO HS 10/06/17 04/18/18 History Tamsulosin HCl [Flomax] 0.4 mg PO DAILY 10/06/17 04/18/18 History Docusate Sodium [Colace] 100 mg PO DAILY 01/20/18 04/18/18 History Baclofen [Lioresal] 10 mg PO HSP PRN 02/21/18 04/18/18 History Bethanechol [Urecholine] 10 mg PO TID 02/21/18 04/18/18 History Bisacodyl [Dulcolax] 10 mg PO DAILY 02/21/18 04/18/18 History Pantoprazole [Protonix] 40 mg PO HS 02/21/18 04/18/18 History QUEtiapine FUMARATE [Seroquel Xr] 50 mg PO BID 02/21/18 04/18/18 History Tiotropium Holt [Spiriva] 18 mcg INH DAILY 02/21/18 04/18/18 History amLODIPine [Norvasc] 5 mg PO DAILY 02/21/18 04/18/18 History fentaNYL [Duragesic] 25 mcg TOPICAL Q72H 02/21/18 04/05/18 History hydrALAZINE [Apresoline] 25 mg PO BID 02/21/18 04/18/18 History Cholecalciferol (Vitamin D3) 50,000 unit PO WEEKLY 02/27/18 04/18/18 History [Vitamin D3] Amoxicillin/Potassium Clav 500 mg PO BID 04/18/18 04/18/18 History [Augmentin] Atorvastatin [Lipitor] 40 mg PO HS 04/18/18 04/18/18 History Carvedilol [Coreg] 25 mg PO BID 04/18/18 04/18/18 History LORazepam [Ativan] 0.25 mg PO BID 04/18/18 04/18/18 History Levothyroxine Sodium [Levoxyl] 25 mcg PO DAILY 04/18/18 04/18/18 History Linezolid [Zyvox] 600 mg PO BID 04/18/18 04/18/18 History Losartan [Cozaar] 100 mg PO DAILY 04/18/18 04/18/18 History Ranitidine HCl [Zantac] 150 mg PO BID 04/18/18 04/18/18 History Umeclidinium Holt [Incruse 62.5 mcg IH DAILY 04/18/18 04/18/18 History Ellipta] Allergies Allergy/AdvReac Type Severity Reaction Status Date / Time gabapentin [From Neurontin] Allergy Severe Unknown Verified 03/31/18 17:26 methocarbamol Allergy Severe Unknown Verified 03/31/18 17:26 pentazocine [From Talwin] Allergy Severe Unknown Verified 03/31/18 17:26 carbamazepine Allergy Unknown Unknown Verified 03/31/18 17:26 pregabalin [From Lyrica] Allergy Unknown Unknown Verified 03/31/18 17:26 Sulfa (Sulfonamide AdvReac Intermediate Swelling Verified 03/31/18 17:26 Antibiotics) Cyclobenzaprine AdvReac Mild Gastrointestinal Verified 03/31/18 17:26 [From Flexeril] Upset NSAIDS (Non-Steroidal AdvReac Mild Gastrointestinal Verified 03/31/18 17:26 Anti-Inflamma Upset sumatriptan [From Imitrex] AdvReac Mild Gastrointestinal Verified 03/31/18 17:26 Upset Antidepressants Allergy Unknown Unknown Uncoded 05/27/16 15:36 Medical - H&P: Exam - Constitutional Vitals: Temp Pulse Resp BP Pulse Ox 98.3 F 95 H 13 162/70 100 04/18/18 21:05 04/18/18 21:05 04/18/18 21:05 04/18/18 21:05 04/18/18 21:05 Exam: GENERAL: The patient is a malnourished but in no apparent distress. Is alert and oriented x3 VITAL SIGNS: Reviewed and as noted elsewhere. HEENT: Head is normocephalic and atraumatic. Extraocular muscles are intact. Pupils are equal, round, and reactive to light. Nares appeared normal. Mouth appears any without lesions. Mucous membranes are moist. NECK: Normal to inspection, Supple, No lymphadenopathy or thyromegaly. LUNGS: Air entry equal on both sides, no wheezing, crackles or rhonchi noted. No accessory muscles of respiration HEART: Regular rate and rhythm normal, S1 and S2 heard, no Gallop, S3 or Rub Noted, systolic murmur, Mitral region present 3-4/6 ABDOMEN: Soft, nontender, and nondistended. Positive bowel sounds. No hepatosplenomegaly was noted. scaphoid abdomen EXTREMITIES: No cyanosis, clubbing, rash, lesions or edema. NEUROLOGIC: Cranial nerves II through XII are grossly intact. Motor and Sensory System Grossly Intact PSYCHIATRIC: Normal affect, Normal Mood. Appropriate Behavior. SKIN: No ulceration or wounds noted, No jaundice, No rash noted. Medical - H&P: Reslt - Labs CBC & Chem 7: 04/18/18 18:40 04/18/18 18:40 Labs: Short CBC 04/18/18 Range/Units 18:40 WBC 9.1 (4.5-11.0) K/mcL Hgb 11.3 L (12.0-15.0) g/dL Hct 35.2 L (36.0-48.0) % Plt Count 322 (140-440) K/mcL BMP 04/18/18 18:40 Sodium 139 Potassium 4.5 Chloride 102 Carbon Dioxide 22 BUN 41 H Creatinine 3.1 H Glucose 94 Calcium 9.9 Liver Function 04/18/18 Range/Units 18:40 Total Bilirubin 0.4 (0.0-1.0) mg/dL AST 21 (0-37) U/l ALT 12 (0-40) U/l Alkaline Phosphatase 96 (39-117) U/L Albumin 3.7 (3.2-5.2) gm/dL Urine 04/18/18 Range/Units 18:40 Urine Color Yellow Urine Appearance Clear Urine pH 8.0 (5.0-9.0) Ur Specific [place] 1.012 (1.000-1.035) Urine Protein 100 A (NEG) mg/dL Urine Glucose (UA) Negative (NEG) mg/dL Medical - H&P: A/P - Narrative A/P Narrative: A/P Urinary Tract infection: with mutilpe drug resistant/ VRE enterococcus, Start on IV zyvox as per sensitivity pattern, will treat for 10 days atleast. Recurrent UTI: she has h/o same, h/o renal stones, h/o stents placement, stents were removed I believe in february. PNA/ Pulmonary infiltrate: CXR shows worsening infiltrate, on zyvox, for UTI, will add Zosyn, clinically she does not seem to have a pneumoina, brandy get procalcitonin and blood cx, Her left lung finding has been worsening over the last few weeks, I will get CT with contrast in the AM to see if there is any other underlying pathology. She will be dialysed tomorrow. ESRD on HD: HD planned by Dr krause tomorrow. Recurrent Falls: Etiology ? patient has been adamant of wanting to go home, did not wish for placement, may benefit from going to a facility which will allow her to smoke, as this seems to be her priority more than her health. Will get rehab involved. She is on psychotropic meds/ long acting narcotics, muslce relaxants which can contribute to her fall. Chr pain: on fentanyl, 25mcg, I had educated her in the past regarding not using fentanyl, but she continues to use it, I will see if we can cut down the dose to 12mcg/hr to help with pain managemetn as well as hopefully decrease any side effects. She is on 25mcg/hr. She also takes loratab, ativan, baclofen as per her med list. GIB: h./o undiagnosed GIB, hb st able for now. COPD resume home inhalers, duonebs q6hrs CAD/HTN/HLD/Hypothyroidism: stable clinically, continue home meds SDH improving on CT to my eyes, await officia read, no Neurosurgical intervention was advised DVT hep sq Diet Renal diet DNR code st atus Overall she has poor prognosis, will talk to daugther and see what the goals of care are. Social History - Social History marital status: legally occupational status: disabled - Tobacco smoking status: Current every day smoker - Alcohol alcohol intake frequency: does not drink
[2018-04-18] MEDS: QUEtiapine 25 MG TABLET PO SCH (22:10)
[2018-04-18] MEDS: PANTOPRAZOLE 40 MG TABLET PO SCH (22:10)
[2018-04-18] MEDS: ATORVASTATIN 20 MG TABLET PO SCH (22:10)
[2018-04-18] MEDS: MIRTAZAPINE 15 MG TABLET PO SCH (22:11)
[2018-04-18] MEDS: HEPARIN 5,000 UNIT/ML VIAL SQ SCH ×2 (22:11→23:05)
[2018-04-18] MEDS ORDERED: LINEZOLID 600 MG TABLET PO ONE (22:37)
[2018-04-18] MEDS: PIPERACILLIN SODIUM/TAZOBACTAM 2.25 GM in DEXTROSE 5% IN WATER 50 ML IV SCH (22:49)
[2018-04-18] MEDS: 0.9 % SODIUM CHLORIDE 10 ML SYRINGE IV SCH (22:50)
[2018-04-19] MEDS: IPRATROPIUM/ALBUTEROL 3 ML AMPUL.NEB NEB SCH ×4 (00:26→19:14)
[2018-04-19] MEDS ORDERED: IPRATROPIUM/ALBUTEROL 3 ML AMPUL.NEB NEB ONE (00:27)
[2018-04-19 05:44] LABS: Basophils # (Auto) 0.1 K/mcL (0.0-0.3); Basophils % (Auto) 0.9 % (0.0-2.0); Eosinophils # (Auto) 0.2 K/mcL (0.0-0.7); Eosinophils % (Auto) 2.4 % (0.0-7.0); Granulocytes % (Auto) 67.1 % (38.0-78.0); Lymphocytes # (Auto) 1.4 K/mcL (1.5-4.8); Lymphocytes % (Auto) 17.9 % (15.5-49.0); Mean Cell Volume 91.3 fL (80.0-100.0); Mean Corpuscular HGB Conc 32.6 g/dL (31.0-36.0); Mean Corpuscular Hemoglobin 29.8 pg (26.0-34.0); Monocytes # (Auto) 0.9 K/mcL (0.1-0.9); Monocytes % (Auto) 11.7 % (1.0-12.0); Platelet Count 230 K/mcL (140-440); RBC 3.44 M/mcL (4.00-5.20); Red Cell Distribution Width 17.7 % (11.5-14.5)
[2018-04-19] MEDS: 0.9 % SODIUM CHLORIDE 10 ML SYRINGE IV SCH ×3 (06:12→21:42)
[2018-04-19] MEDS: PIPERACILLIN SODIUM/TAZOBACTAM 2.25 GM in DEXTROSE 5% IN WATER 50 ML IV SCH ×3 (06:12→21:41)
[2018-04-19 06:26] LABS: ALT/SGPT 12 U/l (0-40); Albumin 3.2 gm/dL (3.2-5.2); Albumin/Globulin Ratio 0.9 (1.0-2.3); Alkaline Phosphatase 100 U/L (39-117); Bilirubin,Direct < 0.2 mg/dL (0.0-0.3); Blood Urea Nitrogen 48 mg/dl (8-23); Gamma Glutamyl Transpeptidase 52 U/L (5-36); Uric Acid 6.3 mg/dL (2.5-8.0)
[2018-04-19] MEDS: LEVOTHYROXINE 25 MCG TABLET PO SCH (07:22)
--- NOTE | 2018-04-19 07:59 | Cat Scan Report ---
CLINICAL INFORMATION: Trauma - fall. Follow-up small right frontal/temporal subdural hematoma. COMPARISON: 04/05/[address] TECHNIQUE: 2.5 mm helical slices were obtained in the skull base to vertex. Following reconstruction, axial reformatted images were reviewed at bone and parenchymal windows. The exam was performed using radiation dose optimization techniques including, but not limited to, automated exposure control, adjustment of the mA and/or kV according to patient size and use of iterative reconstruction technique. FINDINGS: The ventricles, sulci, fissures, and cisterns are symmetrically enlarged compatible with mild age-related atrophy. The small subacute subdural hematoma, over the right frontal lobe with temporal lobe extension, has decreased in thickness - now less than 2 mm. It is now isointense attenuation compatible with hemolysis progression. There is no mass effect. No evidence of acute rebleed. Patchy chronic ischemic changes in deep cerebral white matter are unchanged. Bone windows show no osseous abnormality IMPRESSION: Interval decrease in subacute subdural hematoma over the right frontal/temporal region - now less than 2 mm in thickness. No mass effect. No evidence of acute rebleed. Mild atrophy and chronic ischemic changes in the cerebral white matter - stable and expected for age. Interpreted and Authenticated by: Magdy Harris 04/19/18
[2018-04-19] MEDS: TIOTROPIUM BROMIDE 18 MCG INHALANT INH SCH (08:04)
[2018-04-19] MEDS: Umeclidinium Bromide [Incruse Ellipta] 62.5 MCG) INH SCH (08:04)
--- NOTE | 2018-04-19 08:15 | XRay Report ---
CLINICAL INFORMATION: Trauma COMPARISON: 04/05/2018 FINDINGS: Right IJ double-lumen catheter tip maintains in the right atrium with the tip near the tricuspid valve. The heart is mildly enlarged, but stable. Mediastinum is unremarkable. The pulmonary vessels are mildly distended but decreased from previous study. Diffuse interstitial edema has improved as well. Small right perihilar infiltrate no slight progression. IMPRESSION: Mild CHF - improved considerably from exam two weeks prior Small left perihilar infiltrate - slight progression Right IJ double-lumen catheter tip is near the right atrium. Consider withdrawing the catheter 3 cm Interpreted and Authenticated by: Magdy Harris 04/19/18
[2018-04-19] MEDS: CARVEDILOL 12.5 MG TABLET PO SCH ×2 (08:45→18:01)
[2018-04-19] MEDS: LOSARTAN 50 MG TABLET PO SCH (09:14)
[2018-04-19] MEDS: amLODIPine 5 MG TABLET PO SCH (09:14)
[2018-04-19] MEDS: BETHANECHOL 10 MG TABLET PO SCH ×3 (09:14→21:41)
[2018-04-19] MEDS: hydrALAZINE 25 MG TABLET PO SCH ×2 (09:14→21:41)
[2018-04-19] MEDS: TAMSULOSIN 0.4 MG CAPSULE PO SCH (09:14)
[2018-04-19] MEDS: ISOSORBIDE MONONITRATE 20 MG TABLET PO SCH ×2 (09:14→16:43)
--- NOTE | 2018-04-19 09:47 | Cat Scan Report ---
CLINICAL INFORMATION: Left lung infiltrate COMPARISON: Chest CT from approximately two months prior - 02/23/2018 TECHNIQUE: 0.625 mm axial slices were obtained from the lung apices through the bases without intravenous contrast. 2.5 mm Sagittal, coronal and axial reformatted images were processed and reviewed at bone, lung and soft tissue windows. 7 mm axial MIP images were also reconstructed to optimize pulmonary nodule detection.The exam was performed using radiation dose optimization techniques including, but not limited to, automated exposure control, adjustment of the mA and/or kV according to patient size and use of iterative reconstruction technique. FINDINGS: Pulmonary parenchymal windows show a moderate sized consolidated infiltrate in the anterior segment of the left upper lobe. On the previous study, there were infiltrates in both posterior lower lobes. The right lower lobe infiltrate has lately cleared there is only minimal patchy residual left lower lobe. This could represent fibrosis. Underlying moderate centrilobular emphysema changes features: elevated lung volumes, chronic bronchitis and scattered bullae in the upper lobes seen as before. The peripheral pulmonary arteries are slightly distended and there is minimal edema in the interstitial and peribronchovascular regions as a result of recent CHF - now resolved. Mediastinal windows show the right IJ double-lumen catheter tip in the right atrium - near the tricuspid valve plane. The heart is mildly enlarged and there is heavy calcific plaque in the coronary arteries. Sternotomy changes noted. Noncontrasted central pulmonary arteries are enlarged - the main pulmonary diameter is 3.4 cm. This suggests pulmonary hypertension. There are no abnormally enlarged lymph nodes in the mediastinal hilar or axillary regions. Esophagus grossly normal. Thoracic epidural catheter is in satisfactory position with the tip at approximately T8. A few old rib fractures noted IMPRESSION: 1. Moderate alveolar infiltrate in the anterior segment left upper lobe. 2. Moderate underlying centrilobular emphysema. Enlargement of the central pulmonary arteries is suggestive, but not diagnostic, of associated pulmonary hypertension 3. Slight dilatation of the peripheral pulmonary arteries and minimal residual interstitial and peribronchovascular edema compatible resolving acute CHF 4. Right IJ double-lumen catheter tip in the right atrium near the tricuspid valve plane. Suggest withdrawing the catheter 2 cm Interpreted and Authenticated by: Magdy Harris 04/19/18
--- NOTE | 2018-04-19 11:54 | Internal Med Progress Note ---
Medical - PN: Subj Patient information: Note initiated : 04/19/18 at 11:53 am Service Date, if different from initiated Date: [] Patient: Alexandra Zapata 72 y/o F admitted on 04/18/18 for Confusion, Frequent Falls/UTI. Chief Complaint: [] Interval history: Ms. Zapata is a 72 year old Female with multiple medical issues, ESRD on HD with Dr Rousseau, h/o GIB, recent SDH, recurrent UTI, recurrent falls, chr opiate dependence. This patient has been admitted to the hospital multiple times, for increased frequency of falls, recently by me when she was found down, and non responsive, she responded to narcan then. It was thought at that time that her pain medications along with other meds are contributing to her falls. The patient it seems has been offered to go to SNF but has declined multiple times. She notes she was at [facility] recently but hit her head and therefore does not want to go back to [facility]. According to the ER notes the patient was brought in today as she was falling and is unable to take care for self, and although she has refuse to go to the Rehab facility in the past, she is now willing to go. By the time of my eval the daugther had left, I tried her cellphone but she did not pickling machine operator. According to the patient she is doing fine and has no complaints. She noted that her daughter has a wedding to go to and there is no one to take care of her and therefore she was brought here. After pointing out that her daughter said she was weak and was falling, she noted she was doing ok. The patient seems Aoox3, but has some lapses in memory, she does not recollect being in the [facility] for a UTI, on 04/10/18, she remembers the admission for bleedi n the brain from 04/05. The patient was also at [facility] this morning again brought there by the daughter for weakness, in the ER at [facility] this AM, it was noted that she has chr UTI, last urine culture was for enterococcus, drug resistant, she had not filled her prescription as it was not available at the pharmacy of her choice and [facility]. She still has not picked up the prescription as per the patient. The Chest x ray done showed worsening left lobe pna/ infiltrate, the patient was started on augmentin then. In the ER here the patient is aoox3, labs stable, cxr shows left basilar infiltrate which has been there for a while but seems to be worsening, She is a chr smoker and continues to smoke despite multiple counselling sessions. Her head CT was done, official report pending, but to my eye the SDH size is much improved fromp revious scan UA suggestive of UTI I spoke with the microbiology at [facility] who noted that the enterococcus is sensitive to zyvox, resitant to Cassia bal for nitrofurantoin and ampicillin. Initially it was decided to admit the patient as obs, for placement based on the history provided in [facility] ER by the patients daugther and ER provider, however on reviewing her story, and x ray showing worsening pna, will admit her as inpatient. Try to obtain more history from darian tomorrow. 04/19 Pt seen examined, sleeping comfortably on dialysis, on asking her questions about her health, she noted she was hungry, explained that she would eat after her dailysis was done, she was upset and noted she just had dialysis yesterday and does not need it today. She did not have dialysis yesterday. The patient has poor memory and does not remmeber what she said or did, and at this time does not seem to understand her disease process. I spoke with the daugther today, who is willing to explore the option of comfort care/ palliative care at the rehab center if she qualifies Will discuss same with CAse management in AM Pertinent ROS: Denies headache, dizziness Denies chest pain, palpitations Denies cough or shortness of breath Denies abdominal pain, nausea or vomiting. - Constitutional Vitals: Vital Signs Temp Pulse Resp BP Pulse Ox 96.4 F L 93 H 18 159/87 95 04/19/18 09:00 04/19/18 11:38 04/19/18 09:20 04/19/18 11:38 04/19/18 09:20 Period Temp Pulse Resp BP Sys/Barrera Pulse Ox Last 24 Hr 96.4 F-100.2 F 72-96 12-27 144-197/62-94 92-100 Intake and Output 04/18/18 04/19/18 04/19/18 21:59 05:59 13:59 Intake Total 1350 / 1350 237 / 237 Output Total Balance 1349 / 1349 237 / 237 Weight 88 lb Intake & Output: Intake & Output 04/18/18 04/19/18 04/19/18 21:59 05:59 13:59 Intake Total 1350 / 1350 237 / 237 Output Total Balance 1349 / 1349 237 / 237 Weight 88 lb Intake: IV 150 / 150 Zosyn 2.25 gm In Dextrose 5% in 50 / 50 Water 50 ml @ 100 mls/hr IV Q8H [facility] Rx#:[id number] Oral 1200 / 1200 237 / 237 Output: # of times incontinent of urine Other: Meal [place], [place], Broth Percent of Meal Consumed 75% Feeding Ability Assist with Tray Set Up Exam: Constitutional; Afebrile, cooperative, alert, not in distress. Eyes- No icterus, , No periorbital swelling Ears- Ext ear normal, hearing normal to conversation. Neck- Midline trachea, supple Respiratory system: Air Entry equal on both sides, No crackles or wheezing, no rhonchi. CVS- Rate rhythm regular, S1,S2 heard, no gallop, no rub. Abdomen- Soft nontender abdomen, no organomegaly, no tenderness, no guarding or rigidity, PHP MYSQL WEB DEVELOPER- AOO1-2 , moving all extremities, no gross focal deficit noted. Medical - PN: Obj Da - Labs CBC & Chem 7: 04/19/18 03:30 04/19/18 03:30 Labs: Abnormal Lab Results 04/19/18 04/19/18 04/18/18 03:30 03:30 18:40 RBC 3.44 L Hgb 10.2 L Hct 31.4 L RDW 17.7 H Lymph % (Auto) Lymph # (Auto) 1.4 L BUN 48 H Creatinine 3.4 H Phosphorus 5.4 H GGT 52 H Albumin/Globulin Ratio 0.9 L Urine Protein 100 A Ur Leukocyte Esterase 75 A Urine RBC 3 H Urine WBC 54 H 04/18/18 04/18/18 18:40 18:40 RBC 3.84 L Hgb 11.3 L Hct 35.2 L RDW 17.7 H Lymph % (Auto) 11.3 L Lymph # (Auto) 1.0 L BUN 41 H Creatinine 3.1 H Phosphorus GGT Albumin/Globulin Ratio Urine Protein Ur Leukocyte Esterase Urine RBC Urine WBC Meds: Medications Albuterol Sulfate (Ventolin) 2.5 mg NEB Q2HP PRN PRN Reason: Shortness Of Breath Albuterol/Ipratropium (Duoneb) 3 ml NEB Q6HRT [facility] Last Admin: 04/19/18 07:37 Dose: 3 ml Amlodipine Besylate (Norvasc) 5 mg PO DAILY [facility] Last Admin: 04/19/18 09:14 Dose: 5 mg Atorvastatin Calcium (Lipitor) 40 mg PO HS [facility] Last Admin: 04/18/18 22:10 Dose: 40 mg Baclofen (Lioresal) 10 mg PO HSP PRN PRN Reason: MUSCLE SPASMS Bethanechol Chloride (Urecholine) 10 mg PO TID [facility] Last Admin: 04/19/18 09:14 Dose: 10 mg Bisacodyl (Dulcolax) 10 mg PO DAILY [facility] Calcitriol (Rocaltrol) 0.25 mcg PO DAILY [facility] Carvedilol (Coreg) 25 mg PO BIDCC [facility] Docusate Sodium (Colace) 100 mg PO DAILY [facility] Ergocalciferol (Drisdol) 50,000 unit PO Rolon@0900 [facility] Fentanyl (Duragesic) 12 mcg TOPICAL Q72H [facility] Hydralazine HCl (Apresoline) 25 mg PO BID [facility] Last Admin: 04/19/18 09:14 Dose: 25 mg Piperacillin Sod/Tazobactam (Sod 2.25 gm/ Dextrose) 50 mls @ 100 mls/hr IV Q8H [facility] Last Admin: 04/19/18 06:12 Dose: 100 mls/hr Isosorbide Mononitrate (Monoket) 20 mg PO BID@0800,1500 [facility] Last Admin: 04/19/18 09:14 Dose: 20 mg Levothyroxine Sodium (Synthroid) 25 mcg PO QAMAC [facility] Last Admin: 04/19/18 07:22 Dose: 25 mcg Linezolid (Zyvox) 600 mg PO Q12 [facility] Losartan Potassium (Cozaar) 100 mg PO DAILY [facility] Last Admin: 04/19/18 09:14 Dose: 100 mg Mirtazapine (Remeron) 15 mg PO HS [facility] Last Admin: 04/18/18 22:11 Dose: 15 mg Naloxone HCl (Narcan) 0.1 mg IV Q2MIN PRN PRN Reason: Opiate Reversal Quetiapine Fumarate ([Seroquel Xr] 50 Mg) 50 mg PO BID [facility] Ondansetron HCl (Zofran) 4 mg IV Q6HP PRN PRN Reason: Nausea And Vomiting Pantoprazole Sodium (Protonix) 40 mg PO [facility] Last Admin: 04/18/18 22:10 Dose: 40 mg Umeclidinium [place] [Incruse Ellipta] 62.5 Mcg) 1 dose INH DAILY [facility] Last Admin: 04/19/18 08:04 Dose: Not Given Quetiapine Fumarate (Seroquel) 25 mg PO [facility] Last Admin: 04/18/18 22:10 Dose: 25 mg Sodium Chloride (Saline Flush) 10 ml IV Q8 [facility] Last Admin: 04/19/18 06:12 Dose: 10 ml Tamsulosin HCl (Flomax) 0.4 mg PO DAILY [facility] Last Admin: 04/19/18 09:14 Dose: 0.4 mg Tiotropium [place] (Spiriva) 18 mcg INH DAILY [facility] Last Admin: 04/19/18 08:04 Dose: Not Given Medical - PN: A/P - Time Spent With Patient Total time spent is greater than 50% in coordination of care (as documented) at patient's floor/unit and/or counseling patient: - Narrative A/P Narrative: A/P 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 Recurrent UTI: she has h/o same, h/o renal stones, h/o stents placement, stents were removed I believe in february. PNA/ Pulmonary infiltrate:CT chest shows pna, no tumor, contrast not given due to lack of good access, none the less no e/o tumor, treat with zosyn for now, already on zyvox ESRD on HD: HD done today. Recurrent Falls: Etiology ?polypharmacy, poor health, and debility, pt often refusion go go to SNF d ue to desire to smoke, often time educated about alternatives for smoking which she has declined, notes all she wants to do is smoke and will not quit, Chr pain: on multiple meds, I have cut down the dose of fentanyl to 12.5mcg for now, will monitor and see GIB: h./o undiagnosed GIB, hb st able for now. COPD resume home inhalers, duonebs q6hrs CAD/HTN/HLD/Hypothyroidism: stable clinically, continue home meds SDH improved on Ct, DVT hep sq Diet Renal diet DNR code st atus Overall she has poor prognosis, given multiple admission in the hospital over the last few months, recurrent falls, non compliace with treatments, and malnutrition. I offered palliative are, which the patients daughter is open to. Medical - PN: Qual - VTE Deep Vein Thrombosis/Pulmonary Embolism Present on Admission: No
[2018-04-19] MEDS: BISACODYL 5 MG TABLET PO SCH (13:58)
[2018-04-19] MEDS: DOCUSATE SODIUM 100 MG CAPSULE PO SCH (13:58)
[2018-04-19] MEDS: LINEZOLID 600 MG TABLET PO SCH ×2 (13:59→21:41)
[2018-04-19] MEDS: CALCITRIOL 0.25 MCG CAPSULE PO SCH (14:00)
[2018-04-19] MEDS: QUETIAPINE FUMARATE 50 MG PO SCH ×2 (14:01→21:41)
[2018-04-19] MEDS: fentaNYL 12 MCG PATCH TOPICAL SCH (14:04)
[2018-04-19] MEDS: QUEtiapine 25 MG TABLET PO SCH (21:41)
[2018-04-19] MEDS: BACLOFEN 10 MG TABLET PO PRN (21:41)
[2018-04-19] MEDS: ATORVASTATIN 20 MG TABLET PO SCH (21:41)
[2018-04-19] MEDS: PANTOPRAZOLE 40 MG TABLET PO SCH (21:41)
[2018-04-19] MEDS: MIRTAZAPINE 15 MG TABLET PO SCH (21:41)
[2018-04-20] MEDS ORDERED: HYDROcodone/APAP 5/325MG TABLET PO ONE (00:39)
[2018-04-20] MEDS: HYDROcodone/APAP 5/325MG TABLET PO PRN ×2 (00:39→19:46)
[2018-04-20] MEDS: IPRATROPIUM/ALBUTEROL 3 ML AMPUL.NEB NEB SCH ×4 (00:42→19:20)
[2018-04-20 05:32] LABS: Basophils # (Auto) 0 K/mcL (0.0-0.3); Basophils % (Auto) 0.4 % (0.0-2.0); Eosinophils # (Auto) 0.2 K/mcL (0.0-0.7); Eosinophils % (Auto) 2.8 % (0.0-7.0); Granulocytes % (Auto) 67.8 % (38.0-78.0); Lymphocytes # (Auto) 1.4 K/mcL (1.5-4.8); Lymphocytes % (Auto) 18.3 % (15.5-49.0); Mean Corpuscular HGB Conc 32.7 g/dL (31.0-36.0); Mean Corpuscular Hemoglobin 30.5 pg (26.0-34.0); Monocytes # (Auto) 0.8 K/mcL (0.1-0.9); Monocytes % (Auto) 10.7 % (1.0-12.0); Platelet Count 250 K/mcL (140-440); RBC 3.18 M/mcL (4.00-5.20); Red Cell Distribution Width 18.5 % (11.5-14.5)
[2018-04-20] MEDS: 0.9 % SODIUM CHLORIDE 10 ML SYRINGE IV SCH ×3 (06:01→20:54)
[2018-04-20] MEDS: PIPERACILLIN SODIUM/TAZOBACTAM 2.25 GM in DEXTROSE 5% IN WATER 50 ML IV SCH ×3 (06:01→21:43)
[2018-04-20 06:19] LABS: ALT/SGPT 11 U/l (0-40); Albumin 2.8 gm/dL (3.2-5.2); Alkaline Phosphatase 80 U/L (39-117); Bilirubin,Direct < 0.2 mg/dL (0.0-0.3); Blood Urea Nitrogen 26 mg/dl (8-23); Gamma Glutamyl Transpeptidase 47 U/L (5-36); Uric Acid 2.8 mg/dL (2.5-8.0)
[2018-04-20] MEDS: CARVEDILOL 12.5 MG TABLET PO SCH ×2 (08:50→17:25)
[2018-04-20] MEDS: LEVOTHYROXINE 25 MCG TABLET PO SCH (08:51)
[2018-04-20] MEDS: CALCITRIOL 0.25 MCG CAPSULE PO SCH (08:52)
[2018-04-20] MEDS: amLODIPine 5 MG TABLET PO SCH (08:52)
[2018-04-20] MEDS: DOCUSATE SODIUM 100 MG CAPSULE PO SCH (08:52)
[2018-04-20] MEDS: TAMSULOSIN 0.4 MG CAPSULE PO SCH (08:53)
[2018-04-20] MEDS: hydrALAZINE 25 MG TABLET PO SCH ×2 (08:53→20:53)
[2018-04-20] MEDS: LINEZOLID 600 MG TABLET PO SCH ×2 (08:53→20:53)
[2018-04-20] MEDS: LOSARTAN 50 MG TABLET PO SCH (08:53)
[2018-04-20] MEDS: ISOSORBIDE MONONITRATE 20 MG TABLET PO SCH ×2 (10:00→17:25)
[2018-04-20] MEDS: BISACODYL 5 MG TABLET PO SCH (10:00)
[2018-04-20] MEDS: QUETIAPINE FUMARATE 50 MG PO SCH ×2 (11:00→20:52)
[2018-04-20] MEDS: Umeclidinium Bromide [Incruse Ellipta] 62.5 MCG) INH SCH (14:03)
[2018-04-20] MEDS: TIOTROPIUM BROMIDE 18 MCG INHALANT INH SCH (14:04)
[2018-04-20] MEDS: BETHANECHOL 10 MG TABLET PO SCH ×3 (14:04→20:52)
--- NOTE | 2018-04-20 14:12 | Internal Med Progress Note ---
Medical - PN: Subj Patient information: Note initiated : 04/20/18 at 2:07 pm Service Date, if different from initiated Date: [] Patient: Alexandra Zapata 72 y/o F admitted on 04/18/18 for Confusion, Frequent Falls/UTI. Chief Complaint: [] Interval history: Ms. Zapata is a 72 year old Female with multiple medical issues, ESRD on HD with Dr Rousseau, h/o GIB, recent SDH, recurrent UTI, recurrent falls, chr opiate dependence. This patient has been admitted to the hospital multiple times, for increased frequency of falls, recently by me when she was found down, and non responsive, she responded to narcan then. It was thought at that time that her pain medications along with other meds are contributing to her falls. The patient it seems has been offered to go to SNF but has declined multiple times. She notes she was at [facility] recently but hit her head and therefore does not want to go back to [facility]. According to the ER notes the patient was brought in today as she was falling and is unable to take care for self, and although she has refuse to go to the Rehab facility in the past, she is now willing to go. By the time of my eval the daugther had left, I tried her cellphone but she did not miner pick. According to the patient she is doing fine and has no complaints. She noted that her daughter has a wedding to go to and there is no one to take care of her and therefore she was brought here. After pointing out that her daughter said she was weak and was falling, she noted she was doing ok. The patient seems Aoox3, but has some lapses in memory, she does not recollect being in the [facility] for a UTI, on 04/10/18, she remembers the admission for bleedi n the brain from 04/05. The patient was also at [facility] this morning again brought there by the daughter for weakness, in the ER at [facility] this AM, it was noted that she has chr UTI, last urine culture was for enterococcus, drug resistant, she had not filled her prescription as it was not available at the pharmacy of her choice and was [facility]. She still has not picked up the prescription as per the patient. The Chest x ray done showed worsening left lobe pna/ infiltrate, the patient was started on augmentin then. In the ER here the patient is aoox3, labs stable, cxr shows left basilar infiltrate which has been there for a while but seems to be worsening, She is a chr smoker and continues to smoke despite multiple counselling sessions. Her head CT was done, official report pending, but to my eye the SDH size is much improved fromp revious scan UA suggestive of UTI I spoke with the microbiology at [facility] who noted that the enterococcus is sensitive to zyvox, resitant to Cassia bal for nitrofurantoin and ampicillin. Initially it was decided to admit the patient as obs, for placement based on the history provided in [facility] ER by the patients daugther and ER provider, however on reviewing her story, and x ray showing worsening pna, will admit her as inpatient. Try to obtain more history from daughter tomorrow. / Pt seen examined, sleeping comfortably on dialysis, on asking her questions about her health, she noted she was hungry, explained that she would eat after her dailysis was done, she was upset and noted she just had dialysis yesterday and does not need it today. She did not have dialysis yesterday. The patient has poor memory and does not remember what she said or did, and at this time does not seem to understand her disease process. I spoke with the daugther today, who is willing to explore the option of comfort care/ palliative care at the rehab center if she qualifies Will discuss same with CAse management in AM 6/5 Pt seen examined, no acute overnight issues, pt notes her pain is not well controlled, but her mental status is better, she is not found sleeping all the time. She is able to tolerate po diet well, otherwise has no cp, or sob wants to go home but is willing to go to SNF for 2 weeks, has appointment with transition social worker / Dr lynn in 2 weeks? The patient has short term memory issues, and is often confrontational with this provider, not liking the fact that we cut down on medications. She did not remember the conversation we had yesterday regarding comfort care, this AM notes not considering hospice/ palliative care yet, does not feel she is there. Explained to her that we will have to call APS should she be found in poor state again, after leaving the rehab facility. Her daugther was open to the idea of palliative care, I spoke with Dr Rousseau who too agrees that palliative care would be the best at this stage, given her over all poor health and recurrent admissions to the hospitals over the last few months. Will continue antibiotics for now. Pertinent ROS: Denies headache, dizziness Denies chest pain, palpitations Denies cough or shortness of breath Denies abdominal pain, nausea or vomiting. - Constitutional Vitals: Vital Signs Temp Pulse Resp BP Pulse Ox 98.8 F 77 16 122/87 96 04/20/18 07:04 04/20/18 07:39 04/20/18 08:00 04/20/18 07:04 04/20/18 08:00 Period Temp Pulse Resp BP Sys/Barrera Pulse Ox Last 24 Hr 96.9 F-98.8 F 68-81 16-16 108-148/49-87 95-96 Intake and Output 04/20/18 04/20/18 04/20/18 05:59 13:59 21:59 Intake Total 200 / 200 170 / 170 Output Total 426 / 426 Balance -226 / -226 169 / 169 Intake & Output: Intake & Output 04/20/18 04/20/18 04/20/18 05:59 13:59 21:59 Intake Total 200 / 200 170 / 170 Output Total 426 / 426 Balance -226 / -226 169 / 169 Intake: IV 50 / 50 50 / 50 Zosyn 2.25 gm In Dextrose 5% in 50 / 50 50 / 50 Water 50 ml @ 100 mls/hr IV Q8H [facility] Rx#:[id number] Oral 150 / 150 120 / 120 Output: Void Amount 425 / 425 # of times incontinent of urine Other: Meal Breakfast Percent of Meal Consumed 100% Feeding Ability Assist with Tray Set Up Stool Size Moderate Stool Color [place] Stool Consistency Soft # Bowel Movements 1 Exam: Constitutional; Afebrile, cooperative, alert, not in distress.think malnourished individual Eyes- No icterus, , No periorbital swelling Ears- Ext ear normal, hearing normal to conversation. Neck- Midline trachea, supple Respiratory system: Air Entry equal on both sides, No crackles or wheezing, no rhonchi. ant exam only CVS- Rate rhythm regular, S1,S2 heard, no gallop, no rub. Abdomen- Soft nontender abdomen, no organomegaly, no tenderness, no guarding or rigidity, PALEOLOGIST- AOOx2-3, moving all extremities, no gross focal deficit noted. Medical - PN: Obj Da - Labs CBC & Chem 7: 04/20/18 04:09 04/20/18 04:09 Labs: Abnormal Lab Results 04/20/18 04/20/18 04/19/18 04:09 04:09 03:30 RBC 3.18 L Hgb 9.7 L Hct 29.6 L RDW 18.5 H MPV 7.2 L Lymph % (Auto) Lymph # (Auto) 1.4 L BUN 26 H 48 H Creatinine 2.4 H 3.4 H Phosphorus 5.4 H GGT 47 H 52 H Total Protein 5.7 L Albumin 2.8 L Albumin/Globulin Ratio 0.9 L Urine Protein Ur Leukocyte Esterase Urine RBC Urine WBC 04/19/18 04/18/18 04/18/18 03:30 18:40 18:40 RBC 3.44 L Hgb 10.2 L Hct 31.4 L RDW 17.7 H MPV Lymph % (Auto) Lymph # (Auto) 1.4 L BUN 41 H Creatinine 3.1 H Phosphorus GGT Total Protein Albumin Albumin/Globulin Ratio Urine Protein 100 A Ur Leukocyte Esterase 75 A Urine RBC 3 H Urine WBC 54 H 04/18/18 18:40 RBC 3.84 L Hgb 11.3 L Hct 35.2 L RDW 17.7 H MPV Lymph % (Auto) 11.3 L Lymph # (Auto) 1.0 L BUN Creatinine Phosphorus GGT Total Protein Albumin Albumin/Globulin Ratio Urine Protein Ur Leukocyte Esterase Urine RBC Urine WBC Meds: Medications Hydrocodone Bitart/Acetaminophen ([place] 5/325mg) 1 tab PO Q6HP PRN PRN Reason: PAIN LEVEL 3-6 Last Admin: 04/20/18 00:39 Dose: 1 tab Albuterol Sulfate (Ventolin) 2.5 mg NEB Q2HP PRN PRN Reason: Shortness Of Breath Albuterol/Ipratropium (Duoneb) 3 ml NEB Q6HRT [facility] Last Admin: 04/20/18 13:22 Dose: Not Given Amlodipine Besylate (Norvasc) 5 mg PO DAILY [facility] Last Admin: 04/20/18 08:52 Dose: 5 mg Atorvastatin Calcium (Lipitor) 40 mg PO HS [facility] Last Admin: 04/19/18 21:41 Dose: 40 mg Baclofen (Lioresal) 10 mg PO HSP PRN PRN Reason: MUSCLE SPASMS Last Admin: 04/19/18 21:41 Dose: 10 mg Bethanechol Chloride (Urecholine) 10 mg PO TID [facility] Last Admin: 04/19/18 21:41 Dose: 10 mg Bisacodyl (Dulcolax) 10 mg PO DAILY [facility] Last Admin: 04/19/18 13:58 Dose: 10 mg Calcitriol (Rocaltrol) 0.25 mcg PO DAILY [facility] Last Admin: 04/20/18 08:52 Dose: 0.25 mcg Carvedilol (Coreg) 25 mg PO BIDCC [facility] Last Admin: 04/20/18 08:50 Dose: 25 mg Docusate Sodium (Colace) 100 mg PO DAILY [facility] Last Admin: 04/20/18 08:52 Dose: 100 mg Ergocalciferol (Drisdol) 50,000 unit PO Rolon@0900 [facility] Fentanyl (Duragesic) 12 mcg TOPICAL Q72H [facility] Last Admin: 04/19/18 14:04 Dose: 12 mcg Hydralazine HCl (Apresoline) 25 mg PO BID [facility] Last Admin: 04/20/18 08:53 Dose: 25 mg Piperacillin Sod/Tazobactam (Sod 2.25 gm/ Dextrose) 50 mls @ 100 mls/hr IV Q8H [facility] Last Infusion: 04/20/18 07:20 Dose: Infused Isosorbide Mononitrate (Monoket) 20 mg PO BID@0800,1500 [facility] Last Admin: 04/19/18 16:43 Dose: 20 mg Levothyroxine Sodium (Synthroid) 25 mcg PO QAMAC [facility] Last Admin: 04/20/18 08:51 Dose: 25 mcg Linezolid (Zyvox) 600 mg PO Q12 [facility] Last Admin: 04/20/18 08:53 Dose: 600 mg Losartan Potassium (Cozaar) 100 mg PO DAILY [facility] Last Admin: 04/20/18 08:53 Dose: 100 mg Mirtazapine (Remeron) 15 mg PO HS [facility] Last Admin: 04/19/18 21:41 Dose: 15 mg Naloxone HCl (Narcan) 0.1 mg IV Q2MIN PRN PRN Reason: Opiate Reversal Quetiapine Fumarate ([Seroquel Xr] 50 Mg) 50 mg PO BID [facility] Last Admin: 04/19/18 21:41 Dose: 50 mg Ondansetron HCl (Zofran) 4 mg IV Q6HP PRN PRN Reason: Nausea And Vomiting Pantoprazole Sodium (Protonix) 40 mg PO [facility] Last Admin: 04/19/18 21:41 Dose: 40 mg Umeclidinium [place] [Incruse Ellipta] 62.5 Mcg) 1 dose INH DAILY [facility] Last Admin: 04/19/18 08:04 Dose: Not Given Quetiapine Fumarate (Seroquel) 25 mg PO [facility] Last Admin: 04/19/18 21:41 Dose: 25 mg Sodium Chloride (Saline Flush) 10 ml IV Q8 [facility] Last Admin: 04/20/18 06:01 Dose: 10 ml Tamsulosin HCl (Flomax) 0.4 mg PO DAILY [facility] Last Admin: 04/20/18 08:53 Dose: 0.4 mg Tiotropium [place] (Spiriva) 18 mcg INH DAILY [facility] Last Admin: 04/19/18 08:04 Dose: Not Given Medical - PN: A/P - Time Spent With Patient Total time spent is greater than 50% in coordination of care (as documented) at patient's floor/unit and/or counseling patient: - Narrative A/P Narrative: A/P 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 to complete 10 day course. Recurrent UTI: she has h/o same, h/o renal stones, h/o stents placement, stents were removed I believe in february. PNA/ Pulmonary infiltrate:CT chest shows pna, no tumor, contrast not given due to lack of good access, none the less no e/o tumor, treat with zosyn for now, already on zyvox, anticipate total of 5-7 days of treatment. ESRD on HD: HD done today. Recurrent Falls: Etiology ?polypharmacy, poor health, and debility, pt often refusion go go to SNF d ue to desire to smoke, often time educated about alternatives for smoking which she has declined, notes all she wants to do is smoke and will not quit, Chr pain: on multiple meds, I have cut down the dose of fentanyl to 12.5mcg for now, will monitor and see, continue prn hydrocodone. GIB: h./o undiagnosed GIB, hb st able for now. COPD resume home inhalers, duonebs q6hrs CAD/HTN/HLD/Hypothyroidism: stable clinically, continue home meds SDH improved on Ct, DVT hep sq Diet Renal diet DNR code st atus Overall she has poor prognosis, given multiple admission in the hospital over the last few months, recurrent falls, non compliance and malnutrition. I offered palliative are, which the patients daughter is open to. At this time its difficult to determine the next steps. Patient it seems does not want to go to Rehab, but is talking today of going for only 2 weeks, I doubt that she will be there for even 2 weeks and will likely sign out before that. I have explained to her that APS will be have to be involved as her expectations for the medical care is not compatible with what her lifestyle choice are. I think the daughter understands this but is often helpless in the decisions the patient makes. I dont know how much the patient is able to comprehend about her medical condition and comprehends that the choices she is making are contrary to the life expectations she has. Medical - PN: Qual - VTE Deep Vein Thrombosis/Pulmonary Embolism Present on Admission: No
[2018-04-20] MEDS: MIRTAZAPINE 15 MG TABLET PO SCH (20:53)
[2018-04-20] MEDS: BACLOFEN 10 MG TABLET PO PRN (20:53)
[2018-04-20] MEDS: QUEtiapine 25 MG TABLET PO SCH (20:53)
[2018-04-20] MEDS: PANTOPRAZOLE 40 MG TABLET PO SCH (20:53)
[2018-04-20] MEDS: ATORVASTATIN 20 MG TABLET PO SCH (20:54)
[2018-04-21] MEDS: IPRATROPIUM/ALBUTEROL 3 ML AMPUL.NEB NEB SCH ×4 (03:29→18:50)
[2018-04-21] MEDS: HYDROcodone/APAP 5/325MG TABLET PO PRN ×3 (03:33→20:00)
[2018-04-21 05:41] LABS: Basophils # (Auto) 0 K/mcL (0.0-0.3); Basophils % (Auto) 0.5 % (0.0-2.0); Eosinophils # (Auto) 0.3 K/mcL (0.0-0.7); Eosinophils % (Auto) 3.4 % (0.0-7.0); Granulocytes % (Auto) 68.2 % (38.0-78.0); Lymphocytes # (Auto) 1.4 K/mcL (1.5-4.8); Lymphocytes % (Auto) 17.2 % (15.5-49.0); Mean Cell Volume 92.9 fL (80.0-100.0); Mean Corpuscular HGB Conc 32.6 g/dL (31.0-36.0); Mean Corpuscular Hemoglobin 30.3 pg (26.0-34.0); Monocytes # (Auto) 0.9 K/mcL (0.1-0.9); Monocytes % (Auto) 10.7 % (1.0-12.0); Platelet Count 237 K/mcL (140-440); RBC 3.28 M/mcL (4.00-5.20); Red Cell Distribution Width 18.3 % (11.5-14.5)
[2018-04-21] MEDS: 0.9 % SODIUM CHLORIDE 10 ML SYRINGE IV SCH ×3 (06:09→21:38)
[2018-04-21] MEDS: PIPERACILLIN SODIUM/TAZOBACTAM 2.25 GM in DEXTROSE 5% IN WATER 50 ML IV SCH ×3 (06:09→21:37)
[2018-04-21 07:05] LABS: ALT/SGPT 9 U/l (0-40); Albumin 2.8 gm/dL (3.2-5.2); Albumin/Globulin Ratio 0.9 (1.0-2.3); Alkaline Phosphatase 109 U/L (39-117); Bilirubin,Direct < 0.2 mg/dL (0.0-0.3); Blood Urea Nitrogen 44 mg/dl (8-23); Gamma Glutamyl Transpeptidase 47 U/L (5-36); Uric Acid 4.2 mg/dL (2.5-8.0)
[2018-04-21] MEDS: LEVOTHYROXINE 25 MCG TABLET PO SCH (07:30)
--- NOTE | 2018-04-21 08:13 | Nephrology Progress Note ---
Subjective Patient information: Note initiated : 04/21/18 at 8:12 am Service Date, if different from initiated Date: [] Patient: Alexandra Zapata 72 y/o F admitted on 04/18/18 for Confusion, Frequent Falls/UTI. Chief Complaint: Have a headache. Has been having frequent BMs. Objective - Vital Signs Vital signs: Vital Signs Temp Pulse Pulse Pulse Resp BP Pulse Ox 04/21/18 04:00 97.6 F 81 18 143/66 97 04/20/18 23:42 98.2 F 85 18 126/55 96 04/20/18 20:00 97.7 F 77 18 105/42 97 04/20/18 19:23 77 16 04/20/18 19:20 98 04/20/18 16:00 88 88 20 114/57 97 Intake and Output 04/20/18 04/21/18 04/21/18 21:59 05:59 13:59 Intake Total 490 / 490 500 / 500 50 / 50 Output Total Balance 489 / 489 500 / 500 50 / 50 Intake: IV 50 / 50 50 / 50 50 / 50 Zosyn 2.25 gm In Dextrose 5% in 50 / 50 50 / 50 50 / 50 Water 50 ml @ 100 mls/hr IV Q8H [facility] Rx#:[id number] Oral 440 / 440 450 / 450 Output: # of times incontinent of urine Other: Meal Dinner Percent of Meal Consumed 100% Feeding Ability Assist with Tray Set Up Stool Size Moderate Stool Color Brown Black Stool Consistency Liquid Loose # Voids 1 # Bowel Movements 1 Weight 91 lb Intake & Output: Intake & Output 04/20/18 04/21/18 04/21/18 21:59 05:59 13:59 Intake Total 490 / 490 500 / 500 50 / 50 Output Total Balance 489 / 489 500 / 500 50 / 50 Weight 91 lb Intake: IV 50 / 50 50 / 50 50 / 50 Zosyn 2.25 gm In Dextrose 5% in 50 / 50 50 / 50 50 / 50 Water 50 ml @ 100 mls/hr IV Q8H [facility] Rx#:[id number] Oral 440 / 440 450 / 450 Output: # of times incontinent of urine Other: Meal Dinner Percent of Meal Consumed 100% Feeding Ability Assist with Tray Set Up Stool Size Moderate Stool Color Brown Black Stool Consistency Liquid Loose # Voids 1 # Bowel Movements 1 - General Appearance General appearance: cachectic EENT: ATNC Neck: no JVD Cardiology: no murmurs Gastrointestinal: normoactive bowel sounds Integumentary: no rash Neurologic: no focal deficit - Lab 04/21/18 04:35 04/21/18 04:35 Most recent lab results Calcium 9.5 mg/dl (8.6-10.4) 04/21/18 04:35 Phosphorus 4.0 mg/dL (2.7-4.5) 04/21/18 04:35 Magnesium 1.9 mg/dL (1.6-2.5) 04/21/18 04:35 Assessment and Plan (1) ESRD (end stage renal disease) on dialysis Status: Acute Comment: Will dialyse her today. Electrolytes look ok. Will not remove any fluids. Anemia. Will give a dose of Aranesp.
[2018-04-21] MEDS: CARVEDILOL 12.5 MG TABLET PO SCH ×2 (09:00→17:37)
[2018-04-21] MEDS: QUETIAPINE FUMARATE 50 MG PO SCH ×2 (09:30→21:21)
[2018-04-21] MEDS: CALCITRIOL 0.25 MCG CAPSULE PO SCH (09:30)
[2018-04-21] MEDS: ISOSORBIDE MONONITRATE 20 MG TABLET PO SCH ×2 (09:35→17:39)
[2018-04-21] MEDS: LINEZOLID 600 MG TABLET PO SCH ×2 (09:35→21:21)
[2018-04-21] MEDS: hydrALAZINE 25 MG TABLET PO SCH ×2 (09:40→21:21)
[2018-04-21] MEDS: TAMSULOSIN 0.4 MG CAPSULE PO SCH (09:40)
[2018-04-21] MEDS: amLODIPine 5 MG TABLET PO SCH (09:40)
[2018-04-21] MEDS: LOSARTAN 50 MG TABLET PO SCH (09:40)
--- NOTE | 2018-04-21 09:41 | Consultation ---
DATE OF CONSULTATION: 04/20/2018 REFERRING PHYSICIAN: Abel Massey M.D. REASON FOR CONSULTATION: End-stage renal disease. HISTORY OF PRESENT ILLNESS: The patient is a 72-year-old female with history of end-stage renal disease on hemodialysis, history of GI bleed recently which the source could not be identified, history of subdural hematoma, recurrent UTIs, frequent falls, and chronic opioid dependence. She presented to the hospital when found down and unresponsive. At this time, she was brought into the hospital because she was having recurrent falls and could not take care of herself. She was in the rehab facility in the past, but she left there. She recently was in the hospital with VRE infection at [facility] for which she has been on Zyvox. At this time, she did not complain of any fever, chills or rigors. She has been taking her medications. PAST MEDICAL HISTORY: Significant for: 1. End-stage renal disease on hemodialysis. 2. Frequent urinary tract infections. 3. Irritable bowel syndrome with chronic diarrhea. 4. Chronic anemia. 5. History of irregular heartbeat. 6. History of coronary artery disease. 7. Anxiety disorder. 8. Hypertension. 9. Scoliosis. PAST SURGICAL HISTORY: 1. History of back surgery. 2. History of cataract surgery. 3. Coronary artery bypass graft. 4. Hysterectomy. FAMILY HISTORY: Heart problems and hypertension in the family. SOCIAL HISTORY: The patient lives at home. She still continues to smoke. No history of alcohol use. REVIEW OF SYSTEMS: Ten systems were reviewed as in history of present illness. CURRENT MEDICATIONS: 1. Calcitriol 0.25 mcg at the dialysis. 2. Isosorbide dinitrate 20 mg twice daily. 3. Mirtazapine 15 mg at night. 4. Seroquel 25 mg at night. 5. Tamsulosin 0.4 mg daily. 6. Baclofen 10 mg as needed. 7. Protonix 40 mg daily. 8. Seroquel XR 50 mg twice daily. 9. Amlodipine 5 mg daily. 10. Fentanyl patch 25 mcg, which has been now lowered to 12.5 mcg. 11. Hydralazine 25 mg twice daily. 12. Carvedilol 25 mg twice daily. 13. Zyvox 600 mg p.o. b.i.d. 14. Losartan 100 mg daily. PHYSICAL EXAMINATION: GENERAL: Alert, oriented x3. She is not in any distress. VITAL SIGNS: Blood pressures are 150 to 160 systolic with a diastolic in the 70s. Pulse rates have been in the 100s. Pulse oximetry is 98%. She is afebrile. HEENT: NC/AT. Right pupil is reactive to light. NECK: Supple. No jugular venous distention. No lymphadenopathy. No thyromegaly. No carotid bruits. LUNGS: Decreased air entry bilaterally. No rales or rhonchi heard. CARDIAC: S1, S2 heard. No S3, S4. No murmurs, no rubs. ABDOMEN: Soft, nontender. No organomegaly. Positive bowel sounds. No mass. No rebound. EXTREMITIES: Did not show evidence of edema and difficult to palpate dorsalis pedis and posterior tibials. No skin rash or joint swelling is noted. NEURO: Grossly intact. LABORATORY DATA: White count is 7.9 with hemoglobin of 9.7 and a platelet count of 250. Sodium 133, potassium 4.5, chloride of 98, CO2 24, BUN of 26, creatinine of 2.4 with a phosphorus of 3.6 and a calcium of 8.7. ASSESSMENT AND PLAN: 1. End-stage renal disease on hemodialysis. She will be scheduled for her regular hemodialysis tomorrow. She dialyzes for 3 hours with a potassium of 3.0. 2. Volume status appears adequate. We will not plan to take any fluid off. 3. Anemia. We will follow and give Aranesp as needed. 4. Renal bone disease. Calcium and phosphorus looks adequate. 5. ____ MARIZA:jose Job ID: [id number] Doc ID: [id number] Abel Massey MD
[2018-04-21] MEDS ORDERED: DARBEPOETIN ALFA 100 MCG/ML VIAL SQ ONE ×2 (10:00→12:00)
[2018-04-21] MEDS: BISACODYL 5 MG TABLET PO SCH (11:28)
[2018-04-21] MEDS: DOCUSATE SODIUM 100 MG CAPSULE PO SCH (11:28)
[2018-04-21] MEDS: Umeclidinium Bromide [Incruse Ellipta] 62.5 MCG) INH SCH (11:29)
[2018-04-21] MEDS: BETHANECHOL 10 MG TABLET PO SCH ×3 (11:30→21:21)
[2018-04-21] MEDS: TIOTROPIUM BROMIDE 18 MCG INHALANT INH SCH (11:30)
--- NOTE | 2018-04-21 13:04 | Internal Med Progress Note ---
Medical - PN: Subj Patient information: Note initiated : 04/21/18 at 1:00 pm Service Date, if different from initiated Date: [] Patient: Alexandra Zapata 72 y/o F admitted on 04/18/18 for Confusion, Frequent Falls/UTI. Chief Complaint: [] Interval history: Ms. Zapata is a 72 year old Female with multiple medical issues, ESRD on HD with Dr Rousseau, h/o GIB, recent SDH, recurrent UTI, recurrent falls, chr opiate dependence. This patient has been admitted to the hospital multiple times, for increased frequency of falls, recently by me when she was found down, and non responsive, she responded to narcan then. It was thought at that time that her pain medications along with other meds are contributing to her falls. The patient it seems has been offered to go to SNF but has declined multiple times. She notes she [facility] but hit her head and therefore does not want to go back to [facility]. According to the ER notes the patient was brought in today as she was falling and is unable to take care for self, and although she has refuse to go to the Rehab facility in the past, she is now willing to go. By the time of my eval the daugther had left, I tried her cellphone but she did not worm picker. According to the patient she is doing fine and has no complaints. She noted that her daughter has a wedding to go to and there is no one to take care of her and therefore she was brought here. After pointing out that her daughter said she was weak and was falling, she noted she was doing ok. The patient seems Aoox3, but has some lapses in memory, she does not recollect being in the [facility] for a UTI, on 04/10/18, she remembers the admission for bleedi n the brain from 04/05. The patient was also at [facility] this morning again brought there by the daughter for weakness, in the ER at [facility] this AM, it was noted that she has chr UTI, last urine culture was for enterococcus, drug resistant, she had not filled her prescription as it was not available at the pharmacy of her choice and was [facility]. She still has not picked up the prescription as per the patient. The Chest x ray done showed worsening left lobe pna/ infiltrate, the patient was started on augmentin then. In the ER here the patient is aoox3, labs stable, cxr shows left basilar infiltrate which has been there for a while but seems to be worsening, She is a chr smoker and continues to smoke despite multiple counselling sessions. Her head CT was done, official report pending, but to my eye the SDH size is much improved fromp revious scan UA suggestive of UTI I spoke with the microbiology at [facility] who noted that the enterococcus is sensitive to zyvox, resitant to [facility] for nitrofurantoin and ampicillin. Initially it was decided to admit the patient as obs, for placement based on the history provided in [facility] ER by the patients daugther and ER provider, however on reviewing her story, and x ray showing worsening pna, will admit her as inpatient. Try to obtain more history from daughter tomorrow. / Pt seen examined, sleeping comfortably on dialysis, on asking her questions about her health, she noted she was hungry, explained that she would eat after her dailysis was done, she was upset and noted she just had dialysis yesterday and does not need it today. She did not have dialysis yesterday. The patient has poor memory and does not remember what she said or did, and at this time does not seem to understand her disease process. I spoke with the daugther today, who is willing to explore the option of comfort care/ palliative care at the rehab center if she qualifies Will discuss same with CAse management in AM 6/5 Pt seen examined, no acute overnight issues, pt notes her pain is not well controlled, but her mental status is better, she is not found sleeping all the time. She is able to tolerate po diet well, otherwise has no cp, or sob wants to go home but is willing to go to SNF for 2 weeks, has appointment with high school social studies tutor / Dr lynn in 2 weeks? The patient has short term memory issues, and is often confrontational with this provider, not liking the fact that we cut down on medications. She did not remember the conversation we had yesterday regarding comfort care, this AM notes not considering hospice/ palliative care yet, does not feel she is there. Explained to her that we will have to call APS should she be found in poor state again, after leaving the rehab facility. Her daugther was open to the idea of palliative care, I spoke with Dr Rousseau who too agrees that palliative care would be the best at this stage, given her over all poor health and recurrent admissions to the hospitals over the last few months. Will continue antibiotics for now. 04/21 Patient seen and examined, overnight reports had some headache and had loose bowels, no liquid stools reported. Otherwise was in bed comfortable is able to tolerate all her meals well. Scheduled for dialysis today. I believe that the patient does not wish to be palliative care at this time, on talking with the case management team it also seems that the daughter also is not too interested in retrying dialysis support. We will continue with present plan of management which is treatment of underlying pneumonia as well as urinary tract infection. Pertinent ROS: overnightheadaches, no dizziness Denies chest pain, palpitations Denies cough or shortness of breath Denies abdominal pain, nausea or vomiting. - Constitutional Vitals: Vital Signs Temp Pulse Resp BP Pulse Ox 97.4 F 80 16 144/78 98 04/21/18 12:00 04/21/18 12:41 04/21/18 12:00 04/21/18 12:41 04/21/18 12:00 Period Temp Pulse Resp BP Sys/Barrera Pulse Ox Last 24 Hr 97.2 F-98.2 F 77-89 16-20 105-154/42-80 96-98 Intake and Output 04/20/18 04/21/18 04/21/18 21:59 05:59 13:59 Intake Total 490 / 490 500 / 500 290 / 290 Output Total Balance 489 / 489 500 / 500 290 / 290 Weight 91 lb Intake & Output: Intake & Output 04/20/18 04/21/18 04/21/18 21:59 05:59 13:59 Intake Total 490 / 490 500 / 500 290 / 290 Output Total Balance 489 / 489 500 / 500 290 / 290 Weight 91 lb Intake: IV 50 / 50 50 / 50 50 / 50 Zosyn 2.25 gm In Dextrose 5% in 50 / 50 50 / 50 50 / 50 Water 50 ml @ 100 mls/hr IV Q8H [facility] Rx#:[id number] Oral 440 / 440 450 / 450 240 / 240 Output: # of times incontinent of urine Other: Meal Dinner Breakfast Percent of Meal Consumed 100% 100% Feeding Ability Assist with Tray Set Up Stool Size Moderate Stool Color Brown Black Stool Consistency Liquid Loose # Voids 1 # Bowel Movements 1 Exam: Constitutional; Afebrile, cooperative, alert, not in distress. thin and frail Eyes- No icterus, , No periorbital swelling Ears- Ext ear normal, hearing normal to conversation. Neck- Midline trachea, supple Respiratory system: Air Entry equal on both sides, No crackles or wheezing, no rhonchi. CVS- Rate rhythm regular, S1,S2 heard, no gallop, no rub. Abdomen- Soft nontender abdomen, no organomegaly, no tenderness, no guarding or rigidity, SCHOOL PSYCHOLOGY PROFESSOR- AOOx3, moving all extremities, no gross focal deficit noted. Medical - PN: Obj Da - Labs CBC & Chem 7: 04/21/18 04:35 04/21/18 04:35 Labs: Abnormal Lab Results 04/21/18 04/21/18 04/20/18 04:35 04:35 04:09 RBC 3.28 L Hgb 9.9 L Hct 30.5 L RDW 18.3 H MPV Lymph % (Auto) Lymph # (Auto) 1.4 L BUN 44 H 26 H Creatinine 3.8 H 2.4 H Glucose 109 H Phosphorus GGT 47 H 47 H Total Protein 5.7 L Albumin 2.8 L 2.8 L Albumin/Globulin Ratio 0.9 L Triglycerides 164 H Urine Protein Ur Leukocyte Esterase Urine RBC Urine WBC 04/20/18 04/19/18 04/19/18 04:09 03:30 03:30 RBC 3.18 L 3.44 L Hgb 9.7 L 10.2 L Hct 29.6 L 31.4 L RDW 18.5 H 17.7 H MPV 7.2 L Lymph % (Auto) Lymph # (Auto) 1.4 L 1.4 L BUN 48 H Creatinine 3.4 H Glucose Phosphorus 5.4 H GGT 52 H Total Protein Albumin Albumin/Globulin Ratio 0.9 L Triglycerides Urine Protein Ur Leukocyte Esterase Urine RBC Urine WBC 04/18/18 04/18/18 04/18/18 18:40 18:40 18:40 RBC 3.84 L Hgb 11.3 L Hct 35.2 L RDW 17.7 H MPV Lymph % (Auto) 11.3 L Lymph # (Auto) 1.0 L BUN 41 H Creatinine 3.1 H Glucose Phosphorus GGT Total Protein Albumin Albumin/Globulin Ratio Triglycerides Urine Protein 100 A Ur Leukocyte Esterase 75 A Urine RBC 3 H Urine WBC 54 H Meds: Medications Hydrocodone Bitart/Acetaminophen ([place] 5/325mg) 1 tab PO Q6HP PRN PRN Reason: PAIN LEVEL 3-6 Last Admin: 04/21/18 11:54 Dose: 1 tab Albuterol Sulfate (Ventolin) 2.5 mg NEB Q2HP PRN PRN Reason: Shortness Of Breath Albuterol/Ipratropium (Duoneb) 3 ml NEB Q6HRT [facility] Last Admin: 04/21/18 06:55 Dose: Not Given Amlodipine Besylate (Norvasc) 5 mg PO DAILY [facility] Last Admin: 04/21/18 09:40 Dose: 5 mg Atorvastatin Calcium (Lipitor) 40 mg PO HS [facility] Last Admin: 04/20/18 20:54 Dose: 40 mg Baclofen (Lioresal) 10 mg PO HSP PRN PRN Reason: MUSCLE SPASMS Last Admin: 04/20/18 20:53 Dose: 10 mg Bethanechol Chloride (Urecholine) 10 mg PO TID [facility] Last Admin: 04/21/18 11:30 Dose: 10 mg Bisacodyl (Dulcolax) 10 mg PO DAILY [facility] Last Admin: 04/21/18 11:28 Dose: Not Given Calcitriol (Rocaltrol) 0.25 mcg PO DAILY [facility] Last Admin: 04/21/18 09:30 Dose: 0.25 mcg Carvedilol (Coreg) 25 mg PO BIDCC [facility] Last Admin: 04/21/18 09:00 Dose: 25 mg Docusate Sodium (Colace) 100 mg PO DAILY [facility] Last Admin: 04/21/18 11:28 Dose: Not Given Ergocalciferol (Drisdol) 50,000 unit PO Rolon@0900 [facility] Fentanyl (Duragesic) 12 mcg TOPICAL Q72H [facility] Last Admin: 04/19/18 14:04 Dose: 12 mcg Hydralazine HCl (Apresoline) 25 mg PO BID [facility] Last Admin: 04/21/18 09:40 Dose: 25 mg Piperacillin Sod/Tazobactam (Sod 2.25 gm/ Dextrose) 50 mls @ 100 mls/hr IV Q8H [facility] Last Infusion: 04/21/18 07:00 Dose: Infused Isosorbide Mononitrate (Monoket) 20 mg PO BID@0800,1500 [facility] Last Admin: 04/21/18 09:35 Dose: 20 mg Levothyroxine Sodium (Synthroid) 25 mcg PO QAMAC [facility] Last Admin: 04/21/18 07:30 Dose: 25 mcg Linezolid (Zyvox) 600 mg PO Q12 [facility] Last Admin: 04/21/18 09:35 Dose: 600 mg Losartan Potassium (Cozaar) 100 mg PO DAILY [facility] Last Admin: 04/21/18 09:40 Dose: 100 mg Mirtazapine (Remeron) 15 mg PO HS [facility] Last Admin: 04/20/18 20:53 Dose: 15 mg Naloxone HCl (Narcan) 0.1 mg IV Q2MIN PRN PRN Reason: Opiate Reversal Quetiapine Fumarate ([Seroquel Xr] 50 Mg) 50 mg PO BID [facility] Last Admin: 04/21/18 09:30 Dose: 50 mg Ondansetron HCl (Zofran) 4 mg IV Q6HP PRN PRN Reason: Nausea And Vomiting Pantoprazole Sodium (Protonix) 40 mg PO HS [facility] Last Admin: 04/20/18 20:53 Dose: 40 mg Umeclidinium Ingram [Incruse Ellipta] 62.5 Mcg) 1 dose INH DAILY [facility] Last Admin: 04/21/18 11:29 Dose: Not Given Quetiapine Fumarate (Seroquel) 25 mg PO HS [facility] Last Admin: 04/20/18 20:53 Dose: 25 mg Sodium Chloride (Saline Flush) 10 ml IV Q8 [facility] Last Admin: 04/21/18 06:09 Dose: 10 ml Tamsulosin HCl (Flomax) 0.4 mg PO DAILY [facility] Last Admin: 04/21/18 09:40 Dose: 0.4 mg Tiotropium Ingram (Spiriva) 18 mcg INH DAILY [facility] Last Admin: 04/21/18 11:30 Dose: Not Given Medical - PN: A/P - Time Spent With Patient Total time spent is greater than 50% in coordination of care (as documented) at patient's floor/unit and/or counseling patient: - Narrative A/P Narrative: A/P 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 to complete 10 day course. 01/23 today Recurrent UTI: she has h/o same, h/o renal stones, h/o stents placement, stents were removed I believe in february. PNA/ Pulmonary infiltrate:CT chest shows pna, no tumor, contrast not given due to lack of good access, none the less no e/o tumor, treat with zosyn for now, already on zyvox, anticipate total of 5-7 days of treatment. d3/7 today ESRD on HD: HD planned today. Recurrent Falls: Etiology ?polypharmacy, poor health, and debility, pt often refusion go go to SNF d ue to desire to smoke, often time educated about alternatives for smoking which she has declined, notes all she wants to do is smoke and will not quit, continue to work with rehab. Pt does well when she is in the hospital on the same regime of meds, Chr pain: on multiple meds, I have cut down the dose of fentanyl to 12.5mcg for now, will monitor and see, continue prn hydrocodone. pain control is reasonable for now. I would avoid high dose fentanyl. GIB: h./o undiagnosed GIB, hb st able for now. COPD resume home inhalers, duonebs q6hrs CAD/HTN/HLD/Hypothyroidism: stable clinically, continue home meds SDH improved on Ct, DVT hep sq Diet Renal diet DNR code st atus Overall she has poor prognosis, has had multiple admissions to the hospital. At this time it seems patient does not wish for palliative care will continue with present treatment anticipate discharge to rehab facility once bed available Medical - PN: Qual - VTE Deep Vein Thrombosis/Pulmonary Embolism Present on Admission: No
[2018-04-21] MEDS: BACLOFEN 10 MG TABLET PO PRN (20:00)
[2018-04-21] MEDS: ATORVASTATIN 20 MG TABLET PO SCH (21:21)
[2018-04-21] MEDS: QUEtiapine 25 MG TABLET PO SCH (21:21)
[2018-04-21] MEDS: MIRTAZAPINE 15 MG TABLET PO SCH (21:21)
[2018-04-21] MEDS: PANTOPRAZOLE 40 MG TABLET PO SCH (21:21)
[2018-04-22] MEDS: IPRATROPIUM/ALBUTEROL 3 ML AMPUL.NEB NEB SCH ×4 (00:59→19:03)
[2018-04-22] MEDS: 0.9 % SODIUM CHLORIDE 10 ML SYRINGE IV SCH ×3 (05:38→20:09)
[2018-04-22] MEDS: PIPERACILLIN SODIUM/TAZOBACTAM 2.25 GM in DEXTROSE 5% IN WATER 50 ML IV SCH ×3 (05:38→22:01)
[2018-04-22 05:42] LABS: Basophils # (Auto) 0 K/mcL (0.0-0.3); Basophils % (Auto) 0.4 % (0.0-2.0); Eosinophils # (Auto) 0.2 K/mcL (0.0-0.7); Eosinophils % (Auto) 2.8 % (0.0-7.0); Lymphocytes # (Auto) 1.5 K/mcL (1.5-4.8); Lymphocytes % (Auto) 18.5 % (15.5-49.0); Mean Corpuscular HGB Conc 32.7 g/dL (31.0-36.0); Mean Corpuscular Hemoglobin 30.5 pg (26.0-34.0); Monocytes # (Auto) 0.9 K/mcL (0.1-0.9); Monocytes % (Auto) 10.3 % (1.0-12.0); Platelet Count 287 K/mcL (140-440); RBC 3.37 M/mcL (4.00-5.20); Red Cell Distribution Width 18.4 % (11.5-14.5)
[2018-04-22 06:12] LABS: ALT/SGPT 10 U/l (0-40); Albumin 3.1 gm/dL (3.2-5.2); Alkaline Phosphatase 95 U/L (39-117); Bilirubin,Direct < 0.2 mg/dL (0.0-0.3); Blood Urea Nitrogen 39 mg/dl (8-23); Gamma Glutamyl Transpeptidase 47 U/L (5-36); Uric Acid 2.8 mg/dL (2.5-8.0)
[2018-04-22] MEDS: TAMSULOSIN 0.4 MG CAPSULE PO SCH (07:29)
[2018-04-22] MEDS: LEVOTHYROXINE 25 MCG TABLET PO SCH (07:29)
[2018-04-22] MEDS: LINEZOLID 600 MG TABLET PO SCH ×2 (07:29→20:08)
[2018-04-22] MEDS: CARVEDILOL 12.5 MG TABLET PO SCH ×2 (07:29→17:18)
[2018-04-22] MEDS: BETHANECHOL 10 MG TABLET PO SCH ×3 (08:12→20:07)
[2018-04-22] MEDS: amLODIPine 5 MG TABLET PO SCH (08:13)
[2018-04-22] MEDS: ISOSORBIDE MONONITRATE 20 MG TABLET PO SCH ×2 (08:13→15:47)
[2018-04-22] MEDS: QUETIAPINE FUMARATE 50 MG PO SCH ×2 (08:13→20:07)
[2018-04-22] MEDS: Umeclidinium Bromide [Incruse Ellipta] 62.5 MCG) INH SCH (08:14)
[2018-04-22] MEDS: CALCITRIOL 0.25 MCG CAPSULE PO SCH (08:18)
[2018-04-22] MEDS: BISACODYL 5 MG TABLET PO SCH (10:37)
[2018-04-22] MEDS: TIOTROPIUM BROMIDE 18 MCG INHALANT INH SCH (10:38)
[2018-04-22] MEDS: DOCUSATE SODIUM 100 MG CAPSULE PO SCH (10:39)
[2018-04-22] MEDS: fentaNYL 12 MCG PATCH TOPICAL SCH (10:46)
[2018-04-22] MEDS: LOSARTAN 50 MG TABLET PO SCH (10:46)
[2018-04-22] MEDS: hydrALAZINE 25 MG TABLET PO SCH ×2 (10:47→20:09)
[2018-04-22] MEDS: HYDROcodone/APAP 5/325MG TABLET PO PRN ×2 (12:22→20:08)
[2018-04-22] MEDS: PANTOPRAZOLE 40 MG TABLET PO SCH (20:08)
[2018-04-22] MEDS: MIRTAZAPINE 15 MG TABLET PO SCH (20:08)
[2018-04-22] MEDS: QUEtiapine 25 MG TABLET PO SCH (20:08)
[2018-04-22] MEDS: BACLOFEN 10 MG TABLET PO PRN (20:08)
[2018-04-22] MEDS: ATORVASTATIN 20 MG TABLET PO SCH (20:08)
[2018-04-23] MEDS: IPRATROPIUM/ALBUTEROL 3 ML AMPUL.NEB NEB SCH ×3 (00:58→13:47)
[2018-04-23] MEDS: 0.9 % SODIUM CHLORIDE 10 ML SYRINGE IV SCH ×2 (05:26→15:22)
[2018-04-23] MEDS: PIPERACILLIN SODIUM/TAZOBACTAM 2.25 GM in DEXTROSE 5% IN WATER 50 ML IV SCH ×2 (05:26→15:22)
[2018-04-23 06:52] LABS: Basophils # (Auto) 0 K/mcL (0.0-0.3); Basophils % (Auto) 0.6 % (0.0-2.0); Eosinophils # (Auto) 0.2 K/mcL (0.0-0.7); Eosinophils % (Auto) 2.8 % (0.0-7.0); Granulocytes % (Auto) 69.9 % (38.0-78.0); Lymphocytes # (Auto) 1.5 K/mcL (1.5-4.8); Lymphocytes % (Auto) 17.6 % (15.5-49.0); Mean Cell Volume 93.3 fL (80.0-100.0); Mean Corpuscular HGB Conc 32.4 g/dL (31.0-36.0); Mean Corpuscular Hemoglobin 30.2 pg (26.0-34.0); Monocytes # (Auto) 0.8 K/mcL (0.1-0.9); Monocytes % (Auto) 9.1 % (1.0-12.0); Platelet Count 272 K/mcL (140-440); RBC 3.27 M/mcL (4.00-5.20); Red Cell Distribution Width 18.2 % (11.5-14.5)
[2018-04-23 07:25] LABS: ALT/SGPT 8 U/l (0-40); Albumin 2.9 gm/dL (3.2-5.2); Alkaline Phosphatase 82 U/L (39-117); Bilirubin,Direct < 0.2 mg/dL (0.0-0.3); Blood Urea Nitrogen 49 mg/dl (8-23); Gamma Glutamyl Transpeptidase 43 U/L (5-36); Uric Acid 3.5 mg/dL (2.5-8.0)
[2018-04-23] MEDS: CARVEDILOL 12.5 MG TABLET PO SCH (07:48)
[2018-04-23] MEDS: LEVOTHYROXINE 25 MCG TABLET PO SCH (07:48)
[2018-04-23] MEDS: ISOSORBIDE MONONITRATE 20 MG TABLET PO SCH ×2 (07:48→15:23)
[2018-04-23] MEDS: DOCUSATE SODIUM 100 MG CAPSULE PO SCH (09:34)
[2018-04-23] MEDS: CALCITRIOL 0.25 MCG CAPSULE PO SCH (09:34)
[2018-04-23] MEDS: TAMSULOSIN 0.4 MG CAPSULE PO SCH (09:34)
[2018-04-23] MEDS: LINEZOLID 600 MG TABLET PO SCH (09:34)
[2018-04-23] MEDS: amLODIPine 5 MG TABLET PO SCH (09:34)
[2018-04-23] MEDS: hydrALAZINE 25 MG TABLET PO SCH (09:34)
[2018-04-23] MEDS: LOSARTAN 50 MG TABLET PO SCH (09:35)
[2018-04-23] MEDS: BISACODYL 5 MG TABLET PO SCH (09:35)
[2018-04-23] MEDS: HYDROcodone/APAP 5/325MG TABLET PO PRN (09:47)
[2018-04-23] MEDS: BETHANECHOL 10 MG TABLET PO SCH ×2 (09:48→15:24)
[2018-04-23] MEDS: TIOTROPIUM BROMIDE 18 MCG INHALANT INH SCH (09:48)
[2018-04-23] MEDS: QUETIAPINE FUMARATE 50 MG PO SCH (09:49)
[2018-04-23] MEDS: Umeclidinium Bromide [Incruse Ellipta] 62.5 MCG) INH SCH (09:50)
--- NOTE | 2018-04-23 12:01 | Discharge Summary ---
Medical - DS: Prov Patient information: Note initiated : 04/23/18 at 11:54 am Service Date, if different from initiated Date: [] Patient: Alexandra Zapata 72 y/o F admitted on 04/18/18 for Confusion, Frequent Falls/UTI. Chief Complaint: [] Date of admission: 04/18/18 21:03 Discharge date: 04/23/18 Primary care physician: Ana Gallegos Admitting clinician: Abel Massey Consults: 04/18/18 20:14 Consult to Physician [CONS] Stat Comment: Consulting Provider: Abel Massey Reason For Exam: Physician to Consult Discharging clinician: Abel Massey Medical - DS: Meds - Discharge Medications Prescriptions: fentaNYL [Fentanyl] 12.5 mcg TD Q72 #4 patch.td72 Levofloxacin [Levaquin] 500 mg PO Q48H #3 tab Linezolid [Zyvox] 600 mg PO BID #12 tab Active and Home Medications: Home Medications Calcitriol [Rocaltrol] 0.25 mcg PO DAILY 10/06/17 [History Confirmed 04/18/18 Last Taken Unknown] Isosorbide Dinitrate 20 mg PO BID 10/06/17 [History Confirmed 04/18/18 Last Taken Unknown] Mirtazapine [Remeron] 15 mg PO HS 10/06/17 [History Confirmed 04/18/18 Last Taken Unknown] QUEtiapine FUMARATE [Seroquel] 25 mg PO HS 10/06/17 [History Confirmed 04/18/18 Last Taken Unknown] Tamsulosin HCl [Flomax] 0.4 mg PO DAILY 10/06/17 [History Confirmed 04/18/18 Last Taken Unknown] Docusate Sodium [Colace] 100 mg PO DAILY 01/20/18 [History Confirmed 04/18/18 Last Taken Unknown] Baclofen [Lioresal] 10 mg PO HSP PRN 02/21/18 [History Confirmed 04/18/18 Last Taken Unknown] Bethanechol [Urecholine] 10 mg PO TID 02/21/18 [History Confirmed 04/18/18 Last Taken Unknown] Bisacodyl [Dulcolax] 10 mg PO DAILY 02/21/18 [History Confirmed 04/18/18 Last Taken Unknown] Pantoprazole [Protonix] 40 mg PO HS 02/21/18 [History Confirmed 04/18/18 Last Taken Unknown] QUEtiapine FUMARATE [Seroquel Xr] 50 mg PO BID PRN 02/21/18 [History Confirmed 04/18/18 Last Taken Unknown] Tiotropium [place] [Spiriva] 18 mcg INH DAILY 02/21/18 [History Confirmed Last Taken Unknown] amLODIPine [Norvasc] 5 mg PO DAILY 02/21/18 [History Confirmed 04/18/18 Last Taken Unknown] fentaNYL [Duragesic] 25 mcg TOPICAL Q72H 02/21/18 [History Confirmed 04/05/18 Last Taken Unknown] hydrALAZINE [Apresoline] 25 mg PO BID 02/21/18 [History Confirmed 04/18/18 Last Taken Unknown] Cholecalciferol (Vitamin D3) [Vitamin D3] 50,000 unit PO WEEKLY 02/27/18 [ History Confirmed 04/18/18 Last Taken Unknown] Amoxicillin/Potassium Clav [Augmentin] 500 mg PO BID 04/18/18 [History Confirmed 04/18/18 Last Taken Unknown] Atorvastatin [Lipitor] 40 mg PO HS 04/18/18 [History Confirmed 04/18/18 Last Taken Unknown] Carvedilol [Coreg] 25 mg PO BID 04/18/18 [History Confirmed 04/18/18 Last Taken Unknown] LORazepam [Ativan] 0.25 mg PO BID 04/18/18 [History Confirmed 04/18/18 Last Taken Unknown] Levothyroxine Sodium [Levoxyl] 25 mcg PO DAILY 04/18/18 [History Confirmed 04/18 Last Taken Unknown] Linezolid [Zyvox] 600 mg PO BID 04/18/18 [History Confirmed 04/18/18 Last Taken Unknown] Losartan [Cozaar] 100 mg PO DAILY 04/18/18 [History Confirmed 04/18/18 Last Taken Unknown] Ranitidine HCl [Zantac] 150 mg PO BID 04/18/18 [History Confirmed 04/18/18 Last Taken Unknown] Umeclidinium [place] [Incruse Ellipta] 62.5 mcg IH DAILY 04/18/18 [History Confirmed 04/18/18 Last Taken Unknown] Medical - DS: Hosp Hospital course: Ms. Zapata is a 72 year old Female with multiple medical issues, ESRD on HD with Dr Rousseau, h/o GIB, recent SDH, recurrent UTI, recurrent falls, chr opiate dependence. This patient has been admitted to the hospital multiple times, for increased frequency of falls, recently by me when she was found down, and non responsive, she responded to narcan then. It was thought at that time that her pain medications along with other meds are contributing to her falls. The patient it seems has been offered to go to SNF but has declined multiple times. She notes she was [facility] recently but hit her head and therefore does not want to go back to [facility]. According to the ER notes the patient was brought in as she was falling and is unable to take care for self, and although she has refuse to go to the Rehab facility in the past, she is now willing to go. According to the patient she is doing fine and has no complaints. The patient seems Aoox3, but has some lapses in memory, she does not recollect being in the [facility] for a UTI, on 04/10/18, she remembers the admission for bleeding the brain from 04/05. The patient was also at [facility] the day of admission here morning again brought there by the daughter for weakness, in the ER at [facility] this AM , it was noted that she has chr UTI, last urine culture was for enterococcus, drug resistant, she had not filled her prescription as it was not available at the pharmacy of her choice and was [facility]. She still has not picked up the prescription as per the patient. The Chest x ray done showed worsening left lobe pna/ infiltrate, the patient was started on augmentin then. In the ER here the patient is aoox3, labs stable, cxr shows left basilar infiltrate which has been there for a while but seems to be worsening, She is a chr smoker and continues to smoke despite multiple counselling sessions. Her head CT was done, official report pending, but to my eye the SDH size is much improved fromp revious scan UA suggestive of UTI I spoke with the microbiology at [facility] who noted that the enterococcus is sensitive to zyvox, The patient was admitted to the hospital for further management Enterococcus UTI: Treated with zyvox, plan to complete total of 10 days of treatment, she will be dischrged with additional 6 more days. I dont think the patient ever picked up the prescription for zyvox before, I will write an another prescription to ensure that they have it. PNA: worsening INfiltrate on CT and CXR, was on zosyn while in the hospital, will complete course of ABX with levofloxacin 500mg q48 hrs for another 6 days Chr pain/ Multiple falls: This seems to be a chronic issue, the patient seems to be doing well whenever she is in the hospital, but at home it seems she keeps having falls and unable to care for self. Initially plan was to admit pt to SNF, Pt was doing well with rehab, here, and SNF declined to accept her as a patient. I am concerned though with regards to her medications for anxiety and pain, especially long acting ones. In the past I had advised to stop the fentanyl which the patient has refused to do. I am again going to reccommend the same. I am writing a prescription for fentanyl at 12.5mcg dose, she takes 25mcg at home. She should not be on any ativan, or fentanyl long acting after this script is done. This script is to help her wean off the medication. I tried to callt he patients pcp to give an update, however the pcp is on vacation. The daugther has been advised to take over the medication management for this patient. Anxiety/ panic attacks: Itseems the patient has been prescribed seroquel long acting medication as a prn medication? I doublt if this is true, but I would have the patient and pcp confirm the dosing of this medication as there seems to be some confusion. ESRD: The patient had a scheduled dialysis under the supervision of Dr. Rousseau. Smoking-patient continues to smoke despite multiple efforts to advise her to quit smoking. The patient notes she has no history of cancer in the family and smoking will not affect her. I have educated this patient multiple times. Patient is adamant that she wants to smoke. Her desire to smoke and her rudeness to healthcare providers at the care home was unable to accommodate her smoking needs in a timely fashion is a reason why she is not being accepted at many facilities. I approached the patient and the daughter with regards to palliative care however they are not interested in this at this time. The patient is a very high risk for readmission Discharge diagnosis: UTI, Pneumonia, Altered Mental status. - Time Spent with Patient Total time spent providing and/or coordinating discharge services: Medical - DS: Exam - Constitutional Vitals: Vital Signs Temp Pulse Pulse Resp BP BP Pulse Ox 04/23/18 11:28 80 147/71 04/23/18 11:12 80 146/73 04/23/18 10:43 97.3 F 80 139/68 04/23/18 09:17 73 12 04/23/18 07:45 98.6 F 20 145/83 93 04/23/18 07:44 98.6 F 20 145/83 93 04/23/18 04:00 98.5 F 80 20 120/57 92 04/23/18 00:00 97.8 F 86 18 114/57 98 04/22/18 20:00 97.7 F 80 20 117/53 97 04/22/18 19:04 82 14 98 04/22/18 19:03 81 16 04/22/18 16:00 98.7 F 74 118/52 97 04/22/18 13:29 80 18 98 04/22/18 13:28 80 18 04/22/18 12:00 97.6 F 76 18 157/76 97 Intake and Output 04/22/18 04/23/18 04/23/18 21:59 05:59 13:59 Intake Total 290 / 290 50 / 50 600 / 600 Output Total Balance 289 / 289 50 / 50 600 / 600 Intake: IV 50 / 50 50 / 50 Zosyn 2.25 gm In Dextrose 5% in 50 / 50 50 / 50 Water 50 ml @ 100 mls/hr IV Q8H [facility] Rx#:[id number] Oral 240 / 240 0 / 0 600 / 600 Output: Urine/Stool Mix Other: Meal Dinner Breakfast Percent of Meal Consumed 100% 100% Feeding Ability Assist with Tray Set Up Stool Size Moderate Large Stool Color Brown Brown Stool Consistency Soft Soft Formed # Voids 1 # Bowel Movements 1 # of times incontinent of 1 Bowels Weight 96 lb Additional comments: Constitutional; Afebrile, cooperative, alert, not in distress. Eyes- No icterus, , No periorbital swelling Ears- Ext ear normal, hearing normal to conversation. Neck- Midline trachea, supple Respiratory system: Air Entry equal on both sides, No crackles or wheezing, no rhonchi. CVS- Rate rhythm regular, S1,S2 heard, no gallop, no rub. Abdomen- Soft nontender abdomen, no organomegaly, no tenderness, no guarding or rigidity, [employer]- AOOx3, moving all extremities, no gross focal deficit noted. Medical - DS: Data Labs on day of discharge: Labs from last 24 hours 04/23/18 04/23/18 04:18 04:18 WBC 8.4 RBC 3.27 L Hgb 9.9 L Hct 30.5 L MCV 93.3 MCH 30.2 MCHC 32.4 RDW 18.2 H Plt Count 272 MPV 7.7 Gran % 69.9 Lymph % (Auto) 17.6 [place] % (Auto) 9.1 Eos % (Auto) 2.8 Baso % (Auto) 0.6 Gran # 5.9 Lymph # (Auto) 1.5 [place] # (Auto) 0.8 Eos # (Auto) 0.2 Baso # (Auto) 0 Sodium 138 Potassium 5.1 Chloride 103 Carbon Dioxide 19 L Anion Gap 16.0 BUN 49 H Creatinine 2.5 H GFR Calculation 18 Glucose 90 Uric Acid 3.5 Calcium 9.6 Phosphorus 5.9 H Magnesium 1.7 Total Bilirubin < 0.2 Direct Bilirubin < 0.2 GGT 43 H AST 13 ALT 8 Alkaline Phosphatase 82 Lactate Dehydrogenase 157 Total Protein 5.9 Albumin 2.9 L Globulin 3.0 Albumin/Globulin Ratio 1.0 Triglycerides 137 Preliminary micro results at discharge 04/18/18 21:55 Blood Culture - Preliminary Blood 04/18/18 21:45 Blood Culture - Preliminary Blood Medical - DS: A/P - Patient/Caregiver Discharge Instructions Activity: increase activity as tolerated Diet: Renal Additional Instructions: Stop using Ativan for anxiety. If you have any left ,please discard the prescription I am cutting the dose of fentanyl down from 25mcg to 12.5mcg. Please stop using the fentanyl after the presciption is done. Throw away the exiting patches you have in the house. Use Tylenol / or hydrocodone as prescribed for pain management. Long acting pain medications like fentanyl are not appropriate for you given your extensive comorbidities. Take zyvox and levofloxacin as prescribed. These are antibiotics for your UTI and pneumonia Go to the ER if worsening condition, chest pain, shortness of breath, altered mental status or any other acute concern. Medication management to be done by the patients daugther Please verify the dose of seroquel from the patients PCP/ Mental health provider. I believe this medication should be prescribed on a scheduled basis, but it seems it been given as a prn. Aspiration precautions, all meals in sitting position. - Follow up Plan Follow up with: Ana Gallegos ARNP [Primary Care Provider] - Disposition: Home Health Service Prognosis: Fair Rehab Potential: Fair I certify that the patient requires SNF services: No Medical - DS: Qual - VTE Deep Vein Thrombosis/Pulmonary Embolism Present on Admission: No
--- NOTE | 2018-04-23 14:51 | Nephrology Progress Note ---
Subjective Patient information: Note initiated : 04/23/18 at 2:49 pm Service Date, if different from initiated Date: [] Patient: Alexandra Zapata 72 y/o F admitted on 04/18/18 for Confusion, Frequent Falls/UTI. Chief Complaint: Had a loose BM today. Just finished with dialysis. Objective - Vital Signs Vital signs: Vital Signs Temp Pulse Pulse Resp BP BP Pulse Ox 04/23/18 14:01 97.6 F 88 152/76 04/23/18 13:32 97.3 F 90 148/76 04/23/18 13:06 87 142/93 04/23/18 12:31 97.3 F 88 153/78 04/23/18 11:59 97.2 F 86 144/75 04/23/18 11:28 80 147/71 04/23/18 11:12 80 146/73 04/23/18 10:43 97.3 F 80 139/68 04/23/18 09:17 73 12 04/23/18 07:45 98.6 F 20 145/83 93 04/23/18 07:44 98.6 F 20 145/83 93 04/23/18 04:00 98.5 F 80 20 120/57 92 04/23/18 00:00 97.8 F 86 18 114/57 98 04/22/18 20:00 97.7 F 80 20 117/53 97 04/22/18 19:04 82 14 98 04/22/18 19:03 81 16 04/22/18 16:00 98.7 F 74 118/52 97 Intake and Output 04/23/18 04/23/18 04/23/18 05:59 13:59 21:59 Intake Total 50 / 50 600 / 600 Output Total 500 / 500 Balance 50 / 50 600 / 600 -500 / -500 Intake: IV 50 / 50 Zosyn 2.25 gm In Dextrose 5% in 50 / 50 Water 50 ml @ 100 mls/hr IV Q8H [facility] Rx#:[id number] Oral 0 / 0 600 / 600 Output: Hemodialysis UF 500 / 500 Other: Meal Breakfast Percent of Meal Consumed 100% Stool Size Large Stool Color Brown Stool Consistency Soft Formed # Voids 1 # Bowel Movements 1 # of times incontinent of 1 Bowels Intake & Output: Intake & Output 04/23/18 04/23/18 04/23/18 05:59 13:59 21:59 Intake Total 50 / 50 600 / 600 Output Total 500 / 500 Balance 50 / 50 600 / 600 -500 / -500 Intake: IV 50 / 50 Zosyn 2.25 gm In Dextrose 5% in 50 / 50 Water 50 ml @ 100 mls/hr IV Q8H [facility] Rx#:[id number] Oral 0 / 0 600 / 600 Output: Hemodialysis UF 500 / 500 Other: Meal Breakfast Percent of Meal Consumed 100% Stool Size Large Stool Color Brown Stool Consistency Soft Formed # Voids 1 # Bowel Movements 1 # of times incontinent of 1 Bowels - General Appearance General appearance: cachectic EENT: ATNC Neck: no JVD Respiratory: no kyphosis Cardiology: no murmurs Gastrointestinal: normoactive bowel sounds Neurologic: no asterixis - Lab 04/23/18 04:18 04/23/18 04:18 Most recent lab results Calcium 9.6 mg/dl (8.6-10.4) 04/23/18 04:18 Phosphorus 5.9 mg/dL (2.7-4.5) H 04/23/18 04:18 Magnesium 1.7 mg/dL (1.6-2.5) 04/23/18 04:18 Assessment and Plan (1) ESRD (end stage renal disease) on dialysis Status: Acute Comment: Had dialysis today. Electrolytes look ok. No UF. Anemia. Received Aranesp.
[2018-04-25] MEDS ORDERED: ERGOCALCIFEROL (VITAMIN D2) 50,000 UNIT CAPSULE PO SCH (09:00)
== END 2018-04-23 17:42 | disposition home health service (06) | DRG 689 ==
LOC: ED 18:20 → ICU 21:03
PROVIDERS: ADMIT Internal Medicine; ATTEND Internal Medicine